=== PATIENT | female | born 1990 | race American Indian/Alaskan Native ===

== ENCOUNTER 2016-10-21 19:51 | Inpatient (IN) | payer MEDICAID ==
[2016-10-21 19:52] VITALS: BMI 24.5
--- NOTE | 2016-10-21 21:01 | C.PDOC ---
History Of Present Illness 26 y/o female, history of sick cell disease, presents to emergency department with c/o sharp, left sided chest pain that started at 12:30 today. Patient states pain is worse with palpation and when breathing. Otherwise, denies cough , fever, trouble breathing, or abdominal pain. Time Seen by Provider: 10/21/16 20:47 Chief Complaint (Nursing): Chest Pain History Per: Patient History/Exam Limitations: no limitations Onset/Duration Of Symptoms: Hrs Current Symptoms Are (Timing): Still Present Quality: "Pain" Associated Symptoms: denies: Dyspnea, Diaphoresis Past Medical History Reviewed: Historical Data, Nursing Documentation, Vital Signs Vital Signs: Last Vital Signs Temp 98.4 F 10/21/16 20:15 Pulse 86 10/21/16 20:15 Resp 20 10/21/16 20:15 BP 115/70 10/21/16 20:15 Pulse Ox 94 L 10/21/16 22:46 - Medical History PMH: Sickle Cell Disease Family History: States: Unknown Family Hx - Social History Hx Alcohol Use: Yes Hx Substance Use: No - Immunization History Hx Tetanus Toxoid Vaccination: No Hx Influenza Vaccination: No Hx Pneumococcal Vaccination: No Review Of Systems Except As Marked, All Systems Reviewed And Found Negative. Constitutional: Negative for: Fever, Chills Cardiovascular: Negative for: Palpitations Respiratory: Negative for: Cough, Shortness of Breath, Wheezing Gastrointestinal: Negative for: Nausea, Vomiting, Abdominal Pain Musculoskeletal: Positive for: Other (left sided chest wall pain ) Skin: Negative for: Rash Physical Exam - Physical Exam Appears: Non-toxic, No Acute Distress Skin: Normal Color, Warm, Dry Head: Atraumatic, Normacephalic Oral Mucosa: Moist Chest: Symmetrical, Tenderness (left anterior lower ribs tenderness) Cardiovascular: Rhythm Regular Respiratory: Normal Breath Sounds, No Rales, No Rhonchi, No Wheezing Gastrointestinal/Abdominal: Soft, No Tenderness, No Guarding, No Rebound Back: Normal Inspection Extremity: Normal ROM, Capillary Refill (< 2 sec. ) Neurological/Psych: Oriented x3, Normal Speech ED Course And Treatment - Laboratory Results Result Diagrams: 10/21/16 21:22 10/21/16 21:12 Lab Interpretation: Abnormal (WBC 15.6, Hgb 6.0, Hct 17.8, plt 856, Retic ct 8.8 ) ECG: Interpreted By Me ECG Rhythm: Sinus Rhythm ECG Interpretation: Normal O2 Sat by Pulse Oximetry: 94 (RA) Pulse Ox Interpretation: Normal - Radiology CXR: Interpreted by Me CXR Interpretation: Yes: No Acute Disease Progress Note: EKG, CXR, bloodwork ordered. Reevaluation Time: 22:45 Reassessment Condition: Improved (Patient remains comfortable.) - Physician Consult Information Time Consulting Physician Contacted: 22:47 Physician Contacted: Melissa Reece Outcome Of Conversation: Patient to be admitted for treatment of chest pain with sickle crisis. Disposition - Disposition Disposition: HOSPITALIZED Disposition Time: 22:46 Condition: STABLE - POA Present On Arrival: None - Clinical Impression Clinical Impression: Chest pain, Sickle cell anemia with crisis - Scribe Statement The provider has reviewed the documentation as recorded by the Scriblance Trejo All medical record entries made by the Nestoriblance were at my direction and personally dictated by me. I have reviewed the chart and agree that the record accurately reflects my personal performance of the history, physical exam, medical decision making, and the department course for this patient. I have also personally directed, reviewed, and agree with the discharge instructions and disposition.
[2016-10-21 21:27] LABS: HEMATOCRIT 17.8 % (34.0-47.0); MEAN CELL VOLUME 64.9 fL (81.0-99.0); MEAN CORPUSCULAR HGB CONC 33.9 g/dL (33.0-37.0); MEAN PLATELET VOLUME 7.4 fL (7.2-11.7); PLATELET COUNT 856 K/uL (130-400); RED CELL DISTRIBUTION WIDTH 28.6 % (11.5-14.5); RETIC% 8.7 % (0.5-1.5); WHITE BLOOD COUNT 15.6 K/uL (4.8-10.8)
[2016-10-21 21:34] LABS: CHLORIDE 102 mmol/L (98-107); POTASSIUM 3.4 mmol/L (3.6-5.2); SODIUM 136 mmol/L (132-148)
[2016-10-21 21:36] LABS: ALKALINE PHOSPHATASE 52 U/L (38-126); AST/SGOT 49 U/L (14-36); BILIRUBIN,TOTAL 1.4 mg/dL (0.2-1.3); CARBON DIOXIDE 25 mmol/L (22-30); GFR AFRICAN-AMERICAN > 60
[2016-10-21 21:37] LABS: ALB/GLOB RATIO 1.1 (1.0-2.1); ALT/SGPT 28 U/L (9-52); BLOOD UREA NITROGEN 7 mg/dL (7-17); CALCIUM 8.3 mg/dl (8.6-10.4); GLUCOSE,RANDOM 85 mg/dL (65-105); TOTAL PROTEIN 7.6 g/dL (6.3-8.3)
[2016-10-21 21:46] LABS: RBC URINE 7 /hpf (0-3); URINE BACTERIA OCC (<OCC); URINE BILIRUBIN NEGATIVE (NEGATIVE); URINE COLOR Yellow (YELLOW); URINE GLUCOSE (UA) NORMAL (Normal); URINE KETONE NEGATIVE (NEGATIVE); URINE PROTEIN NEGATIVE (NEGATIVE); URINE UROBILINOGEN NORMAL mg/dL (0.2-1.0); WBC URINE 14 /hpf (0-5)
[2016-10-21 21:48] LABS: URINE BLOOD 1+ (NEGATIVE)
[2016-10-21 21:49] LABS: URINE LEUKOCYTE ESTERASE 1+ Leu/uL (Negative)
[2016-10-21] MEDS ORDERED: Iodixanol 320 MG/ML 100 ML BOTTLE IV ONE (21:55)
[2016-10-21 22:29] LABS: LYMPH # 7.3 K/uL (1.0-4.3); NRBC % 0.5 % (0.0-2.0)
[2016-10-21 22:30] LABS: BASO # 0.2 K/uL (0.0-0.2); EOS # 1.1 K/uL (0.0-0.7); MONO # 1.4 K/uL (0.0-0.8)
[2016-10-21 22:31] LABS: BASOPHIL 1 % (0-2); EOSINOPHIL 7 % (0-4); NEUTROPHIL 35 % (50-75); TOTAL CELLS COUNTED 100
[2016-10-21 22:34] LABS: ACANTHOCYTES SLIGHT; LARGE PLATELETS PRESENT
--- NOTE | 2016-10-21 23:27 | CT ---
EXAM: CT Angiography Chest With Intravenous Contrast CLINICAL HISTORY: 26 years old, female; Pain; Chest pain; Left-sided chest pain TECHNIQUE: Axial computed tomographic angiography images of the chest with intravenous contrast using pulmonary embolism protocol. This CT exam was performed using one or more of the following dose reduction techniques: automated exposure control, adjustment of the mA and/or kV according to patient size, and/or use of iterative reconstruction technique. MIP reconstructed images were created and reviewed. Coronal and sagittal reformatted images were created and reviewed. CONTRAST: 100 mL of [id number] administered intravenously. EXAM DATE/TIME: Exam ordered 10/21/2016 9:31 PM COMPARISON: No relevant prior studies available. FINDINGS: Pulmonary arteries: No pulmonary embolism is seen to the level of the lobar pulmonary arterial branches bilaterally. [id number] and im65, se602 sagittal im 69 in the left lower lobe, there are subsegmental defects in the left lower lobe pulmonary arteries which are not favored to represent acute pulmonary emboli, although that is not absolutely excluded, chronic embolus possible, in addition noting a very small if any clot burden The heterogeneous or decreased density of some other pulmonary arterial branches may reflect inadequate enhancement, or motion, flow, or partial voluming artifact rather than small peripheral pulmonary emboli. Aorta: No acute findings. No thoracic aortic aneurysm. Lungs: Unremarkable. No mass. No consolidation. Pleural space: Unremarkable. No significant effusion. No pneumothorax. Heart: Heart is mildly prominent for age. Clinical correlation. No prior are available. No significant pericardial effusion. No evidence of RV dysfunction. Mediastinum: Air in the esophagus in keeping with reflux. Small hiatus hernia. There is prominent soft tissue in the anterior mediastinum, this may be normal for this young patient. There is air in the esophagus suggesting reflux. Bones/joints: No acute fracture. No dislocation. Soft tissues: Unremarkable. Lymph nodes: There are multiple bilateral axillary nodes. One of these in the left axilla and series 3 image 23 has a rounded morphology. No mediastinal adenopathy is identified. IMPRESSION: Peripheral subsegmental defects, in the left lower lobe. These may represent very small and peripheral acute vs chronic emboli. Mildly prominent cardiac silhouette noting young age of patient. Please correlate clinically. Prominent soft tissue in the anterior mediastinum which may represent normal thymus in this young patient. Fluid in a mildly patulous esophagus, clinical correlation. If there are prior, please compare on site. No previous are available.
--- NOTE | 2016-10-22 08:07 | RAD ---
HISTORY: SOB COMPARISON: No prior. TECHNIQUE: Chest PA and lateral FINDINGS: LUNGS: No active pulmonary disease. PLEURA: No significant pleural effusion identified. No pneumothorax apparent. CARDIOVASCULAR: Normal. OSSEOUS STRUCTURES: No significant abnormalities. VISUALIZED UPPER ABDOMEN: Normal. OTHER FINDINGS: None. IMPRESSION: No active disease.
--- NOTE | 2016-10-23 10:00 | PN ---
DATE: 10/23/2016 The patient is a 26-year-old female who was admitted through the Emergency Room with generalized weak ness, fatigue and pain. The patient has reported that she has been having a sickle cell disease for a long time, which was diagnosed in [place]. She moved to [facility] when she was 13 y ears old. She does not follow up with any particular regular medical doctor because until now, she d id not have health insurance. The patient was admitted with fatigue, generalized pain and weakness and was found to have hemoglobin of 6 grams and MCV of 64. Her WBC count was 15.6 and her platelet count was 856. The patient has b een treated aggressively with IV fluids and supportive care and also has been receiving B12 injection s and folic acid. The patient is generally well and clinically is improving. The patient denies any nausea, vomiting, abdominal pain or fever. The patient denies any chest pain, shortness of breath or palpitation. The patient denies any headache or back pain. REVIEW OF SYSTEMS: Unremarkable unless stated above. Her pain is getting better with the pain medic ations. PHYSICAL EXAMINATION: GENERAL: The patient is alert, awake, oriented. VITAL SIGNS: Afebrile, pulse is 78 per minute, respirations 16 per minute. HEENT: Mild icterus present. Otherwise, unremarkable. NECK: Supple. No adenopathy. No JVD. CHEST: Bilateral air . No rales or rhonchi. CARDIOLOGY: S1, S2 normal. No murmur. ABDOMEN: Soft, nontender. Bowel sounds present. No palpable hepatosplenomegaly. EXTREMITIES: No clubbing, no cyanosis, no pedal edema. NEUROLOGIC: Alert, awake, oriented, nonfocal. ASSESSMENT AND PLAN: The patient is a 26-year-old female who reports that she has sickle cell anemia and her hemoglobin around 7. The patient was admitted to Dr. Reece's service with pain, gene ralized weakness and fatigue, and was found to have hemoglobin of 6 grams with low MCV. The patient is being aggressively treated with IV fluids, pain control management, B12 and folic acid. I had a d etailed discussion with the patient and Dr. Reece about treatment and followup plans. The patient h as symptomatic anemia and may be helped with packed red blood transfusions. I also suggest that carin ent get iron, TIBC, ferritin, hemoglobin electrophoresis. I also recommended that the patient be kevin sely followed up as outpatient to have routine vaccinations and health maintenance be done as an outp atient. The patient is in agreement with Dr. Reece to have the patient's blood transfusion an d that will be followed up as outpatient. Eugene Lofton MD cc: [phone] TT: 10/23/2016 10:00:05 Confirmation # [id number] Dictation # [id number]
[2016-10-23 12:30] LABS: HEMATOCRIT 17.6 % (34.0-47.0); MEAN CELL VOLUME 65.4 fL (81.0-99.0); MEAN CORPUSCULAR HEMOGLOBIN 22.5 pg (27.0-31.0); MEAN CORPUSCULAR HGB CONC 34.4 g/dL (33.0-37.0); MEAN PLATELET VOLUME 7.6 fL (7.2-11.7); RED CELL DISTRIBUTION WIDTH 28.3 % (11.5-14.5); WHITE BLOOD COUNT 16.4 K/uL (4.8-10.8)
[2016-10-23 12:56] LABS: CHLORIDE 101 mmol/L (98-107)
[2016-10-23 12:57] LABS: POTASSIUM 3.6 mmol/L (3.6-5.2); SODIUM 136 mmol/L (132-148)
[2016-10-23 12:58] LABS: IRON 43 ug/dL (37-170)
[2016-10-23 12:59] LABS: ALB/GLOB RATIO 1.1 (1.0-2.1); AST/SGOT 70 U/L (14-36); BILIRUBIN,TOTAL 1.3 mg/dL (0.2-1.3); BLOOD UREA NITROGEN 6 mg/dL (7-17); CARBON DIOXIDE 25 mmol/L (22-30); GFR AFRICAN-AMERICAN > 60; TOTAL PROTEIN 7.7 g/dL (6.3-8.3)
[2016-10-23 13:00] LABS: ALKALINE PHOSPHATASE 56 U/L (38-126); ALT/SGPT 43 U/L (9-52); CALCIUM 8.4 mg/dl (8.6-10.4); GLUCOSE,RANDOM 103 mg/dL (65-105)
[2016-10-23] MEDS: Sodium Chloride 0.9% 1,000 ML IV SCH ×2 (14:00→18:35)
[2016-10-23 14:46] VITALS: RESP 20
--- NOTE | 2016-10-23 18:52 | CP.PCM.PN ---
Subjective - Date & Time of Evaluation Date of Evaluation: 10/23/16 Time of Evaluation: 18:48 - Subjective Subjective: Chest pain have improved and has blood transfusion. Objective - Vital Signs/Intake and Output Vital Signs (last 24 hours): Temp Pulse Resp BP Pulse Ox 98.3 F 80 20 108/64 99 10/23/16 18:00 10/23/16 18:00 10/23/16 18:00 10/23/16 18:00 10/23/16 15:15 Intake and Output: 10/23/16 10/23/16 06:59 18:59 Intake Total 775 Balance 775 - Medications Medications: Current Medications Aspirin (Ecotrin) 81 mg PO DAILY [facility] Last Admin: 10/23/16 10:19 Dose: 81 mg Cyanocobalamin (Vitamin B12 1000 Mcg/Ml Inj) 1,000 mcg IM DAILY [facility] Stop: 10/26/16 10:01 Last Admin: 10/23/16 10:20 Dose: 1,000 mcg Ferrous Sulfate (Feosol) 325 mg PO DAILY [facility] Last Admin: 10/23/16 10:20 Dose: 325 mg Folic Acid (Folic Acid) 1 mg PO DAILY [facility] Last Admin: 10/23/16 10:19 Dose: 1 mg Sodium Chloride (Sodium Chloride 0.9%) 1,000 mls @ 80 mls/hr IV .[id number] [facility] Last Admin: 10/23/16 18:35 Dose: 80 mls/hr Montelukast Sodium (Singulair) 10 mg PO HS [facility] Pneumococcal Polyvalent Vaccine (Pneumovax 23 Vaccine) 0.5 ml IM .ONCE ONE Stop: 10/25/16 14:01 Tramadol HCl (Ultram) 50 mg PO TID PRN - Labs Labs: 10/23/16 12:00 10/23/16 12:00 - Head Exam Head Exam: NORMOCEPHALIC - Neck Exam Neck Exam: Normal Inspection - Respiratory Exam Respiratory Exam: NORMAL BREATHING PATTERN - Cardiovascular Exam Cardiovascular Exam: REGULAR RHYTHM - Extremities Exam Extremities Exam: Normal Capillary Refill, Normal Inspection - Neurological Exam Neurological Exam: Oriented x3 Assessment and Plan (1) Chest pain Assessment & Plan: Chest pain secondary to sickle cell crisis which is getting better. Maintain adequate H&H. Analgesic on PRN basis. No cardiac work-up at this time. Status: Acute
[2016-10-24] MEDS: Sodium Chloride 0.9% 1,000 ML IV SCH ×3 (01:33→14:42)
[2016-10-24 03:38] LABS: HEMATOCRIT 18.1 % (35.0-45.0); RDW 28.1 % (11.0-15.0)
[2016-10-24 11:39] LABS: EOS # 0.6 K/uL (0.0-0.7)
[2016-10-24 11:48] LABS: BASO # 0.2 K/uL (0.0-0.2); BASO % 1.6 % (0.0-2.0); EOS % 5.6 % (0.0-4.0); LYMPH # 5.7 K/uL (1.0-4.3); LYMPH % 51.7 % (20.0-40.0); MEAN CORPUSCULAR HEMOGLOBIN 23.7 pg (27.0-31.0); MEAN CORPUSCULAR HGB CONC 34.8 g/dL (33.0-37.0); MONO # 0.5 K/uL (0.0-0.8); MONO % 4.9 % (0.0-10.0); NRBC % 0.4 % (0.0-2.0); RED CELL DISTRIBUTION WIDTH 29.7 % (11.5-14.5); WHITE BLOOD COUNT 11.1 K/uL (4.8-10.8)
[2016-10-24 12:33] LABS: MEAN CELL VOLUME 68.3 fL (81.0-99.0)
[2016-10-24 16:21] VITALS: BP 117/61; PULSE 80; TEMP 99.1; O2SAT 97
[2016-10-25] MEDS ORDERED: Pneumococcal 23-Valent Vaccine IM ONE (14:00)
--- NOTE | 2016-10-25 15:31 | CARD ---
APPROVED REPORT EKG Measurement Heart [id number] <Conclusion> Normal sinus rhythm Normal ECG
[2016-10-26 17:37] LABS: HEMOGLOBIN F 2.9 Percent (<2.0)
--- NOTE | 2017-01-06 12:15 | DS ---
CHIEF COMPLAINT: Pain in the left side of the chest. HISTORY OF PRESENT ILLNESS: The patient is a 26-year-old female with history of sickle cell disease, came to the Emergency Room of [facility] with complaining of sharp pain and especially left-sided that started the day of admission. The patient states pain in worst was palpation and when breathing. No nausea, vomiting, or diarrhea. No fever, no chills. No headache, no dizziness. Was still present in the ER. Denies dyspnea and diaphoresis. She got treatment. The patient improved, discharged home on 10/24/2016, follow up with primary care physician and accounts receivable administrator. PAST MEDICAL HISTORY: Sickle cell disease. FAMILY HISTORY: Father and mother noncontributory. HABITS: Smoking denied. Alcohol yes. Substance abuse, as per patient. ALLERGIES: The patient is not allergic to any medications. HOME MEDICATIONS: Reviewed by me. REVIEW OF SYSTEMS: The patient seen and examined on the bedside on 10/23/2016. Pain is better. No nausea, vomiting, or diarrhea. No hematuria or hematochezia. No swelling of the leg. No chest pain or palpitation. A CAT scan of the chest is done and reviewed by me. The patient has blood transfusion, tolerated the procedure very well. PHYSICAL EXAMINATION: VITAL SIGNS: Temperature 98.3, pulse 80, respiratory rate 20, blood pressure 108/50, pulse oximetry 99. HEAD: Normocephalic, atraumatic. EYES: PERRLA. Extraocular muscles intact. Conjunctivae clear. Nose patent. Mucous membranes moist. NECK: Supple. No carotid bruit. No JVD or thyromegaly. CHEST: Bilaterally symmetrical. HEART: S1, S2 positive. LUNGS: Clear to auscultation. ABDOMEN: Soft. Bowel sounds present. No organomegaly. EXTREMITIES: No edema, no cyanosis. NEUROLOGIC: The patient is awake, alert, moving all 4 extremities. No focal deficits. MEDICATIONS: Ecotrin, vitamin B12, iron, folic acid, she got IV fluid, Singulair, got Pneumovax, tramadol. LABORATORY DATA: White blood cells is noted, hemoglobin on admission was 6.1, hematocrit 17.platelets , Sodium and potassium noted , BUN 6, creatinine 0.4. On admission, hemoglobin was 6, after given blood transfusion it went up to 8. ASSESSMENT AND PLAN: The patient is a 26-year-old lady with history of sickle cell disease, came in [facility] with chest pain secondary to sickle cell crises which she got better. Sickle cell anemia, hemoglobin was very low, after packed RBC, hemoglobin increased. Got analgesia, IV fluid on p.r.n. basis. Seen by last marker, Dr. Max Erickson and the accounts receivable administrator, Dr. Eugene Lofton. The patient was very fatigued and tired, improved. folic acid and iron. Discussion done with Dr. Lofton length of time. The patient had symptomatic anemia, helped with packed RBC transfusion. Labs done for anemia workup. Discharged home to be followed up with primary care physician and accounts receivable administrator also. Education done. Prescription of medications given. Seen by last marker and accounts receivable administrator. We will follow up. CHRISTOPHER
== END 2016-10-24 17:10 | disposition home or self-care (01) | DRG 395 ==
LOC: C.ER 19:51 → C.9E 22:52 → C.6T 23:17
PROVIDERS: ADMIT Internal Medicine; ATTEND Internal Medicine
PROC: 30233N1 Transfusion of Nonautologous Red Blood Cells into Peripheral Vein, Percutaneous Approach (ICD-10-PCS; principal; 2016-10-23)
DX: D57.00 Hb-SS disease with crisis, unspecified (principal); R07.89 Other chest pain

== ENCOUNTER 2016-11-01 21:36 | Inpatient (IN) | payer MEDICAID ==
[2016-11-01 21:36] VITALS: BMI 24.5
[2016-11-01] MEDS ORDERED: Sodium Chloride 0.9% 2,000 ML IV ONE (22:59)
--- NOTE | 2016-11-01 22:59 | C.PDOC ---
History Of Present Illness A 26 y/o female presents to the ER c/o recurring back and bilateral leg pain for a while now. Pt notes that she was seen 2 weeks prior at [facility] [place] [facility] for sickle cell crisis for a Hb of 6. Pt notes taking Motrin and Aleve with no relief. Pt is speaking full sentences but denies fever, chills, nausea, vomiting , dysuria, hematuria, trauma to the area, weakness or numbness, or any other complaints. Time Seen by Provider: 11/01/16 22:59 Chief Complaint (Nursing): Back Pain History Per: Patient History/Exam Limitations: no limitations Onset/Duration Of Symptoms: Days, Other (Recurring) Current Symptoms Are (Timing): Still Present Quality Of Discomfort: Dull, Aching Severity: Moderate Pain Scale Rating Of: 4 Previous Symptoms: Back Pain Associated Symptoms: None Exacerbating Factor(s): Nothing Recent travel outside of the [place]: No Additional History Per: Patient Past Medical History Reviewed: Historical Data, Nursing Documentation, Vital Signs Vital Signs: Last Vital Signs Temp 98.1 F 11/01/16 21:45 Pulse 105 H 11/01/16 21:45 Resp 18 11/01/16 21:45 BP 110/71 11/01/16 21:45 Pulse Ox 96 11/01/16 23:25 - Medical History PMH: Sickle Cell Disease Denies: Chronic Kidney Disease - [facility] Procedures TRANSFUSE NONAUT RED BLOOD CELLS IN PERIPH VEIN, PERC (10/21/16) Family History: States: No Known Family Hx - Social History Hx Alcohol Use: No Hx Substance Use: No - Immunization History Hx Tetanus Toxoid Vaccination: No Hx Influenza Vaccination: No Hx Pneumococcal Vaccination: No Review Of Systems Constitutional: Negative for: Fever, Chills, Other (Trauma) Eyes: Negative for: Redness Cardiovascular: Negative for: Chest Pain Respiratory: Negative for: Shortness of Breath Gastrointestinal: Negative for: Nausea, Vomiting Genitourinary: Negative for: Dysuria, Hematuria Musculoskeletal: Positive for: Back Pain, Leg Pain Skin: Negative for: Rash, Lesions, Jaundice, Bruising Neurological: Positive for: Other (Speaking in full sentences). Negative for: Weakness, Numbness Psych: Negative for: Anxiety Physical Exam - Physical Exam Appears: Non-toxic (moderate distress) Skin: Warm, Dry Head: Normacephalic Eye(s): bilateral: Normal Inspection, PERRL, EOMI Oral Mucosa: Moist Neck: Trachea Midline, Supple Chest: Symmetrical Cardiovascular: Rhythm Regular Respiratory: No Rales, No Rhonchi, No Wheezing Gastrointestinal/Abdominal: Soft, No Tenderness, No Distention, No Rebound Back: Other (Back pain) Extremity: Normal ROM, Capillary Refill (<2secs), No Deformity, Other (Leg pain) Extremity: Bilateral: Normal Color And Temperature, Normal ROM Neurological/Psych: Oriented x3, Normal Speech (Speaking full sentences), Normal Cognition, Other (No focal deficit) Gait: Steady ED Course And Treatment - Laboratory Results Result Diagrams: 11/01/16 23:10 11/01/16 23:10 O2 Sat by Pulse Oximetry: 96 (RA) Pulse Ox Interpretation: Normal Disposition Discussed With Dr.: Leighton Phipps Comment: accepted the pt on his service and took over the care at 12:51 AM Doctor Will See Patient In The: Hospital Counseled Patient/Family Regarding: Studies Performed, Diagnosis - Disposition Disposition: HOSPITALIZED Disposition Time: 22:59 Condition: FAIR - POA Present On Arrival: None - Clinical Impression Clinical Impression: Low back pain, Sickle cell anemia with crisis - Scribe Statement The provider has reviewed the documentation as recorded by the Scribe Renita merrill All medical record entries made by the Scribe were at my direction and personally dictated by me. I have reviewed the chart and agree that the record accurately reflects my personal performance of the history, physical exam, medical decision making, and the department course for this patient. I have also personally directed, reviewed, and agree with the discharge instructions and disposition. Decision To Admit - Pt Status Changed To: Hospital Disposition Of: Inpatient - Admit Certification Admit to Inpatient:: After my assessment, the patient will require hospitalization for at least two midnights. This is because of the severity of symptoms shown, intensity of services needed, and/or the medical risk in this patient being treated as an outpatient. - InPatient: Physician Admission Certification:: After my assessment, the patient will require hospitalization for at least two midnights. This is because of the severity of symptoms shown, intensity of services needed, and/or the medical risk in this patient being treated as an outpatient. - . Bed Request Type: Regular Admitting Physician: Leighton Phipps Patient Diagnosis: Low back pain, Sickle cell anemia with crisis
[2016-11-01] MEDS ORDERED: Sodium Chloride 0.9% 1,000 ML ONE (23:12)
[2016-11-01 23:20] LABS: CHLORIDE 99 mmol/L (98-107)
[2016-11-01 23:21] LABS: EOS # 0.5 K/uL (0.0-0.7); POTASSIUM 4.6 mmol/L (3.6-5.2); RETIC% 10.4 % (0.5-1.5); SODIUM 134 mmol/L (132-148)
[2016-11-01 23:23] LABS: ALB/GLOB RATIO 1.1 (1.0-2.1); AST/SGOT 59 U/L (14-36); BILIRUBIN,TOTAL 2.5 mg/dL (0.2-1.3); CARBON DIOXIDE 26 mmol/L (22-30); GFR AFRICAN-AMERICAN > 60; TOTAL PROTEIN 8.3 g/dL (6.3-8.3)
[2016-11-01 23:24] LABS: ALKALINE PHOSPHATASE 63 U/L (38-126); ALT/SGPT 33 U/L (9-52); BLOOD UREA NITROGEN 10 mg/dL (7-17); GLUCOSE,RANDOM 79 mg/dL (65-105)
[2016-11-01 23:25] LABS: BASO # 0.2 K/uL (0.0-0.2); BASO % 1.2 % (0.0-2.0); EOS % 2.5 % (0.0-4.0); HEMATOCRIT 22.1 % (34.0-47.0); LYMPH % 46.7 % (20.0-40.0); MEAN CORPUSCULAR HEMOGLOBIN 25.2 pg (27.0-31.0); MEAN CORPUSCULAR HGB CONC 34.8 g/dL (33.0-37.0); MEAN PLATELET VOLUME 8.1 fL (7.2-11.7); MONO % 4.5 % (0.0-10.0); NRBC % 0.8 % (0.0-2.0); RED CELL DISTRIBUTION WIDTH 32.7 % (11.5-14.5)
[2016-11-01 23:26] LABS: MEAN CELL VOLUME 72.6 fL (81.0-99.0); PLATELET COUNT 755 K/uL (130-400); WHITE BLOOD COUNT 21.3 K/uL (4.8-10.8)
[2016-11-01 23:42] LABS: URINE BILIRUBIN NEGATIVE (NEGATIVE); URINE BLOOD NEGATIVE (NEGATIVE); URINE COLOR Straw (YELLOW); URINE GLUCOSE (UA) NORMAL (Normal); URINE KETONE NEGATIVE (NEGATIVE); URINE LEUKOCYTE ESTERASE NEG Leu/uL (Negative); URINE PROTEIN NEGATIVE (NEGATIVE); URINE UROBILINOGEN NORMAL mg/dL (0.2-1.0); WBC URINE < 1 /hpf (0-5)
[2016-11-01 23:44] LABS: BASOPHIL 4 % (0-2); EOSINOPHIL 9 % (0-4); NEUTROPHIL 33 % (50-75); NUCLEATED RED BLOOD CELL 1 % (0-0); REACTIVE LYMPHOCYTES 10 % (0-0); TOTAL CELLS COUNTED 100
[2016-11-01 23:48] LABS: SPHEROCYTES MODERATE
[2016-11-02] MEDS ORDERED: Sodium Chloride 0.9% 1,000 ML ONE (00:22)
[2016-11-02] MEDS ORDERED: Sodium Chloride 0.9% 1,000 ML IV ONE (00:55)
[2016-11-02] MEDS: Dextrose 5%/0.45% NS 1,000 ML IV SCH ×2 (02:30→17:07)
[2016-11-02] MEDS: HYDROmorphone 1 mg/ml ISec IVP PRN ×3 (03:19→23:41)
[2016-11-02] MEDS: DiphenhydrAMINE 50 mg/ml Inj IVP PRN ×3 (06:48→23:46)
[2016-11-02] MEDS ORDERED: HYDROmorphone 1 mg/ml ISec IVP ONE (09:15)
[2016-11-02] MEDS ORDERED: DiphenhydrAMINE 50 mg/ml Inj IVP ONE (09:15)
[2016-11-02] MEDS: Pantoprazole 40 mg EC Tab PO SCH (09:25)
[2016-11-02] MEDS: Enoxaparin 40 mg Syringe SC SCH (09:25)
--- NOTE | 2016-11-02 10:46 | RAD ---
HISTORY: chest pain COMPARISON: 10/21/2016. TECHNIQUE: Chest PA and lateral FINDINGS: LUNGS: No active pulmonary disease. PLEURA: No significant pleural effusion identified. No pneumothorax apparent. CARDIOVASCULAR: Normal. OSSEOUS STRUCTURES: No significant abnormalities. VISUALIZED UPPER ABDOMEN: Normal. OTHER FINDINGS: None. IMPRESSION: No active disease. No significant interval change compared to the prior examination(s).
--- NOTE | 2016-11-02 18:25 | CP.PCM.HP ---
Past Patient History - Infectious Disease Hx of Infectious Diseases: None - Past Medical History & Family History Past Medical History?: Yes - Past Social History Smoking Status: Never Smoked - CARDIAC Hx Cardiac Disorders: No - PULMONARY Hx Respiratory Disorders: No - NEUROLOGICAL Hx Neurological Disorder: No - HEENT Hx HEENT Problems: No - RENAL Hx Chronic Kidney Disease: No - ENDOCRINE/METABOLIC Hx Endocrine Disorders: No - HEMATOLOGICAL/ONCOLOGICAL Hx Blood Disorders: Yes Hx Anemia: Yes Hx Sickle Cell Disease: Yes - INTEGUMENTARY Hx Dermatological Problems: No - MUSCULOSKELETAL/RHEUMATOLOGICAL Hx Musculoskeletal Disorders: No Hx Falls: No - GASTROINTESTINAL Hx Gastrointestinal Disorders: No - GENITOURINARY/GYNECOLOGICAL Hx Genitourinary Disorders: No - PSYCHIATRIC Hx Psychophysiologic Disorder: No Hx Substance Use: No - SURGICAL HISTORY Hx Surgeries: No - ANESTHESIA Hx Anesthesia: No Hx Anesthesia Reactions: No Hx Malignant Hyperthermia: No Has any member of the family had a problem w/ anesthesia?: No Meds Allergies/Adverse Reactions: Allergies Allergy/AdvReac Type Severity Reaction Status Date / Time No Known Allergies Allergy Verified 11/01/16 21:50 Physical Exam - Constitutional Appears: Well - Head Exam Head Exam: ATRAUMATIC, NORMAL INSPECTION, NORMOCEPHALIC - Eye Exam Eye Exam: EOMI, Normal appearance, PERRL Pupil Exam: NORMAL ACCOMODATION, PERRL - ENT Exam ENT Exam: Mucous Membranes Moist, Normal Exam - Neck Exam Neck exam: Positive for: Normal Inspection - Respiratory Exam Respiratory Exam: Decreased Breath Sounds - Cardiovascular Exam Cardiovascular Exam: REGULAR RHYTHM, +S1, +S2 - GI/Abdominal Exam GI & Abdominal Exam: Diminished Bowel Sounds, Soft - Rectal Exam Rectal Exam: Deferred Results - Vital Signs Recent Vital Signs: Last Vital Signs Temp 99.4 F 11/02/16 16:06 Pulse 102 H 11/02/16 16:06 Resp 18 11/02/16 16:06 BP 114/71 11/02/16 16:06 Pulse Ox 99 11/02/16 16:06 - Labs Result Diagrams: 11/01/16 23:10 11/01/16 23:10
[2016-11-03] MEDS: Dextrose 5%/0.45% NS 1,000 ML IV SCH ×2 (05:37→20:36)
[2016-11-03] MEDS: HYDROmorphone 1 mg/ml ISec IVP PRN ×3 (06:44→20:32)
[2016-11-03] MEDS: DiphenhydrAMINE 50 mg/ml Inj IVP PRN ×3 (06:45→20:32)
[2016-11-03] MEDS: Pantoprazole 40 mg EC Tab PO SCH (09:08)
[2016-11-03] MEDS: Enoxaparin 40 mg Syringe SC SCH (09:08)
[2016-11-03 12:17] LABS: BASO # 0.2 K/uL (0.0-0.2); EOS # 0.1 K/uL (0.0-0.7); EOS % 0.3 % (0.0-4.0); HEMATOCRIT 18.6 % (34.0-47.0); LYMPH # 8.4 K/uL (1.0-4.3); MEAN CELL VOLUME 71.2 fL (81.0-99.0); MEAN CORPUSCULAR HEMOGLOBIN 24.7 pg (27.0-31.0); MEAN CORPUSCULAR HGB CONC 34.8 g/dL (33.0-37.0); MEAN PLATELET VOLUME 8.3 fL (7.2-11.7); MONO # 1.9 K/uL (0.0-0.8); NRBC % 0.9 % (0.0-2.0); RED CELL DISTRIBUTION WIDTH 31.1 % (11.5-14.5); WHITE BLOOD COUNT 21.4 K/uL (4.8-10.8)
[2016-11-03 12:43] LABS: CHLORIDE 97 mmol/L (98-107); POTASSIUM 3.2 mmol/L (3.6-5.2); SODIUM 133 mmol/L (132-148)
[2016-11-03 12:45] LABS: GFR AFRICAN-AMERICAN > 60
[2016-11-03 12:46] LABS: ALB/GLOB RATIO 1.1 (1.0-2.1); ALKALINE PHOSPHATASE 52 U/L (38-126); ALT/SGPT 52 U/L (9-52); AST/SGOT 111 U/L (14-36); BILIRUBIN,TOTAL 2.7 mg/dL (0.2-1.3); BLOOD UREA NITROGEN 4 mg/dL (7-17); CARBON DIOXIDE 27 mmol/L (22-30); GLUCOSE,RANDOM 106 mg/dL (65-105); TOTAL PROTEIN 6.8 g/dL (6.3-8.3)
[2016-11-03 12:47] LABS: CALCIUM 7.7 mg/dl (8.6-10.4)
--- NOTE | 2016-11-03 15:34 | CP.PCM.PN ---
Subjective - Date & Time of Evaluation Date of Evaluation: 11/03/16 Time of Evaluation: 09:20 - Subjective Subjective: clinically same Objective - Vital Signs/Intake and Output Vital Signs (last 24 hours): Temp Pulse Resp BP Pulse Ox 99.5 F 81 16 114/67 100 11/03/16 07:10 11/03/16 07:10 11/03/16 07:10 11/03/16 07:10 11/03/16 07:10 Intake and Output: 11/03/16 11/03/16 06:59 18:59 Intake Total 1000 625 Balance 1000 625 - Medications Medications: Current Medications Diphenhydramine HCl (Benadryl) 25 mg IVP Q6 PRN PRN Reason: give with dialudid Last Admin: 11/03/16 13:44 Dose: 25 mg Enoxaparin Sodium (Lovenox) 40 mg SC DAILY [facility] Last Admin: 11/03/16 09:08 Dose: 40 mg Folic Acid (Folic Acid) 1 mg PO DAILY [facility] Last Admin: 11/03/16 09:08 Dose: 1 mg Hydromorphone HCl (Dilaudid) 1 mg IVP Q6H PRN PRN Reason: pain Last Admin: 11/03/16 13:44 Dose: 1 mg Dextrose/Sodium Chloride (Dextrose 5%/0.45% Ns 1000 Ml) 1,000 mls @ 75 mls/hr IV .[id number] [facility] Last Admin: 11/03/16 05:37 Dose: 75 mls/hr Pantoprazole Sodium (Protonix Ec Tab) 40 mg PO DAILY [facility] Last Admin: 11/03/16 09:08 Dose: 40 mg Pneumococcal Polyvalent Vaccine (Pneumovax 23 Vaccine) 0.5 ml IM .ONCE ONE Stop: 11/04/16 10:01 Potassium Chloride (K-Dur 20 Meq Er Tab) 40 meq PO Q4 [facility] Stop: 11/03/16 20:01 - Labs Labs: 11/03/16 12:05 11/03/16 12:05 - Constitutional Appears: Well - Head Exam Head Exam: ATRAUMATIC, NORMAL INSPECTION, NORMOCEPHALIC - Eye Exam Eye Exam: EOMI, Normal appearance, PERRL Pupil Exam: NORMAL ACCOMODATION, PERRL - ENT Exam ENT Exam: Mucous Membranes Moist, Normal Exam - Neck Exam Neck Exam: Full ROM, Normal Inspection. absent: Lymphadenopathy - Respiratory Exam Respiratory Exam: Decreased Breath Sounds - Cardiovascular Exam Cardiovascular Exam: REGULAR RHYTHM, +S1, +S2 - GI/Abdominal Exam GI & Abdominal Exam: Soft, Diminished Bowel Sounds - Rectal Exam Rectal Exam: Deferred
[2016-11-03] MEDS: Potassium Chloride 20 mEq ER Tab PO SCH ×2 (16:00→20:31)
[2016-11-03] MEDS ORDERED: Potassium Chloride 10 mEq ER Tab PO STA (21:04)
[2016-11-04] MEDS: DiphenhydrAMINE 50 mg/ml Inj IVP PRN ×4 (02:35→22:33)
[2016-11-04] MEDS: HYDROmorphone 1 mg/ml ISec IVP PRN ×4 (02:35→22:33)
[2016-11-04] MEDS: Enoxaparin 40 mg Syringe SC SCH (09:53)
[2016-11-04] MEDS: Dextrose 5%/0.45% NS 1,000 ML IV SCH ×2 (09:53→22:35)
[2016-11-04] MEDS ORDERED: Pneumococcal 23-Valent Vaccine IM ONE (10:00)
[2016-11-04] MEDS: Ferric Sodium Gluconat Complex 62.5 mg/5 ml Vial IVPB SCH (10:59)
[2016-11-04] MEDS: Pantoprazole 40 mg EC Tab PO SCH (10:59)
--- NOTE | 2016-11-04 11:30 | CP.PCM.PN ---
Subjective - Date & Time of Evaluation Date of Evaluation: 11/04/16 Time of Evaluation: 08:40 - Subjective Subjective: clinically same Objective - Vital Signs/Intake and Output Vital Signs (last 24 hours): Temp Pulse Resp BP Pulse Ox 98.2 F 98 H 20 105/65 98 11/04/16 08:00 11/04/16 08:00 11/04/16 08:00 11/04/16 08:00 11/04/16 08:00 Intake and Output: 11/04/16 11/04/16 06:59 18:59 Intake Total 700 Balance 700 - Medications Medications: Current Medications Diphenhydramine HCl (Benadryl) 25 mg IVP Q6 PRN PRN Reason: give with dialudid Last Admin: 11/04/16 09:51 Dose: 25 mg Enoxaparin Sodium (Lovenox) 40 mg SC DAILY [facility] Last Admin: 11/04/16 09:53 Dose: 40 mg Ferric Sodium Gluconate Complex (Ferrlecit) 125 mg IVPB DAILY [facility] Stop: 11/09/16 10:01 Last Admin: 11/04/16 10:59 Dose: 125 mg Folic Acid (Folic Acid) 1 mg PO DAILY [facility] Last Admin: 11/04/16 09:53 Dose: 1 mg Hydromorphone HCl (Dilaudid) 1 mg IVP Q6H PRN PRN Reason: pain Last Admin: 11/04/16 09:50 Dose: 1 mg Dextrose/Sodium Chloride (Dextrose 5%/0.45% Ns 1000 Ml) 1,000 mls @ 75 mls/hr IV .[id number] [facility] Last Admin: 11/04/16 09:53 Dose: 75 mls/hr Pantoprazole Sodium (Protonix Ec Tab) 40 mg PO DAILY [facility] Last Admin: 11/04/16 10:59 Dose: 40 mg - Labs Labs: 11/03/16 12:05 11/03/16 12:05 - Constitutional Appears: Well - Head Exam Head Exam: ATRAUMATIC, NORMAL INSPECTION, NORMOCEPHALIC - Eye Exam Eye Exam: EOMI, Normal appearance, PERRL Pupil Exam: NORMAL ACCOMODATION, PERRL - ENT Exam ENT Exam: Mucous Membranes Moist, Normal Exam - Neck Exam Neck Exam: Full ROM, Normal Inspection. absent: Lymphadenopathy - Respiratory Exam Respiratory Exam: Decreased Breath Sounds - Cardiovascular Exam Cardiovascular Exam: REGULAR RHYTHM, +S1, +S2 - GI/Abdominal Exam GI & Abdominal Exam: Soft, Diminished Bowel Sounds - Rectal Exam Rectal Exam: Deferred
[2016-11-04 14:30] LABS: BASO # 0.3 K/uL (0.0-0.2); BASO % 1.2 % (0.0-2.0); EOS # 0.2 K/uL (0.0-0.7); EOS % 0.7 % (0.0-4.0); LYMPH # 8.8 K/uL (1.0-4.3); LYMPH % 35.7 % (20.0-40.0); MEAN CELL VOLUME 71.2 fL (81.0-99.0); MEAN CORPUSCULAR HEMOGLOBIN 24.1 pg (27.0-31.0); MEAN CORPUSCULAR HGB CONC 33.9 g/dL (33.0-37.0); MEAN PLATELET VOLUME 8.6 fL (7.2-11.7); MONO # 1.7 K/uL (0.0-0.8); MONO % 6.8 % (0.0-10.0); NRBC % 0.4 % (0.0-2.0); RED CELL DISTRIBUTION WIDTH 29.6 % (11.5-14.5); WHITE BLOOD COUNT 24.5 K/uL (4.8-10.8)
[2016-11-04 14:39] LABS: CHLORIDE 99 mmol/L (98-107); POTASSIUM 4.2 mmol/L (3.6-5.2); SODIUM 135 mmol/L (132-148)
[2016-11-04 14:41] LABS: CARBON DIOXIDE 26 mmol/L (22-30); GFR AFRICAN-AMERICAN > 60
[2016-11-04 14:42] LABS: ALKALINE PHOSPHATASE 72 U/L (38-126); ALT/SGPT 94 U/L (9-52); AST/SGOT 160 U/L (14-36); BLOOD UREA NITROGEN 4 mg/dL (7-17); CALCIUM 8.5 mg/dl (8.6-10.4); GLUCOSE,RANDOM 102 mg/dL (65-105); TOTAL PROTEIN 7.4 g/dL (6.3-8.3)
--- NOTE | 2016-11-04 16:41 | CP.PCM.CON ---
History of Present Illness - History of Present Illness History of Present Illness: 26 y/o female presents to the ER c/o recurring back and bilateral leg pain for a while now. Pt notes that she was seen 2 weeks prior at [facility] ER for sickle cell crisis for a Hb of 6. Pt notes taking Motrin and Aleve with no relief. Pt is speaking full sentences but denies fever, chills, nausea, vomiting, dysuria, hematuria, trauma to the area, weakness or numbness, or any other complaints. DEVELOPED FEVER AND SOB CONCERN FOR PNEUMONIA AND ACUTE CHEST Review of Systems - Constitutional Constitutional: Anorexia, Chills, Fever, Malaise - EENT Eyes: absent: As Per HPI, Blind Spots, Blurred Vision, Change in Vision, Decreased Night Vision, Diplopia, Discharge, Dry Eye, Exophthalmos, Floaters, Irritation, Itchy Eyes, Loss of Peripheral Vision, Pain, Photophobia, Requires Corrective Lenses, Sees Flashes, Spots in Vision, Tunnel Vision, Other Visual Disturbances, Loss of Vision, Other Ears: absent: As Per HPI, Decreased Hearing, Ear Discharge, Ear Pain, Tinnitus, Abnormal Hearing, Disequilibrium, Dizziness, Other Nose/Mouth/Throat: absent: As Per HPI, Epistaxis, Nasal Congestion, Nasal Discharge, Nasal Obstruction, Nasal Trauma, Nose Pain, Post Nasal Drip, Sinus Pain, Sinus Pressure, Bleeding Gums, Change in Voice, Dental Pain, Dry Mouth, Dysphagia, Halitosis, Hoarsness, Lip Swelling, Mouth Lesions, Mouth Pain, Odynophagia, Sore Throat, Throat Swelling, Tongue Swelling, Facial Pain, Neck Pain, Neck Mass, Other - Breasts Breasts: absent: As Per HPI, Change in Shape, Mass, Pain, Nipple Discharge, Nipple Inversion, Skin Changes, Swelling, Other - Cardiovascular Cardiovascular: absent: As Per HPI, Acrocyanosis, Chest Pain, Chest Pain at Rest , Chest Pain with Activity, Claudication, Diaphoresis, Dyspnea, Dyspnea on Exertion, Edema, Irregular Heart Rhythm, Pain Radiating to Arm/Neck/Jaw, Leg Edema, Leg Ulcers, Lightheadedness, Orthopnea, Palpitations, Paroxysmal Nocturnal Dyspnea, Pedal Edema, Radiating Pain, Rapid Heart Rate, Slow Heart Rate, Syncope, Other - Respiratory Respiratory: As Per HPI, Cough, Dyspnea. absent: Hemoptysis - Gastrointestinal Gastrointestinal: absent: As Per HPI, Abdominal Pain, Belching, Bloating, Change in Bowel Habits, Change in Stool Character, Coffee Ground Emesis, Constipation, Cramping, Diarrhea, Dyspepsia, Dysphagia, Early Satiety, Excessive Flatus, Fecal Incontinence, Heartburn, Hematemesis, Hematochezia, Loose Stools, Melena, Nausea, Odynophagia, Temesmus, Vomiting, Other - Genitourinary Genitourinary: absent: As Per HPI, Change in Urinary Stream, Difficulty Urinating, Dysuria, Flank Pain, Hematuria, Pyuria, Nocturia, Urinary Incontinence, Urinary Frequency, Urinary Hesitance, Urinary Urgency, Voiding Freq/Small Amts, Freq UTI, Hx Renal/Bladder Calculi, Hx /Renal Surgery, Bladder Distension, Other - Reproductive: Female Reproductive:Female: absent: As Per HPI, Amenorrhea, Amenorrhea/ Control, Currently Menstual, Cycle <21 Days, Cycle >35 Days, Cycle Variable, Menses 1-7 Days, Menses >/= 8 Days, Menses Variable, Cycle > 4 Weeks Between, No Menses for 6 Months, Heavy Menses, Light Menses, Normal Menses, Spotting Between Cycles , S/P Hysterectomy, Menopausal, Post Menopausal, Premenarche, Abnormal Vaginal Bleeding, Dysmenorrhea, Dyspareunia, Genital Lesions, Genital Pruritis, Pelvic Pain, Prolapse Symptoms, Sexual Dysfunction, Vaginal Discharge, Vaginal Dryness , Vaginal Odor, Vaginal Pruritis, Other - Menstruation Menstruation: absent: As Per HPI, Amenorrhea, Amenorrhea/ Control, Currently Menstual, Cycle <21 Days, Cycle >35 Days, Cycle Variable, Menses 1-7 Days, Menses >/= 8 Days, Menses Variable, Cycle > 4 Weeks Between, No Menses for 6 Months, Heavy Menses, Light Menses, Normal Menses, Spotting Between Cycles , S/P Hysterectomy, Menopausal, Post Menopausal, Premenarche, Abnormal Vaginal Bleeding, Dysmenorrhea, Other - Musculoskeletal Musculoskeletal: As Per HPI, Muscle Cramps - Integumentary Integumentary: absent: As Per HPI, Acne, Alopecia, Bleeding Lesions, Change in Hair, Change in Nails, Change in Pigmentation, Changing Lesions, Dry Skin, Erythema, Furuncle, Hirsutism, Lesions, New Lesions, Non-Healing Lesions, Photosensitivity, Pruritus, Rash, Skin Pain, Skin Ulcer, Sores, Striae, Swelling , Unusual Bruising, Wounds, Jaundice, Other - Neurological Neurological: absent: As Per HPI, Abnormal Gait, Abnormal Hearing, Abnormal Movements, Abnormal Speech, Behavioral Changes, Burning Sensations, Confusion, Convulsions, Disequilibrium, Dizziness, Numbness, Focal Weakness, Frequent Falls , Headaches, Lack of Coordination, Loss of Vision, Memory Loss, Paresthesias, Radicular Pain, Restless Legs, Sensory Deficit, Syncope, Tingling, Tremor, Vertigo, Weakness, Other Visual Disturbances, Other - Psychiatric Psychiatric: absent: As Per HPI, Abnormal Sleep Pattern, Anhedonia, Anxiety, Auditory Hallucinations, Behavioral Changes, Change in Appetite, Change in Libido, Confusion, Depression, Difficulty Concentrating, Hallucinations, Homicidal Ideation, Hopelessness, Irritability, Memory Loss, Mood Swings, Panic Attacks, Paranoia, Suicidal Ideation, Visual Hallucinations, Tactile Hallucinations, Other - Endocrine Endocrine: absent: As Per HPI, Change in Body Appearance, Change in Libido, Cold Intolorance, Deepening of Voice, Excessive Sweating, Fatigue, Flushing, Heat Intolorance, Increase in Ring/Shoe/Hat Size, Palpitations, Polydipsia, Polyphagia, Polyuria, Other - Hematologic/Lymphatic Hematologic: absent: As Per HPI, Easy Bleeding, Easy Bruising, Lymphadenopathy, Other Past Patient History - Infectious Disease Hx of Infectious Diseases: None - Past Medical History & Family History Past Medical History?: Yes - Past Social History Smoking Status: Never Smoked - CARDIAC Hx Cardiac Disorders: No - PULMONARY Hx Respiratory Disorders: No - NEUROLOGICAL Hx Neurological Disorder: No - HEENT Hx HEENT Problems: No - RENAL Hx Chronic Kidney Disease: No - ENDOCRINE/METABOLIC Hx Endocrine Disorders: No - HEMATOLOGICAL/ONCOLOGICAL Hx Blood Disorders: Yes Hx Anemia: Yes Hx Sickle Cell Disease: Yes - INTEGUMENTARY Hx Dermatological Problems: No - MUSCULOSKELETAL/RHEUMATOLOGICAL Hx Musculoskeletal Disorders: No Hx Falls: No - GASTROINTESTINAL Hx Gastrointestinal Disorders: No - GENITOURINARY/GYNECOLOGICAL Hx Genitourinary Disorders: No - PSYCHIATRIC Hx Psychophysiologic Disorder: No Hx Substance Use: No - SURGICAL HISTORY Hx Surgeries: No - ANESTHESIA Hx Anesthesia: No Hx Anesthesia Reactions: No Hx Malignant Hyperthermia: No Has any member of the family had a problem w/ anesthesia?: No Meds Allergies/Adverse Reactions: Allergies Allergy/AdvReac Type Severity Reaction Status Date / Time No Known Allergies Allergy Verified 11/01/16 21:50 - Medications Medications: Current Medications Diphenhydramine HCl (Benadryl) 25 mg IVP Q6 PRN PRN Reason: give with dialudid Last Admin: 11/04/16 09:51 Dose: 25 mg Enoxaparin Sodium (Lovenox) 40 mg SC DAILY [facility] Last Admin: 11/04/16 09:53 Dose: 40 mg Ferric Sodium Gluconate Complex (Ferrlecit) 125 mg IVPB DAILY [facility] Stop: 11/09/16 10:01 Last Admin: 11/04/16 10:59 Dose: 125 mg Folic Acid (Folic Acid) 1 mg PO DAILY [facility] Last Admin: 11/04/16 09:53 Dose: 1 mg Hydromorphone HCl (Dilaudid) 1 mg IVP Q6H PRN PRN Reason: pain Last Admin: 11/04/16 09:50 Dose: 1 mg Dextrose/Sodium Chloride (Dextrose 5%/0.45% Ns 1000 Ml) 1,000 mls @ 75 mls/hr IV .[id number] [facility] Last Admin: 11/04/16 09:53 Dose: 75 mls/hr Pantoprazole Sodium (Protonix Ec Tab) 40 mg PO DAILY [facility] Last Admin: 11/04/16 10:59 Dose: 40 mg Physical Exam - Constitutional Appears: Non-toxic, Chronically Ill - Head Exam Head Exam: NORMOCEPHALIC - Eye Exam Eye Exam: PERRL. absent: Scleral icterus - ENT Exam ENT Exam: Mucous Membranes Dry, Normal External Ear Exam - Neck Exam Neck exam: Negative for: Lymphadenopathy - Respiratory Exam Respiratory Exam: Decreased Breath Sounds, Rhonchi - Cardiovascular Exam Cardiovascular Exam: REGULAR RHYTHM, +S1, +S2 - GI/Abdominal Exam GI & Abdominal Exam: Diminished Bowel Sounds, Soft. absent: Tenderness - Rectal Exam Rectal Exam: Deferred - Exam Exam: NORMAL INSPECTION - Extremities Exam Extremities exam: Negative for: calf tenderness, pedal edema - Back Exam Back exam: absent: CVA tenderness (L), CVA tenderness (R) - Neurological Exam Neurological exam: Alert, CN II-XII Intact, Oriented x3, Reflexes Normal - Psychiatric Exam Psychiatric exam: Normal Mood - Skin Skin Exam: Dry, Intact Results - Vital Signs Recent Vital Signs: Last Vital Signs Temp 98.2 F 11/04/16 08:00 Pulse 98 H 11/04/16 08:00 Resp 20 11/04/16 08:00 BP 105/65 11/04/16 08:00 Pulse Ox 98 11/04/16 08:00 - Labs Result Diagrams: 11/05/16 20:42 11/05/16 07:15 Labs: Laboratory Results - last 24 hr 11/03/16 11/04/16 11/04/16 17:16 14:13 14:13 WBC 24.5 H RBC 2.53 L Hgb 6.1 L* Hct 18.0 L MCV 71.2 L MCH 24.1 L MCHC 33.9 RDW 29.6 H Plt Count 468 H MPV 8.6 Neut % (Auto) 55.6 Lymph % (Auto) 35.7 Nye % (Auto) 6.8 Eos % (Auto) 0.7 Baso % (Auto) 1.2 Neut # 13.6 H Lymph # 8.8 H Nye # 1.7 H Eos # 0.2 Baso # 0.3 H Sodium 135 Potassium 4.2 Chloride 99 Carbon Dioxide 26 Anion Gap 14 BUN 4 L Creatinine 0.3 L Est GFR ( Amer) > 60 Est GFR (Non-Af Amer) > 60 Random Glucose 102 Calcium 8.5 L Total Bilirubin 2.0 H AST 160 H D ALT 94 H D Alkaline Phosphatase 72 Total Protein 7.4 Albumin 3.8 Globulin 3.6 Albumin/Globulin Ratio 1.0 Blood Type O POSITIVE Antibody Screen Positive Antibody Identification Anti E Assessment & Plan (1) Leukocytosis Status: Acute (2) Sickle cell anemia with crisis Status: Acute (3) Abdominal pain Status: Acute (4) Chest pain Status: Acute - Assessment and Plan (Free Text) Assessment: will start iv antibitoics after cultures
[2016-11-04] MEDS: cefTRIAXone 2 GM in Sodium Chloride 0.9% 100 ML IVPB SCH (17:19)
--- NOTE | 2016-11-04 17:22 | RAD ---
HISTORY: R/O PNEUMONIA COMPARISON: Chest x-ray performed 11/02/16 TECHNIQUE: Chest, one view. FINDINGS: LUNGS: Interval development of small right greater than left pleural effusions. Right lower lobe opacity may reflect atelectasis or pneumonia. No definite pneumothorax. Please note that chest x-ray has limited sensitivity for the detection of pulmonary masses. CARDIOVASCULAR: Heart size appears top normal. OSSEOUS STRUCTURES: No acute osseous abnormality identified. VISUALIZED UPPER ABDOMEN: Unremarkable. OTHER FINDINGS: None. IMPRESSION: Interval development of small right greater than left pleural effusions. Right lower lobe opacity may reflect atelectasis or pneumonia.
[2016-11-04 17:24] LABS: RBC URINE 7 /hpf (0-3); URINE BILIRUBIN NEGATIVE (NEGATIVE); URINE BLOOD 2+ (NEGATIVE); URINE COLOR Yellow (YELLOW); URINE GLUCOSE (UA) NORMAL (Normal); URINE KETONE NEGATIVE (NEGATIVE); URINE LEUKOCYTE ESTERASE NEG Leu/uL (Negative); URINE PROTEIN NEGATIVE (NEGATIVE); URINE UROBILINOGEN NORMAL mg/dL (0.2-1.0); WBC URINE 2 /hpf (0-5)
[2016-11-05] MEDS: Dextrose 5%/0.45% NS 1,000 ML IV SCH (00:58)
--- NOTE | 2016-11-05 01:21 | CP.PCM.CON ---
History of Present Illness - History of Present Illness History of Present Illness: 26 year old female with a history of sickle cell anemia, admitted with sickle cell pain crisis. The patient reports to worsening rib and back pain. She was recently treated for sickle pain crisis about 10 days ago. She does admit to chest pain and occasional episodes of shortness of breath. She also notes to heavy periods for several months which has been causing her more fatigue. Past medical history: Sickle cell anemia Past surgical history: None Family history: Parents have sickle trait. Social history: Denies tobacco, alcohol, and illicit drug use. Allergies: NKA Review of systems: All remaining review of systems including HEENT, cardiovascular, respiratory, gastrointestinal, genitourinary, musculoskeletal, dermatologic, neurologic, and psychiatric are negative unless mentioned in the HPI. Past Patient History - Infectious Disease Hx of Infectious Diseases: None - Past Medical History & Family History Past Medical History?: Yes - Past Social History Smoking Status: Never Smoked - CARDIAC Hx Cardiac Disorders: No - PULMONARY Hx Respiratory Disorders: No - NEUROLOGICAL Hx Neurological Disorder: No - HEENT Hx HEENT Problems: No - RENAL Hx Chronic Kidney Disease: No - ENDOCRINE/METABOLIC Hx Endocrine Disorders: No - HEMATOLOGICAL/ONCOLOGICAL Hx Blood Disorders: Yes Hx Anemia: Yes Hx Sickle Cell Disease: Yes - INTEGUMENTARY Hx Dermatological Problems: No - MUSCULOSKELETAL/RHEUMATOLOGICAL Hx Musculoskeletal Disorders: No Hx Falls: No - GASTROINTESTINAL Hx Gastrointestinal Disorders: No - GENITOURINARY/GYNECOLOGICAL Hx Genitourinary Disorders: No - PSYCHIATRIC Hx Psychophysiologic Disorder: No Hx Substance Use: No - SURGICAL HISTORY Hx Surgeries: No - ANESTHESIA Hx Anesthesia: No Hx Anesthesia Reactions: No Hx Malignant Hyperthermia: No Has any member of the family had a problem w/ anesthesia?: No Meds Allergies/Adverse Reactions: Allergies Allergy/AdvReac Type Severity Reaction Status Date / Time No Known Allergies Allergy Verified 11/01/16 21:50 - Medications Medications: Current Medications Diphenhydramine HCl (Benadryl) 25 mg IVP Q6 PRN PRN Reason: give with dialudid Last Admin: 11/04/16 22:33 Dose: 25 mg Enoxaparin Sodium (Lovenox) 40 mg SC DAILY [facility] Last Admin: 11/04/16 09:53 Dose: 40 mg Ferric Sodium Gluconate Complex (Ferrlecit) 125 mg IVPB DAILY [facility] Stop: 11/09/16 10:01 Last Admin: 11/04/16 10:59 Dose: 125 mg Folic Acid (Folic Acid) 1 mg PO DAILY [facility] Last Admin: 11/04/16 09:53 Dose: 1 mg Hydromorphone HCl (Dilaudid) 1 mg IVP Q6H PRN PRN Reason: pain Last Admin: 11/04/16 22:33 Dose: 1 mg Dextrose/Sodium Chloride (Dextrose 5%/0.45% Ns 1000 Ml) 1,000 mls @ 75 mls/hr IV .[id number] [facility] Last Admin: 11/05/16 00:58 Dose: 75 mls/hr Ceftriaxone Sodium 2 gm/ (Sodium Chloride) 100 mls @ 100 mls/hr IVPB Q24H [facility] Last Admin: 11/04/16 17:19 Dose: 100 mls/hr Pantoprazole Sodium (Protonix Ec Tab) 40 mg PO DAILY [facility] Last Admin: 11/04/16 10:59 Dose: 40 mg Physical Exam - Head Exam Head Exam: ATRAUMATIC - Eye Exam Eye Exam: Normal appearance - ENT Exam ENT Exam: Mucous Membranes Dry - Respiratory Exam Respiratory Exam: NORMAL BREATHING PATTERN - Cardiovascular Exam Cardiovascular Exam: +S1, +S2 - GI/Abdominal Exam GI & Abdominal Exam: Normal Bowel Sounds - Extremities Exam Extremities exam: Positive for: normal inspection - Neurological Exam Neurological exam: Oriented x3 - Psychiatric Exam Psychiatric exam: Normal Affect, Normal Mood - Skin Skin Exam: Warm Results - Vital Signs Recent Vital Signs: Last Vital Signs Temp 98.6 F 11/05/16 00:00 Pulse 93 H 11/05/16 00:00 Resp 20 11/05/16 00:00 BP 108/67 11/05/16 00:00 Pulse Ox 97 11/05/16 00:00 - Labs Result Diagrams: 11/04/16 14:13 11/04/16 14:13 Labs: Laboratory Results - last 24 hr 11/04/16 11/04/16 11/04/16 14:13 14:13 17:03 WBC 24.5 H RBC 2.53 L Hgb 6.1 L* Hct 18.0 L MCV 71.2 L MCH 24.1 L MCHC 33.9 RDW 29.6 H Plt Count 468 H MPV 8.6 Neut % (Auto) 55.6 Lymph % (Auto) 35.7 Mckinley % (Auto) 6.8 Eos % (Auto) 0.7 Baso % (Auto) 1.2 Neut # 13.6 H Lymph # 8.8 H Mckinley # 1.7 H Eos # 0.2 Baso # 0.3 H Sodium 135 Potassium 4.2 Chloride 99 Carbon Dioxide 26 Anion Gap 14 BUN 4 L Creatinine 0.3 L Est GFR ( Amer) > 60 Est GFR (Non-Af Amer) > 60 Random Glucose 102 Calcium 8.5 L Total Bilirubin 2.0 H AST 160 H D ALT 94 H D Alkaline Phosphatase 72 Total Protein 7.4 Albumin 3.8 Globulin 3.6 Albumin/Globulin Ratio 1.0 Beta HCG, Quant Urine Color Yellow Urine Clarity Clear Urine pH 7.0 Ur Specific [place] 1.008 Urine Protein Negative Urine Glucose (UA) Normal Urine Ketones Negative Urine Blood 2+ H Urine Nitrate Negative Urine Bilirubin Negative Urine Urobilinogen Normal Ur Leukocyte Esterase Neg Urine WBC (Auto) 2 Urine RBC (Auto) 7 H Ur Squamous Epith Cells 6 H 11/04/16 17:49 WBC RBC Hgb Hct MCV MCH MCHC RDW Plt Count MPV Neut % (Auto) Lymph % (Auto) Mckinley % (Auto) Eos % (Auto) Baso % (Auto) Neut # Lymph # Mckinley # Eos # Baso # Sodium Potassium Chloride Carbon Dioxide Anion Gap BUN Creatinine Est GFR ( Amer) Est GFR (Non-Af Amer) Random Glucose Calcium Total Bilirubin AST ALT Alkaline Phosphatase Total Protein Albumin Globulin Albumin/Globulin Ratio Beta HCG, Quant < 2.39 Urine Color Urine Clarity Urine pH Ur Specific [place] Urine Protein Urine Glucose (UA) Urine Ketones Urine Blood Urine Nitrate Urine Bilirubin Urine Urobilinogen Ur Leukocyte Esterase Urine WBC (Auto) Urine RBC (Auto) Ur Squamous Epith Cells Assessment & Plan (1) Sickle cell anemia with crisis Assessment and Plan: IV fluids, pain meds, folic acid, 02 via NC will transfuse 2U PRBC in AM Status: Acute (2) Iron deficiency anemia Assessment and Plan: likely secondary to menorrhagia will treat with parenteral iron 2U PRBC in AM Status: Acute (3) Leukocytosis Assessment and Plan: on antibiotics Thank you for this interesting consult. Status: Acute
[2016-11-05] MEDS: HYDROmorphone 1 mg/ml ISec IVP PRN ×2 (04:19→18:42)
[2016-11-05] MEDS: DiphenhydrAMINE 50 mg/ml Inj IVP PRN ×2 (04:20→18:41)
[2016-11-05 07:31] LABS: HEMATOCRIT 15.4 % (34.0-47.0); MEAN CELL VOLUME 70.3 fL (81.0-99.0); MEAN CORPUSCULAR HEMOGLOBIN 24.3 pg (27.0-31.0); MEAN CORPUSCULAR HGB CONC 34.6 g/dL (33.0-37.0); RED CELL DISTRIBUTION WIDTH 28.9 % (11.5-14.5); WHITE BLOOD COUNT 21.4 K/uL (4.8-10.8)
[2016-11-05 07:33] LABS: CHLORIDE 99 mmol/L (98-107)
[2016-11-05 07:34] LABS: POTASSIUM 3.8 mmol/L (3.6-5.2); SODIUM 135 mmol/L (132-148)
[2016-11-05 07:36] LABS: ALB/GLOB RATIO 0.9 (1.0-2.1); AST/SGOT 150 U/L (14-36); BILIRUBIN,TOTAL 1.2 mg/dL (0.2-1.3); CARBON DIOXIDE 29 mmol/L (22-30); GFR AFRICAN-AMERICAN > 60; TOTAL PROTEIN 7.1 g/dL (6.3-8.3)
[2016-11-05 07:37] LABS: ALKALINE PHOSPHATASE 99 U/L (38-126); ALT/SGPT 121 U/L (9-52); CALCIUM 8.6 mg/dl (8.6-10.4); GLUCOSE,RANDOM 103 mg/dL (65-105)
[2016-11-05 07:46] LABS: BLOOD UREA NITROGEN 2 mg/dL (7-17)
[2016-11-05] MEDS ORDERED: DiphenhydrAMINE 50 mg/ml Inj IVP STA (08:59)
[2016-11-05 09:51] LABS: EOS # 0.2 K/uL (0.0-0.7); MONO # 2.6 K/uL (0.0-0.8)
--- NOTE | 2016-11-05 10:14 | CP.PCM.PN ---
Subjective - Date & Time of Evaluation Date of Evaluation: 11/05/16 Time of Evaluation: 08:00 - Subjective Subjective: clinically same Objective - Vital Signs/Intake and Output Vital Signs (last 24 hours): Temp Pulse Resp BP Pulse Ox 99.2 F 98 H 20 108/65 97 11/05/16 09:42 11/05/16 09:42 11/05/16 09:42 11/05/16 09:42 11/05/16 07:38 Intake and Output: 11/05/16 11/05/16 06:59 18:59 Intake Total 930 0 Balance 930 0 - Medications Medications: Current Medications Acetaminophen (Tylenol 325mg Tab) 650 mg PO Q6 PRN PRN Reason: Fever >100.4 F Stop: 11/11/16 23:59 Last Admin: 11/05/16 09:11 Dose: 650 mg Diphenhydramine HCl (Benadryl) 25 mg IVP Q6 PRN PRN Reason: give with dialudid Last Admin: 11/05/16 04:20 Dose: 25 mg Enoxaparin Sodium (Lovenox) 40 mg SC DAILY [facility] Last Admin: 11/04/16 09:53 Dose: 40 mg Ferric Sodium Gluconate Complex (Ferrlecit) 125 mg IVPB DAILY [facility] Stop: 11/09/16 10:01 Last Admin: 11/04/16 10:59 Dose: 125 mg Folic Acid (Folic Acid) 1 mg PO DAILY [facility] Last Admin: 11/04/16 09:53 Dose: 1 mg Hydromorphone HCl (Dilaudid) 1 mg IVP Q6H PRN PRN Reason: pain Last Admin: 11/05/16 04:19 Dose: 1 mg Ceftriaxone Sodium 2 gm/ (Sodium Chloride) 100 mls @ 100 mls/hr IVPB Q24H [facility] Last Admin: 11/04/16 17:19 Dose: 100 mls/hr Pantoprazole Sodium (Protonix Ec Tab) 40 mg PO DAILY [facility] Last Admin: 11/04/16 10:59 Dose: 40 mg - Labs Labs: 11/05/16 07:15 11/05/16 07:15 - Constitutional Appears: Well - Head Exam Head Exam: ATRAUMATIC, NORMAL INSPECTION, NORMOCEPHALIC - Eye Exam Eye Exam: EOMI, Normal appearance, PERRL Pupil Exam: NORMAL ACCOMODATION, PERRL - ENT Exam ENT Exam: Mucous Membranes Moist, Normal Exam - Neck Exam Neck Exam: Full ROM, Normal Inspection. absent: Lymphadenopathy - Respiratory Exam Respiratory Exam: Decreased Breath Sounds - Cardiovascular Exam Cardiovascular Exam: REGULAR RHYTHM, +S1, +S2 - GI/Abdominal Exam GI & Abdominal Exam: Soft, Diminished Bowel Sounds - Rectal Exam Rectal Exam: Deferred
[2016-11-05] MEDS: Pantoprazole 40 mg EC Tab PO SCH (10:35)
[2016-11-05] MEDS: Ferric Sodium Gluconat Complex 62.5 mg/5 ml Vial IVPB SCH (10:35)
[2016-11-05] MEDS: cefTRIAXone 2 GM in Sodium Chloride 0.9% 100 ML IVPB SCH (17:10)
[2016-11-05] MEDS: Azithromycin 500 MG in Sodium Chloride 0.9% 250 ML IVPB SCH (18:38)
--- NOTE | 2016-11-05 19:21 | CP.PCM.PN ---
Subjective - Date & Time of Evaluation Date of Evaluation: 11/05/16 Time of Evaluation: 07:00 - Subjective Subjective: c/o chest pain cough infiltrates pulm on board Objective - Vital Signs/Intake and Output Vital Signs (last 24 hours): Temp Pulse Resp BP Pulse Ox 98 F 88 20 107/68 96 11/05/16 17:04 11/05/16 17:04 11/05/16 17:04 11/05/16 17:04 11/05/16 15:10 Intake and Output: 11/05/16 11/06/16 18:59 06:59 Intake Total 1602.5 Balance 1602.5 - Medications Medications: Current Medications Acetaminophen (Tylenol 325mg Tab) 650 mg PO Q6 PRN PRN Reason: Fever >100.4 F Stop: 11/11/16 23:59 Last Admin: 11/05/16 09:11 Dose: 650 mg Diphenhydramine HCl (Benadryl) 25 mg IVP Q6 PRN PRN Reason: give with dialudid Last Admin: 11/05/16 18:41 Dose: 25 mg Enoxaparin Sodium (Lovenox) 40 mg SC DAILY [facility] Last Admin: 11/04/16 09:53 Dose: 40 mg Ferric Sodium Gluconate Complex (Ferrlecit) 125 mg IVPB DAILY [facility] Stop: 11/09/16 10:01 Last Admin: 11/05/16 10:35 Dose: Not Given Folic Acid (Folic Acid) 1 mg PO DAILY [facility] Last Admin: 11/05/16 10:35 Dose: 1 mg Hydromorphone HCl (Dilaudid) 1 mg IVP Q6H PRN PRN Reason: pain Last Admin: 11/05/16 18:42 Dose: 1 mg Ceftriaxone Sodium 2 gm/ (Sodium Chloride) 100 mls @ 100 mls/hr IVPB Q24H [facility] Last Admin: 11/05/16 17:10 Dose: 100 mls/hr Azithromycin 500 mg/ Sodium (Chloride) 250 mls @ 166.667 mls/hr IVPB Q24H [facility] Last Admin: 11/05/16 18:38 Dose: 166.667 mls/hr Pantoprazole Sodium (Protonix Ec Tab) 40 mg PO DAILY [facility] Last Admin: 11/05/16 10:35 Dose: 40 mg - Labs Labs: 11/05/16 07:15 11/05/16 07:15 - Constitutional Appears: Non-toxic, Chronically Ill - Head Exam Head Exam: NORMOCEPHALIC - Eye Exam Eye Exam: PERRL. absent: Scleral icterus - ENT Exam ENT Exam: Mucous Membranes Dry - Neck Exam Neck Exam: absent: Lymphadenopathy - Respiratory Exam Respiratory Exam: Decreased Breath Sounds, Rales, Rhonchi - Cardiovascular Exam Cardiovascular Exam: REGULAR RHYTHM, +S1, +S2 - GI/Abdominal Exam GI & Abdominal Exam: Distended, Soft. absent: Tenderness - Rectal Exam Rectal Exam: Deferred - Exam Exam: NORMAL INSPECTION Assessment and Plan - Assessment and Plan (Free Text) Plan: pulm eval for pneumonia r/o acute chest syndrome
[2016-11-05 21:08] LABS: HEMATOCRIT 21.8 % (34.0-47.0); MEAN CORPUSCULAR HEMOGLOBIN 26.4 pg (27.0-31.0); MEAN CORPUSCULAR HGB CONC 35.6 g/dL (33.0-37.0); RED CELL DISTRIBUTION WIDTH 26.4 % (11.5-14.5); WHITE BLOOD COUNT 18.3 K/uL (4.8-10.8)
[2016-11-05 21:10] LABS: MEAN CELL VOLUME 74.2 fL (81.0-99.0)
[2016-11-05 21:52] LABS: EOS # 0.5 K/uL (0.0-0.7); LYMPH # 3.3 K/uL (1.0-4.3); MONO # 2.2 K/uL (0.0-0.8)
[2016-11-06] MEDS: Pantoprazole 40 mg EC Tab PO SCH (10:51)
[2016-11-06] MEDS: Ferric Sodium Gluconat Complex 62.5 mg/5 ml Vial IVPB SCH (10:51)
[2016-11-06] MEDS: DiphenhydrAMINE 50 mg/ml Inj IVP PRN ×3 (10:58→23:11)
[2016-11-06] MEDS: HYDROmorphone 1 mg/ml ISec IVP PRN ×3 (10:59→23:12)
[2016-11-06] MEDS: Dextrose 5%/0.45% NS 1,000 ML IV SCH (12:40)
[2016-11-06] MEDS: Azithromycin 500 MG in Sodium Chloride 0.9% 250 ML IVPB SCH (14:20)
[2016-11-06 16:43] LABS: HEMATOCRIT 23.3 % (34.0-47.0); MEAN CELL VOLUME 74.4 fL (81.0-99.0); MEAN CORPUSCULAR HEMOGLOBIN 25.7 pg (27.0-31.0); MEAN CORPUSCULAR HGB CONC 34.5 g/dL (33.0-37.0); MEAN PLATELET VOLUME 7.6 fL (7.2-11.7); PLATELET COUNT 588 K/uL (130-400); WHITE BLOOD COUNT 17.3 K/uL (4.8-10.8)
[2016-11-06 16:45] LABS: CHLORIDE 100 mmol/L (98-107); SODIUM 135 mmol/L (132-148)
[2016-11-06 16:46] LABS: POTASSIUM 3.8 mmol/L (3.6-5.2)
--- NOTE | 2016-11-06 16:46 | CP.PCM.CON ---
History of Present Illness - History of Present Illness History of Present Illness: reason for consultation: chest pain 26 y/o female presented to the ER c/o recurring back and bilateral leg pain. Pt notes that she was seen 2 weeks prior at [facility] ER for sickle cell crisis for a Hb of 6. Pt notes taking Motrin and Aleve with no relief. Patient was admitted with sickle cell crisi status post packed RBCs transfusion. Since yesterday patient complaining of some chest pain which is much better with the pain medication denies cough, denies shortness of breath. Saturation 97-98% on room air. right lower lobe opacity on chest x-ray most likely atelectasis due to chest pain Review of Systems - Review of Systems All systems: reviewed and no additional remarkable complaints except ( Generalized aches and pains) Past Patient History - Infectious Disease Hx of Infectious Diseases: None - Past Medical History & Family History Past Medical History?: Yes - Past Social History Smoking Status: Never Smoked - CARDIAC Hx Cardiac Disorders: No - PULMONARY Hx Respiratory Disorders: No - NEUROLOGICAL Hx Neurological Disorder: No - HEENT Hx HEENT Problems: No - RENAL Hx Chronic Kidney Disease: No - ENDOCRINE/METABOLIC Hx Endocrine Disorders: No - HEMATOLOGICAL/ONCOLOGICAL Hx Blood Disorders: Yes Hx Anemia: Yes Hx Sickle Cell Disease: Yes - INTEGUMENTARY Hx Dermatological Problems: No - MUSCULOSKELETAL/RHEUMATOLOGICAL Hx Musculoskeletal Disorders: No Hx Falls: No - GASTROINTESTINAL Hx Gastrointestinal Disorders: No - GENITOURINARY/GYNECOLOGICAL Hx Genitourinary Disorders: No - PSYCHIATRIC Hx Psychophysiologic Disorder: No Hx Substance Use: No - SURGICAL HISTORY Hx Surgeries: No - ANESTHESIA Hx Anesthesia: No Hx Anesthesia Reactions: No Hx Malignant Hyperthermia: No Has any member of the family had a problem w/ anesthesia?: No Meds Allergies/Adverse Reactions: Allergies Allergy/AdvReac Type Severity Reaction Status Date / Time No Known Allergies Allergy Verified 11/01/16 21:50 - Medications Medications: Current Medications Acetaminophen (Tylenol 325mg Tab) 650 mg PO Q6 PRN PRN Reason: Fever >100.4 F Stop: 11/11/16 23:59 Last Admin: 11/05/16 23:47 Dose: 650 mg Diphenhydramine HCl (Benadryl) 25 mg IVP Q6 PRN PRN Reason: give with dialudid Last Admin: 11/06/16 10:58 Dose: 25 mg Enoxaparin Sodium (Lovenox) 40 mg SC DAILY [facility] Last Admin: 11/04/16 09:53 Dose: 40 mg Ferric Sodium Gluconate Complex (Ferrlecit) 125 mg IVPB DAILY [facility] Stop: 11/09/16 10:01 Last Admin: 11/06/16 10:51 Dose: 125 mg Folic Acid (Folic Acid) 1 mg PO DAILY [facility] Last Admin: 11/06/16 10:51 Dose: 1 mg Hydromorphone HCl (Dilaudid) 1 mg IVP Q6H PRN PRN Reason: pain Last Admin: 11/06/16 10:59 Dose: 1 mg Ceftriaxone Sodium 2 gm/ (Sodium Chloride) 100 mls @ 100 mls/hr IVPB Q24H [facility] Last Admin: 11/05/16 17:10 Dose: 100 mls/hr Azithromycin 500 mg/ Sodium (Chloride) 250 mls @ 166.667 mls/hr IVPB Q24H [facility] Last Admin: 11/06/16 14:20 Dose: 166.667 mls/hr Dextrose/Sodium Chloride (Dextrose 5%/0.45% Ns 1000 Ml) 1,000 mls @ 80 mls/hr IV .[id number] [facility] Last Admin: 11/06/16 12:40 Dose: 80 mls/hr Pantoprazole Sodium (Protonix Ec Tab) 40 mg PO DAILY [facility] Last Admin: 11/06/16 10:51 Dose: 40 mg Physical Exam - Head Exam Head Exam: ATRAUMATIC, NORMOCEPHALIC - Eye Exam Eye Exam: Normal appearance - ENT Exam ENT Exam: Mucous Membranes Moist - Neck Exam Neck exam: Positive for: Normal Inspection - Respiratory Exam Respiratory Exam: Clear to Auscultation Bilateral - Cardiovascular Exam Cardiovascular Exam: REGULAR RHYTHM - GI/Abdominal Exam GI & Abdominal Exam: Normal Bowel Sounds, Soft - Extremities Exam Extremities exam: Positive for: normal inspection - Neurological Exam Neurological exam: Alert, Oriented x3 Results - Vital Signs Recent Vital Signs: Last Vital Signs Temp 98.5 F 11/06/16 15:00 Pulse 85 11/06/16 15:00 Resp 20 11/06/16 15:00 BP 105/60 11/06/16 15:00 Pulse Ox 99 11/06/16 15:00 - Labs Result Diagrams: 11/05/16 20:42 11/05/16 07:15 Labs: Laboratory Results - last 24 hr 11/05/16 11/05/16 11/06/16 20:42 21:11 07:05 WBC 18.3 H RBC 2.93 L Hgb 7.7 L D Hct 21.8 L MCV 74.2 L D MCH 26.4 L MCHC 35.6 RDW 26.4 H Plt Count 500 H MPV 8.0 Neut % (Auto) 67.0 Lymph % (Auto) 18.0 L Mayes % (Auto) 12.0 H Eos % (Auto) 3.0 Baso % (Auto) 0.0 Neut # 12.3 H Lymph # 3.3 Mayes # 2.2 H Eos # 0.5 Baso # 0.0 POC Glucose (mg/dL) 115 H 98 11/06/16 11/06/16 11:21 16:03 WBC RBC Hgb Hct MCV MCH MCHC RDW Plt Count MPV Neut % (Auto) Lymph % (Auto) Mayes % (Auto) Eos % (Auto) Baso % (Auto) Neut # Lymph # Mayes # Eos # Baso # POC Glucose (mg/dL) 107 103 Assessment & Plan (1) Chest pain Status: Acute Comment: unlikely acute chest syndrome. Patient with normal saturation. Denies shortness of breath and cough. No chest pain at this point. Continue antibiotics as per infectious disease (2) Sickle cell anemia with crisis Status: Acute
[2016-11-06 16:48] LABS: AST/SGOT 231 U/L (14-36); BILIRUBIN,TOTAL 1.1 mg/dL (0.2-1.3); CARBON DIOXIDE 26 mmol/L (22-30); GFR AFRICAN-AMERICAN > 60; TOTAL PROTEIN 7.6 g/dL (6.3-8.3)
[2016-11-06 16:49] LABS: ALKALINE PHOSPHATASE 137 U/L (38-126); ALT/SGPT 191 U/L (9-52); BLOOD UREA NITROGEN 5 mg/dL (7-17); CALCIUM 8.7 mg/dl (8.6-10.4); GLUCOSE,RANDOM 99 mg/dL (65-105)
[2016-11-06] MEDS: cefTRIAXone 2 GM in Sodium Chloride 0.9% 100 ML IVPB SCH (17:12)
--- NOTE | 2016-11-06 17:24 | CP.PCM.PN ---
Subjective - Date & Time of Evaluation Date of Evaluation: 11/06/16 Time of Evaluation: 08:00 - Subjective Subjective: seen on rounds' less chest pain no sob Objective - Vital Signs/Intake and Output Vital Signs (last 24 hours): Temp Pulse Resp BP Pulse Ox 98.5 F 85 20 105/60 99 11/06/16 15:00 11/06/16 15:00 11/06/16 15:00 11/06/16 15:00 11/06/16 15:00 Intake and Output: 11/06/16 11/06/16 06:59 18:59 Intake Total 2242.5 790 Balance 2242.5 790 - Medications Medications: Current Medications Acetaminophen (Tylenol 325mg Tab) 650 mg PO Q6 PRN PRN Reason: Fever >100.4 F Stop: 11/11/16 23:59 Last Admin: 11/05/16 23:47 Dose: 650 mg Azithromycin (Zithromax) 500 mg PO DAILY [facility] Diphenhydramine HCl (Benadryl) 25 mg IVP Q6 PRN PRN Reason: give with dialudid Last Admin: 11/06/16 17:10 Dose: 25 mg Enoxaparin Sodium (Lovenox) 40 mg SC DAILY [facility] Last Admin: 11/04/16 09:53 Dose: 40 mg Ferric Sodium Gluconate Complex (Ferrlecit) 125 mg IVPB DAILY [facility] Stop: 11/09/16 10:01 Last Admin: 11/06/16 10:51 Dose: 125 mg Folic Acid (Folic Acid) 1 mg PO DAILY [facility] Last Admin: 11/06/16 10:51 Dose: 1 mg Hydromorphone HCl (Dilaudid) 1 mg IVP Q6H PRN PRN Reason: pain Last Admin: 11/06/16 17:11 Dose: 1 mg Ceftriaxone Sodium 2 gm/ (Sodium Chloride) 100 mls @ 100 mls/hr IVPB Q24H [facility] Last Admin: 11/06/16 17:12 Dose: 100 mls/hr Dextrose/Sodium Chloride (Dextrose 5%/0.45% Ns 1000 Ml) 1,000 mls @ 80 mls/hr IV .[id number] [facility] Last Admin: 11/06/16 12:40 Dose: 80 mls/hr Pantoprazole Sodium (Protonix Ec Tab) 40 mg PO DAILY [facility] Last Admin: 11/06/16 10:51 Dose: 40 mg - Labs Labs: 11/06/16 16:34 11/06/16 16:34 - Constitutional Appears: Non-toxic, Chronically Ill - Head Exam Head Exam: NORMOCEPHALIC - Eye Exam Eye Exam: PERRL. absent: Scleral icterus - ENT Exam ENT Exam: Mucous Membranes Dry - Neck Exam Neck Exam: absent: Lymphadenopathy - Respiratory Exam Respiratory Exam: Decreased Breath Sounds, Rhonchi - Cardiovascular Exam Cardiovascular Exam: REGULAR RHYTHM, +S1, +S2 - GI/Abdominal Exam GI & Abdominal Exam: Distended, Soft. absent: Tenderness - Rectal Exam Rectal Exam: Deferred Assessment and Plan (1) Leukocytosis Status: Acute (2) Sickle cell anemia with crisis Status: Acute (3) Abdominal pain Status: Acute (4) Chest pain Status: Acute
[2016-11-06 17:49] LABS: EOSINOPHIL 2 % (0-4); NEUTROPHIL 61 % (50-75); TOTAL CELLS COUNTED 100
--- NOTE | 2016-11-06 18:11 | CP.PCM.PN ---
Subjective - Date & Time of Evaluation Date of Evaluation: 11/06/16 Time of Evaluation: 07:40 - Subjective Subjective: clinically same Objective - Vital Signs/Intake and Output Vital Signs (last 24 hours): Temp Pulse Resp BP Pulse Ox 98.5 F 85 20 105/60 99 11/06/16 15:00 11/06/16 15:00 11/06/16 15:00 11/06/16 15:00 11/06/16 15:00 Intake and Output: 11/06/16 11/06/16 06:59 18:59 Intake Total 2242.5 790 Balance 2242.5 790 - Medications Medications: Current Medications Acetaminophen (Tylenol 325mg Tab) 650 mg PO Q6 PRN PRN Reason: Fever >100.4 F Stop: 11/11/16 23:59 Last Admin: 11/05/16 23:47 Dose: 650 mg Azithromycin (Zithromax) 500 mg PO DAILY [facility] Diphenhydramine HCl (Benadryl) 25 mg IVP Q6 PRN PRN Reason: give with dialudid Last Admin: 11/06/16 17:10 Dose: 25 mg Enoxaparin Sodium (Lovenox) 40 mg SC DAILY [facility] Last Admin: 11/04/16 09:53 Dose: 40 mg Ferric Sodium Gluconate Complex (Ferrlecit) 125 mg IVPB DAILY [facility] Stop: 11/09/16 10:01 Last Admin: 11/06/16 10:51 Dose: 125 mg Folic Acid (Folic Acid) 1 mg PO DAILY [facility] Last Admin: 11/06/16 10:51 Dose: 1 mg Hydromorphone HCl (Dilaudid) 1 mg IVP Q6H PRN PRN Reason: pain Last Admin: 11/06/16 17:11 Dose: 1 mg Ceftriaxone Sodium 2 gm/ (Sodium Chloride) 100 mls @ 100 mls/hr IVPB Q24H [facility] Last Admin: 11/06/16 17:12 Dose: 100 mls/hr Dextrose/Sodium Chloride (Dextrose 5%/0.45% Ns 1000 Ml) 1,000 mls @ 80 mls/hr IV .[id number] [facility] Last Admin: 11/06/16 12:40 Dose: 80 mls/hr Pantoprazole Sodium (Protonix Ec Tab) 40 mg PO DAILY [facility] Last Admin: 11/06/16 10:51 Dose: 40 mg - Labs Labs: 11/06/16 16:34 11/06/16 16:34
[2016-11-07] MEDS: Dextrose 5%/0.45% NS 1,000 ML IV SCH ×4 (01:00→19:49)
[2016-11-07] MEDS: DiphenhydrAMINE 50 mg/ml Inj IVP PRN ×2 (05:13→23:55)
[2016-11-07] MEDS: HYDROmorphone 1 mg/ml ISec IVP PRN ×2 (05:14→23:55)
[2016-11-07 07:15] LABS: MEAN CELL VOLUME 75.2 fL (81.0-99.0); MEAN CORPUSCULAR HEMOGLOBIN 25.9 pg (27.0-31.0); MEAN CORPUSCULAR HGB CONC 34.4 g/dL (33.0-37.0); RED CELL DISTRIBUTION WIDTH 26.5 % (11.5-14.5); WHITE BLOOD COUNT 14.7 K/uL (4.8-10.8)
[2016-11-07 07:26] LABS: CHLORIDE 100 mmol/L (98-107)
[2016-11-07 07:27] LABS: POTASSIUM 3.7 mmol/L (3.6-5.2); SODIUM 138 mmol/L (132-148)
[2016-11-07 07:29] LABS: ALB/GLOB RATIO 0.9 (1.0-2.1); ALKALINE PHOSPHATASE 130 U/L (38-126); AST/SGOT 157 U/L (14-36); BILIRUBIN,TOTAL 0.9 mg/dL (0.2-1.3); CARBON DIOXIDE 29 mmol/L (22-30); GFR AFRICAN-AMERICAN > 60; RETIC% 7.6 % (0.5-1.5); TOTAL PROTEIN 7.2 g/dL (6.3-8.3)
[2016-11-07 07:30] LABS: ALT/SGPT 172 U/L (9-52); BLOOD UREA NITROGEN 5 mg/dL (7-17); CALCIUM 8.8 mg/dl (8.6-10.4); GLUCOSE,RANDOM 90 mg/dL (65-105)
[2016-11-07 10:17] LABS: BASO # 0.1 K/uL (0.0-0.2); BASO % 0.6 % (0.0-2.0); EOS # 0.4 K/uL (0.0-0.7); EOS % 2.5 % (0.0-4.0); LYMPH # 6.4 K/uL (1.0-4.3); LYMPH % 43.7 % (20.0-40.0); MONO # 0.8 K/uL (0.0-0.8); MONO % 5.3 % (0.0-10.0); NRBC % 0.6 % (0.0-2.0)
[2016-11-07] MEDS: Pantoprazole 40 mg EC Tab PO SCH (10:22)
[2016-11-07] MEDS: Enoxaparin 40 mg Syringe SC SCH (10:22)
[2016-11-07] MEDS: Ferric Sodium Gluconat Complex 62.5 mg/5 ml Vial IVPB SCH (10:23)
--- NOTE | 2016-11-07 13:29 | CP.PCM.PN ---
Subjective - Date & Time of Evaluation Date of Evaluation: 11/07/16 Time of Evaluation: 07:40 - Subjective Subjective: clinically same Objective - Vital Signs/Intake and Output Vital Signs (last 24 hours): Temp Pulse Resp BP Pulse Ox 97.5 F L 84 20 97/60 L 99 11/07/16 08:00 11/07/16 08:00 11/07/16 08:00 11/07/16 08:00 11/07/16 08:00 Intake and Output: 11/07/16 11/07/16 06:59 18:59 Intake Total 640 Balance 640 - Medications Medications: Current Medications Acetaminophen (Tylenol 325mg Tab) 650 mg PO Q6 PRN PRN Reason: Fever >100.4 F Stop: 11/11/16 23:59 Last Admin: 11/05/16 23:47 Dose: 650 mg Azithromycin (Zithromax) 500 mg PO DAILY [facility] Last Admin: 11/07/16 10:22 Dose: 500 mg Diphenhydramine HCl (Benadryl) 25 mg IVP Q6 PRN PRN Reason: give with dialudid Last Admin: 11/07/16 05:13 Dose: 25 mg Enoxaparin Sodium (Lovenox) 40 mg SC DAILY [facility] Last Admin: 11/07/16 10:22 Dose: 40 mg Ferric Sodium Gluconate Complex (Ferrlecit) 125 mg IVPB DAILY [facility] Stop: 11/09/16 10:01 Last Admin: 11/07/16 10:23 Dose: 125 mg Folic Acid (Folic Acid) 1 mg PO DAILY [facility] Last Admin: 11/07/16 10:22 Dose: 1 mg Hydromorphone HCl (Dilaudid) 1 mg IVP Q6H PRN PRN Reason: pain Last Admin: 11/07/16 05:14 Dose: 1 mg Ceftriaxone Sodium 2 gm/ (Sodium Chloride) 100 mls @ 100 mls/hr IVPB Q24H [facility] Last Admin: 11/06/16 17:12 Dose: 100 mls/hr Dextrose/Sodium Chloride (Dextrose 5%/0.45% Ns 1000 Ml) 1,000 mls @ 80 mls/hr IV .[id number] [facility] Last Admin: 11/07/16 04:46 Dose: 80 mls/hr Pantoprazole Sodium (Protonix Ec Tab) 40 mg PO DAILY [facility] Last Admin: 11/07/16 10:22 Dose: 40 mg - Labs Labs: 11/07/16 07:00 11/07/16 07:00 - Constitutional Appears: Well - Head Exam Head Exam: ATRAUMATIC, NORMAL INSPECTION, NORMOCEPHALIC - Eye Exam Eye Exam: EOMI, Normal appearance, PERRL Pupil Exam: NORMAL ACCOMODATION, PERRL - ENT Exam ENT Exam: Mucous Membranes Moist, Normal Exam - Neck Exam Neck Exam: Full ROM, Normal Inspection. absent: Lymphadenopathy - Respiratory Exam Respiratory Exam: Decreased Breath Sounds - Cardiovascular Exam Cardiovascular Exam: REGULAR RHYTHM, +S1, +S2 - GI/Abdominal Exam GI & Abdominal Exam: Soft, Diminished Bowel Sounds - Rectal Exam Rectal Exam: Deferred
[2016-11-07 17:09] LABS: EOS # 0.4 K/uL (0.0-0.7); MEAN PLATELET VOLUME 8.1 fL (7.2-11.7)
[2016-11-07 17:29] LABS: HEMATOCRIT 24.1 % (34.0-47.0); MEAN CELL VOLUME 75.4 fL (81.0-99.0); MEAN CORPUSCULAR HGB CONC 34.6 g/dL (33.0-37.0); RED CELL DISTRIBUTION WIDTH 27.4 % (11.5-14.5); WHITE BLOOD COUNT 14.2 K/uL (4.8-10.8)
[2016-11-07 17:30] LABS: BASO % 1.5 % (0.0-2.0); LYMPH % 17.4 % (20.0-40.0); MONO % 7.7 % (0.0-10.0)
[2016-11-07 17:31] LABS: BASO # 0.2 K/uL (0.0-0.2); LYMPH # 2.5 K/uL (1.0-4.3); MONO # 1.1 K/uL (0.0-0.8)
[2016-11-07] MEDS: cefTRIAXone 2 GM in Sodium Chloride 0.9% 100 ML IVPB SCH (17:33)
--- NOTE | 2016-11-07 18:32 | CP.PCM.PN ---
Subjective - Date & Time of Evaluation Date of Evaluation: 11/07/16 Time of Evaluation: 15:25 - Subjective Subjective: patient seen and examined. Patient overall condition improving Denies chest pain but complaining of slight cough Denies shortness of breath Objective - Vital Signs/Intake and Output Vital Signs (last 24 hours): Temp Pulse Resp BP Pulse Ox 98.2 F 92 H 20 102/62 96 11/07/16 16:39 11/07/16 16:39 11/07/16 16:39 11/07/16 16:39 11/07/16 16:39 Intake and Output: 11/07/16 11/07/16 06:59 18:59 Intake Total 1800 Balance 1800 - Medications Medications: Current Medications Acetaminophen (Tylenol 325mg Tab) 650 mg PO Q6 PRN PRN Reason: Fever >100.4 F Stop: 11/11/16 23:59 Last Admin: 11/05/16 23:47 Dose: 650 mg Azithromycin (Zithromax) 500 mg PO DAILY [facility]S [facility] Last Admin: 11/07/16 10:22 Dose: 500 mg Diphenhydramine HCl (Benadryl) 25 mg IVP Q6 PRN PRN Reason: give with dialudid Last Admin: 11/07/16 05:13 Dose: 25 mg Enoxaparin Sodium (Lovenox) 40 mg SC DAILY [facility]S [facility] Last Admin: 11/07/16 10:22 Dose: 40 mg Ferric Sodium Gluconate Complex (Ferrlecit) 125 mg IVPB DAILY [facility] 234 BEDS AT [facility] Stop: 11/09/16 10:01 Last Admin: 11/07/16 10:23 Dose: 125 mg Folic Acid (Folic Acid) 1 mg PO DAILY [facility] 234 BEDS AT [facility] Last Admin: 11/07/16 10:22 Dose: 1 mg Hydromorphone HCl (Dilaudid) 1 mg IVP Q6H PRN PRN Reason: pain Last Admin: 11/07/16 05:14 Dose: 1 mg Ceftriaxone Sodium 2 gm/ (Sodium Chloride) 100 mls @ 100 mls/hr IVPB Q24H [facility] 234 B[facility]S [facility] Last Admin: 11/07/16 17:33 Dose: 100 mls/hr Dextrose/Sodium Chloride (Dextrose 5%/0.45% Ns 1000 Ml) 1,000 mls @ 80 mls/hr IV .[id number] [facility] 234 BEDS AT [facility] Last Admin: 06/03/17 15:16 Dose: Not Given Pantoprazole Sodium (Protonix Ec Tab) 40 mg PO DAILY [facility] Last Admin: 11/07/16 10:22 Dose: 40 mg - Labs Labs: 11/07/16 17:04 11/07/16 07:00 - Constitutional Appears: No Acute Distress - Head Exam Head Exam: ATRAUMATIC, NORMOCEPHALIC - Eye Exam Eye Exam: Normal appearance - ENT Exam ENT Exam: Mucous Membranes Moist - Neck Exam Neck Exam: Full ROM, Normal Inspection - Respiratory Exam Respiratory Exam: Clear to Ausculation Bilateral - Cardiovascular Exam Cardiovascular Exam: REGULAR RHYTHM Assessment and Plan (1) Chest pain Assessment & Plan: condition improving Complaining of slight cough Continue antibiotics and followup chest x-r Continue pain medication Status: Acute (2) Sickle cell anemia with crisis Status: Acute
--- NOTE | 2016-11-07 21:43 | CP.PCM.PN ---
Subjective - Date & Time of Evaluation Date of Evaluation: 11/07/16 Time of Evaluation: 17:30 - Subjective Subjective: Feeling better, less pain. Objective - Vital Signs/Intake and Output Vital Signs (last 24 hours): Temp Pulse Resp BP Pulse Ox 98.2 F 92 H 20 102/62 96 11/07/16 16:39 11/07/16 16:39 11/07/16 16:39 11/07/16 16:39 11/07/16 16:39 Intake and Output: 11/07/16 11/08/16 18:59 06:59 Intake Total 1800 640 Balance 1800 640 - Medications Medications: Current Medications Acetaminophen (Tylenol 325mg Tab) 650 mg PO Q6 PRN PRN Reason: Fever >100.4 F Stop: 11/11/16 23:59 Last Admin: 11/05/16 23:47 Dose: 650 mg Azithromycin (Zithromax) 500 mg PO DAILY [facility] Last Admin: 11/07/16 10:22 Dose: 500 mg Diphenhydramine HCl (Benadryl) 25 mg IVP Q6 PRN PRN Reason: give with dialudid Last Admin: 11/07/16 05:13 Dose: 25 mg Enoxaparin Sodium (Lovenox) 40 mg SC DAILY [facility] Last Admin: 11/07/16 10:22 Dose: 40 mg Ferric Sodium Gluconate Complex (Ferrlecit) 125 mg IVPB DAILY [facility] Stop: 11/09/16 10:01 Last Admin: 11/07/16 10:23 Dose: 125 mg Folic Acid (Folic Acid) 1 mg PO DAILY [facility] Last Admin: 11/07/16 10:22 Dose: 1 mg Hydromorphone HCl (Dilaudid) 1 mg IVP Q6H PRN PRN Reason: pain Last Admin: 11/07/16 05:14 Dose: 1 mg Ceftriaxone Sodium 2 gm/ (Sodium Chloride) 100 mls @ 100 mls/hr IVPB Q24H [facility] Last Admin: 11/07/16 17:33 Dose: 100 mls/hr Dextrose/Sodium Chloride (Dextrose 5%/0.45% Ns 1000 Ml) 1,000 mls @ 80 mls/hr IV .[id number] [facility] Last Admin: 11/07/16 19:49 Dose: 80 mls/hr Pantoprazole Sodium (Protonix Ec Tab) 40 mg PO DAILY [facility] Last Admin: 11/07/16 10:22 Dose: 40 mg - Labs Labs: 11/07/16 17:04 11/07/16 07:00 - Head Exam Head Exam: ATRAUMATIC - Eye Exam Eye Exam: Normal appearance - ENT Exam ENT Exam: Mucous Membranes Dry - Respiratory Exam Respiratory Exam: NORMAL BREATHING PATTERN - Cardiovascular Exam Cardiovascular Exam: +S1, +S2 - GI/Abdominal Exam GI & Abdominal Exam: Normal Bowel Sounds - Extremities Exam Extremities Exam: Normal Inspection Assessment and Plan (1) Sickle cell anemia with crisis Assessment & Plan: IV fluids, pain meds, folic acid, 02 via NC s/p PRBC transfusion support Status: Acute (2) Iron deficiency anemia Assessment & Plan: parenteral iron Status: Acute (3) Leukocytosis Assessment & Plan: improving on abx may have reactive component from sickle cell Status: Acute
[2016-11-08] MEDS: Dextrose 5%/0.45% NS 1,000 ML IV SCH ×3 (02:48→21:44)
[2016-11-08] MEDS: Pantoprazole 40 mg EC Tab PO SCH (10:59)
[2016-11-08] MEDS: Ferric Sodium Gluconat Complex 62.5 mg/5 ml Vial IVPB SCH (10:59)
[2016-11-08] MEDS: Enoxaparin 40 mg Syringe SC SCH (10:59)
--- NOTE | 2016-11-08 11:19 | CP.PCM.PN ---
Subjective - Date & Time of Evaluation Date of Evaluation: 11/08/16 Objective - Vital Signs/Intake and Output Vital Signs (last 24 hours): Temp Pulse Resp BP Pulse Ox 98.3 F 85 20 105/63 99 11/08/16 00:00 11/08/16 00:00 11/08/16 00:00 11/08/16 00:00 11/08/16 00:00 Intake and Output: 11/08/16 11/08/16 06:59 18:59 Intake Total 1440 Balance 1440 - Medications Medications: Current Medications Acetaminophen (Tylenol 325mg Tab) 650 mg PO Q6 PRN PRN Reason: Fever >100.4 F Stop: 11/11/16 23:59 Last Admin: 11/05/16 23:47 Dose: 650 mg Azithromycin (Zithromax) 500 mg PO DAILY [facility] Last Admin: 11/08/16 10:59 Dose: 500 mg Diphenhydramine HCl (Benadryl) 25 mg IVP Q6 PRN PRN Reason: give with dialudid Last Admin: 11/07/16 23:55 Dose: 25 mg Enoxaparin Sodium (Lovenox) 40 mg SC DAILY [facility] Last Admin: 11/08/16 10:59 Dose: 40 mg Ferric Sodium Gluconate Complex (Ferrlecit) 125 mg IVPB DAILY [facility] Stop: 11/09/16 10:01 Last Admin: 11/08/16 10:59 Dose: 125 mg Folic Acid (Folic Acid) 1 mg PO DAILY [facility] Last Admin: 11/08/16 10:59 Dose: 1 mg Hydromorphone HCl (Dilaudid) 1 mg IVP Q6H PRN PRN Reason: pain Last Admin: 11/07/16 23:55 Dose: 1 mg Ceftriaxone Sodium 2 gm/ (Sodium Chloride) 100 mls @ 100 mls/hr IVPB Q24H [facility] Last Admin: 11/07/16 17:33 Dose: 100 mls/hr Dextrose/Sodium Chloride (Dextrose 5%/0.45% Ns 1000 Ml) 1,000 mls @ 80 mls/hr IV .[id number] [facility] Last Admin: 11/08/16 02:48 Dose: Not Given Pantoprazole Sodium (Protonix Ec Tab) 40 mg PO DAILY [facility] Last Admin: 11/08/16 10:59 Dose: 40 mg - Labs Labs: 11/07/16 17:04 11/07/16 07:00 Assessment and Plan - Assessment and Plan (Free Text) Plan: repeat lft in am [place] [facility] orderd discharge tomorrow pt is karley s/marcel brooks
--- NOTE | 2016-11-08 16:01 | CP.PCM.PN ---
Subjective - Date & Time of Evaluation Date of Evaluation: 11/08/16 Time of Evaluation: 08:00 - Subjective Subjective: afebrile less cough ands less sob Objective - Vital Signs/Intake and Output Vital Signs (last 24 hours): Temp Pulse Resp BP Pulse Ox 98.8 F 88 20 108/65 97 11/08/16 09:00 11/08/16 09:00 11/08/16 09:00 11/08/16 09:00 11/08/16 09:00 Intake and Output: 11/08/16 11/08/16 06:59 18:59 Intake Total 1440 1140 Balance 1440 1140 - Medications Medications: Current Medications Acetaminophen (Tylenol 325mg Tab) 650 mg PO Q6 PRN PRN Reason: Fever >100.4 F Stop: 11/11/16 23:59 Last Admin: 11/05/16 23:47 Dose: 650 mg Azithromycin (Zithromax) 500 mg PO DAILY [facility] Last Admin: 11/08/16 10:59 Dose: 500 mg Diphenhydramine HCl (Benadryl) 25 mg IVP Q6 PRN PRN Reason: give with dialudid Last Admin: 11/07/16 23:55 Dose: 25 mg Enoxaparin Sodium (Lovenox) 40 mg SC DAILY [facility] Last Admin: 11/08/16 10:59 Dose: 40 mg Ferric Sodium Gluconate Complex (Ferrlecit) 125 mg IVPB DAILY [facility] Stop: 11/09/16 10:01 Last Admin: 11/08/16 10:59 Dose: 125 mg Folic Acid (Folic Acid) 1 mg PO DAILY [facility] Last Admin: 11/08/16 10:59 Dose: 1 mg Hydromorphone HCl (Dilaudid) 1 mg IVP Q6H PRN PRN Reason: pain Last Admin: 11/07/16 23:55 Dose: 1 mg Ceftriaxone Sodium 2 gm/ (Sodium Chloride) 100 mls @ 100 mls/hr IVPB Q24H [facility] Last Admin: 11/07/16 17:33 Dose: 100 mls/hr Dextrose/Sodium Chloride (Dextrose 5%/0.45% Ns 1000 Ml) 1,000 mls @ 80 mls/hr IV .[id number] [facility] Last Admin: 11/08/16 14:36 Dose: Not Given Pantoprazole Sodium (Protonix Ec Tab) 40 mg PO DAILY [facility] Last Admin: 11/08/16 10:59 Dose: 40 mg - Labs Labs: 11/07/16 17:04 11/07/16 07:00 - Constitutional Appears: Non-toxic, Chronically Ill - Head Exam Head Exam: NORMOCEPHALIC - Eye Exam Eye Exam: PERRL. absent: Scleral icterus - ENT Exam ENT Exam: Mucous Membranes Dry - Neck Exam Neck Exam: absent: Lymphadenopathy - Respiratory Exam Respiratory Exam: Decreased Breath Sounds, Rhonchi - Cardiovascular Exam Cardiovascular Exam: REGULAR RHYTHM, +S1, +S2 - GI/Abdominal Exam GI & Abdominal Exam: Distended, Soft - Rectal Exam Rectal Exam: Deferred - Exam Exam: NORMAL INSPECTION - Extremities Exam Extremities Exam: absent: Calf Tenderness, Pedal Edema - Back Exam Back Exam: absent: CVA tenderness (L), CVA tenderness (R) - Neurological Exam Neurological Exam: Alert, Awake, Oriented x3 - Psychiatric Exam Psychiatric exam: Normal Mood Assessment and Plan (1) Leukocytosis Status: Acute (2) Sickle cell anemia with crisis Status: Acute (3) Abdominal pain Status: Acute (4) Chest pain Status: Acute
[2016-11-08 17:25] LABS: HEMATOCRIT 24.1 % (34.0-47.0); MEAN CELL VOLUME 76.3 fL (81.0-99.0); MEAN CORPUSCULAR HEMOGLOBIN 25.8 pg (27.0-31.0); MEAN CORPUSCULAR HGB CONC 33.8 g/dL (33.0-37.0); MEAN PLATELET VOLUME 8.3 fL (7.2-11.7); PLATELET COUNT 742 K/uL (130-400); RED CELL DISTRIBUTION WIDTH 27.3 % (11.5-14.5); WHITE BLOOD COUNT 15.2 K/uL (4.8-10.8)
[2016-11-08] MEDS: cefTRIAXone 2 GM in Sodium Chloride 0.9% 100 ML IVPB SCH (17:48)
[2016-11-08 18:10] LABS: MONO # 0.9 K/uL (0.0-0.8)
[2016-11-08] MEDS: HYDROmorphone 1 mg/ml ISec IVP PRN (18:21)
[2016-11-08] MEDS: DiphenhydrAMINE 50 mg/ml Inj IVP PRN (18:26)
[2016-11-09] MEDS: Dextrose 5%/0.45% NS 1,000 ML IV SCH (03:41)
[2016-11-09 06:32] LABS: WHITE BLOOD COUNT 14.6 K/uL (4.8-10.8)
[2016-11-09 06:47] LABS: HEMATOCRIT 23.3 % (34.0-47.0); MEAN CELL VOLUME 76.4 fL (81.0-99.0); MEAN CORPUSCULAR HEMOGLOBIN 25.1 pg (27.0-31.0); MEAN CORPUSCULAR HGB CONC 32.8 g/dL (33.0-37.0); RED CELL DISTRIBUTION WIDTH 26.2 % (11.5-14.5)
--- NOTE | 2016-11-09 08:51 | CP.PCM.PN ---
Subjective - Date & Time of Evaluation Date of Evaluation: 11/09/16 Time of Evaluation: 09:00 - Subjective Subjective: Dr. Rober Phipps service: Patient is seen in room. She is complaining a mild fever but has no complaints of chest pain, cough, nasuea, vomiting, shortness of breath. She also says her pain has greatly decreased since her admission. Objective - Vital Signs/Intake and Output Vital Signs (last 24 hours): Temp Pulse Resp BP Pulse Ox 98.5 F 93 H 20 101/66 96 11/09/16 08:13 11/09/16 08:13 11/09/16 08:13 11/09/16 08:13 11/09/16 08:13 Intake and Output: 11/09/16 11/09/16 06:59 18:59 Intake Total 1520 Balance 1520 - Medications Medications: Current Medications Acetaminophen (Tylenol 325mg Tab) 650 mg PO Q6 PRN PRN Reason: Fever >100.4 F Stop: 11/11/16 23:59 Last Admin: 11/05/16 23:47 Dose: 650 mg Azithromycin (Zithromax) 500 mg PO DAILY [facility] Last Admin: 11/08/16 10:59 Dose: 500 mg Diphenhydramine HCl (Benadryl) 25 mg IVP Q6 PRN PRN Reason: give with dialudid Last Admin: 11/08/16 18:26 Dose: 25 mg Enoxaparin Sodium (Lovenox) 40 mg SC DAILY [facility] Last Admin: 11/08/16 10:59 Dose: 40 mg Ferric Sodium Gluconate Complex (Ferrlecit) 125 mg IVPB DAILY [facility] Stop: 11/09/16 10:01 Last Admin: 11/08/16 10:59 Dose: 125 mg Folic Acid (Folic Acid) 1 mg PO DAILY [facility] Last Admin: 11/08/16 10:59 Dose: 1 mg Hydromorphone HCl (Dilaudid) 1 mg IVP Q6H PRN PRN Reason: pain Last Admin: 11/08/16 18:21 Dose: 1 mg Ceftriaxone Sodium 2 gm/ (Sodium Chloride) 100 mls @ 100 mls/hr IVPB Q24H [facility] Last Admin: 11/08/16 17:48 Dose: 100 mls/hr Dextrose/Sodium Chloride (Dextrose 5%/0.45% Ns 1000 Ml) 1,000 mls @ 80 mls/hr IV .[id number] [facility] Last Admin: 11/09/16 03:41 Dose: Not Given Pantoprazole Sodium (Protonix Ec Tab) 40 mg PO DAILY [facility] Last Admin: 11/08/16 10:59 Dose: 40 mg - Labs Labs: 11/09/16 06:15 11/07/16 07:00 - Constitutional Appears: Non-toxic, No Acute Distress - Head Exam Head Exam: NORMAL INSPECTION - Eye Exam Eye Exam: Normal appearance Pupil Exam: NORMAL ACCOMODATION - ENT Exam ENT Exam: Normal Exam - Respiratory Exam Respiratory Exam: Clear to Ausculation Bilateral. absent: Rales, Rhonchi, Wheezes - Cardiovascular Exam Cardiovascular Exam: REGULAR RHYTHM, RRR, +S1, +S2. absent: Gallop, Rubs - GI/Abdominal Exam GI & Abdominal Exam: Soft, Normal Bowel Sounds. absent: Tenderness - Neurological Exam Neurological Exam: Alert - Psychiatric Exam Psychiatric exam: Normal Affect, Normal Mood - Skin Skin Exam: Normal Color Assessment and Plan (1) Sickle cell anemia with crisis Assessment & Plan: Dr. Moss consulted, she is on IV fluids and pain medication. Status: Acute (2) Pneumonia Assessment & Plan: Rocephin and Zithromax, repeat CXR showed no active disease. Status: Acute (3) Iron deficiency anemia Assessment & Plan: IV Ferricit, will follow up cbc tomorrow. Status: Acute (4) Leukocytosis Assessment & Plan: blood and urine cultures negative, Zithromax and Rocephin. Day 3. Status: Acute (5) Prophylactic measure Assessment & Plan: Protonix and Lovenox Status: Acute
[2016-11-09 09:45] LABS: EOS # 0.3 K/uL (0.0-0.7); LYMPH # 3.1 K/uL (1.0-4.3); MONO # 1.5 K/uL (0.0-0.8)
[2016-11-09] MEDS: Ferric Sodium Gluconat Complex 62.5 mg/5 ml Vial IVPB SCH (10:12)
[2016-11-09] MEDS: Pantoprazole 40 mg EC Tab PO SCH (10:13)
[2016-11-09] MEDS: Enoxaparin 40 mg Syringe SC SCH (10:13)
--- NOTE | 2016-11-09 11:37 | CP.PCM.PN ---
Subjective - Date & Time of Evaluation Date of Evaluation: 11/09/16 Time of Evaluation: 07:25 - Subjective Subjective: patient seen and examined. Condition much improved Denies chest pain, denies cough, denies shortness of breath Objective - Vital Signs/Intake and Output Vital Signs (last 24 hours): Temp Pulse Resp BP Pulse Ox 98.5 F 93 H 20 101/66 96 11/09/16 08:13 11/09/16 08:13 11/09/16 08:13 11/09/16 08:13 11/09/16 08:13 Intake and Output: 11/09/16 11/09/16 06:59 18:59 Intake Total 1520 Balance 1520 - Medications Medications: Current Medications Acetaminophen (Tylenol 325mg Tab) 650 mg PO Q6 PRN PRN Reason: Fever >100.4 F Stop: 11/11/16 23:59 Last Admin: 11/05/16 23:47 Dose: 650 mg Azithromycin (Zithromax) 500 mg PO DAILY [facility] Last Admin: 11/09/16 10:14 Dose: 500 mg Diphenhydramine HCl (Benadryl) 25 mg IVP Q6 PRN PRN Reason: give with dialudid Last Admin: 11/08/16 18:26 Dose: 25 mg Enoxaparin Sodium (Lovenox) 40 mg SC DAILY [facility] Last Admin: 11/09/16 10:13 Dose: 40 mg Folic Acid (Folic Acid) 1 mg PO DAILY [facility] Last Admin: 11/09/16 10:13 Dose: 1 mg Hydromorphone HCl (Dilaudid) 1 mg IVP Q6H PRN PRN Reason: pain Last Admin: 11/08/16 18:21 Dose: 1 mg Ceftriaxone Sodium 2 gm/ (Sodium Chloride) 100 mls @ 100 mls/hr IVPB Q24H [facility] Last Admin: 11/08/16 17:48 Dose: 100 mls/hr Dextrose/Sodium Chloride (Dextrose 5%/0.45% Ns 1000 Ml) 1,000 mls @ 80 mls/hr IV .[id number] [facility] Last Admin: 11/09/16 03:41 Dose: Not Given Pantoprazole Sodium (Protonix Ec Tab) 40 mg PO DAILY [facility] Last Admin: 11/09/16 10:13 Dose: 40 mg - Labs Labs: 11/09/16 06:15 06/03/17 07:00 - Head Exam Head Exam: ATRAUMATIC, NORMOCEPHALIC - ENT Exam ENT Exam: Mucous Membranes Moist - Neck Exam Neck Exam: Normal Inspection - Respiratory Exam Respiratory Exam: Clear to Ausculation Bilateral - Cardiovascular Exam Cardiovascular Exam: REGULAR RHYTHM Assessment and Plan (1) Chest pain Assessment & Plan: continue antibiotics for now Followup H&H and transfuse as necessary Status: Acute (2) Sickle cell anemia with crisis Status: Acute
--- NOTE | 2016-11-09 15:47 | CP.PCM.PN ---
Subjective - Date & Time of Evaluation Date of Evaluation: 11/09/16 Time of Evaluation: 07:40 - Subjective Subjective: clinically same Objective - Vital Signs/Intake and Output Vital Signs (last 24 hours): Temp Pulse Resp BP Pulse Ox 102.3 F H 93 H 20 101/66 96 11/09/16 15:24 11/09/16 08:13 11/09/16 08:13 11/09/16 08:13 11/09/16 08:13 Intake and Output: 11/09/16 11/09/16 06:59 18:59 Intake Total 1520 Balance 1520 - Medications Medications: Current Medications Acetaminophen (Tylenol 325mg Tab) 650 mg PO Q6 PRN PRN Reason: Fever >100.4 F Stop: 11/11/16 23:59 Last Admin: 11/09/16 15:24 Dose: 650 mg Azithromycin (Zithromax) 500 mg PO DAILY [facility] Last Admin: 11/09/16 10:14 Dose: 500 mg Diphenhydramine HCl (Benadryl) 25 mg IVP Q6 PRN PRN Reason: give with dialudid Last Admin: 11/08/16 18:26 Dose: 25 mg Enoxaparin Sodium (Lovenox) 40 mg SC DAILY [facility] Last Admin: 11/09/16 10:13 Dose: 40 mg Folic Acid (Folic Acid) 1 mg PO DAILY [facility] Last Admin: 11/09/16 10:13 Dose: 1 mg Hydromorphone HCl (Dilaudid) 1 mg IVP Q6H PRN PRN Reason: pain Last Admin: 11/08/16 18:21 Dose: 1 mg Ceftriaxone Sodium 2 gm/ (Sodium Chloride) 100 mls @ 100 mls/hr IVPB Q24H [facility] Last Admin: 11/08/16 17:48 Dose: 100 mls/hr Pantoprazole Sodium (Protonix Ec Tab) 40 mg PO DAILY [facility] Last Admin: 11/09/16 10:13 Dose: 40 mg - Labs Labs: 11/09/16 06:15 11/07/16 07:00 - Constitutional Appears: Well - Head Exam Head Exam: ATRAUMATIC, NORMAL INSPECTION, NORMOCEPHALIC - Eye Exam Eye Exam: EOMI, Normal appearance, PERRL Pupil Exam: NORMAL ACCOMODATION, PERRL - ENT Exam ENT Exam: Mucous Membranes Moist, Normal Exam - Neck Exam Neck Exam: Full ROM, Normal Inspection. absent: Lymphadenopathy - Respiratory Exam Respiratory Exam: Decreased Breath Sounds - Cardiovascular Exam Cardiovascular Exam: REGULAR RHYTHM, +S1, +S2 - GI/Abdominal Exam GI & Abdominal Exam: Soft, Diminished Bowel Sounds - Rectal Exam Rectal Exam: Deferred
[2016-11-09 16:59] LABS: RBC URINE < 1 /hpf (0-3); TRANSITIONAL EPITHIAL < 1 /hpf (0-3); URINE BACTERIA RARE (<OCC); URINE BILIRUBIN NEGATIVE (NEGATIVE); URINE BLOOD 2+ (NEGATIVE); URINE COLOR Yellow (YELLOW); URINE GLUCOSE (UA) NORMAL (Normal); URINE KETONE NEGATIVE (NEGATIVE); URINE LEUKOCYTE ESTERASE NEG Leu/uL (Negative); URINE PROTEIN 1+ mg/dL (NEGATIVE); URINE UROBILINOGEN NORMAL mg/dL (0.2-1.0); WBC URINE < 1 /hpf (0-5)
--- NOTE | 2016-11-09 16:59 | RAD ---
HISTORY: SICKEL CELL CRISIS COMPARISON: 11/04/2016. TECHNIQUE: Chest PA and lateral FINDINGS: LUNGS: Resolution of bilateral infiltrates. PLEURA: Resolution of bilateral pleural effusions. CARDIOVASCULAR: Normal. OSSEOUS STRUCTURES: No significant abnormalities. VISUALIZED UPPER ABDOMEN: Normal. OTHER FINDINGS: None. IMPRESSION: No active disease.
[2016-11-09] MEDS: cefTRIAXone 2 GM in Sodium Chloride 0.9% 100 ML IVPB SCH (18:28)
[2016-11-10 08:13] LABS: CHLORIDE 100 mmol/L (98-107); SODIUM 136 mmol/L (132-148)
[2016-11-10 08:16] LABS: ALKALINE PHOSPHATASE 162 U/L (38-126); ALT/SGPT 167 U/L (9-52); AST/SGOT 219 U/L (14-36); BILIRUBIN,TOTAL 3.4 mg/dL (0.2-1.3); BLOOD UREA NITROGEN 9 mg/dL (7-17); CARBON DIOXIDE 26 mmol/L (22-30); GFR AFRICAN-AMERICAN > 60; GLUCOSE,RANDOM 94 mg/dL (65-105); TOTAL PROTEIN 8.1 g/dL (6.3-8.3)
[2016-11-10] MEDS: Enoxaparin 40 mg Syringe SC SCH (09:37)
[2016-11-10] MEDS: Pantoprazole 40 mg EC Tab PO SCH (09:37)
--- NOTE | 2016-11-10 09:59 | CP.PCM.PN ---
Subjective - Date & Time of Evaluation Date of Evaluation: 11/10/16 Time of Evaluation: 10:00 - Subjective Subjective: Dr. Phipps service: Patient is seen in room. She is reports having fever and chills the night before with no complaints of nausea, vomiting, diarrhea, abdominal pain, chest pain or shortness of breath. Objective - Vital Signs/Intake and Output Vital Signs (last 24 hours): Temp Pulse Resp BP Pulse Ox 100 F H 107 H 20 103/68 100 11/10/16 08:00 11/10/16 08:00 11/10/16 08:00 11/10/16 08:00 11/10/16 08:00 Intake and Output: 11/10/16 11/10/16 06:59 18:59 Intake Total 250 Balance 250 - Medications Medications: Current Medications Acetaminophen (Tylenol 325mg Tab) 650 mg PO Q6 PRN PRN Reason: Fever >100.4 F Stop: 11/11/16 23:59 Last Admin: 11/09/16 23:49 Dose: 650 mg Azithromycin (Zithromax) 500 mg PO DAILY [facility] Last Admin: 11/10/16 09:37 Dose: 500 mg Diphenhydramine HCl (Benadryl) 25 mg IVP Q6 PRN PRN Reason: give with dialudid Last Admin: 11/08/16 18:26 Dose: 25 mg Enoxaparin Sodium (Lovenox) 40 mg SC DAILY [facility] Last Admin: 11/10/16 09:37 Dose: 40 mg Folic Acid (Folic Acid) 1 mg PO DAILY [facility] Last Admin: 11/10/16 09:37 Dose: 1 mg Hydromorphone HCl (Dilaudid) 1 mg IVP Q6H PRN PRN Reason: pain Last Admin: 11/08/16 18:21 Dose: 1 mg Ceftriaxone Sodium 2 gm/ (Sodium Chloride) 100 mls @ 100 mls/hr IVPB Q24H [facility] Last Admin: 11/09/16 18:28 Dose: 100 mls/hr Pantoprazole Sodium (Protonix Ec Tab) 40 mg PO DAILY [facility] Last Admin: 11/10/16 09:37 Dose: 40 mg - Labs Labs: 11/09/16 06:15 11/10/16 07:17 - Constitutional Appears: Non-toxic, No Acute Distress - Head Exam Head Exam: NORMAL INSPECTION - Eye Exam Pupil Exam: NORMAL ACCOMODATION - ENT Exam ENT Exam: Normal Exam - Respiratory Exam Respiratory Exam: Clear to Ausculation Bilateral. absent: Rales, Rhonchi, Wheezes - Cardiovascular Exam Cardiovascular Exam: REGULAR RHYTHM, RRR, +S1, +S2. absent: Gallop, Rubs - GI/Abdominal Exam GI & Abdominal Exam: Soft - Psychiatric Exam Psychiatric exam: Normal Affect, Normal Mood - Skin Skin Exam: Normal Color Assessment and Plan (1) Sickle cell anemia with crisis Assessment & Plan: Patient was found to be anemic with a higher WBC count which is now around 25, she is to be transfused per Dr. Moss's note 2 units of PRBCS. Status: Acute (2) Pneumonia Assessment & Plan: continue IV antibiotics, Status: Acute (3) Iron deficiency anemia Assessment & Plan: transfused 2 units of PRBCs, follow up morning cbc. cmp. Status: Acute (4) Leukocytosis Assessment & Plan: Elevated WBC with fever, cultures negative so far. Status: Acute (5) Elevated LFTs Assessment & Plan: abdominal US shows possible liver disease, having consulted GI, Dr. Stack, help appreciated. Follow up his consultation. Status: Acute (6) Hyperbilirubinemia Status: Acute (7) Prophylactic measure Assessment & Plan: continue current managment. Status: Acute
--- NOTE | 2016-11-10 12:21 | CP.PCM.PN ---
Subjective - Date & Time of Evaluation Date of Evaluation: 11/10/16 Time of Evaluation: 08:00 - Subjective Subjective: febrile again recultured Objective - Vital Signs/Intake and Output Vital Signs (last 24 hours): Temp Pulse Resp BP Pulse Ox 100 F H 107 H 20 103/68 100 11/10/16 08:00 11/10/16 08:00 11/10/16 08:00 11/10/16 08:00 11/10/16 08:00 Intake and Output: 11/10/16 11/10/16 06:59 18:59 Intake Total 250 Balance 250 - Medications Medications: Current Medications Acetaminophen (Tylenol 325mg Tab) 650 mg PO Q6 PRN PRN Reason: Fever >100.4 F Stop: 11/11/16 23:59 Last Admin: 11/09/16 23:49 Dose: 650 mg Azithromycin (Zithromax) 500 mg PO DAILY [facility] Last Admin: 11/10/16 09:37 Dose: 500 mg Diphenhydramine HCl (Benadryl) 25 mg IVP Q6 PRN PRN Reason: give with dialudid Last Admin: 11/08/16 18:26 Dose: 25 mg Enoxaparin Sodium (Lovenox) 40 mg SC DAILY [facility] Last Admin: 11/10/16 09:37 Dose: 40 mg Folic Acid (Folic Acid) 1 mg PO DAILY [facility] Last Admin: 11/10/16 09:37 Dose: 1 mg Hydromorphone HCl (Dilaudid) 1 mg IVP Q6H PRN PRN Reason: pain Last Admin: 11/08/16 18:21 Dose: 1 mg Ceftriaxone Sodium 2 gm/ (Sodium Chloride) 100 mls @ 100 mls/hr IVPB Q24H [facility] Last Admin: 11/09/16 18:28 Dose: 100 mls/hr Pantoprazole Sodium (Protonix Ec Tab) 40 mg PO DAILY [facility] Last Admin: 11/10/16 09:37 Dose: 40 mg - Labs Labs: 11/09/16 06:15 11/10/16 07:17 - Constitutional Appears: Non-toxic, Cachectic, Chronically Ill - Head Exam Head Exam: NORMOCEPHALIC - Eye Exam Eye Exam: Normal appearance. absent: Scleral icterus - ENT Exam ENT Exam: Normal External Ear Exam - Neck Exam Neck Exam: absent: Lymphadenopathy - Respiratory Exam Respiratory Exam: Decreased Breath Sounds, Rhonchi - Cardiovascular Exam Cardiovascular Exam: REGULAR RHYTHM, +S1, +S2 - GI/Abdominal Exam GI & Abdominal Exam: Distended, Soft Assessment and Plan (1) Leukocytosis Status: Acute (2) Sickle cell anemia with crisis Status: Acute (3) Abdominal pain Status: Acute (4) Chest pain Status: Acute
[2016-11-10] MEDS: Sodium Chloride 0.9% 1,000 ML IV SCH (14:31)
--- NOTE | 2016-11-10 14:58 | US ---
HISTORY: elevated T. bili and LFTs COMPARISON: CT abdomen and pelvis without oral or IV contrast performed 04/29/16 TECHNIQUE: Sonographic evaluation of the abdomen. FINDINGS: LIVER: Measures 21 cm in sagittal dimension. Echogenic liver may be seen in setting of hepatic parenchymal disease or fatty infiltration. No focal hepatic mass identified. The main portal vein appears patent with normal directional flow. No intrahepatic bile duct dilatation. GALLBLADDER: No gallstones. No gallbladder wall thickening. Negative sonographic Patino's sign as assessed by the audio/video engineer. COMMON BILE DUCT: Measures 4 mm. PANCREAS: Not well visualized. RIGHT KIDNEY: Measures 13.6 x 4.9 x 6.0cm. No obstructing calculus or hydronephrosis identified LEFT KIDNEY: Measures 12.5 x 5.9 x 5.8cm. No obstructing calculus or hydronephrosis identified. SPLEEN: Measures approximately 7.4 cm. AORTA: Limited views appear unremarkable. IVC: Limited views appear unremarkable. OTHER FINDINGS: None. IMPRESSION: Echogenic liver may be seen in setting of hepatic parenchymal disease or fatty infiltration. Hepatomegaly.
--- NOTE | 2016-11-10 15:59 | CP.PCM.PN ---
Subjective - Date & Time of Evaluation Date of Evaluation: 11/10/16 Time of Evaluation: 07:20 - Subjective Subjective: clinically same Objective - Vital Signs/Intake and Output Vital Signs (last 24 hours): Temp Pulse Resp BP Pulse Ox 100 F H 107 H 20 103/68 100 11/10/16 08:00 11/10/16 08:00 11/10/16 08:00 11/10/16 08:00 11/10/16 08:00 Intake and Output: 11/10/16 11/10/16 06:59 18:59 Intake Total 250 Balance 250 - Medications Medications: Current Medications Acetaminophen (Tylenol 325mg Tab) 650 mg PO Q6 PRN PRN Reason: Fever >100.4 F Stop: 11/11/16 23:59 Last Admin: 11/09/16 23:49 Dose: 650 mg Azithromycin (Zithromax) 500 mg PO DAILY [facility] Last Admin: 11/10/16 09:37 Dose: 500 mg Diphenhydramine HCl (Benadryl) 25 mg IVP Q6 PRN PRN Reason: give with dialudid Last Admin: 11/08/16 18:26 Dose: 25 mg Enoxaparin Sodium (Lovenox) 40 mg SC DAILY [facility] Last Admin: 11/10/16 09:37 Dose: 40 mg Folic Acid (Folic Acid) 1 mg PO DAILY [facility] Last Admin: 11/10/16 09:37 Dose: 1 mg Hydromorphone HCl (Dilaudid) 1 mg IVP Q6H PRN PRN Reason: pain Last Admin: 11/08/16 18:21 Dose: 1 mg Ceftriaxone Sodium 2 gm/ (Sodium Chloride) 100 mls @ 100 mls/hr IVPB Q24H [facility] Last Admin: 11/09/16 18:28 Dose: 100 mls/hr Sodium Chloride (Sodium Chloride 0.9%) 1,000 mls @ 100 mls/hr IV .Q10H [facility] Last Admin: 11/10/16 14:31 Dose: 100 mls/hr Pantoprazole Sodium (Protonix Ec Tab) 40 mg PO DAILY [facility] Last Admin: 11/10/16 09:37 Dose: 40 mg - Labs Labs: 11/09/16 06:15 11/10/16 07:17 - Constitutional Appears: Well - Head Exam Head Exam: ATRAUMATIC, NORMAL INSPECTION, NORMOCEPHALIC - Eye Exam Eye Exam: EOMI, Normal appearance, PERRL Pupil Exam: NORMAL ACCOMODATION, PERRL - ENT Exam ENT Exam: Mucous Membranes Moist, Normal Exam - Neck Exam Neck Exam: Full ROM, Normal Inspection. absent: Lymphadenopathy - Respiratory Exam Respiratory Exam: Decreased Breath Sounds - Cardiovascular Exam Cardiovascular Exam: REGULAR RHYTHM, +S1, +S2 - GI/Abdominal Exam GI & Abdominal Exam: Soft, Diminished Bowel Sounds - Rectal Exam Rectal Exam: Deferred
[2016-11-10] MEDS: HYDROmorphone 1 mg/ml ISec IVP PRN ×2 (16:11→22:18)
[2016-11-10 17:20] LABS: BASO # 0.2 K/uL (0.0-0.2); BASO % 0.8 % (0.0-2.0); EOS # 0.1 K/uL (0.0-0.7); EOS % 0.3 % (0.0-4.0); HEMATOCRIT 18.3 % (34.0-47.0); LYMPH # 9.5 K/uL (1.0-4.3); LYMPH % 37.1 % (20.0-40.0); MEAN CELL VOLUME 75.4 fL (81.0-99.0); MEAN CORPUSCULAR HEMOGLOBIN 25.6 pg (27.0-31.0); MEAN PLATELET VOLUME 8.5 fL (7.2-11.7); MONO # 2.7 K/uL (0.0-0.8); MONO % 10.7 % (0.0-10.0); NRBC % 0.7 % (0.0-2.0); PLATELET COUNT 665 K/uL (130-400)
[2016-11-10 17:23] LABS: WHITE BLOOD COUNT 25.5 K/uL (4.8-10.8)
[2016-11-10 17:33] LABS: IRON 164 ug/dL (37-170)
[2016-11-10 17:34] LABS: BILIRUBIN,DIRECT 0.7 mg/dL (0.0-0.4)
--- NOTE | 2016-11-10 17:51 | CP.PCM.PN ---
Subjective - Date & Time of Evaluation Date of Evaluation: 11/10/16 Time of Evaluation: 17:00 - Subjective Subjective: Has some back pain for transfusion today Objective - Vital Signs/Intake and Output Vital Signs (last 24 hours): Temp Pulse Resp BP Pulse Ox 99.5 F 100 H 20 108/66 96 11/10/16 15:00 11/10/16 15:00 11/10/16 15:00 11/10/16 15:00 11/10/16 15:00 Intake and Output: 11/10/16 11/10/16 06:59 18:59 Intake Total 250 400 Balance 250 400 - Medications Medications: Current Medications Acetaminophen (Tylenol 325mg Tab) 650 mg PO Q6 PRN PRN Reason: Fever >100.4 F Stop: 11/11/16 23:59 Last Admin: 11/09/16 23:49 Dose: 650 mg Azithromycin (Zithromax) 500 mg PO DAILY [facility] Last Admin: 11/10/16 09:37 Dose: 500 mg Diphenhydramine HCl (Benadryl) 25 mg IVP Q6 PRN PRN Reason: give with dialudid Last Admin: 11/08/16 18:26 Dose: 25 mg Enoxaparin Sodium (Lovenox) 40 mg SC DAILY [facility] Last Admin: 11/10/16 09:37 Dose: 40 mg Folic Acid (Folic Acid) 1 mg PO DAILY [facility] Last Admin: 11/10/16 09:37 Dose: 1 mg Hydromorphone HCl (Dilaudid) 1 mg IVP Q6H PRN PRN Reason: pain Last Admin: 11/10/16 16:11 Dose: 1 mg Ceftriaxone Sodium 2 gm/ (Sodium Chloride) 100 mls @ 100 mls/hr IVPB Q24H [facility] Last Admin: 11/09/16 18:28 Dose: 100 mls/hr Sodium Chloride (Sodium Chloride 0.9%) 1,000 mls @ 100 mls/hr IV .Q10H [facility] Last Admin: 11/10/16 14:31 Dose: 100 mls/hr Pantoprazole Sodium (Protonix Ec Tab) 40 mg PO DAILY [facility] Last Admin: 11/10/16 09:37 Dose: 40 mg - Labs Labs: 11/10/16 17:08 11/10/16 07:17 - Head Exam Head Exam: ATRAUMATIC - ENT Exam ENT Exam: Mucous Membranes Dry - Respiratory Exam Respiratory Exam: NORMAL BREATHING PATTERN - Cardiovascular Exam Cardiovascular Exam: +S1, +S2 - GI/Abdominal Exam GI & Abdominal Exam: Normal Bowel Sounds - Extremities Exam Extremities Exam: Normal Inspection - Neurological Exam Neurological Exam: Oriented x3 - Psychiatric Exam Psychiatric exam: Normal Affect, Normal Mood - Skin Skin Exam: Warm Assessment and Plan (1) Sickle cell anemia with crisis Assessment & Plan: IV fluids, folic acid, pain meds, 02 via NC to receive 2U PRBC tonight Status: Acute (2) Iron deficiency anemia Assessment & Plan: s/p parenteral iron PRBC transfusion Status: Acute (3) Leukocytosis Assessment & Plan: likely reactive to sickle cell Status: Acute
--- NOTE | 2016-11-10 17:55 | CP.PCM.PN ---
Subjective - Date & Time of Evaluation Date of Evaluation: 11/09/16 Time of Evaluation: 16:00 - Subjective Subjective: Feeling better Objective - Vital Signs/Intake and Output Vital Signs (last 24 hours): Temp Pulse Resp BP Pulse Ox 99.5 F 100 H 20 108/66 96 11/10/16 15:00 11/10/16 15:00 11/10/16 15:00 11/10/16 15:00 11/10/16 15:00 Intake and Output: 11/10/16 11/10/16 06:59 18:59 Intake Total 250 400 Balance 250 400 - Medications Medications: Current Medications Acetaminophen (Tylenol 325mg Tab) 650 mg PO Q6 PRN PRN Reason: Fever >100.4 F Stop: 11/11/16 23:59 Last Admin: 11/09/16 23:49 Dose: 650 mg Azithromycin (Zithromax) 500 mg PO DAILY [facility] Last Admin: 11/10/16 09:37 Dose: 500 mg Diphenhydramine HCl (Benadryl) 25 mg IVP Q6 PRN PRN Reason: give with dialudid Last Admin: 11/08/16 18:26 Dose: 25 mg Enoxaparin Sodium (Lovenox) 40 mg SC DAILY [facility] Last Admin: 11/10/16 09:37 Dose: 40 mg Folic Acid (Folic Acid) 1 mg PO DAILY [facility] Last Admin: 11/10/16 09:37 Dose: 1 mg Hydromorphone HCl (Dilaudid) 1 mg IVP Q6H PRN PRN Reason: pain Last Admin: 11/10/16 16:11 Dose: 1 mg Ceftriaxone Sodium 2 gm/ (Sodium Chloride) 100 mls @ 100 mls/hr IVPB Q24H [facility] Last Admin: 11/09/16 18:28 Dose: 100 mls/hr Sodium Chloride (Sodium Chloride 0.9%) 1,000 mls @ 100 mls/hr IV .Q10H [facility] Last Admin: 11/10/16 14:31 Dose: 100 mls/hr Pantoprazole Sodium (Protonix Ec Tab) 40 mg PO DAILY [facility] Last Admin: 11/10/16 09:37 Dose: 40 mg - Labs Labs: 11/10/16 17:08 11/10/16 07:17 - Head Exam Head Exam: ATRAUMATIC - Eye Exam Eye Exam: Normal appearance - ENT Exam ENT Exam: Mucous Membranes Dry - Respiratory Exam Respiratory Exam: NORMAL BREATHING PATTERN - Cardiovascular Exam Cardiovascular Exam: +S1, +S2 - GI/Abdominal Exam GI & Abdominal Exam: Normal Bowel Sounds - Extremities Exam Extremities Exam: Normal Inspection Assessment and Plan (1) Sickle cell anemia with crisis Assessment & Plan: IV fluids, folic acid, pain meds, 02 via NC Status: Acute (2) Iron deficiency anemia Assessment & Plan: parenteral iron Status: Acute (3) Leukocytosis Assessment & Plan: likely reactive Status: Acute
[2016-11-10] MEDS: cefTRIAXone 2 GM in Sodium Chloride 0.9% 100 ML IVPB SCH (18:23)
[2016-11-10 18:50] LABS: EOSINOPHIL 1 % (0-4); NEUTROPHIL 62 % (50-75); TOTAL CELLS COUNTED 100
[2016-11-10 18:53] LABS: GIANT PLATELETS PRESENT
[2016-11-10] MEDS: DiphenhydrAMINE 50 mg/ml Inj IVP PRN (22:16)
[2016-11-11] MEDS: DiphenhydrAMINE 50 mg/ml Inj IVP PRN ×3 (04:11→21:43)
[2016-11-11] MEDS: HYDROmorphone 1 mg/ml ISec IVP PRN (04:11)
[2016-11-11] MEDS: Sodium Chloride 0.9% 1,000 ML IV SCH ×2 (07:11→10:47)
[2016-11-11] MEDS ORDERED: HYDROmorphone 1 mg/ml ISec IVP PRN (10:14)
--- NOTE | 2016-11-11 10:34 | CP.PCM.CON ---
<Kyler Morel - Last Filed: 11/11/16 12:11> History of Present Illness - History of Present Illness History of Present Illness: PGY4 GI Fellow Consult Note Patient is a 26yo female with PMHx significant for sickle cell anemia with recent episode of pain crisis who presented to the ED with recurrent back and B/ L leg pain. The patient was recently admitted and discharged following treatment for an acute pain crisis. Pain became more severe in the days leading up to admission and were not responding to Motrin and Alleve, thus she came to the ED for further treatment. While admitted, she is noted to have HGB of 8, improved following transfusions on prior admission though this has fallen again to 6.2 as of yesterday. Our service was consulted for abnormal LFTs. The patient denies any prior history of chronic liver disease and does not abuse alcohol. PMHx: See HPI PSHx: Denies FHx: Parents - Sickle cell trait Social: Denies tobacco, EtOH, illicit drug use Endo: No prior endoscopic evaluations Review of Systems - Constitutional Constitutional: Chills, Fever, Malaise. absent: Anorexia - EENT Eyes: absent: Change in Vision Nose/Mouth/Throat: absent: Sore Throat - Cardiovascular Cardiovascular: Chest Pain. absent: Dyspnea, Edema - Respiratory Respiratory: absent: Cough, Dyspnea, Excessive Mucous Production - Gastrointestinal Gastrointestinal: absent: Abdominal Pain, Bloating, Constipation, Cramping, Diarrhea, Dysphagia, Heartburn, Hematemesis, Hematochezia, Melena, Nausea, Vomiting - Genitourinary Genitourinary: Hematuria. absent: Dysuria, Urinary Frequency - Musculoskeletal Musculoskeletal: Back Pain, Myalgias - Integumentary Integumentary: absent: New Lesions, Rash - Neurological Neurological: absent: Dizziness, Numbness, Focal Weakness - Psychiatric Psychiatric: absent: Anxiety, Depression - Endocrine Endocrine: absent: Polydipsia, Polyphagia, Polyuria - Hematologic/Lymphatic Hematologic: absent: Easy Bleeding, Easy Bruising, Lymphadenopathy Past Patient History - Infectious Disease Hx of Infectious Diseases: None - Past Medical History & Family History Past Medical History?: Yes - Past Social History Smoking Status: Never Smoked - CARDIAC Hx Cardiac Disorders: No - PULMONARY Hx Respiratory Disorders: No - NEUROLOGICAL Hx Neurological Disorder: No - HEENT Hx HEENT Problems: No - RENAL Hx Chronic Kidney Disease: No - ENDOCRINE/METABOLIC Hx Endocrine Disorders: No - HEMATOLOGICAL/ONCOLOGICAL Hx Blood Disorders: Yes Hx Anemia: Yes Hx Sickle Cell Disease: Yes - INTEGUMENTARY Hx Dermatological Problems: No - MUSCULOSKELETAL/RHEUMATOLOGICAL Hx Musculoskeletal Disorders: No Hx Falls: No - GASTROINTESTINAL Hx Gastrointestinal Disorders: No - GENITOURINARY/GYNECOLOGICAL Hx Genitourinary Disorders: No - PSYCHIATRIC Hx Psychophysiologic Disorder: No Hx Substance Use: No - SURGICAL HISTORY Hx Surgeries: No - ANESTHESIA Hx Anesthesia: No Hx Anesthesia Reactions: No Hx Malignant Hyperthermia: No Has any member of the family had a problem w/ anesthesia?: No Meds Home Medications: Home Medication List Medication Instructions Recorded Confirmed Type Azithromycin [Zithromax] 250 mg PO DAILY #4 tab 11/09/16 Rx Cephalexin [cephalexin] 500 mg PO BID #8 cap 11/09/16 Rx Allergies/Adverse Reactions: Allergies Allergy/AdvReac Type Severity Reaction Status Date / Time No Known Allergies Allergy Verified 11/01/16 21:50 - Medications Medications: Current Medications Acetaminophen (Tylenol 325mg Tab) 650 mg PO Q6 PRN PRN Reason: Fever >100.4 F Stop: 11/11/16 23:59 Last Admin: 11/11/16 04:13 Dose: 650 mg Azithromycin (Zithromax) 500 mg PO DAILY [facility] Last Admin: 11/10/16 09:37 Dose: 500 mg Diphenhydramine HCl (Benadryl) 25 mg IVP Q4H PRN PRN Reason: give with dialudid Enoxaparin Sodium (Lovenox) 40 mg SC DAILY [facility] Last Admin: 11/10/16 09:37 Dose: 40 mg Folic Acid (Folic Acid) 1 mg PO DAILY [facility] Last Admin: 11/10/16 09:37 Dose: 1 mg Hydromorphone HCl (Dilaudid) 1 mg IVP Q4H PRN PRN Reason: pain Ceftriaxone Sodium 2 gm/ (Sodium Chloride) 100 mls @ 100 mls/hr IVPB Q24H [facility] Last Admin: 11/10/16 18:23 Dose: 100 mls/hr Sodium Chloride (Sodium Chloride 0.9%) 1,000 mls @ 100 mls/hr IV .Q10H [facility] Last Admin: 11/11/16 07:11 Dose: Not Given Pantoprazole Sodium (Protonix Ec Tab) 40 mg PO DAILY [facility] Last Admin: 11/10/16 09:37 Dose: 40 mg Physical Exam - Constitutional Appears: Non-toxic, No Acute Distress - Eye Exam Eye Exam: EOMI, PERRL - ENT Exam ENT Exam: Mucous Membranes Dry - Respiratory Exam Respiratory Exam: Clear to Auscultation Bilateral. absent: Rales, Rhonchi, Wheezes - Cardiovascular Exam Cardiovascular Exam: RRR, +S1, +S2 - GI/Abdominal Exam GI & Abdominal Exam: Normal Bowel Sounds, Soft. absent: Distended, Firm, Guarding, Organomegaly, Rigid, Tenderness - Extremities Exam Extremities exam: Positive for: normal inspection. Negative for: pedal edema - Neurological Exam Neurological exam: Alert, Oriented x3 - Psychiatric Exam Psychiatric exam: Normal Affect, Normal Mood - Skin Skin Exam: Dry, Warm Results - Vital Signs Recent Vital Signs: Last Vital Signs Temp 101 F H 11/11/16 08:35 Pulse 101 H 11/11/16 08:35 Resp 20 11/11/16 08:35 BP 112/68 11/11/16 08:35 Pulse Ox 95 11/11/16 00:00 - Labs Result Diagrams: 11/11/16 11:04 11/11/16 11:04 Labs: Laboratory Results - last 24 hr 11/10/16 11/10/16 11/10/16 11:00 17:08 17:08 WBC 25.5 H D RBC 2.43 L Hgb 6.2 L* Hct 18.3 L MCV 75.4 L MCH 25.6 L MCHC 34.0 RDW 28.0 H Plt Count 665 H MPV 8.5 Neut % (Auto) 51.1 Lymph % (Auto) 37.1 [place] % (Auto) 10.7 H Eos % (Auto) 0.3 Baso % (Auto) 0.8 Neut # 13.0 H Lymph # 9.5 H [place] # 2.7 H Eos # 0.1 Baso # 0.2 Neutrophils % (Manual) 62 Lymphocytes % (Manual) 25 Monocytes % (Manual) 12 H Eosinophils % (Manual) 1 Platelet Estimate Slightly increased H Giant Platelets Present Polychromasia Slight Hypochromasia (manual) Moderate Poikilocytosis (manual Slight Anisocytosis (manual) Marked Microcytosis (manual) Slight Sickle Cells Slight Target Cells Slight Tear Drop Cells Slight Ovalocytes Slight Schistocytes Slight Iron TIBC % Saturation Transferrin Ferritin 2320.0 Direct Bilirubin 0.7 H C. difficile Ag & Toxin Negative Blood Type Antibody Screen Antibody Identification 11/10/16 11/10/16 11/10/16 17:08 17:08 19:09 WBC RBC Hgb Hct MCV MCH MCHC RDW Plt Count MPV Neut % (Auto) Lymph % (Auto) [place] % (Auto) Eos % (Auto) Baso % (Auto) Neut # Lymph # [place] # Eos # Baso # Neutrophils % (Manual) Lymphocytes % (Manual) Monocytes % (Manual) Eosinophils % (Manual) Platelet Estimate Giant Platelets Polychromasia Hypochromasia (manual) Poikilocytosis (manual Anisocytosis (manual) Microcytosis (manual) Sickle Cells Target Cells Tear Drop Cells Ovalocytes Schistocytes Iron 164 TIBC 313 % Saturation 52 Transferrin 226.25 Ferritin Direct Bilirubin C. difficile Ag & Toxin Blood Type O POSITIVE Antibody Screen Positive Antibody Identification Non Specific Antibody Assessment & Plan - Assessment and Plan (Free Text) Assessment: Patient is a 26yo female with PMHx significant for sickle cell anemia with recent episode of pain crisis who presented to the ED with recurrent back and B/ L leg pain. -Acute sickle cell pain crisis -Sickle cell anemia -Abnormal LFTs, mixed picture -Unconjugated hyperbilirubinemia - 2/2 hemolysis Plan: -Agree with current management, IVF as ordered -Patient has only had approximately 7 RBC transfusions in her life -Recent venofer and PRBCs given - ferritin elevated; would monitor periodically as 2/2 iron overload could cause elevated LFTs in hepatocellular pattern -Bilirubin elevated due to hemolysis and acute event -Case discussed with hematology supply chain consultant, appreciate input -U/S abdomen noted -Elevated LFTs likely a result of ongoing pain crisis; continue to trend CMP and monitor for improvement -Would avoid further iron supplementation as stores appear replete at present -Check autoimmune hepatitis lab work up: CINDI, AMA, SMA, LKM-Ab -Will monitor clinical course - Date & Time Date: 11/11/16 Time: 10:34 <Jen Shook - Last Filed: 11/11/16 12:51> Meds - Medications Medications: Current Medications Acetaminophen (Tylenol 325mg Tab) 650 mg PO Q6 PRN PRN Reason: Fever >100.4 F Stop: 11/11/16 23:59 Last Admin: 11/11/16 04:13 Dose: 650 mg Azithromycin (Zithromax) 500 mg PO DAILY [facility] Last Admin: 11/11/16 10:44 Dose: 500 mg Diphenhydramine HCl (Benadryl) 25 mg IVP Q4H PRN PRN Reason: give with dilaudid Enoxaparin Sodium (Lovenox) 40 mg SC DAILY [facility] Last Admin: 11/10/16 09:37 Dose: 40 mg Folic Acid (Folic Acid) 1 mg PO DAILY [facility] Last Admin: 11/11/16 10:44 Dose: 1 mg Hydromorphone HCl (Dilaudid) 2 mg IVP Q4H PRN PRN Reason: pain Potassium Chloride 40 meq/ (Sodium Chloride) 1,020 mls @ 125 mls/hr IV .Q8H10M [facility] Cefepime HCl (Maxipime Iv 1 Gm Premix) 1 gm in 50 mls @ 100 mls/hr IVPB Q12H [facility] Vancomycin/Sodium Chloride (Vancocin) 1 gm in 200 mls @ 133 mls/hr IVPB Q12H [facility] Stop: 11/16/16 13:01 Pantoprazole Sodium (Protonix Ec Tab) 40 mg PO DAILY [facility] Last Admin: 11/11/16 10:44 Dose: 40 mg Results - Vital Signs Recent Vital Signs: Last Vital Signs Temp 101 F H 11/11/16 08:35 Pulse 101 H 11/11/16 08:35 Resp 20 11/11/16 08:35 BP 112/68 11/11/16 08:35 Pulse Ox 95 11/11/16 00:00 - Labs Result Diagrams: 11/11/16 11:04 11/11/16 11:04 Labs: Laboratory Results - last 24 hr 11/10/16 11/10/16 11/10/16 11:00 17:08 17:08 WBC 25.5 H D RBC 2.43 L Hgb 6.2 L* Hct 18.3 L MCV 75.4 L MCH 25.6 L MCHC 34.0 RDW 28.0 H Plt Count 665 H MPV 8.5 Neut % (Auto) 51.1 Lymph % (Auto) 37.1 [place] % (Auto) 10.7 H Eos % (Auto) 0.3 Baso % (Auto) 0.8 Neut # 13.0 H Lymph # 9.5 H [place] # 2.7 H Eos # 0.1 Baso # 0.2 Neutrophils % (Manual) 62 Lymphocytes % (Manual) 25 Monocytes % (Manual) 12 H Eosinophils % (Manual) 1 Differential Comment Platelet Estimate Slightly increased H Giant Platelets Present Polychromasia Slight Hypochromasia (manual) Moderate Poikilocytosis (manual Slight Anisocytosis (manual) Marked Microcytosis (manual) Slight Sickle Cells Slight Target Cells Slight Tear Drop Cells Slight Ovalocytes Slight Schistocytes Slight Retic Count PT INR Sodium Potassium Chloride Carbon Dioxide Anion Gap BUN Creatinine Est GFR ( Amer) Est GFR (Non-Af Amer) Random Glucose Calcium Phosphorus Magnesium Iron TIBC % Saturation Transferrin Ferritin 2320.0 Total Bilirubin Direct Bilirubin 0.7 H AST ALT Alkaline Phosphatase Total Creatine Kinase Total Protein Albumin Globulin Albumin/Globulin Ratio C. difficile Ag & Toxin Negative Blood Type Antibody Screen Antibody Identification 11/10/16 11/10/16 11/10/16 17:08 17:08 19:09 WBC RBC Hgb Hct MCV MCH MCHC RDW Plt Count MPV Neut % (Auto) Lymph % (Auto) [place] % (Auto) Eos % (Auto) Baso % (Auto) Neut # Lymph # [place] # Eos # Baso # Neutrophils % (Manual) Lymphocytes % (Manual) Monocytes % (Manual) Eosinophils % (Manual) Differential Comment Platelet Estimate Giant Platelets Polychromasia Hypochromasia (manual) Poikilocytosis (manual Anisocytosis (manual) Microcytosis (manual) Sickle Cells Target Cells Tear Drop Cells Ovalocytes Schistocytes Retic Count PT INR Sodium Potassium Chloride Carbon Dioxide Anion Gap BUN Creatinine Est GFR ( Amer) Est GFR (Non-Af Amer) Random Glucose Calcium Phosphorus Magnesium Iron 164 TIBC 313 % Saturation 52 Transferrin 226.25 Ferritin Total Bilirubin Direct Bilirubin AST ALT Alkaline Phosphatase Total Creatine Kinase Total Protein Albumin Globulin Albumin/Globulin Ratio C. difficile Ag & Toxin Blood Type O POSITIVE Antibody Screen Positive Antibody Identification Non Specific Antibody 11/11/16 11/11/16 11/11/16 11:04 11:04 11:04 WBC 30.7 H RBC 2.59 L Hgb 7.0 L Hct 20.2 L MCV 78.0 L D MCH 27.1 MCHC 34.7 RDW 25.3 H Plt Count 592 H MPV 8.3 Neut % (Auto) 58.5 Lymph % (Auto) 31.6 [place] % (Auto) 8.0 Eos % (Auto) 0.6 Baso % (Auto) 1.3 Neut # 17.9 H Lymph # 9.7 H [place] # 2.5 H Eos # 0.2 Baso # 0.4 H Neutrophils % (Manual) Lymphocytes % (Manual) Monocytes % (Manual) Eosinophils % (Manual) Differential Comment Platelet Estimate Giant Platelets Polychromasia Hypochromasia (manual) Poikilocytosis (manual Anisocytosis (manual) Microcytosis (manual) Sickle Cells Target Cells Tear Drop Cells Ovalocytes Schistocytes Retic Count 7.8 H D PT 15.1 H INR 1.3 Sodium 133 Potassium 3.4 L Chloride 100 Carbon Dioxide 21 L Anion Gap 15 BUN 12 Creatinine 0.4 L Est GFR ( Amer) > 60 Est GFR (Non-Af Amer) > 60 Random Glucose 152 H Calcium 8.9 Phosphorus 4.3 Magnesium 1.7 Iron TIBC % Saturation Transferrin Ferritin Total Bilirubin 4.5 H Direct Bilirubin AST 356 H D ALT 169 H Alkaline Phosphatase 151 H Total Creatine Kinase 47 Total Protein 8.0 Albumin 3.8 Globulin 4.2 H Albumin/Globulin Ratio 0.9 L C. difficile Ag & Toxin Blood Type Antibody Screen Antibody Identification Attending/Attestation - Attestation I have personally seen and examined this patient.: Yes I have fully participated in the care of the patient.: Yes I have reviewed all pertinent clinical information: Yes Notes (Text): Patient seen and examined with GI fellow. Agree with his note as documented above with the following additions/exceptions. This is a 26 yo female with PMHx significant for sickle cell anemia who is admitted with arthralgias/sickle crisis. We are consulted for abnormal LFTs. She has evidence of hemolytic anemia (elevated indirect hyperbilirubinemia) with transaminitis. The patient' s iron studies show elevated ferritin (>2000) and fesat (>52%) in setting of recent venofer therapy. Hepatitis panel negative; she denies any prior history of liver disease. Abdominal ultrasound shows fatty liver/hepatomegaly. Would continue supportive care; continue management of sickle crisis as per hematology. Monitor LFTs, check autoimmune serologies. If remain persistently elevated, consider liver biopsy (can obtain quantitative iron concentration, r/ o secondary hemochromatosis). Will continue to monitor and make recommendations pending clinical course. 11/11/16 12:51
[2016-11-11] MEDS ORDERED: DiphenhydrAMINE 50 mg/ml Inj IVP STA (10:42)
[2016-11-11] MEDS: Pantoprazole 40 mg EC Tab PO SCH (10:44)
[2016-11-11 11:14] LABS: BASO # 0.4 K/uL (0.0-0.2); BASO % 1.3 % (0.0-2.0); EOS # 0.2 K/uL (0.0-0.7); EOS % 0.6 % (0.0-4.0); HEMATOCRIT 20.2 % (34.0-47.0); LYMPH # 9.7 K/uL (1.0-4.3); LYMPH % 31.6 % (20.0-40.0); MEAN CORPUSCULAR HEMOGLOBIN 27.1 pg (27.0-31.0); MEAN CORPUSCULAR HGB CONC 34.7 g/dL (33.0-37.0); MEAN PLATELET VOLUME 8.3 fL (7.2-11.7); MONO # 2.5 K/uL (0.0-0.8); NRBC % 1.9 % (0.0-2.0); RED CELL DISTRIBUTION WIDTH 25.3 % (11.5-14.5); RETIC% 7.8 % (0.5-1.5); WHITE BLOOD COUNT 30.7 K/uL (4.8-10.8)
[2016-11-11 11:16] LABS: INR 1.3
[2016-11-11 11:24] LABS: CHLORIDE 100 mmol/L (98-107)
[2016-11-11 11:25] LABS: SODIUM 133 mmol/L (132-148)
[2016-11-11 11:27] LABS: ALB/GLOB RATIO 0.9 (1.0-2.1); ALKALINE PHOSPHATASE 151 U/L (38-126); ALT/SGPT 169 U/L (9-52); AST/SGOT 356 U/L (14-36); BILIRUBIN,TOTAL 4.5 mg/dL (0.2-1.3); BLOOD UREA NITROGEN 12 mg/dL (7-17); CARBON DIOXIDE 21 mmol/L (22-30); GFR AFRICAN-AMERICAN > 60; GLUCOSE,RANDOM 152 mg/dL (65-105); PHOSPHOROUS 4.3 mg/dL (2.5-4.5)
[2016-11-11 11:28] LABS: CALCIUM 8.9 mg/dl (8.6-10.4); MAGNESIUM 1.7 mg/dL (1.6-2.3)
[2016-11-11 11:32] LABS: POTASSIUM 3.4 mmol/L (3.6-5.2)
[2016-11-11] MEDS ORDERED: Potassium Chloride 20 mEq ER Tab PO ONE (12:00)
--- NOTE | 2016-11-11 12:32 | CP.PCM.PN ---
Subjective - Date & Time of Evaluation Date of Evaluation: 11/11/16 Time of Evaluation: 12:00 - Subjective Subjective: Has pain in legs Objective - Vital Signs/Intake and Output Vital Signs (last 24 hours): Temp Pulse Resp BP Pulse Ox 101 F H 101 H 20 112/68 95 11/11/16 08:35 11/11/16 08:35 11/11/16 08:35 11/11/16 08:35 11/11/16 00:00 Intake and Output: 11/11/16 11/11/16 06:59 18:59 Intake Total 2025 Balance 2025 - Medications Medications: Current Medications Acetaminophen (Tylenol 325mg Tab) 650 mg PO Q6 PRN PRN Reason: Fever >100.4 F Stop: 11/11/16 23:59 Last Admin: 11/11/16 04:13 Dose: 650 mg Azithromycin (Zithromax) 500 mg PO DAILY [facility] Last Admin: 11/11/16 10:44 Dose: 500 mg Diphenhydramine HCl (Benadryl) 25 mg IVP Q4H PRN PRN Reason: give with dilaudid Enoxaparin Sodium (Lovenox) 40 mg SC DAILY [facility] Last Admin: 11/10/16 09:37 Dose: 40 mg Folic Acid (Folic Acid) 1 mg PO DAILY [facility] Last Admin: 11/11/16 10:44 Dose: 1 mg Hydromorphone HCl (Dilaudid) 2 mg IVP Q4H PRN PRN Reason: pain Potassium Chloride 40 meq/ (Sodium Chloride) 1,020 mls @ 125 mls/hr IV .Q8H10M [facility] Cefepime HCl (Maxipime Iv 1 Gm Premix) 1 gm in 50 mls @ 100 mls/hr IVPB Q12H [facility] Vancomycin/Sodium Chloride (Vancocin) 1 gm in 200 mls @ 133 mls/hr IVPB Q12H [facility] Stop: 11/16/16 13:01 Pantoprazole Sodium (Protonix Ec Tab) 40 mg PO DAILY [facility] Last Admin: 11/11/16 10:44 Dose: 40 mg - Labs Labs: 11/11/16 11:04 11/11/16 11:04 PT 15.1 SECONDS (9.7-12.2) H 11/11/16 11:04 INR 1.3 11/11/16 11:04 - Head Exam Head Exam: ATRAUMATIC - Eye Exam Eye Exam: Normal appearance - ENT Exam ENT Exam: Mucous Membranes Dry - Respiratory Exam Respiratory Exam: NORMAL BREATHING PATTERN - Cardiovascular Exam Cardiovascular Exam: +S1, +S2 - GI/Abdominal Exam GI & Abdominal Exam: Normal Bowel Sounds - Extremities Exam Extremities Exam: Normal Inspection Assessment and Plan (1) Sickle cell anemia with crisis Assessment & Plan: IV fluids, pain meds, folic acid, 02 via NC s/p 2U PRBC overnight Status: Acute (2) Leukocytosis Assessment & Plan: elevated on antibiotics may b reactive to sickle cell Status: Acute (3) Iron deficiency anemia Assessment & Plan: resolved, iron replaced IV elevated ferritin noted and discussed with GI fellow Status: Acute
[2016-11-11] MEDS: Cefepime IV 1 gm in Dextrose 1 GM/50 ML BAG IVPB SCH (13:43)
[2016-11-11] MEDS: Vancomycin 1 gm/NS 200 ml 1 GM/200 ML BAG IVPB SCH (13:44)
[2016-11-11 13:45] LABS: RBC URINE 11 /hpf (0-3); URINE BACTERIA RARE (<OCC); URINE BILIRUBIN NEGATIVE (NEGATIVE); URINE BLOOD 3+ (NEGATIVE); URINE COLOR Red (YELLOW); URINE GLUCOSE (UA) NORMAL (Normal); URINE KETONE NEGATIVE (NEGATIVE); URINE LEUKOCYTE ESTERASE NEG Leu/uL (Negative); URINE PROTEIN 2+ mg/dL (NEGATIVE); URINE UROBILINOGEN NORMAL mg/dL (0.2-1.0); WBC URINE 3 /hpf (0-5)
--- NOTE | 2016-11-11 14:17 | CP.PCM.PN ---
Subjective - Date & Time of Evaluation Date of Evaluation: 11/11/16 Time of Evaluation: 07:20 - Subjective Subjective: clinically same Objective - Vital Signs/Intake and Output Vital Signs (last 24 hours): Temp Pulse Resp BP Pulse Ox 101 F H 101 H 20 112/68 95 11/11/16 08:35 11/11/16 08:35 11/11/16 08:35 11/11/16 08:35 11/11/16 00:00 Intake and Output: 11/11/16 11/11/16 06:59 18:59 Intake Total 2025 Balance 2025 - Medications Medications: Current Medications Acetaminophen (Tylenol 325mg Tab) 650 mg PO Q6 PRN PRN Reason: Fever >100.4 F Stop: 11/11/16 23:59 Last Admin: 11/11/16 04:13 Dose: 650 mg Azithromycin (Zithromax) 500 mg PO DAILY [facility] Last Admin: 11/11/16 10:44 Dose: 500 mg Diphenhydramine HCl (Benadryl) 25 mg IVP Q4H PRN PRN Reason: give with dilaudid Enoxaparin Sodium (Lovenox) 40 mg SC DAILY [facility] Last Admin: 11/10/16 09:37 Dose: 40 mg Folic Acid (Folic Acid) 1 mg PO DAILY [facility] Last Admin: 11/11/16 10:44 Dose: 1 mg Hydromorphone HCl (Dilaudid) 2 mg IVP Q4H PRN PRN Reason: pain Potassium Chloride 40 meq/ (Sodium Chloride) 1,020 mls @ 125 mls/hr IV .Q8H10M [facility] Last Admin: 11/11/16 13:52 Dose: 125 mls/hr Cefepime HCl (Maxipime Iv 1 Gm Premix) 1 gm in 50 mls @ 100 mls/hr IVPB Q12H [facility] Last Admin: 11/11/16 13:43 Dose: 100 mls/hr Vancomycin/Sodium Chloride (Vancocin) 1 gm in 200 mls @ 133 mls/hr IVPB Q12H [facility] Stop: 11/16/16 13:01 Last Admin: 11/11/16 13:44 Dose: 133 mls/hr Pantoprazole Sodium (Protonix Ec Tab) 40 mg PO DAILY [facility] Last Admin: 11/11/16 10:44 Dose: 40 mg - Labs Labs: 11/11/16 11:04 11/11/16 11:04 PT 15.1 SECONDS (9.7-12.2) H 11/11/16 11:04 INR 1.3 11/11/16 11:04 - Constitutional Appears: Well - Head Exam Head Exam: ATRAUMATIC, NORMAL INSPECTION, NORMOCEPHALIC - Eye Exam Eye Exam: EOMI, Normal appearance, PERRL Pupil Exam: NORMAL ACCOMODATION, PERRL - ENT Exam ENT Exam: Mucous Membranes Moist, Normal Exam - Neck Exam Neck Exam: Full ROM, Normal Inspection. absent: Lymphadenopathy - Respiratory Exam Respiratory Exam: Decreased Breath Sounds - Cardiovascular Exam Cardiovascular Exam: REGULAR RHYTHM, +S1, +S2 - GI/Abdominal Exam GI & Abdominal Exam: Soft, Diminished Bowel Sounds - Rectal Exam Rectal Exam: Deferred
--- NOTE | 2016-11-11 14:36 | CP.PCM.PN ---
Subjective - Date & Time of Evaluation Date of Evaluation: 11/11/16 Time of Evaluation: 09:00 - Subjective Subjective: Dr. Rober Phipps progress note: Patient seen in room. She is complaining fever, chills, severe pain in her legs and chest. She is also reporting 2 episodes of hematuria. She says her urine has been dark red. She denies nausea, vomiting, diarrhea, or shortness of breath. Objective - Vital Signs/Intake and Output Vital Signs (last 24 hours): Temp Pulse Resp BP Pulse Ox 101 F H 101 H 20 112/68 95 11/11/16 08:35 11/11/16 08:35 11/11/16 08:35 11/11/16 08:35 11/11/16 00:00 Intake and Output: 11/11/16 11/11/16 06:59 18:59 Intake Total 2025 Balance 2025 - Medications Medications: Current Medications Acetaminophen (Tylenol 325mg Tab) 650 mg PO Q6 PRN PRN Reason: Fever >100.4 F Stop: 11/11/16 23:59 Last Admin: 11/11/16 04:13 Dose: 650 mg Azithromycin (Zithromax) 500 mg PO DAILY [facility] Last Admin: 11/11/16 10:44 Dose: 500 mg Diphenhydramine HCl (Benadryl) 25 mg IVP Q4H PRN PRN Reason: give with dilaudid Enoxaparin Sodium (Lovenox) 40 mg SC DAILY [facility] Last Admin: 11/10/16 09:37 Dose: 40 mg Folic Acid (Folic Acid) 1 mg PO DAILY [facility] Last Admin: 11/11/16 10:44 Dose: 1 mg Hydromorphone HCl (Dilaudid) 2 mg IVP Q4H PRN PRN Reason: pain Potassium Chloride 40 meq/ (Sodium Chloride) 1,020 mls @ 125 mls/hr IV .Q8H10M [facility] Last Admin: 11/11/16 13:52 Dose: 125 mls/hr Cefepime HCl (Maxipime Iv 1 Gm Premix) 1 gm in 50 mls @ 100 mls/hr IVPB Q12H [facility] Last Admin: 11/11/16 13:43 Dose: 100 mls/hr Vancomycin/Sodium Chloride (Vancocin) 1 gm in 200 mls @ 133 mls/hr IVPB Q12H [facility] Stop: 11/16/16 13:01 Last Admin: 11/11/16 13:44 Dose: 133 mls/hr Pantoprazole Sodium (Protonix Ec Tab) 40 mg PO DAILY [facility] Last Admin: 11/11/16 10:44 Dose: 40 mg - Labs Labs: 11/11/16 11:04 11/11/16 11:04 PT 15.1 SECONDS (9.7-12.2) H 11/11/16 11:04 INR 1.3 11/11/16 11:04 - Constitutional Appears: Non-toxic, No Acute Distress - Head Exam Head Exam: NORMAL INSPECTION - Eye Exam Eye Exam: Normal appearance Pupil Exam: NORMAL ACCOMODATION - ENT Exam ENT Exam: Normal Exam - Neck Exam Neck Exam: Normal Inspection - Respiratory Exam Respiratory Exam: Clear to Ausculation Bilateral. absent: Rhonchi, Wheezes - Cardiovascular Exam Cardiovascular Exam: REGULAR RHYTHM, RRR, +S1, +S2. absent: Gallop, Rubs - GI/Abdominal Exam GI & Abdominal Exam: Soft, Normal Bowel Sounds. absent: Tenderness - Extremities Exam Extremities Exam: Normal Inspection - Back Exam Back Exam: NORMAL INSPECTION - Psychiatric Exam Psychiatric exam: Normal Affect, Normal Mood - Skin Skin Exam: Normal Color Assessment and Plan (1) Sickle cell anemia with crisis Assessment & Plan: Patient received 2 units of PRBCs last night and this morning. She is still anemic and now her Retic count is going up as well. Have increased her dilauded and also giving her IV fluids as well. Status: Acute (2) Pneumonia Assessment & Plan: Started Cefepime and Vanc per Dr. Estes's consult ID transformation consultant. She most likely has Hospital acquired pneumonia. Status: Acute (3) Hematuria Assessment & Plan: UA shows +3 blood and 11 RBCs. She may need urology consult. Will watch her Hbg closely. Status: Acute (4) Iron deficiency anemia Assessment & Plan: current iron studies show patient has high iron and Ferritin. Status: Acute (5) Leukocytosis Assessment & Plan: WBC is now 30, all cultures negative, changed antibiotics per Dr. Estes. Status: Acute (6) Elevated LFTs Assessment & Plan: LFTs continue to increase and so does T. Bilteddy, need to follow up with GIDr. Stack on consult Status: Acute (7) Hyperbilirubinemia Assessment & Plan: see GI referal note from Dr. Ohara. Status: Acute (8) Prophylactic measure Assessment & Plan: stopped Lovenox Status: Acute
--- NOTE | 2016-11-11 19:05 | CP.PCM.PN ---
Subjective - Date & Time of Evaluation Date of Evaluation: 11/11/16 Time of Evaluation: 10:00 - Subjective Subjective: fever persists cultures neg iv rx in progress likely due to sickle cell crisis procalcitonin mildly elevated +++ pain cont o2, fluids, pain meds and trajsfusions discussed with dr carrasco Objective - Vital Signs/Intake and Output Vital Signs (last 24 hours): Temp Pulse Resp BP Pulse Ox 100.2 F H 108 H 20 118/72 94 L 11/11/16 15:15 11/11/16 15:15 11/11/16 15:15 11/11/16 15:15 11/11/16 15:15 Intake and Output: 11/11/16 11/12/16 18:59 06:59 Intake Total 1825 Balance 1825 - Medications Medications: Current Medications Acetaminophen (Tylenol 325mg Tab) 650 mg PO Q6 PRN PRN Reason: Fever >100.4 F Stop: 11/11/16 23:59 Last Admin: 11/11/16 04:13 Dose: 650 mg Azithromycin (Zithromax) 500 mg PO DAILY [facility] Last Admin: 11/11/16 10:44 Dose: 500 mg Diphenhydramine HCl (Benadryl) 25 mg IVP Q4H PRN PRN Reason: give with dilaudid Last Admin: 11/11/16 16:17 Dose: 25 mg Enoxaparin Sodium (Lovenox) 40 mg SC DAILY [facility] Last Admin: 11/10/16 09:37 Dose: 40 mg Folic Acid (Folic Acid) 1 mg PO DAILY [facility] Last Admin: 11/11/16 10:44 Dose: 1 mg Hydromorphone HCl (Dilaudid) 2 mg IVP Q4H PRN PRN Reason: pain Last Admin: 11/11/16 16:17 Dose: 2 mg Potassium Chloride 40 meq/ (Sodium Chloride) 1,020 mls @ 125 mls/hr IV .Q8H10M [facility] Last Admin: 11/11/16 13:52 Dose: 125 mls/hr Cefepime HCl (Maxipime Iv 1 Gm Premix) 1 gm in 50 mls @ 100 mls/hr IVPB Q12H [facility] Last Admin: 11/11/16 13:43 Dose: 100 mls/hr Vancomycin/Sodium Chloride (Vancocin) 1 gm in 200 mls @ 133 mls/hr IVPB Q12H [facility] Stop: 11/16/16 13:01 Last Admin: 11/11/16 13:44 Dose: 133 mls/hr Pantoprazole Sodium (Protonix Ec Tab) 40 mg PO DAILY [facility] Last Admin: 11/11/16 10:44 Dose: 40 mg - Labs Labs: 11/11/16 11:04 11/11/16 11:04 PT 15.1 SECONDS (9.7-12.2) H 11/11/16 11:04 INR 1.3 11/11/16 11:04 - Constitutional Appears: No Acute Distress, Chronically Ill - Head Exam Head Exam: NORMOCEPHALIC - Eye Exam Eye Exam: PERRL. absent: Scleral icterus - ENT Exam ENT Exam: Mucous Membranes Dry, Normal External Ear Exam - Neck Exam Neck Exam: absent: Lymphadenopathy - Respiratory Exam Respiratory Exam: Decreased Breath Sounds, Rhonchi - Cardiovascular Exam Cardiovascular Exam: REGULAR RHYTHM, +S1, +S2 - GI/Abdominal Exam GI & Abdominal Exam: Distended, Soft - Rectal Exam Rectal Exam: Deferred - Exam Exam: NORMAL INSPECTION - Extremities Exam Extremities Exam: absent: Pedal Edema - Back Exam Back Exam: absent: CVA tenderness (L), CVA tenderness (R) - Neurological Exam Neurological Exam: Alert, Awake, Oriented x3 Assessment and Plan (1) Leukocytosis Status: Acute (2) Sickle cell anemia with crisis Status: Acute (3) Abdominal pain Status: Acute (4) Chest pain Status: Acute (5) Fever Status: Acute (6) Fever Status: Acute - Assessment and Plan (Free Text) Assessment: cont iv rx recultured
[2016-11-12] MEDS: Cefepime IV 1 gm in Dextrose 1 GM/50 ML BAG IVPB SCH ×3 (00:22→23:55)
[2016-11-12] MEDS: Vancomycin 1 gm/NS 200 ml 1 GM/200 ML BAG IVPB SCH ×2 (01:02→14:20)
[2016-11-12] MEDS: DiphenhydrAMINE 50 mg/ml Inj IVP PRN ×4 (02:09→20:30)
--- NOTE | 2016-11-12 07:44 | CP.PCM.CON ---
History of Present Illness - History of Present Illness History of Present Illness: CC: HEMATURIA PLEASE SEE DICATED CONSULT REPORT # [id number] THANK YOU YS Past Patient History - Infectious Disease Hx of Infectious Diseases: None - Past Medical History & Family History Past Medical History?: Yes - Past Social History Smoking Status: Never Smoked - CARDIAC Hx Cardiac Disorders: No - PULMONARY Hx Respiratory Disorders: No - NEUROLOGICAL Hx Neurological Disorder: No - HEENT Hx HEENT Problems: No - RENAL Hx Chronic Kidney Disease: No - ENDOCRINE/METABOLIC Hx Endocrine Disorders: No - HEMATOLOGICAL/ONCOLOGICAL Hx Blood Disorders: Yes Hx Anemia: Yes Hx Sickle Cell Disease: Yes - INTEGUMENTARY Hx Dermatological Problems: No - MUSCULOSKELETAL/RHEUMATOLOGICAL Hx Musculoskeletal Disorders: No Hx Falls: No - GASTROINTESTINAL Hx Gastrointestinal Disorders: No - GENITOURINARY/GYNECOLOGICAL Hx Genitourinary Disorders: No - PSYCHIATRIC Hx Psychophysiologic Disorder: No Hx Substance Use: No - SURGICAL HISTORY Hx Surgeries: No - ANESTHESIA Hx Anesthesia: No Hx Anesthesia Reactions: No Hx Malignant Hyperthermia: No Has any member of the family had a problem w/ anesthesia?: No Meds Home Medications: Home Medication List Medication Instructions Recorded Confirmed Type Azithromycin [Zithromax] 250 mg PO DAILY #4 tab 11/09/16 Rx Cephalexin [cephalexin] 500 mg PO BID #8 cap 11/09/16 Rx Allergies/Adverse Reactions: Allergies Allergy/AdvReac Type Severity Reaction Status Date / Time No Known Allergies Allergy Verified 11/01/16 21:50 - Medications Medications: Current Medications Diphenhydramine HCl (Benadryl) 25 mg IVP Q4H PRN PRN Reason: give with dilaudid Last Admin: 11/12/16 02:09 Dose: 25 mg Enoxaparin Sodium (Lovenox) 40 mg SC DAILY [facility] Last Admin: 11/10/16 09:37 Dose: 40 mg Folic Acid (Folic Acid) 1 mg PO DAILY [facility] Last Admin: 11/11/16 10:44 Dose: 1 mg Hydromorphone HCl (Dilaudid) 2 mg IVP Q4H PRN PRN Reason: pain Last Admin: 11/12/16 02:09 Dose: 2 mg Potassium Chloride 40 meq/ (Sodium Chloride) 1,020 mls @ 125 mls/hr IV .Q8H10M [facility] Last Admin: 11/12/16 04:20 Dose: Not Given Cefepime HCl (Maxipime Iv 1 Gm Premix) 1 gm in 50 mls @ 100 mls/hr IVPB Q12H [facility] Last Admin: 11/12/16 00:22 Dose: 100 mls/hr Vancomycin/Sodium Chloride (Vancocin) 1 gm in 200 mls @ 133 mls/hr IVPB Q12H [facility] Stop: 11/16/16 13:01 Last Admin: 11/12/16 01:02 Dose: 133 mls/hr Pantoprazole Sodium (Protonix Ec Tab) 40 mg PO DAILY [facility] Last Admin: 11/11/16 10:44 Dose: 40 mg Potassium Chloride (K-Dur 20 Meq Er Tab) 20 meq PO DAILY [facility] Results - Vital Signs Recent Vital Signs: Last Vital Signs Temp 100.8 F H 11/12/16 00:00 Pulse 100 H 11/12/16 00:00 Resp 20 11/12/16 00:00 BP 102/65 11/12/16 00:00 Pulse Ox 94 L 11/12/16 00:00 - Labs Result Diagrams: 11/13/16 15:21 11/13/16 15:21 Labs: Laboratory Results - last 24 hr 11/11/16 11/11/16 11/11/16 11:04 11:04 11:04 WBC 30.7 H RBC 2.59 L Hgb 7.0 L Hct 20.2 L MCV 78.0 L D MCH 27.1 MCHC 34.7 RDW 25.3 H Plt Count 592 H MPV 8.3 Neut % (Auto) 58.5 Lymph % (Auto) 31.6 [place] % (Auto) 8.0 Eos % (Auto) 0.6 Baso % (Auto) 1.3 Neut # 17.9 H Lymph # 9.7 H [place] # 2.5 H Eos # 0.2 Baso # 0.4 H Differential Comment Retic Count 7.8 H D PT 15.1 H INR 1.3 Sodium 133 Potassium 3.4 L Chloride 100 Carbon Dioxide 21 L Anion Gap 15 BUN 12 Creatinine 0.4 L Est GFR ( Amer) > 60 Est GFR (Non-Af Amer) > 60 Random Glucose 152 H Calcium 8.9 Phosphorus 4.3 Magnesium 1.7 Total Bilirubin 4.5 H AST 356 H D ALT 169 H Alkaline Phosphatase 151 H Total Creatine Kinase 47 Total Protein 8.0 Albumin 3.8 Globulin 4.2 H Albumin/Globulin Ratio 0.9 L Urine Color Urine Clarity Urine pH Ur Specific [place] Urine Protein Urine Glucose (UA) Urine Ketones Urine Blood Urine Nitrate Urine Bilirubin Urine Urobilinogen Ur Leukocyte Esterase Urine WBC (Auto) Urine RBC (Auto) Ur Squamous Epith Cells Urine Bacteria 11/11/16 13:36 WBC RBC Hgb Hct MCV MCH MCHC RDW Plt Count MPV Neut % (Auto) Lymph % (Auto) [place] % (Auto) Eos % (Auto) Baso % (Auto) Neut # Lymph # [place] # Eos # Baso # Differential Comment Retic Count PT INR Sodium Potassium Chloride Carbon Dioxide Anion Gap BUN Creatinine Est GFR ( Amer) Est GFR (Non-Af Amer) Random Glucose Calcium Phosphorus Magnesium Total Bilirubin AST ALT Alkaline Phosphatase Total Creatine Kinase Total Protein Albumin Globulin Albumin/Globulin Ratio Urine Color Red Urine Clarity Clear Urine pH 6.0 Ur Specific [place] 1.011 Urine Protein 2+ H Urine Glucose (UA) Normal Urine Ketones Negative Urine Blood 3+ H Urine Nitrate Negative Urine Bilirubin Negative Urine Urobilinogen Normal Ur Leukocyte Esterase Neg Urine WBC (Auto) 3 Urine RBC (Auto) 11 H Ur Squamous Epith Cells 2 Urine Bacteria Rare
[2016-11-12 07:46] LABS: HEMATOCRIT 17.9 % (34.0-47.0); MEAN CORPUSCULAR HEMOGLOBIN 27.3 pg (27.0-31.0); MEAN CORPUSCULAR HGB CONC 33.7 g/dL (33.0-37.0); MEAN PLATELET VOLUME 8.9 fL (7.2-11.7); RED CELL DISTRIBUTION WIDTH 27.3 % (11.5-14.5); RETIC% 12.5 % (0.5-1.5); WHITE BLOOD COUNT 27.7 K/uL (4.8-10.8)
[2016-11-12 07:54] LABS: MEAN CELL VOLUME 81.1 fL (81.0-99.0)
[2016-11-12 08:35] LABS: CHLORIDE 103 mmol/L (98-107); SODIUM 135 mmol/L (132-148)
[2016-11-12 08:36] LABS: POTASSIUM 4.5 mmol/L (3.6-5.2)
[2016-11-12 08:37] LABS: IMMUNOGLOBULIN G 1571.6 mg/dL (700.0-1600.0)
[2016-11-12 08:38] LABS: IMMUNOGLOBULIN M 104.9 mg/dL (40.0-230.0)
[2016-11-12 08:39] LABS: ALB/GLOB RATIO 0.8 (1.0-2.1); ALKALINE PHOSPHATASE 185 U/L (38-126); ALT/SGPT 203 U/L (9-52); AST/SGOT 296 U/L (14-36); BILIRUBIN,TOTAL 2.6 mg/dL (0.2-1.3); BLOOD UREA NITROGEN 7 mg/dL (7-17); CALCIUM 9.3 mg/dl (8.6-10.4); CARBON DIOXIDE 21 mmol/L (22-30); GFR AFRICAN-AMERICAN > 60; GLUCOSE,RANDOM 94 mg/dL (65-105); PHOSPHOROUS 4.2 mg/dL (2.5-4.5); TOTAL PROTEIN 7.8 g/dL (6.3-8.3)
[2016-11-12 08:40] LABS: MAGNESIUM 1.9 mg/dL (1.6-2.3)
--- NOTE | 2016-11-12 08:56 | CP.PCM.PN ---
<Klyer Morel - Last Filed: 11/12/16 08:58> Subjective - Date & Time of Evaluation Date of Evaluation: 11/12/16 Time of Evaluation: 06:20 - Subjective Subjective: PGY4 GI Fellow Progress Note Patient seen and examined bedside this morning. The patient continues to complain of LLE pain and fevers. She denies any abdominal pain, nausea, vomiting. Tolerating diet without issue. 12 system ROS performed and negative except where stated. Objective - Vital Signs/Intake and Output Vital Signs (last 24 hours): Temp Pulse Resp BP Pulse Ox 99.2 F 99 H 20 106/70 97 11/12/16 08:00 11/12/16 08:00 11/12/16 08:00 11/12/16 08:00 11/12/16 08:00 Intake and Output: 11/12/16 11/12/16 06:59 18:59 Intake Total 2590 Balance 2590 - Medications Medications: Current Medications Diphenhydramine HCl (Benadryl) 25 mg IVP Q4H PRN PRN Reason: give with dilaudid Last Admin: 11/12/16 02:09 Dose: 25 mg Enoxaparin Sodium (Lovenox) 40 mg SC DAILY [facility] Last Admin: 11/10/16 09:37 Dose: 40 mg Folic Acid (Folic Acid) 1 mg PO DAILY [facility] Last Admin: 11/11/16 10:44 Dose: 1 mg Hydromorphone HCl (Dilaudid) 2 mg IVP Q4H PRN PRN Reason: pain Last Admin: 11/12/16 02:09 Dose: 2 mg Potassium Chloride 40 meq/ (Sodium Chloride) 1,020 mls @ 125 mls/hr IV .Q8H10M [facility] Last Admin: 11/12/16 04:20 Dose: Not Given Cefepime HCl (Maxipime Iv 1 Gm Premix) 1 gm in 50 mls @ 100 mls/hr IVPB Q12H [facility] Last Admin: 11/12/16 00:22 Dose: 100 mls/hr Vancomycin/Sodium Chloride (Vancocin) 1 gm in 200 mls @ 133 mls/hr IVPB Q12H [facility] Stop: 11/16/16 13:01 Last Admin: 11/12/16 01:02 Dose: 133 mls/hr Pantoprazole Sodium (Protonix Ec Tab) 40 mg PO DAILY [facility] Last Admin: 11/11/16 10:44 Dose: 40 mg Potassium Chloride (K-Dur 20 Meq Er Tab) 20 meq PO DAILY [facility] - Labs Labs: 11/12/16 07:30 11/12/16 07:30 PT 15.1 SECONDS (9.7-12.2) H 11/11/16 11:04 INR 1.3 11/11/16 11:04 - Constitutional Appears: No Acute Distress - Eye Exam Eye Exam: EOMI, PERRL - ENT Exam ENT Exam: Mucous Membranes Moist - Respiratory Exam Respiratory Exam: Clear to Ausculation Bilateral. absent: Rales, Rhonchi, Wheezes - Cardiovascular Exam Cardiovascular Exam: RRR, +S1 (prominent), +S2 - GI/Abdominal Exam GI & Abdominal Exam: Soft, Normal Bowel Sounds. absent: Distended, Firm, Guarding, Rigid, Tenderness, Organomegaly - Extremities Exam Extremities Exam: Normal Inspection. absent: Pedal Edema - Neurological Exam Neurological Exam: Alert, Awake, Oriented x3 - Psychiatric Exam Psychiatric exam: Normal Affect, Normal Mood - Skin Skin Exam: Dry, Warm Assessment and Plan - Assessment and Plan (Free Text) Assessment: Patient is a 26yo female with PMHx significant for sickle cell anemia with recent episode of pain crisis who presented to the ED with recurrent back and B/ L leg pain. -Acute sickle cell pain crisis -Sickle cell anemia -Abnormal LFTs, mixed picture -Unconjugated hyperbilirubinemia - 2/2 hemolysis Plan: -Patient with TMax 24 H - 102F; cultures NGTD; ID following, appreciate recommendations -Hematology following; agree with current plan -LFT abnormalities likely a result of ongoing process, if persistent, could consider advanced imaging (MRI) or biopsy for more definitive diagnosis -Indirect hyperbilirubinemia most certainly a result of hemolysis -Autoimmune hepatitis labs pending: CINDI, AMA, SMA, LKM-Ab -Will monitor clinical course <Carrington Stack - Last Filed: 11/12/16 18:35> Objective - Vital Signs/Intake and Output Vital Signs (last 24 hours): Temp Pulse Resp BP Pulse Ox 98.9 F 88 20 106/67 97 11/12/16 17:54 11/12/16 17:54 11/12/16 17:54 11/12/16 17:54 11/12/16 15:05 Intake and Output: 11/12/16 11/12/16 06:59 18:59 Intake Total 2590 0 Balance 2590 0 - Medications Medications: Current Medications Diphenhydramine HCl (Benadryl) 25 mg IVP Q4H PRN PRN Reason: give with dilaudid Last Admin: 11/12/16 15:24 Dose: 25 mg Enoxaparin Sodium (Lovenox) 40 mg SC DAILY [facility] Last Admin: 11/10/16 09:37 Dose: 40 mg Folic Acid (Folic Acid) 1 mg PO DAILY [facility] Last Admin: 11/12/16 10:51 Dose: 1 mg Hydromorphone HCl (Dilaudid) 2 mg IVP Q4H PRN PRN Reason: pain Last Admin: 11/12/16 09:08 Dose: 2 mg Cefepime HCl (Maxipime Iv 1 Gm Premix) 1 gm in 50 mls @ 100 mls/hr IVPB Q12H [facility] Last Admin: 11/12/16 11:43 Dose: 100 mls/hr Vancomycin/Sodium Chloride (Vancocin) 1 gm in 200 mls @ 133 mls/hr IVPB Q12H [facility] Stop: 11/16/16 13:01 Last Admin: 11/12/16 14:20 Dose: 133 mls/hr Sodium Chloride (Sodium Chloride 0.9%) 1,000 mls @ 125 mls/hr IV .Q8H [facility] Pantoprazole Sodium (Protonix Ec Tab) 40 mg PO DAILY [facility] Last Admin: 11/12/16 10:51 Dose: 40 mg - Labs Labs: 11/12/16 07:30 11/12/16 07:30 PT 15.1 SECONDS (9.7-12.2) H 11/11/16 11:04 INR 1.3 11/11/16 11:04 Attending/Attestation - Attestation I have personally seen and examined this patient.: Yes I have fully participated in the care of the patient.: Yes I have reviewed all pertinent clinical information, including history, physical exam and plan: Yes Notes (Text): 11/12/16 18:31 I have seen and examined patient with GI fellow. She continues to endorse bilateral lower extremity pain and fevers. She denies nausea, vomiting, diarrhea, and is tolerating PO diet without difficulty. Review of vitals from this morning shows tachycardia, fever from overnight noted. Sickle cell pain crisis and anemia Transamintis secondary to hemolysis. US reviewed by me showing no evidence of obstructive pathology. - Diet as tolerated - LFTs trending down, continue to monitor and avoid hepatotoxic therapy - Follow up ID recommendations regarding ongoing fevers - Follow up autoimmune panel - Follow up hematology recommendations, possible role of hydroxyurea - No ongoing GI issues, will sign off case. Please reconsult as necessary, thank you.
[2016-11-12] MEDS ORDERED: Potassium Chloride 20 mEq ER Tab PO SCH (10:00)
[2016-11-12 10:39] LABS: BASO # 0.3 K/uL (0.0-0.2); MONO # 4.4 K/uL (0.0-0.8)
[2016-11-12 10:40] LABS: EOS # 0.3 K/uL (0.0-0.7); LYMPH # 9.1 K/uL (1.0-4.3)
[2016-11-12] MEDS: Pantoprazole 40 mg EC Tab PO SCH (10:51)
--- NOTE | 2016-11-12 15:23 | CP.PCM.PN ---
<Chloé Sigala H - Last Filed: 11/12/16 15:17> Subjective - Date & Time of Evaluation Date of Evaluation: 11/12/16 Time of Evaluation: 09:55 - Subjective Subjective: PGY2 Medicine Note - Dr. Nehemias Phipps's service: Patient seen and examined at bedside this AM. Patient reports left lower extremity pain and b/l forearm pain. Patient says she feels very tired and also has tooth pain. Patient denies fever, chills, chest pain, SOB. Objective - Vital Signs/Intake and Output Vital Signs (last 24 hours): Temp Pulse Resp BP Pulse Ox 99.2 F 99 H 20 106/70 97 11/12/16 08:00 11/12/16 08:00 11/12/16 08:00 11/12/16 08:00 11/12/16 08:00 Intake and Output: 11/12/16 11/12/16 06:59 18:59 Intake Total 2590 Balance 2590 - Medications Medications: Current Medications Diphenhydramine HCl (Benadryl) 25 mg IVP Q4H PRN PRN Reason: give with dilaudid Last Admin: 11/12/16 09:14 Dose: 25 mg Enoxaparin Sodium (Lovenox) 40 mg SC DAILY [facility] Last Admin: 11/10/16 09:37 Dose: 40 mg Folic Acid (Folic Acid) 1 mg PO DAILY [facility] Last Admin: 11/12/16 10:51 Dose: 1 mg Hydromorphone HCl (Dilaudid) 2 mg IVP Q4H PRN PRN Reason: pain Last Admin: 11/12/16 09:08 Dose: 2 mg Potassium Chloride 40 meq/ (Sodium Chloride) 1,020 mls @ 125 mls/hr IV .Q8H10M [facility] Last Admin: 11/12/16 04:20 Dose: Not Given Cefepime HCl (Maxipime Iv 1 Gm Premix) 1 gm in 50 mls @ 100 mls/hr IVPB Q12H [facility] Last Admin: 11/12/16 11:43 Dose: 100 mls/hr Vancomycin/Sodium Chloride (Vancocin) 1 gm in 200 mls @ 133 mls/hr IVPB Q12H [facility] Stop: 11/16/16 13:01 Last Admin: 11/12/16 14:20 Dose: 133 mls/hr Pantoprazole Sodium (Protonix Ec Tab) 40 mg PO DAILY [facility] Last Admin: 11/12/16 10:51 Dose: 40 mg Potassium Chloride (K-Dur 20 Meq Er Tab) 20 meq PO DAILY [facility] Last Admin: 11/12/16 10:51 Dose: 20 meq - Labs Labs: 11/12/16 07:30 11/12/16 07:30 PT 15.1 SECONDS (9.7-12.2) H 11/11/16 11:04 INR 1.3 11/11/16 11:04 - Constitutional Appears: Non-toxic, No Acute Distress - Head Exam Head Exam: NORMAL INSPECTION - Eye Exam Eye Exam: EOMI - ENT Exam ENT Exam: Mucous Membranes Moist - Respiratory Exam Respiratory Exam: Clear to Ausculation Bilateral, NORMAL BREATHING PATTERN. absent: Rales, Rhonchi, Wheezes - Cardiovascular Exam Cardiovascular Exam: REGULAR RHYTHM, +S1, +S2. absent: Gallop, Rubs - GI/Abdominal Exam GI & Abdominal Exam: Soft, Tenderness, Normal Bowel Sounds - Extremities Exam Extremities Exam: Tenderness. absent: Pedal Edema - Neurological Exam Neurological Exam: Alert, Awake, Oriented x3 - Psychiatric Exam Psychiatric exam: Normal Affect, Normal Mood - Skin Skin Exam: Normal Color, Warm Assessment and Plan - Assessment and Plan (Free Text) Assessment: (1) Sickle cell anemia with crisis Assessment & Plan: Patient to get 2 units of pRBCs today for Hgb of 6.0. Retic count is increasing Have increased her dilaudid and also giving her IV fluids as well. Hematology consult - Dr. Moss - rush appreciated Status: Acute (2) Pneumonia Assessment & Plan: ID consult - Dr. Estes - rush appreciated Started Cefepime and Vanc per Dr. Estes on 11/11/16 most likely has Hospital acquired pneumonia per attendings CXR 11/09/16 - no active disease Status: Acute (3) Hematuria Assessment & Plan: UA shows +3 blood and 11 RBCs Hgb dropping No hematuria today Urology consult - Dr. Tony Zuniga - f/u recs Status: Acute (4) anemia Assessment & Plan: transfusion 2 units pRBCs 11/12/16 transfusion 2 units 11/10/16 Status: Acute (5) Leukocytosis Assessment & Plan: WBC is now 27.7 from 30 yesterday, all cultures negative Status: Acute (6) Elevated LFTs Assessment & Plan: LFTs continue to increase Tbili 2.6 today (improved) GI consult - Dr. Stack - help appreciated IgG 1571.6, IgM 104.9 F/U liver kidney gomez ab, mitochondrial ab, smooth muscle ab, mauri Status: Acute (7) Hyperbilirubinemia Assessment & Plan: see above Status: Acute (8) Prophylactic measure Assessment & Plan: stopped Lovenox protonix 40mg PO daily Status: Acute <Leighton Phipps S - Last Filed: 11/12/16 18:11> Objective - Vital Signs/Intake and Output Vital Signs (last 24 hours): Temp Pulse Resp BP Pulse Ox 98.9 F 88 20 106/67 97 11/12/16 17:54 11/12/16 17:54 11/12/16 17:54 11/12/16 17:54 11/12/16 15:05 Intake and Output: 11/12/16 11/12/16 06:59 18:59 Intake Total 2590 0 Balance 2590 0 - Medications Medications: Current Medications Diphenhydramine HCl (Benadryl) 25 mg IVP Q4H PRN PRN Reason: give with dilaudid Last Admin: 11/12/16 15:24 Dose: 25 mg Enoxaparin Sodium (Lovenox) 40 mg SC DAILY [facility] Last Admin: 11/10/16 09:37 Dose: 40 mg Folic Acid (Folic Acid) 1 mg PO DAILY [facility] Last Admin: 11/12/16 10:51 Dose: 1 mg Hydromorphone HCl (Dilaudid) 2 mg IVP Q4H PRN PRN Reason: pain Last Admin: 11/12/16 09:08 Dose: 2 mg Cefepime HCl (Maxipime Iv 1 Gm Premix) 1 gm in 50 mls @ 100 mls/hr IVPB Q12H [facility] Last Admin: 11/12/16 11:43 Dose: 100 mls/hr Vancomycin/Sodium Chloride (Vancocin) 1 gm in 200 mls @ 133 mls/hr IVPB Q12H [facility] Stop: 11/16/16 13:01 Last Admin: 11/12/16 14:20 Dose: 133 mls/hr Sodium Chloride (Sodium Chloride 0.9%) 1,000 mls @ 125 mls/hr IV .Q8H [facility] Pantoprazole Sodium (Protonix Ec Tab) 40 mg PO DAILY [facility] Last Admin: 11/12/16 10:51 Dose: 40 mg - Labs Labs: 11/12/16 07:30 11/12/16 07:30 PT 15.1 SECONDS (9.7-12.2) H 11/11/16 11:04 INR 1.3 11/11/16 11:04 Attending/Attestation - Attestation I have personally seen and examined this patient.: Yes I have fully participated in the care of the patient.: Yes I have reviewed all pertinent clinical information, including history, physical exam and plan: Yes Notes (Text): 11/12/16 18:10 seen and discussed [facility] staff mx as discussed pt is on cefepime and also cash [place] 2 unti spof prbcs wbc went down to 27 from 30 looks sick told family member
--- NOTE | 2016-11-12 15:24 | VASCLAB ---
PROCEDURE: Left Lower Extremity Venous Duplex Exam. HISTORY: LLE pain and fevers PRIORS: None. TECHNIQUE: Left common femoral, femoral, popliteal and posterior tibial, peroneal and great saphenous veins were evaluated. Flow was assessed with color Doppler, compressibility, assessment of phasic flow and augmentation response. Report prepared by ABIOLA Merino, RVT FINDINGS: LEFT: 1. Common Femoral Vein: 1.1. Compressibility - Fully compressible: Thrombus - None : Flow - Phasic: Augmentation -Normal: Reflux - None. 2. Femoral Vein: 2.1. Compressibility - Fully compressible: Thrombus - None: Flow - Phasic: Augmentation -Normal: Reflux - None. 3. Popliteal Vein: 3.1. Compressibility - Fully compressible: Thrombus - None: Flow - Phasic: Augmentation -Normal: Reflux - None. 4. Posterior Tibial Vein: 4.1. Compressibility - Fully compressible: Thrombus - None: Flow - Phasic: Augmentation -Normal: Reflux - None. 5. Peroneal Vein: 5.1. Compressibility - Fully compressible: Thrombus - None: Flow - Phasic: Augmentation -Normal: Reflux - None. 6. Great Saphenous Vein: 6.1. Compressibility - Fully compressible: Thrombus - None: Flow - Phasic: Augmentation - Normal: Reflux - None. OTHER FINDINGS: IMPRESSION: No evidence of deep or superficial vein thrombosis of the left lower extremity with excellent venous flow. Normal valve function noted of the left side. Normal venous flow noted in the right common femoral vein.
--- NOTE | 2016-11-12 17:59 | CP.PCM.PN ---
Subjective - Date & Time of Evaluation Date of Evaluation: 11/12/16 Time of Evaluation: 08:00 - Subjective Subjective: discussed on rounds with Dr Phipps repeat cultures and cxr negative still hemolyzing and requiring PRBC transfusions Objective - Vital Signs/Intake and Output Vital Signs (last 24 hours): Temp Pulse Resp BP Pulse Ox 99.2 F 87 20 105/68 97 11/12/16 17:24 11/12/16 17:24 11/12/16 17:24 11/12/16 17:24 11/12/16 15:05 Intake and Output: 11/12/16 11/12/16 06:59 18:59 Intake Total 2590 0 Balance 2590 0 - Medications Medications: Current Medications Diphenhydramine HCl (Benadryl) 25 mg IVP Q4H PRN PRN Reason: give with dilaudid Last Admin: 11/12/16 15:24 Dose: 25 mg Enoxaparin Sodium (Lovenox) 40 mg SC DAILY [facility] Last Admin: 11/10/16 09:37 Dose: 40 mg Folic Acid (Folic Acid) 1 mg PO DAILY [facility] Last Admin: 11/12/16 10:51 Dose: 1 mg Hydromorphone HCl (Dilaudid) 2 mg IVP Q4H PRN PRN Reason: pain Last Admin: 11/12/16 09:08 Dose: 2 mg Cefepime HCl (Maxipime Iv 1 Gm Premix) 1 gm in 50 mls @ 100 mls/hr IVPB Q12H [facility] Last Admin: 11/12/16 11:43 Dose: 100 mls/hr Vancomycin/Sodium Chloride (Vancocin) 1 gm in 200 mls @ 133 mls/hr IVPB Q12H [facility] Stop: 11/16/16 13:01 Last Admin: 11/12/16 14:20 Dose: 133 mls/hr Sodium Chloride (Sodium Chloride 0.9%) 1,000 mls @ 125 mls/hr IV .Q8H [facility] Pantoprazole Sodium (Protonix Ec Tab) 40 mg PO DAILY [facility] Last Admin: 11/12/16 10:51 Dose: 40 mg - Labs Labs: 11/12/16 07:30 11/12/16 07:30 PT 15.1 SECONDS (9.7-12.2) H 11/11/16 11:04 INR 1.3 11/11/16 11:04 - Constitutional Appears: Non-toxic, Cachectic, Chronically Ill - Head Exam Head Exam: NORMOCEPHALIC - Eye Exam Eye Exam: PERRL. absent: Scleral icterus - ENT Exam ENT Exam: Mucous Membranes Dry - Neck Exam Neck Exam: absent: Lymphadenopathy - Respiratory Exam Respiratory Exam: Decreased Breath Sounds, Rhonchi - Cardiovascular Exam Cardiovascular Exam: REGULAR RHYTHM, +S1, +S2 - GI/Abdominal Exam GI & Abdominal Exam: Distended, Soft. absent: Tenderness - Rectal Exam Rectal Exam: Deferred - Exam Exam: NORMAL INSPECTION - Extremities Exam Extremities Exam: absent: Pedal Edema - Back Exam Back Exam: absent: CVA tenderness (L), CVA tenderness (R) - Neurological Exam Neurological Exam: Alert, Awake, Oriented x3 - Psychiatric Exam Psychiatric exam: Depressed - Skin Skin Exam: Dry Assessment and Plan (1) Leukocytosis Status: Acute (2) Sickle cell anemia with crisis Status: Acute (3) Abdominal pain Status: Acute (4) Chest pain Status: Acute (5) Fever Status: Acute (6) Fever Status: Acute
--- NOTE | 2016-11-12 18:06 | CP.PCM.PN ---
Subjective - Date & Time of Evaluation Date of Evaluation: 11/12/16 Time of Evaluation: 12:00 - Subjective Subjective: Has pain in legs Objective - Vital Signs/Intake and Output Vital Signs (last 24 hours): Temp Pulse Resp BP Pulse Ox 98.9 F 88 20 106/67 97 11/12/16 17:54 11/12/16 17:54 11/12/16 17:54 11/12/16 17:54 11/12/16 15:05 Intake and Output: 11/12/16 11/12/16 06:59 18:59 Intake Total 2590 0 Balance 2590 0 - Medications Medications: Current Medications Diphenhydramine HCl (Benadryl) 25 mg IVP Q4H PRN PRN Reason: give with dilaudid Last Admin: 11/12/16 15:24 Dose: 25 mg Enoxaparin Sodium (Lovenox) 40 mg SC DAILY [facility] Last Admin: 11/10/16 09:37 Dose: 40 mg Folic Acid (Folic Acid) 1 mg PO DAILY [facility] Last Admin: 11/12/16 10:51 Dose: 1 mg Hydromorphone HCl (Dilaudid) 2 mg IVP Q4H PRN PRN Reason: pain Last Admin: 11/12/16 09:08 Dose: 2 mg Cefepime HCl (Maxipime Iv 1 Gm Premix) 1 gm in 50 mls @ 100 mls/hr IVPB Q12H [facility] Last Admin: 11/12/16 11:43 Dose: 100 mls/hr Vancomycin/Sodium Chloride (Vancocin) 1 gm in 200 mls @ 133 mls/hr IVPB Q12H [facility] Stop: 11/16/16 13:01 Last Admin: 11/12/16 14:20 Dose: 133 mls/hr Sodium Chloride (Sodium Chloride 0.9%) 1,000 mls @ 125 mls/hr IV .Q8H [facility] Pantoprazole Sodium (Protonix Ec Tab) 40 mg PO DAILY [facility] Last Admin: 11/12/16 10:51 Dose: 40 mg - Labs Labs: 11/12/16 07:30 11/12/16 07:30 PT 15.1 SECONDS (9.7-12.2) H 11/11/16 11:04 INR 1.3 11/11/16 11:04 - Head Exam Head Exam: ATRAUMATIC - Eye Exam Eye Exam: Normal appearance - ENT Exam ENT Exam: Mucous Membranes Dry - Respiratory Exam Respiratory Exam: NORMAL BREATHING PATTERN - Cardiovascular Exam Cardiovascular Exam: +S1, +S2 - Extremities Exam Extremities Exam: Normal Inspection - Neurological Exam Neurological Exam: Oriented x3 - Skin Skin Exam: Warm Assessment and Plan (1) Sickle cell anemia with crisis Assessment & Plan: IV fluids, pain meds, folic acid, 02 via NC transfuse 1U today Status: Acute (2) Leukocytosis Assessment & Plan: on antibiotics may be reactive to sickle cell Status: Acute (3) Iron deficiency anemia Assessment & Plan: s/p IV iron s/p PRBC transfusion Status: Acute
[2016-11-12] MEDS: Sodium Chloride 0.9% 1,000 ML IV SCH ×2 (20:37)
[2016-11-13] MEDS: Sodium Chloride 0.9% 1,000 ML IV SCH ×4 (00:05→19:50)
[2016-11-13] MEDS: Vancomycin 1 gm/NS 200 ml 1 GM/200 ML BAG IVPB SCH ×2 (00:35→14:28)
[2016-11-13] MEDS: DiphenhydrAMINE 50 mg/ml Inj IVP PRN ×4 (02:14→19:49)
[2016-11-13] MEDS: Pantoprazole 40 mg EC Tab PO SCH (09:02)
--- NOTE | 2016-11-13 09:22 | PCM.SURG1 ---
Surgeon's Initial Post Op Note - Surgeon's Notes Surgeon: Huber Lui MD Industrial Economics Professor: NONE Type of Anesthesia: Local Pre-Operative Diagnosis: Sickle cell crisis Operative Findings: Patent right basilic vein. Post-Operative Diagnosis: Sickle cell crisis Operation Performed: SIngle lumen picc, 34 cm, right basilic vein. Tip in SVC. Specimen/Specimens Removed: None Estimated Blood Loss: EBL {In ML}: 2 Blood Products Given: N/A Drains Used: No Drains Post-Op Condition: Fair Date of Surgery/Procedure: 11/13/16 Time of Surgery/Procedure: 08:35
--- NOTE | 2016-11-13 09:30 | CP.PCM.PN ---
Subjective - Date & Time of Evaluation Date of Evaluation: 11/13/16 Time of Evaluation: 09:20 - Subjective Subjective: PGY2 Medicine Note - Dr. Nehemias Phipps's service: Patient seen and examined at bedside. Patient reports a lot of pain in her arms and legs which resolves with dilaudid. Patient had PICC line placed this morning for better IV access. Patient had two units of pRBCs over night ending at 6am. Patient says she feels well. Patient denies fever, chills, SOB. Objective - Vital Signs/Intake and Output Vital Signs (last 24 hours): Temp Pulse Resp BP Pulse Ox 99.5 F 96 H 20 105/67 97 11/13/16 07:29 11/13/16 07:29 11/13/16 07:29 11/13/16 07:29 11/13/16 07:29 Intake and Output: 11/13/16 11/13/16 06:59 18:59 Intake Total 1739 Balance 1739 - Medications Medications: Current Medications Diphenhydramine HCl (Benadryl) 25 mg IVP Q4H PRN PRN Reason: give with dilaudid Last Admin: 11/13/16 09:01 Dose: 25 mg Enoxaparin Sodium (Lovenox) 40 mg SC DAILY [facility] Last Admin: 11/10/16 09:37 Dose: 40 mg Folic Acid (Folic Acid) 1 mg PO DAILY [facility] Last Admin: 11/13/16 09:02 Dose: 1 mg Hydromorphone HCl (Dilaudid) 2 mg IVP Q4H PRN PRN Reason: pain Last Admin: 11/13/16 09:00 Dose: 2 mg Cefepime HCl (Maxipime Iv 1 Gm Premix) 1 gm in 50 mls @ 100 mls/hr IVPB Q12H [facility] Last Admin: 11/12/16 23:55 Dose: 100 mls/hr Vancomycin/Sodium Chloride (Vancocin) 1 gm in 200 mls @ 133 mls/hr IVPB Q12H [facility] Stop: 11/16/16 13:01 Last Admin: 11/13/16 00:35 Dose: 133 mls/hr Sodium Chloride (Sodium Chloride 0.9%) 1,000 mls @ 125 mls/hr IV .Q8H [facility] Last Admin: 11/13/16 09:02 Dose: 125 mls/hr Pantoprazole Sodium (Protonix Ec Tab) 40 mg PO DAILY [facility] Last Admin: 11/13/16 09:02 Dose: 40 mg - Labs Labs: 11/12/16 07:30 11/12/16 07:30 PT 15.1 SECONDS (9.7-12.2) H 11/11/16 11:04 INR 1.3 11/11/16 11:04 - Constitutional Appears: Non-toxic, No Acute Distress - Head Exam Head Exam: NORMAL INSPECTION - Eye Exam Eye Exam: EOMI - ENT Exam ENT Exam: Mucous Membranes Moist - Respiratory Exam Respiratory Exam: Clear to Ausculation Bilateral, NORMAL BREATHING PATTERN. absent: Rales, Rhonchi, Wheezes - Cardiovascular Exam Cardiovascular Exam: REGULAR RHYTHM, +S1, +S2 - GI/Abdominal Exam GI & Abdominal Exam: Soft, Tenderness, Normal Bowel Sounds - Extremities Exam Extremities Exam: Tenderness. absent: Pedal Edema - Neurological Exam Neurological Exam: Alert, Oriented x3 - Psychiatric Exam Psychiatric exam: Normal Affect, Normal Mood - Skin Skin Exam: Normal Color, Warm Assessment and Plan - Assessment and Plan (Free Text) Assessment: (1) Sickle cell anemia with crisis Assessment & Plan: s/p 2 units of pRBCs overnight for Hgb of 6.0. Retic count is increasing, f/u repeat retic count Have increased her dilaudid and also giving her IV fluids as well. Hematology consult - Dr. Moss - help appreciated Status: Acute (2) Pneumonia Assessment & Plan: ID consult - Dr. Estes - rush appreciated Started Cefepime and Vanc per Dr. Estes on 11/11/16 most likely has Hospital acquired pneumonia per attendings CXR 11/09/16 - no active disease Motrin PRN fevers Status: Acute (3) Hematuria Assessment & Plan: UA shows +3 blood and 11 RBCs Hgb dropping No hematuria today Urology consult - Dr. Tony Zuniga - f/u recs Status: Acute (4) Anemia Assessment & Plan: Transfusiuon ended 6am. F/U CBC this AM transfusion 2 units pRBCs 11/12/16 transfusion 2 units 11/10/16 Status: Acute (5) Leukocytosis Assessment & Plan: F/U repeat WBC this AM WBC is now 27.7 from 30 yesterday, all cultures negative Status: Acute (6) Elevated LFTs Assessment & Plan: 11/13: LFTs improving GI signed off F/U CMP this AM 11/12: Tbili 2.6 today (improved) GI consult - Dr. Stack - help appreciated IgG 1571.6, IgM 104.9 F/U liver kidney gomez ab, mitochondrial ab, smooth muscle ab, mauri Status: Acute (7) Hyperbilirubinemia Assessment & Plan: see above Status: Acute (8) Prophylactic measure Assessment & Plan: holding Lovenox secondary to hematuria protonix 40mg PO daily Status: Acute
--- NOTE | 2016-11-13 10:17 | PCM.URO ---
Urology Progress Note - General General: No Complaints - Subjective Abdominal Pain: No (feeling better today) Flank Pain: No Voiding Well: Yes Dysuria: No Hematuria: No (resolved) Good Stream: Yes Dsypnea: No Chest Pain: No Fever & Chills: No - Objective Lab Studies: Reviewed (normal kidneys on ultrasound urine culture - negative) Lab Results Last 24 Hours: Laboratory Results - last 24 hr 11/10/16 11/12/16 19:09 07:30 Neut % (Auto) 49.0 L Lymph % (Auto) 33.0 [place] % (Auto) 16.0 H Eos % (Auto) 1.0 Baso % (Auto) 1.0 Neut # 13.6 H Lymph # 9.1 H [place] # 4.4 H Eos # 0.3 Baso # 0.3 H Blood Type O POSITIVE Antibody Screen Positive Antibody Identification Non Specific Antibody Intake & Output: Intake & Output 11/12/16 11/13/16 11/13/16 18:59 06:59 18:59 Intake Total 0 1739 Balance 0 1739 Intake: Intake, IV Amount 400 Left Antecubital 400 Oral 300 Blood Product 0 839 Apheresis Rbc Cp2d As3 Lr 0 315 1st Unit [id number] Apheresis Rbc Cp2d As3 Lr 286 1st Unit [id number] Other 200 Apheresis Rbc Cp2d As3 Lr 50 1st Unit [id number] Apheresis Rbc Cp2d As3 Lr 150 1st Unit [id number] Other: # Voids Urine, Voided 3 Vital Signs: Vital Signs - 24 hr 11/12/16 11/12/16 11/12/16 15:05 17:24 17:39 Temperature 99.3 F 99.2 F 99.1 F Pulse Rate 102 H 87 89 Respiratory 20 20 20 Rate Blood Pressure 110/70 105/68 107/68 O2 Sat by Pulse 97 Oximetry 11/12/16 11/12/16 11/12/16 17:54 18:24 20:29 Temperature 98.9 F 99.0 F 99.8 F H Pulse Rate 88 87 88 Respiratory 20 20 20 Rate Blood Pressure 106/67 108/69 117/75 O2 Sat by Pulse Oximetry 11/13/16 11/13/16 11/13/16 00:00 02:45 03:00 Temperature 98.7 F 99.2 F 99.2 F Pulse Rate 94 H 89 91 H Respiratory 20 20 20 Rate Blood Pressure 112/70 110/68 107/63 O2 Sat by Pulse 96 Oximetry 11/13/16 11/13/16 11/13/16 03:15 05:50 07:29 Temperature 99.2 F 99.3 F 99.5 F Pulse Rate 88 86 96 H Respiratory 20 20 20 Rate Blood Pressure 105/64 108/65 105/67 O2 Sat by Pulse 97 Oximetry - Physical Exam Abdominal Exam: Soft, Non-Tender, Non-Distended Back: No CVA Tenderness - Plan Additional Information: IMP:IMPROVED RE HEMATURIA. ETIOLOGY POSS DUE TO SICKLE CELL DISEASE - Date & Time of Note Date: 11/13/16 Time: 10:18
--- NOTE | 2016-11-13 10:45 | CP.PCM.PN ---
Subjective - Date & Time of Evaluation Date of Evaluation: 11/13/16 Time of Evaluation: 07:20 - Subjective Subjective: clinically same Objective - Vital Signs/Intake and Output Vital Signs (last 24 hours): Temp Pulse Resp BP Pulse Ox 99.5 F 96 H 20 105/67 97 11/13/16 07:29 11/13/16 07:29 11/13/16 07:29 11/13/16 07:29 11/13/16 07:29 Intake and Output: 11/13/16 11/13/16 06:59 18:59 Intake Total 1739 Balance 1739 - Medications Medications: Current Medications Diphenhydramine HCl (Benadryl) 25 mg IVP Q4H PRN PRN Reason: give with dilaudid Last Admin: 11/13/16 09:01 Dose: 25 mg Enoxaparin Sodium (Lovenox) 40 mg SC DAILY [facility] Last Admin: 11/10/16 09:37 Dose: 40 mg Folic Acid (Folic Acid) 1 mg PO DAILY [facility] Last Admin: 11/13/16 09:02 Dose: 1 mg Hydromorphone HCl (Dilaudid) 2 mg IVP Q4H PRN PRN Reason: pain Last Admin: 11/13/16 09:00 Dose: 2 mg Cefepime HCl (Maxipime Iv 1 Gm Premix) 1 gm in 50 mls @ 100 mls/hr IVPB Q12H [facility] Last Admin: 11/12/16 23:55 Dose: 100 mls/hr Vancomycin/Sodium Chloride (Vancocin) 1 gm in 200 mls @ 133 mls/hr IVPB Q12H [facility] Stop: 11/16/16 13:01 Last Admin: 11/13/16 00:35 Dose: 133 mls/hr Sodium Chloride (Sodium Chloride 0.9%) 1,000 mls @ 125 mls/hr IV .Q8H [facility] Last Admin: 11/13/16 09:02 Dose: 125 mls/hr Ibuprofen (Motrin Tab) 600 mg PO TID PRN PRN Reason: Fever >100.4 F Pantoprazole Sodium (Protonix Ec Tab) 40 mg PO DAILY [facility] Last Admin: 11/13/16 09:02 Dose: 40 mg - Labs Labs: 11/12/16 07:30 11/12/16 07:30 PT 15.1 SECONDS (9.7-12.2) H 11/11/16 11:04 INR 1.3 11/11/16 11:04 - Constitutional Appears: Well - Head Exam Head Exam: ATRAUMATIC, NORMAL INSPECTION, NORMOCEPHALIC - Eye Exam Eye Exam: EOMI, Normal appearance, PERRL Pupil Exam: NORMAL ACCOMODATION, PERRL - ENT Exam ENT Exam: Mucous Membranes Moist, Normal Exam - Neck Exam Neck Exam: Full ROM, Normal Inspection. absent: Lymphadenopathy - Respiratory Exam Respiratory Exam: Decreased Breath Sounds - Cardiovascular Exam Cardiovascular Exam: REGULAR RHYTHM, +S1, +S2 - GI/Abdominal Exam GI & Abdominal Exam: Soft, Diminished Bowel Sounds - Rectal Exam Rectal Exam: Deferred
[2016-11-13] MEDS: Cefepime IV 1 gm in Dextrose 1 GM/50 ML BAG IVPB SCH (13:13)
[2016-11-13 15:30] LABS: BASO # 0.1 K/uL (0.0-0.2); BASO % 0.5 % (0.0-2.0); EOS # 0.8 K/uL (0.0-0.7); EOS % 3.2 % (0.0-4.0); HEMATOCRIT 22.2 % (34.0-47.0); LYMPH # 4.7 K/uL (1.0-4.3); LYMPH % 18.7 % (20.0-40.0); MEAN CELL VOLUME 86.8 fL (81.0-99.0); MEAN CORPUSCULAR HEMOGLOBIN 27.8 pg (27.0-31.0); MEAN PLATELET VOLUME 9.1 fL (7.2-11.7); MONO # 2.3 K/uL (0.0-0.8); MONO % 8.9 % (0.0-10.0); NRBC % 45.8 % (0.0-2.0); RED CELL DISTRIBUTION WIDTH 24.2 % (11.5-14.5); WHITE BLOOD COUNT 25.2 K/uL (4.8-10.8)
--- NOTE | 2016-11-13 15:31 | CP.PCM.PN ---
Subjective - Date & Time of Evaluation Date of Evaluation: 11/13/16 Time of Evaluation: 07:00 - Subjective Subjective: fever less all cultures neg less pain no sob Objective - Vital Signs/Intake and Output Vital Signs (last 24 hours): Temp Pulse Resp BP Pulse Ox 99.5 F 96 H 20 105/67 97 11/13/16 07:29 11/13/16 07:29 11/13/16 07:29 11/13/16 07:29 11/13/16 07:29 Intake and Output: 11/13/16 11/13/16 06:59 18:59 Intake Total 1739 1390 Balance 1739 1390 - Medications Medications: Current Medications Diphenhydramine HCl (Benadryl) 25 mg IVP Q4H PRN PRN Reason: give with dilaudid Last Admin: 11/13/16 14:00 Dose: 25 mg Enoxaparin Sodium (Lovenox) 40 mg SC DAILY [facility] Last Admin: 11/10/16 09:37 Dose: 40 mg Folic Acid (Folic Acid) 1 mg PO DAILY [facility] Last Admin: 11/13/16 09:02 Dose: 1 mg Hydromorphone HCl (Dilaudid) 2 mg IVP Q4H PRN PRN Reason: pain Last Admin: 11/13/16 14:00 Dose: 2 mg Cefepime HCl (Maxipime Iv 1 Gm Premix) 1 gm in 50 mls @ 100 mls/hr IVPB Q12H [facility] Last Admin: 11/13/16 13:13 Dose: 100 mls/hr Vancomycin/Sodium Chloride (Vancocin) 1 gm in 200 mls @ 133 mls/hr IVPB Q12H [facility] Stop: 11/16/16 13:01 Last Admin: 11/13/16 14:28 Dose: 133 mls/hr Sodium Chloride (Sodium Chloride 0.9%) 1,000 mls @ 125 mls/hr IV .Q8H [facility] Last Admin: 11/13/16 09:02 Dose: 125 mls/hr Ibuprofen (Motrin Tab) 600 mg PO TID PRN PRN Reason: Fever >100.4 F Pantoprazole Sodium (Protonix Ec Tab) 40 mg PO DAILY [facility] Last Admin: 11/13/16 09:02 Dose: 40 mg - Labs Labs: 11/12/16 07:30 11/12/16 07:30 PT 15.1 SECONDS (9.7-12.2) H 11/11/16 11:04 INR 1.3 11/11/16 11:04 - Constitutional Appears: Non-toxic, Cachectic, Chronically Ill - Head Exam Head Exam: NORMOCEPHALIC - Eye Exam Eye Exam: PERRL. absent: Scleral icterus - ENT Exam ENT Exam: Mucous Membranes Dry, Normal External Ear Exam - Neck Exam Neck Exam: absent: Lymphadenopathy - Respiratory Exam Respiratory Exam: Decreased Breath Sounds, Rhonchi - Cardiovascular Exam Cardiovascular Exam: REGULAR RHYTHM, +S1, +S2 - GI/Abdominal Exam GI & Abdominal Exam: Distended, Soft. absent: Tenderness - Rectal Exam Rectal Exam: Deferred - Exam Exam: NORMAL INSPECTION - Extremities Exam Extremities Exam: absent: Pedal Edema - Neurological Exam Neurological Exam: Alert, Awake, Oriented x3 Assessment and Plan (1) Leukocytosis Status: Acute (2) Sickle cell anemia with crisis Status: Acute (3) Abdominal pain Status: Acute (4) Chest pain Status: Acute (5) Fever Status: Acute (6) Fever Status: Acute
[2016-11-13 15:36] LABS: CHLORIDE 99 mmol/L (98-107); POTASSIUM 3.6 mmol/L (3.6-5.2); SODIUM 134 mmol/L (132-148)
[2016-11-13 15:38] LABS: AST/SGOT 166 U/L (14-36); BILIRUBIN,TOTAL 1.8 mg/dL (0.2-1.3); CARBON DIOXIDE 25 mmol/L (22-30); GFR AFRICAN-AMERICAN > 60
[2016-11-13 15:39] LABS: ALB/GLOB RATIO 0.9 (1.0-2.1); ALKALINE PHOSPHATASE 164 U/L (38-126); ALT/SGPT 160 U/L (9-52); BLOOD UREA NITROGEN 5 mg/dL (7-17); CALCIUM 8.6 mg/dl (8.6-10.4); GLUCOSE,RANDOM 121 mg/dL (65-105); TOTAL PROTEIN 7.5 g/dL (6.3-8.3)
--- NOTE | 2016-11-13 20:44 | CP.PCM.PN ---
Subjective - Date & Time of Evaluation Date of Evaluation: 11/13/16 Time of Evaluation: 12:00 - Subjective Subjective: Feeling better, less pain. Objective - Vital Signs/Intake and Output Vital Signs (last 24 hours): Temp Pulse Resp BP Pulse Ox 99 F 83 20 101/61 97 11/13/16 16:00 11/13/16 16:00 11/13/16 16:00 11/13/16 16:00 11/13/16 16:00 Intake and Output: 11/13/16 11/14/16 18:59 06:59 Intake Total 1390 Balance 1390 - Medications Medications: Current Medications Diphenhydramine HCl (Benadryl) 25 mg IVP Q4H PRN PRN Reason: give with dilaudid Last Admin: 11/13/16 19:49 Dose: 25 mg Enoxaparin Sodium (Lovenox) 40 mg SC DAILY [facility] Last Admin: 11/10/16 09:37 Dose: 40 mg Folic Acid (Folic Acid) 1 mg PO DAILY [facility] Last Admin: 11/13/16 09:02 Dose: 1 mg Hydromorphone HCl (Dilaudid) 2 mg IVP Q4H PRN PRN Reason: pain Last Admin: 11/13/16 19:49 Dose: 2 mg Cefepime HCl (Maxipime Iv 1 Gm Premix) 1 gm in 50 mls @ 100 mls/hr IVPB Q12H [facility] Last Admin: 11/13/16 13:13 Dose: 100 mls/hr Vancomycin/Sodium Chloride (Vancocin) 1 gm in 200 mls @ 133 mls/hr IVPB Q12H [facility] Stop: 11/16/16 13:01 Last Admin: 11/13/16 14:28 Dose: 133 mls/hr Sodium Chloride (Sodium Chloride 0.9%) 1,000 mls @ 125 mls/hr IV .Q8H [facility] Last Admin: 11/13/16 19:50 Dose: 125 mls/hr Ibuprofen (Motrin Tab) 600 mg PO TID PRN PRN Reason: Fever >100.4 F Pantoprazole Sodium (Protonix Ec Tab) 40 mg PO DAILY [facility] Last Admin: 11/13/16 09:02 Dose: 40 mg - Labs Labs: 11/13/16 15:21 11/13/16 15:21 PT 15.1 SECONDS (9.7-12.2) H 11/11/16 11:04 INR 1.3 11/11/16 11:04 - Head Exam Head Exam: ATRAUMATIC - Eye Exam Eye Exam: Scleral icterus - ENT Exam ENT Exam: Mucous Membranes Dry - Respiratory Exam Respiratory Exam: NORMAL BREATHING PATTERN - Cardiovascular Exam Cardiovascular Exam: +S1, +S2 - GI/Abdominal Exam GI & Abdominal Exam: Normal Bowel Sounds - Extremities Exam Extremities Exam: Normal Inspection Assessment and Plan (1) Sickle cell anemia with crisis Assessment & Plan: IV fluids, pain meds, folic acid, 02 via NC s/p PRBC transfusion Status: Acute (2) Leukocytosis Assessment & Plan: likely reactive Status: Acute (3) Iron deficiency anemia Assessment & Plan: resolved Status: Acute
--- NOTE | 2016-11-13 21:28 | CON ---
DATE: 11/13/2016 Urology consultation is requested by Dr. Irma Phipps. Urology consultation filled by Dr. Sharita Zuniga. REASON FOR CONSULTATION: Hematuria. The patient is a 26-year-old female with hematuria. The patient is in otherwise fair health. The patient was admitted to the hospital on 11/02/2016. Socorro lucas was admitted with severe back pain and extremity pain. The patient has history of sickle cell disease. She a history of sickle cell crisis. The patient has not had hematuria prior to this episode. The patient reports light pink urine. There were no clots. The patient reports no flank pain. No history of urinary tract infection. No history of urolithiasis. The patient has had back pain involving the area of the spine. The patient has had marked abnormalities of her lab tests including leukocytosis and anemia. During this admission, the patient has had various consultations including infectious disease, nephro logy and hematology. The patient reports no history of previous urinary tract infection. The patient voids with good urin mickey stream and good control. The patient has had transfusions during this hospitalization as well. See attached medication list. Benadryl, Lovenox, Dilaudid, cefepime, vancomycin, and Protonix. The patient is not employed at present. The patient is being treated for possible pneumonia. The hematuria has improved according to the patient. PHYSICAL EXAMINATION: GENERAL: The patient is a well-developed, well-nourished thin young adult female. The patient is aw pelon and alert. ABDOMEN: Soft. There is no mass or organomegaly. There is mild flank tenderness bilaterally. The patient is also in distress secondary to pain in her upper and lower extremities bilaterally. LABORATORY DATA: Reviewed. See attached reports. Hematocrit 20.0, white blood count 30,700. BUN 1 2, creatinine 0.4. Urinalysis reveals red urine, 2+ protein, 3+ blood, 11 Red blood cells per high p ower field. The patient has had previous urine culture on 11/09, which was negative. Urine culture on 11/04 was also negative. IMPRESSION: Sickle cell disease. Sickle cell crisis. Hematuria. Leukocytosis. The etiology of the hematuria may be due to sickling crisis within the kidneys. Other causes for hem aturia include infection, urolithiasis, and/or neoplasia. RECOMMENDATIONS AND PLAN: Hydration. Continue current antibiotic therapy. Consider stopping Loveno x. Monitor urine output. Possible further urologic evaluation. A renal ultrasound. Possible CT sc an. Possible cystoscopy. Further therapy to follow according to patient's clinical course. Thank you for recommending the patient for urology consultation. Sharita Zuniga MD cc: [id number] TT: 11/13/2016 21:28:09 Confirmation # [id number] Dictation # [id number] dn
[2016-11-14] MEDS: Cefepime IV 1 gm in Dextrose 1 GM/50 ML BAG IVPB SCH ×2 (00:32→12:31)
[2016-11-14] MEDS: Vancomycin 1 gm/NS 200 ml 1 GM/200 ML BAG IVPB SCH ×2 (00:33→13:09)
[2016-11-14] MEDS: DiphenhydrAMINE 50 mg/ml Inj IVP PRN ×4 (01:42→20:05)
[2016-11-14 07:09] LABS: HEMATOCRIT 20.8 % (34.0-47.0); MEAN CELL VOLUME 88.6 fL (81.0-99.0); MEAN CORPUSCULAR HGB CONC 32.8 g/dL (33.0-37.0); MEAN PLATELET VOLUME 8.6 fL (7.2-11.7); RED CELL DISTRIBUTION WIDTH 23.4 % (11.5-14.5); RETIC% 16.6 % (0.5-1.5); WHITE BLOOD COUNT 23.5 K/uL (4.8-10.8)
[2016-11-14 07:15] LABS: CHLORIDE 106 mmol/L (98-107)
[2016-11-14 07:16] LABS: POTASSIUM 3.7 mmol/L (3.6-5.2); SODIUM 138 mmol/L (132-148)
[2016-11-14 07:18] LABS: ALB/GLOB RATIO 0.9 (1.0-2.1); AST/SGOT 134 U/L (14-36); BILIRUBIN,TOTAL 1.7 mg/dL (0.2-1.3); CARBON DIOXIDE 24 mmol/L (22-30); GFR AFRICAN-AMERICAN > 60; TOTAL PROTEIN 6.9 g/dL (6.3-8.3)
[2016-11-14 07:19] LABS: ALKALINE PHOSPHATASE 180 U/L (38-126); ALT/SGPT 154 U/L (9-52); BLOOD UREA NITROGEN 6 mg/dL (7-17); CALCIUM 8.7 mg/dl (8.6-10.4); GLUCOSE,RANDOM 81 mg/dL (65-105)
[2016-11-14] MEDS: Pantoprazole 40 mg EC Tab PO SCH (09:32)
--- NOTE | 2016-11-14 11:30 | CP.PCM.PN ---
Subjective - Date & Time of Evaluation Date of Evaluation: 11/14/16 Time of Evaluation: 07:20 - Subjective Subjective: clinically same Objective - Vital Signs/Intake and Output Vital Signs (last 24 hours): Temp Pulse Resp BP Pulse Ox 98.5 F 91 H 20 104/66 98 11/14/16 08:27 11/14/16 08:27 11/14/16 08:27 11/14/16 08:27 11/14/16 08:27 Intake and Output: 11/14/16 11/14/16 06:59 18:59 Intake Total 1050 Output Total 400 Balance 650 - Medications Medications: Current Medications Diphenhydramine HCl (Benadryl) 25 mg IVP Q4H PRN PRN Reason: give with dilaudid Last Admin: 11/14/16 09:32 Dose: 25 mg Enoxaparin Sodium (Lovenox) 40 mg SC DAILY [facility] Last Admin: 11/10/16 09:37 Dose: 40 mg Folic Acid (Folic Acid) 1 mg PO DAILY [facility] Last Admin: 11/14/16 09:32 Dose: 1 mg Hydromorphone HCl (Dilaudid) 2 mg IVP Q4H PRN PRN Reason: pain Last Admin: 11/14/16 09:32 Dose: 2 mg Cefepime HCl (Maxipime Iv 1 Gm Premix) 1 gm in 50 mls @ 100 mls/hr IVPB Q12H [facility] Last Admin: 11/14/16 00:32 Dose: 100 mls/hr Vancomycin/Sodium Chloride (Vancocin) 1 gm in 200 mls @ 133 mls/hr IVPB Q12H [facility] Stop: 11/16/16 13:01 Last Admin: 11/14/16 00:33 Dose: 133 mls/hr Sodium Chloride (Sodium Chloride 0.9%) 1,000 mls @ 125 mls/hr IV .Q8H [facility] Last Admin: 11/13/16 19:50 Dose: 125 mls/hr Ibuprofen (Motrin Tab) 600 mg PO TID PRN PRN Reason: Fever >100.4 F Pantoprazole Sodium (Protonix Ec Tab) 40 mg PO DAILY [facility] Last Admin: 11/14/16 09:32 Dose: 40 mg - Labs Labs: 11/14/16 06:54 11/14/16 06:54 PT 15.1 SECONDS (9.7-12.2) H 11/11/16 11:04 INR 1.3 11/11/16 11:04 - Constitutional Appears: Well - Head Exam Head Exam: ATRAUMATIC, NORMAL INSPECTION, NORMOCEPHALIC - Eye Exam Eye Exam: EOMI, Normal appearance, PERRL Pupil Exam: NORMAL ACCOMODATION, PERRL - ENT Exam ENT Exam: Mucous Membranes Moist, Normal Exam - Neck Exam Neck Exam: Full ROM, Normal Inspection. absent: Lymphadenopathy - Respiratory Exam Respiratory Exam: Decreased Breath Sounds - Cardiovascular Exam Cardiovascular Exam: REGULAR RHYTHM, +S1, +S2 - GI/Abdominal Exam GI & Abdominal Exam: Soft, Diminished Bowel Sounds - Rectal Exam Rectal Exam: Deferred
[2016-11-14] MEDS: Sodium Chloride 0.9% 1,000 ML IV SCH (16:45)
--- NOTE | 2016-11-14 20:03 | CP.PCM.PN ---
Subjective - Date & Time of Evaluation Date of Evaluation: 11/14/16 Time of Evaluation: 19:00 - Subjective Subjective: Pain in right arm Objective - Vital Signs/Intake and Output Vital Signs (last 24 hours): Temp Pulse Resp BP Pulse Ox 99.3 F 94 H 20 104/61 97 11/14/16 15:00 11/14/16 15:00 11/14/16 15:00 11/14/16 15:00 11/14/16 15:00 - Medications Medications: Current Medications Diphenhydramine HCl (Benadryl) 25 mg IVP Q4H PRN PRN Reason: give with dilaudid Last Admin: 11/14/16 14:46 Dose: 25 mg Enoxaparin Sodium (Lovenox) 40 mg SC DAILY [facility] Last Admin: 11/10/16 09:37 Dose: 40 mg Folic Acid (Folic Acid) 1 mg PO DAILY [facility] Last Admin: 11/14/16 09:32 Dose: 1 mg Hydromorphone HCl (Dilaudid) 2 mg IVP Q4H PRN PRN Reason: pain Last Admin: 11/14/16 14:47 Dose: 2 mg Cefepime HCl (Maxipime Iv 1 Gm Premix) 1 gm in 50 mls @ 100 mls/hr IVPB Q12H [facility] Last Admin: 11/14/16 12:31 Dose: 100 mls/hr Vancomycin/Sodium Chloride (Vancocin) 1 gm in 200 mls @ 133 mls/hr IVPB Q12H [facility] Stop: 11/16/16 13:01 Last Admin: 11/14/16 13:09 Dose: 133 mls/hr Sodium Chloride (Sodium Chloride 0.9%) 1,000 mls @ 125 mls/hr IV .Q8H [facility] Last Admin: 11/13/16 19:50 Dose: 125 mls/hr Ibuprofen (Motrin Tab) 600 mg PO TID PRN PRN Reason: Fever >100.4 F Pantoprazole Sodium (Protonix Ec Tab) 40 mg PO DAILY [facility] Last Admin: 11/14/16 09:32 Dose: 40 mg - Labs Labs: 11/14/16 06:54 11/14/16 06:54 PT 15.1 SECONDS (9.7-12.2) H 11/11/16 11:04 INR 1.3 11/11/16 11:04 - Head Exam Head Exam: ATRAUMATIC - Eye Exam Eye Exam: Normal appearance - ENT Exam ENT Exam: Mucous Membranes Dry - Respiratory Exam Respiratory Exam: NORMAL BREATHING PATTERN - Cardiovascular Exam Cardiovascular Exam: +S1, +S2 - Extremities Exam Extremities Exam: Normal Inspection - Neurological Exam Neurological Exam: Oriented x3 - Psychiatric Exam Psychiatric exam: Normal Affect, Normal Mood - Skin Skin Exam: Warm Assessment and Plan (1) Sickle cell anemia with crisis Assessment & Plan: IV fluids, pain meds, 02 via NC, foilic acid s/p PRBC transfusion Status: Acute (2) Leukocytosis Assessment & Plan: likely reactive to sickle cell Status: Acute (3) Iron deficiency anemia Assessment & Plan: resolved Status: Acute
[2016-11-15] MEDS: Cefepime IV 1 gm in Dextrose 1 GM/50 ML BAG IVPB SCH ×2 (00:13→11:27)
[2016-11-15] MEDS: Vancomycin 1 gm/NS 200 ml 1 GM/200 ML BAG IVPB SCH ×2 (00:14→13:13)
[2016-11-15] MEDS: Sodium Chloride 0.9% 1,000 ML IV SCH ×4 (00:17→16:45)
[2016-11-15] MEDS: DiphenhydrAMINE 50 mg/ml Inj IVP PRN ×4 (00:22→20:20)
[2016-11-15 07:25] LABS: CHLORIDE 105 mmol/L (98-107); POTASSIUM 3.6 mmol/L (3.6-5.2); SODIUM 140 mmol/L (132-148)
[2016-11-15 07:27] LABS: BILIRUBIN,TOTAL 1.4 mg/dL (0.2-1.3); GFR AFRICAN-AMERICAN > 60
[2016-11-15 07:28] LABS: ALB/GLOB RATIO 0.9 (1.0-2.1); ALKALINE PHOSPHATASE 218 U/L (38-126); ALT/SGPT 160 U/L (9-52); AST/SGOT 153 U/L (14-36); BLOOD UREA NITROGEN 6 mg/dL (7-17); CARBON DIOXIDE 25 mmol/L (22-30); GLUCOSE,RANDOM 92 mg/dL (65-105)
[2016-11-15 07:34] LABS: BASO # 0.2 K/uL (0.0-0.2); BASO % 0.8 % (0.0-2.0); EOS # 0.8 K/uL (0.0-0.7); EOS % 3.4 % (0.0-4.0); LYMPH # 4.3 K/uL (1.0-4.3); LYMPH % 19.4 % (20.0-40.0); MEAN CELL VOLUME 91.5 fL (81.0-99.0); MEAN CORPUSCULAR HEMOGLOBIN 29.1 pg (27.0-31.0); MEAN CORPUSCULAR HGB CONC 31.8 g/dL (33.0-37.0); MEAN PLATELET VOLUME 8.7 fL (7.2-11.7); RED CELL DISTRIBUTION WIDTH 31.9 % (11.5-14.5); WHITE BLOOD COUNT 22.3 K/uL (4.8-10.8)
[2016-11-15 07:38] LABS: RETIC% 19.9 % (0.5-1.5)
[2016-11-15] MEDS: Pantoprazole 40 mg EC Tab PO SCH (09:44)
[2016-11-15 13:10] LABS: BASO # 0.2 K/uL (0.0-0.2); BASO % 0.8 % (0.0-2.0); EOS % 4.4 % (0.0-4.0); HEMATOCRIT 22.4 % (34.0-47.0); LYMPH # 4.1 K/uL (1.0-4.3); LYMPH % 18.4 % (20.0-40.0); MEAN CELL VOLUME 92.1 fL (81.0-99.0); MEAN CORPUSCULAR HEMOGLOBIN 28.5 pg (27.0-31.0); MEAN CORPUSCULAR HGB CONC 30.9 g/dL (33.0-37.0); MEAN PLATELET VOLUME 8.8 fL (7.2-11.7); MONO # 2.1 K/uL (0.0-0.8); MONO % 9.6 % (0.0-10.0); NRBC % 40.9 % (0.0-2.0); WHITE BLOOD COUNT 22.1 K/uL (4.8-10.8)
[2016-11-15 13:16] LABS: PLATELET COUNT 957 K/uL (130-400)
[2016-11-15 13:52] LABS: BASO # 0.2 K/uL (0.0-0.2); BASO % 1.2 % (0.0-2.0); EOS # 0.5 K/uL (0.0-0.7); EOS % 2.5 % (0.0-4.0); HEMATOCRIT 21.3 % (34.0-47.0); LYMPH # 2.9 K/uL (1.0-4.3); LYMPH % 14.2 % (20.0-40.0); MEAN CELL VOLUME 91.1 fL (81.0-99.0); MEAN CORPUSCULAR HEMOGLOBIN 28.8 pg (27.0-31.0); MEAN CORPUSCULAR HGB CONC 31.7 g/dL (33.0-37.0); MEAN PLATELET VOLUME 8.5 fL (7.2-11.7); MONO # 2.1 K/uL (0.0-0.8); MONO % 10.6 % (0.0-10.0); NRBC % 33.7 % (0.0-2.0); RED CELL DISTRIBUTION WIDTH 33.1 % (11.5-14.5)
[2016-11-15 14:00] LABS: PLATELET COUNT 957 K/uL (130-400); WHITE BLOOD COUNT 21.3 K/uL (4.8-10.8)
[2016-11-15 14:17] LABS: EOSINOPHIL 3 % (0-4); NEUTROPHIL 65 % (50-75); NUCLEATED RED BLOOD CELL 39 % (0-0); TOTAL CELLS COUNTED 100
--- NOTE | 2016-11-15 14:19 | CP.PCM.PN ---
Subjective - Date & Time of Evaluation Date of Evaluation: 11/15/16 Time of Evaluation: 09:00 - Subjective Subjective: LESS FEVER WBC TRENDING DOWN C/O RIGHT ARM PAIN NO SWELLING Objective - Vital Signs/Intake and Output Vital Signs (last 24 hours): Temp Pulse Resp BP Pulse Ox 98.9 F 87 20 97/60 L 99 11/15/16 08:26 11/15/16 08:26 11/15/16 08:26 11/15/16 08:26 11/15/16 08:26 Intake and Output: 11/15/16 11/15/16 06:59 18:59 Intake Total 1640 Balance 1640 - Medications Medications: Current Medications Diphenhydramine HCl (Benadryl) 25 mg IVP Q4H PRN PRN Reason: give with dilaudid Last Admin: 11/15/16 11:15 Dose: 25 mg Enoxaparin Sodium (Lovenox) 40 mg SC DAILY [facility] Last Admin: 11/10/16 09:37 Dose: 40 mg Folic Acid (Folic Acid) 1 mg PO DAILY [facility] Last Admin: 11/15/16 09:44 Dose: 1 mg Hydromorphone HCl (Dilaudid) 2 mg IVP Q4 PRN PRN Reason: Pain, severe (8-10) Last Admin: 11/15/16 11:15 Dose: 2 mg Cefepime HCl (Maxipime Iv 1 Gm Premix) 1 gm in 50 mls @ 100 mls/hr IVPB Q12H [facility] Last Admin: 11/15/16 11:27 Dose: 100 mls/hr Vancomycin/Sodium Chloride (Vancocin) 1 gm in 200 mls @ 133 mls/hr IVPB Q12H [facility] Stop: 11/16/16 13:01 Last Admin: 11/15/16 13:13 Dose: 133 mls/hr Sodium Chloride (Sodium Chloride 0.9%) 1,000 mls @ 125 mls/hr IV .Q8H [facility] Last Admin: 11/15/16 09:44 Dose: 125 mls/hr Ibuprofen (Motrin Tab) 600 mg PO TID PRN PRN Reason: Fever >100.4 F Pantoprazole Sodium (Protonix Ec Tab) 40 mg PO DAILY [facility] Last Admin: 11/15/16 09:44 Dose: 40 mg - Labs Labs: 11/15/16 13:37 11/15/16 06:10 PT 15.1 SECONDS (9.7-12.2) H 11/11/16 11:04 INR 1.3 11/11/16 11:04 - Constitutional Appears: Non-toxic, Cachectic, Chronically Ill - Head Exam Head Exam: NORMOCEPHALIC - Eye Exam Eye Exam: PERRL. absent: Scleral icterus - ENT Exam ENT Exam: Mucous Membranes Dry - Neck Exam Neck Exam: absent: Lymphadenopathy - Respiratory Exam Respiratory Exam: Decreased Breath Sounds, Rhonchi - Cardiovascular Exam Cardiovascular Exam: REGULAR RHYTHM, +S1, +S2 - GI/Abdominal Exam GI & Abdominal Exam: Distended, Soft. absent: Tenderness - Rectal Exam Rectal Exam: Deferred - Exam Exam: NORMAL INSPECTION - Extremities Exam Extremities Exam: absent: Pedal Edema - Back Exam Back Exam: absent: CVA tenderness (L), CVA tenderness (R) - Neurological Exam Neurological Exam: Alert, Awake, Normal Gait, Oriented x3 - Psychiatric Exam Psychiatric exam: Normal Mood - Skin Skin Exam: Dry Assessment and Plan (1) Leukocytosis Status: Acute (2) Sickle cell anemia with crisis Status: Acute (3) Abdominal pain Status: Acute (4) Chest pain Status: Acute (5) Fever Status: Acute (6) Fever Status: Acute
[2016-11-15 14:22] LABS: SPHEROCYTES SLIGHT
[2016-11-15 14:41] LABS: EOSINOPHIL 2 % (0-4); NEUTROPHIL 68 % (50-75); NUCLEATED RED BLOOD CELL 41 % (0-0); TOTAL CELLS COUNTED 100
[2016-11-15 14:42] LABS: SPHEROCYTES SLIGHT
--- NOTE | 2016-11-15 15:02 | CP.PCM.PN ---
Subjective - Date & Time of Evaluation Date of Evaluation: 11/15/16 Time of Evaluation: 10:00 - Subjective Subjective: clinically same Objective - Vital Signs/Intake and Output Vital Signs (last 24 hours): Temp Pulse Resp BP Pulse Ox 98.9 F 87 20 97/60 L 99 11/15/16 08:26 11/15/16 08:26 11/15/16 08:26 11/15/16 08:26 11/15/16 08:26 Intake and Output: 11/15/16 11/15/16 06:59 18:59 Intake Total 1640 Balance 1640 - Medications Medications: Current Medications Diphenhydramine HCl (Benadryl) 25 mg IVP Q4H PRN PRN Reason: give with dilaudid Last Admin: 11/15/16 11:15 Dose: 25 mg Enoxaparin Sodium (Lovenox) 40 mg SC DAILY [facility] Last Admin: 11/10/16 09:37 Dose: 40 mg Folic Acid (Folic Acid) 1 mg PO DAILY [facility] Last Admin: 11/15/16 09:44 Dose: 1 mg Hydromorphone HCl (Dilaudid) 2 mg IVP Q4 PRN PRN Reason: Pain, severe (8-10) Last Admin: 11/15/16 11:15 Dose: 2 mg Cefepime HCl (Maxipime Iv 1 Gm Premix) 1 gm in 50 mls @ 100 mls/hr IVPB Q12H [facility] Last Admin: 11/15/16 11:27 Dose: 100 mls/hr Sodium Chloride (Sodium Chloride 0.9%) 1,000 mls @ 125 mls/hr IV .Q8H [facility] Last Admin: 11/15/16 09:44 Dose: 125 mls/hr Ibuprofen (Motrin Tab) 600 mg PO TID PRN PRN Reason: Fever >100.4 F Pantoprazole Sodium (Protonix Ec Tab) 40 mg PO DAILY [facility] Last Admin: 11/15/16 09:44 Dose: 40 mg - Labs Labs: 11/15/16 13:37 11/15/16 06:10 PT 15.1 SECONDS (9.7-12.2) H 11/11/16 11:04 INR 1.3 11/11/16 11:04 Assessment and Plan - Assessment and Plan (Free Text) Plan: F/u DR. mcarthur WBC trendimg [place], Dilaudid [place]. Lovenox Maxipime
--- NOTE | 2016-11-15 17:06 | PCM.URO ---
Urology Progress Note - General General: Tolerating - Subjective Voiding Well: Yes Hematuria: No Other: Pt reports pain of ext - Objective Lab Studies: Reviewed (creat=0.4 leukocytosis, anemia, and thrombocytosis noted) Lab Results Last 24 Hours: Laboratory Results - last 24 hr 11/15/16 11/15/16 11/15/16 06:10 06:10 06:10 WBC 22.3 H 22.1 H RBC 2.40 L 2.43 L Hgb 7.0 L 6.9 L Hct 22.0 L 22.4 L MCV 91.5 D 92.1 MCH 29.1 28.5 MCHC 31.8 L 30.9 L RDW 31.9 H 32.0 H Plt Count 969 H* 957 H* MPV 8.7 8.8 Neut % (Auto) 67.4 66.8 Lymph % (Auto) 19.4 L 18.4 L [place] % (Auto) 9.0 9.6 Eos % (Auto) 3.4 4.4 H Baso % (Auto) 0.8 0.8 Neut # 15.0 H 14.7 H Lymph # 4.3 4.1 [place] # 2.0 H 2.1 H Eos # 0.8 H 1.0 H Baso # 0.2 0.2 Neutrophils % (Manual) 65 Band Neutrophils % 7 H Lymphocytes % (Manual) 18 L Monocytes % (Manual) 7 Eosinophils % (Manual) 3 Nucleated RBC % 39 H Platelet Estimate Markedly increased H Polychromasia Slight Hypochromasia (manual) Slight Poikilocytosis (manual Slight Anisocytosis (manual) Slight Microcytosis (manual) Slight Macrocytosis (manual) Slight Spherocytes Slight Target Cells Slight Tear Drop Cells Slight Ovalocytes Slight Ernest Cells Slight Schistocytes Slight Retic Count 19.9 H Sodium 140 Potassium 3.6 Chloride 105 Carbon Dioxide 25 Anion Gap 14 BUN 6 L Creatinine 0.4 L Est GFR ( Amer) > 60 Est GFR (Non-Af Amer) > 60 Random Glucose 92 Calcium 9.0 Total Bilirubin 1.4 H AST 153 H ALT 160 H Alkaline Phosphatase 218 H D Total Protein 7.0 Albumin 3.4 L Globulin 3.7 Albumin/Globulin Ratio 0.9 L 11/15/16 13:37 WBC 21.3 H RBC 2.34 L Hgb 6.8 L Hct 21.3 L MCV 91.1 MCH 28.8 MCHC 31.7 L RDW 33.1 H Plt Count 957 H* MPV 8.5 Neut % (Auto) 71.5 Lymph % (Auto) 14.2 L [place] % (Auto) 10.6 H Eos % (Auto) 2.5 Baso % (Auto) 1.2 Neut # 14.5 H Lymph # 2.9 [place] # 2.1 H Eos # 0.5 Baso # 0.2 Neutrophils % (Manual) 68 Band Neutrophils % 2 Lymphocytes % (Manual) 11 L Monocytes % (Manual) 17 H Eosinophils % (Manual) 2 Nucleated RBC % 41 H Platelet Estimate Increased H Polychromasia Slight Hypochromasia (manual) Slight Poikilocytosis (manual Slight Anisocytosis (manual) Marked Microcytosis (manual) Slight Macrocytosis (manual) Slight Spherocytes Slight Target Cells Slight Tear Drop Cells Slight Ovalocytes Slight Ernest Cells Schistocytes Slight Retic Count Sodium Potassium Chloride Carbon Dioxide Anion Gap BUN Creatinine Est GFR ( Amer) Est GFR (Non-Af Amer) Random Glucose Calcium Total Bilirubin AST ALT Alkaline Phosphatase Total Protein Albumin Globulin Albumin/Globulin Ratio Intake & Output: Intake & Output 11/14/16 11/15/16 11/15/16 18:59 06:59 18:59 Intake Total 1640 Balance 1640 Intake: Intake, IV Amount 1000 Left Antecubital 1000 Oral 300 Blood Product 340 Other: # Voids Urine, Voided 3 Vital Signs: Vital Signs - 24 hr 11/15/16 11/15/16 11/15/16 00:00 08:26 15:00 Temperature 98.8 F 98.9 F 99.1 F Pulse Rate 94 H 87 98 H Respiratory 20 20 20 Rate Blood Pressure 103/59 L 97/60 L 99/60 L O2 Sat by Pulse 99 99 96 Oximetry - Plan Additional Information: imp: improved re hematuria. sickle cell disease. plan : as per hematology, medicine - Date & Time of Note Date: 11/15/16 Time: 09:40
[2016-11-15 19:13] LABS: LKM-1 Ab (IgG) <=20.0 U (<=20.0)
[2016-11-16] MEDS: Cefepime IV 1 gm in Dextrose 1 GM/50 ML BAG IVPB SCH ×3 (00:24→23:46)
[2016-11-16] MEDS: DiphenhydrAMINE 50 mg/ml Inj IVP PRN ×4 (01:47→21:26)
[2016-11-16 06:14] LABS: BASO # 0.2 K/uL (0.0-0.2); BASO % 1.2 % (0.0-2.0); EOS # 0.5 K/uL (0.0-0.7); EOS % 2.8 % (0.0-4.0); HEMATOCRIT 19.1 % (34.0-47.0); LYMPH # 2.6 K/uL (1.0-4.3); LYMPH % 15.8 % (20.0-40.0); MEAN CELL VOLUME 89.3 fL (81.0-99.0); MEAN CORPUSCULAR HEMOGLOBIN 29.3 pg (27.0-31.0); MEAN CORPUSCULAR HGB CONC 32.8 g/dL (33.0-37.0); MEAN PLATELET VOLUME 7.9 fL (7.2-11.7); MONO # 1.5 K/uL (0.0-0.8); MONO % 9.1 % (0.0-10.0); NRBC % 13.9 % (0.0-2.0); RED CELL DISTRIBUTION WIDTH 30.2 % (11.5-14.5); WHITE BLOOD COUNT 16.6 K/uL (4.8-10.8)
[2016-11-16 06:51] LABS: CHLORIDE 104 mmol/L (98-107); SODIUM 137 mmol/L (132-148)
[2016-11-16 06:52] LABS: POTASSIUM 3.5 mmol/L (3.6-5.2)
[2016-11-16 06:54] LABS: ALB/GLOB RATIO 0.9 (1.0-2.1); ALKALINE PHOSPHATASE 212 U/L (38-126); AST/SGOT 145 U/L (14-36); BILIRUBIN,TOTAL 1.4 mg/dL (0.2-1.3); BLOOD UREA NITROGEN 3 mg/dL (7-17); CARBON DIOXIDE 27 mmol/L (22-30); GFR AFRICAN-AMERICAN > 60; GLUCOSE,RANDOM 86 mg/dL (65-105); TOTAL PROTEIN 6.6 g/dL (6.3-8.3)
[2016-11-16 06:55] LABS: ALT/SGPT 150 U/L (9-52); CALCIUM 8.5 mg/dl (8.6-10.4)
--- NOTE | 2016-11-16 09:41 | RAD ---
PROCEDURE: Date of procedure: 11/13/2016 Procedure: 1. Placement of a right arm PICC with ultrasound and fluoroscopic guidance, CPT 20520 2. PICC tip confirmation with spot radiograph and is in the superior vena cava Medications: 1 percent lidocaine Total Fluoro time: 7.4 seconds Radiation: 0.59777 mGyM2 EBL: 2 cc HISTORY: Bacteremia requiring long-term IV antibiotics TECHNIQUE: Following informed consent and procedure time-out, the patient was placed supine on the interventional table and the right arm prepped and draped in the usual sterile fashion. Ultrasound showed a patent and compressible right basilic vein. After the skin was anesthetized with lidocaine, the basilic vein was accessed with micro micropuncture technique using ultrasound guidance. A guidewire was then advanced under fluoroscopic guidance into the superior vena cava. An image documenting ultrasound guidance for vascular access was permanently saved. The length of the single-lumen 4 Iranian PICC was trimmed to 35 centimeters and advanced through a peel-away sheath. The PICC was position with tip of PICC confirm a spot radiograph the superior vena cava. The PICC was secured to the patient's skin. The PICC was flushed. A biopatch and sterile dressing was applied. IMPRESSION: Placement of a single-lumen 4 Iranian PICC trimmed to 35 centimeters via right basilic vein. The tip of the PICC is confirmed with spot radiograph and is in the superior vena cava.
--- NOTE | 2016-11-16 09:41 | US ---
Date of procedure: 11/13/2016 Procedure: Ultrasound guidance for vascular access HISTORY: Infection requiring long-term IV antibiotics TECHNIQUE: Following informed consent and procedure time-out, the patient placed supine on the interventional table and the right arm prepped and draped in the usual sterile fashion. Ultrasound showed a patent and compressible basilic vein. After the skin was anesthetized with lidocaine, the basilic vein was accessed with micro micropuncture technique using ultrasound guidance. An image documenting ultrasound guidance for vascular access was permanently saved. IMPRESSION: Ultrasound guidance for vascular access for placement of PICC.
[2016-11-16] MEDS: Enoxaparin 40 mg Syringe SC SCH (10:39)
[2016-11-16] MEDS: Pantoprazole 40 mg EC Tab PO SCH ×2 (10:39→14:26)
--- NOTE | 2016-11-16 11:12 | CP.PCM.PN ---
Subjective - Date & Time of Evaluation Date of Evaluation: 11/16/16 Time of Evaluation: 09:00 - Subjective Subjective: iv rx in progress vanco on hold Objective - Vital Signs/Intake and Output Vital Signs (last 24 hours): Temp Pulse Resp BP Pulse Ox 98.9 F 89 20 105/60 98 11/16/16 07:56 11/16/16 07:56 11/16/16 07:56 11/16/16 07:56 11/16/16 07:56 Intake and Output: 11/16/16 11/16/16 06:59 18:59 Intake Total 1300 Balance 1300 - Medications Medications: Current Medications Diphenhydramine HCl (Benadryl) 25 mg IVP Q4H PRN PRN Reason: give with dilaudid Last Admin: 11/16/16 10:48 Dose: 25 mg Enoxaparin Sodium (Lovenox) 40 mg SC DAILY [facility] Last Admin: 11/16/16 10:39 Dose: 40 mg Folic Acid (Folic Acid) 1 mg PO DAILY [facility] Last Admin: 11/16/16 10:39 Dose: 1 mg Hydromorphone HCl (Dilaudid) 2 mg IVP Q4 PRN PRN Reason: Pain, severe (8-10) Last Admin: 11/16/16 10:38 Dose: 2 mg Cefepime HCl (Maxipime Iv 1 Gm Premix) 1 gm in 50 mls @ 100 mls/hr IVPB Q12H [facility] Last Admin: 11/16/16 00:24 Dose: 100 mls/hr Ibuprofen (Motrin Tab) 600 mg PO TID PRN PRN Reason: Fever >100.4 F Pantoprazole Sodium (Protonix Ec Tab) 40 mg PO DAILY [facility] Last Admin: 11/16/16 10:39 Dose: 40 mg - Labs Labs: 11/16/16 06:03 11/16/16 06:03 PT 15.1 SECONDS (9.7-12.2) H 11/11/16 11:04 INR 1.3 11/11/16 11:04 - Constitutional Appears: Chronically Ill - Head Exam Head Exam: NORMAL INSPECTION - Eye Exam Eye Exam: PERRL - ENT Exam ENT Exam: Mucous Membranes Dry - Neck Exam Neck Exam: absent: Lymphadenopathy - Respiratory Exam Respiratory Exam: Decreased Breath Sounds, Clear to Ausculation Bilateral - Cardiovascular Exam Cardiovascular Exam: REGULAR RHYTHM, +S1, +S2 - GI/Abdominal Exam GI & Abdominal Exam: Distended, Soft - Rectal Exam Rectal Exam: Deferred - Exam Exam: NORMAL INSPECTION - Extremities Exam Extremities Exam: absent: Pedal Edema - Back Exam Back Exam: absent: CVA tenderness (L), CVA tenderness (R) - Neurological Exam Neurological Exam: Alert, Awake, Oriented x3 - Psychiatric Exam Psychiatric exam: Normal Mood Assessment and Plan (1) Leukocytosis Status: Acute (2) Sickle cell anemia with crisis Status: Acute (3) Abdominal pain Status: Acute (4) Chest pain Status: Acute (5) Fever Status: Acute (6) Fever Status: Acute
[2016-11-16] MEDS ORDERED: Potassium Chloride 20 mEq ER Tab PO STA (11:41)
--- NOTE | 2016-11-16 11:41 | CP.PCM.PN ---
<JonathanJuan Carlos H - Last Filed: 11/16/16 18:34> Subjective - Date & Time of Evaluation Date of Evaluation: 11/16/16 Time of Evaluation: 10:00 - Subjective Subjective: Dr. Rober Phipps note: Patient seen in room. Patient says her pain symptoms are well controlled she has no fever or chills. She also denies nausea, vomiting, or diarrhea. Objective - Vital Signs/Intake and Output Vital Signs (last 24 hours): Temp Pulse Resp BP Pulse Ox 98.9 F 89 20 105/60 98 11/16/16 07:56 11/16/16 07:56 11/16/16 07:56 11/16/16 07:56 11/16/16 07:56 Intake and Output: 11/16/16 11/16/16 06:59 18:59 Intake Total 1300 Balance 1300 - Medications Medications: Current Medications Diphenhydramine HCl (Benadryl) 25 mg IVP Q4H PRN PRN Reason: give with dilaudid Last Admin: 11/16/16 10:48 Dose: 25 mg Folic Acid (Folic Acid) 1 mg PO DAILY [facility] Last Admin: 11/16/16 10:39 Dose: 1 mg Heparin Sodium (Porcine) (Heparin) 5,000 units SC Q12H [facility] Hydromorphone HCl (Dilaudid) 2 mg IVP Q4 PRN PRN Reason: Pain, severe (8-10) Last Admin: 11/16/16 10:38 Dose: 2 mg Cefepime HCl (Maxipime Iv 1 Gm Premix) 1 gm in 50 mls @ 100 mls/hr IVPB Q12H [facility] Last Admin: 11/16/16 11:39 Dose: 100 mls/hr Ibuprofen (Motrin Tab) 600 mg PO TID PRN PRN Reason: Fever >100.4 F Pantoprazole Sodium (Protonix Ec Tab) 40 mg PO DAILY [facility] Last Admin: 11/16/16 10:39 Dose: 40 mg - Labs Labs: 11/16/16 06:03 11/16/16 06:03 PT 15.1 SECONDS (9.7-12.2) H 11/11/16 11:04 INR 1.3 11/11/16 11:04 - Constitutional Appears: Non-toxic, No Acute Distress - Head Exam Head Exam: NORMAL INSPECTION - Eye Exam Eye Exam: Normal appearance - ENT Exam ENT Exam: Normal Exam - Respiratory Exam Respiratory Exam: Clear to Ausculation Bilateral. absent: Rales, Rhonchi, Wheezes - Cardiovascular Exam Cardiovascular Exam: REGULAR RHYTHM, RRR, +S1, +S2. absent: Gallop, Rubs - GI/Abdominal Exam GI & Abdominal Exam: Soft, Normal Bowel Sounds. absent: Tenderness - Extremities Exam Extremities Exam: Normal Inspection. absent: Pedal Edema - Neurological Exam Neurological Exam: Alert, Normal Gait - Skin Skin Exam: Pallor. absent: Warm Assessment and Plan (1) Sickle cell anemia with crisis Assessment & Plan: Will most likely discharge in the morning if stable. Plan discussed with Dr. Rober Phipps, management per Dr. Rober Phipps. Status: Acute (2) Pneumonia Assessment & Plan: continue Cefepime for now IV. Status: Acute (3) Hematuria Assessment & Plan: Urology consulted, patient has no more hematuria. Status: Acute (4) Iron deficiency anemia Assessment & Plan: resolved, however patient has to be transfused one unit. Status: Acute (5) Leukocytosis Status: Acute (6) Elevated LFTs Status: Acute (7) Hyperbilirubinemia Assessment & Plan: have been trending down barrett. Status: Acute (8) Prophylactic measure Assessment & Plan: started on Heparin 5000 units SC Q12H and also continue with protonix, SCDs Status: Acute <Leighton Phipps S - Last Filed: 11/17/16 15:25> Objective - Vital Signs/Intake and Output Vital Signs (last 24 hours): Temp Pulse Resp BP Pulse Ox 99.1 F 89 20 101/64 97 11/17/16 08:28 11/17/16 08:28 11/17/16 08:28 11/17/16 08:28 11/17/16 08:28 Intake and Output: 11/17/16 11/17/16 06:59 18:59 Intake Total 2190 Output Total 1050 Balance 1140 - Medications Medications: Current Medications Diphenhydramine HCl (Benadryl) 25 mg IVP Q4H PRN PRN Reason: give with dilaudid Last Admin: 11/17/16 10:35 Dose: 25 mg Folic Acid (Folic Acid) 1 mg PO DAILY [facility] Last Admin: 11/17/16 10:35 Dose: 1 mg Heparin Sodium (Porcine) (Heparin) 5,000 units SC Q12 [facility] Last Admin: 11/17/16 10:36 Dose: 5,000 units Hydromorphone HCl (Dilaudid) 2 mg IVP Q4 PRN PRN Reason: Pain, severe (8-10) Last Admin: 11/17/16 10:34 Dose: 2 mg Cefepime HCl (Maxipime Iv 1 Gm Premix) 1 gm in 50 mls @ 100 mls/hr IVPB Q12H [facility] Last Admin: 11/17/16 12:05 Dose: 100 mls/hr Sodium Chloride (Sodium Chloride 0.9%) 1,000 mls @ 75 mls/hr IV .[id number] [facility] Last Admin: 11/17/16 14:18 Dose: Not Given Ibuprofen (Motrin Tab) 600 mg PO TID PRN PRN Reason: Fever >100.4 F Pantoprazole Sodium (Protonix Ec Tab) 40 mg PO DAILY [facility] Last Admin: 11/17/16 10:35 Dose: 40 mg - Labs Labs: 11/17/16 06:16 11/17/16 06:16 PT 15.1 SECONDS (9.7-12.2) H 11/11/16 11:04 INR 1.3 11/11/16 11:04 Attending/Attestation - Attestation I have personally seen and examined this patient.: Yes I have fully participated in the care of the patient.: Yes I have reviewed all pertinent clinical information, including history, physical exam and plan: Yes Notes (Text): Case seen and discussed with the staff and the resident patient has no fever WBC is trending down hemoglobin is low will give her 1 unit of PRBCs follow-up with the [facility] if everything is fine we will discharge the patient's tomorrow patient has a mild pain on the right arm patients with the sickle cell disease
[2016-11-16] MEDS: Sodium Chloride 0.9% 1,000 ML IV SCH (12:56)
--- NOTE | 2016-11-16 16:21 | CP.PCM.PN ---
Subjective - Date & Time of Evaluation Date of Evaluation: 11/16/16 Time of Evaluation: 07:20 - Subjective Subjective: clinicallt s= Objective - Vital Signs/Intake and Output Vital Signs (last 24 hours): Temp Pulse Resp BP Pulse Ox 98.9 F 89 20 105/60 98 11/16/16 07:56 11/16/16 07:56 11/16/16 07:56 11/16/16 07:56 11/16/16 07:56 Intake and Output: 11/16/16 11/16/16 06:59 18:59 Intake Total 1300 Balance 1300 - Medications Medications: Current Medications Diphenhydramine HCl (Benadryl) 25 mg IVP Q4H PRN PRN Reason: give with dilaudid Last Admin: 11/16/16 16:12 Dose: 25 mg Folic Acid (Folic Acid) 1 mg PO DAILY [facility] Last Admin: 11/16/16 10:39 Dose: 1 mg Heparin Sodium (Porcine) (Heparin) 5,000 units SC Q12 [facility] Hydromorphone HCl (Dilaudid) 2 mg IVP Q4 PRN PRN Reason: Pain, severe (8-10) Last Admin: 11/16/16 16:11 Dose: 2 mg Cefepime HCl (Maxipime Iv 1 Gm Premix) 1 gm in 50 mls @ 100 mls/hr IVPB Q12H [facility] Last Admin: 11/16/16 11:39 Dose: 100 mls/hr Sodium Chloride (Sodium Chloride 0.9%) 1,000 mls @ 75 mls/hr IV .[id number] [facility] Last Admin: 11/16/16 12:56 Dose: 75 mls/hr Ibuprofen (Motrin Tab) 600 mg PO TID PRN PRN Reason: Fever >100.4 F Pantoprazole Sodium (Protonix Ec Tab) 40 mg PO DAILY [facility] Last Admin: 11/16/16 14:26 Dose: Not Given - Labs Labs: 11/16/16 06:03 11/16/16 06:03 PT 15.1 SECONDS (9.7-12.2) H 11/11/16 11:04 INR 1.3 11/11/16 11:04 - Constitutional Appears: Well - Head Exam Head Exam: ATRAUMATIC, NORMAL INSPECTION, NORMOCEPHALIC - Eye Exam Eye Exam: EOMI, Normal appearance, PERRL Pupil Exam: NORMAL ACCOMODATION, PERRL - ENT Exam ENT Exam: Mucous Membranes Moist, Normal Exam - Neck Exam Neck Exam: Full ROM, Normal Inspection. absent: Lymphadenopathy - Respiratory Exam Respiratory Exam: Decreased Breath Sounds - Cardiovascular Exam Cardiovascular Exam: REGULAR RHYTHM, +S1, +S2 - GI/Abdominal Exam GI & Abdominal Exam: Soft, Diminished Bowel Sounds - Rectal Exam Rectal Exam: Deferred Assessment and Plan - Assessment and Plan (Free Text) Plan: afebirle CBC tomorrow a 1 unit of PRBCs follow-up with the humid oncologist
[2016-11-17] MEDS: DiphenhydrAMINE 50 mg/ml Inj IVP PRN ×5 (01:26→22:21)
[2016-11-17] MEDS: Sodium Chloride 0.9% 1,000 ML IV SCH ×2 (06:16→14:18)
[2016-11-17 06:29] LABS: BASO # 0.1 K/uL (0.0-0.2); BASO % 0.8 % (0.0-2.0); EOS # 0.8 K/uL (0.0-0.7); EOS % 4.2 % (0.0-4.0); HEMATOCRIT 24.1 % (34.0-47.0); LYMPH # 4.1 K/uL (1.0-4.3); LYMPH % 21.6 % (20.0-40.0); MEAN CELL VOLUME 88.3 fL (81.0-99.0); MEAN CORPUSCULAR HGB CONC 32.8 g/dL (33.0-37.0); MEAN PLATELET VOLUME 8.2 fL (7.2-11.7); MONO # 1.7 K/uL (0.0-0.8); NRBC % 5.7 % (0.0-2.0); RED CELL DISTRIBUTION WIDTH 22.3 % (11.5-14.5); WHITE BLOOD COUNT 18.8 K/uL (4.8-10.8)
[2016-11-17 06:37] LABS: CHLORIDE 101 mmol/L (98-107); POTASSIUM 3.7 mmol/L (3.6-5.2); SODIUM 138 mmol/L (132-148)
[2016-11-17 06:39] LABS: ALB/GLOB RATIO 0.9 (1.0-2.1); ALKALINE PHOSPHATASE 242 U/L (38-126); AST/SGOT 189 U/L (14-36); BILIRUBIN,TOTAL 1.8 mg/dL (0.2-1.3); CARBON DIOXIDE 27 mmol/L (22-30); GFR AFRICAN-AMERICAN > 60; TOTAL PROTEIN 7.3 g/dL (6.3-8.3)
[2016-11-17 06:40] LABS: ALT/SGPT 184 U/L (9-52); BLOOD UREA NITROGEN 4 mg/dL (7-17); CALCIUM 8.9 mg/dl (8.6-10.4); GLUCOSE,RANDOM 81 mg/dL (65-105)
[2016-11-17] MEDS: Pantoprazole 40 mg EC Tab PO SCH (10:35)
[2016-11-17] MEDS: Cefepime IV 1 gm in Dextrose 1 GM/50 ML BAG IVPB SCH (12:05)
--- NOTE | 2016-11-17 13:28 | CP.PCM.PN ---
Subjective - Date & Time of Evaluation Date of Evaluation: 11/17/16 Time of Evaluation: 07:20 - Subjective Subjective: clinically same Objective - Vital Signs/Intake and Output Vital Signs (last 24 hours): Temp Pulse Resp BP Pulse Ox 99.1 F 89 20 101/64 97 11/17/16 08:28 11/17/16 08:28 11/17/16 08:28 11/17/16 08:28 11/17/16 08:28 Intake and Output: 11/17/16 11/17/16 06:59 18:59 Intake Total 2190 Output Total 1050 Balance 1140 - Medications Medications: Current Medications Diphenhydramine HCl (Benadryl) 25 mg IVP Q4H PRN PRN Reason: give with dilaudid Last Admin: 11/17/16 10:35 Dose: 25 mg Folic Acid (Folic Acid) 1 mg PO DAILY [facility] Last Admin: 11/17/16 10:35 Dose: 1 mg Heparin Sodium (Porcine) (Heparin) 5,000 units SC Q12 [facility] Last Admin: 11/17/16 10:36 Dose: 5,000 units Hydromorphone HCl (Dilaudid) 2 mg IVP Q4 PRN PRN Reason: Pain, severe (8-10) Last Admin: 11/17/16 10:34 Dose: 2 mg Cefepime HCl (Maxipime Iv 1 Gm Premix) 1 gm in 50 mls @ 100 mls/hr IVPB Q12H [facility] Last Admin: 11/17/16 12:05 Dose: 100 mls/hr Sodium Chloride (Sodium Chloride 0.9%) 1,000 mls @ 75 mls/hr IV .[id number] [facility] Last Admin: 11/17/16 06:16 Dose: 75 mls/hr Ibuprofen (Motrin Tab) 600 mg PO TID PRN PRN Reason: Fever >100.4 F Pantoprazole Sodium (Protonix Ec Tab) 40 mg PO DAILY [facility] Last Admin: 11/17/16 10:35 Dose: 40 mg - Labs Labs: 11/17/16 06:16 11/17/16 06:16 PT 15.1 SECONDS (9.7-12.2) H 11/11/16 11:04 INR 1.3 11/11/16 11:04 - Constitutional Appears: Well - Head Exam Head Exam: ATRAUMATIC, NORMAL INSPECTION, NORMOCEPHALIC - Eye Exam Eye Exam: EOMI, Normal appearance, PERRL Pupil Exam: NORMAL ACCOMODATION, PERRL - ENT Exam ENT Exam: Mucous Membranes Moist, Normal Exam - Neck Exam Neck Exam: Full ROM, Normal Inspection. absent: Lymphadenopathy - Respiratory Exam Respiratory Exam: Decreased Breath Sounds - Cardiovascular Exam Cardiovascular Exam: REGULAR RHYTHM, +S1, +S2 - GI/Abdominal Exam GI & Abdominal Exam: Soft, Diminished Bowel Sounds - Rectal Exam Rectal Exam: Deferred Assessment and Plan - Assessment and Plan (Free Text) Plan: Complains of pain on the right arm right arm Doppler ordered spoke to the patient's patient has no fever WBC is down we will speak to Dr. Gimenez may discharge the patient if the venous Doppler comes back negative and is okay with Dr. Estes
--- NOTE | 2016-11-17 15:32 | CP.PCM.PN ---
Subjective - Date & Time of Evaluation Date of Evaluation: 11/17/16 Time of Evaluation: 15:00 - Subjective Subjective: Feeling better, right forearm pain. Objective - Vital Signs/Intake and Output Vital Signs (last 24 hours): Temp Pulse Resp BP Pulse Ox 99.1 F 89 20 101/64 97 11/17/16 08:28 11/17/16 08:28 11/17/16 08:28 11/17/16 08:28 11/17/16 08:28 Intake and Output: 11/17/16 11/17/16 06:59 18:59 Intake Total 2190 Output Total 1050 Balance 1140 - Medications Medications: Current Medications Diphenhydramine HCl (Benadryl) 25 mg IVP Q4H PRN PRN Reason: give with dilaudid Last Admin: 11/17/16 10:35 Dose: 25 mg Folic Acid (Folic Acid) 1 mg PO DAILY [facility] Last Admin: 11/17/16 10:35 Dose: 1 mg Heparin Sodium (Porcine) (Heparin) 5,000 units SC Q12 [facility] Last Admin: 11/17/16 10:36 Dose: 5,000 units Hydromorphone HCl (Dilaudid) 2 mg IVP Q4 PRN PRN Reason: Pain, severe (8-10) Last Admin: 11/17/16 10:34 Dose: 2 mg Cefepime HCl (Maxipime Iv 1 Gm Premix) 1 gm in 50 mls @ 100 mls/hr IVPB Q12H [facility] Last Admin: 11/17/16 12:05 Dose: 100 mls/hr Sodium Chloride (Sodium Chloride 0.9%) 1,000 mls @ 75 mls/hr IV .[id number] [facility] Last Admin: 11/17/16 14:18 Dose: Not Given Ibuprofen (Motrin Tab) 600 mg PO TID PRN PRN Reason: Fever >100.4 F Pantoprazole Sodium (Protonix Ec Tab) 40 mg PO DAILY [facility] Last Admin: 11/17/16 10:35 Dose: 40 mg - Labs Labs: 11/17/16 06:16 11/17/16 06:16 PT 15.1 SECONDS (9.7-12.2) H 11/11/16 11:04 INR 1.3 11/11/16 11:04 - Head Exam Head Exam: ATRAUMATIC - Eye Exam Eye Exam: Normal appearance - ENT Exam ENT Exam: Mucous Membranes Dry - Respiratory Exam Respiratory Exam: NORMAL BREATHING PATTERN - Cardiovascular Exam Cardiovascular Exam: +S1, +S2 - GI/Abdominal Exam GI & Abdominal Exam: Normal Bowel Sounds - Extremities Exam Extremities Exam: Normal Inspection Assessment and Plan (1) Sickle cell anemia with crisis Assessment & Plan: IV fluids, pain meds, folic acid, 02 via NC s/p PRBC transfusion Status: Acute (2) Leukocytosis Assessment & Plan: chronic, likely related to sickle cell Status: Acute (3) Iron deficiency anemia Assessment & Plan: resolved. Status: Acute
--- NOTE | 2016-11-17 15:34 | CP.PCM.PN ---
Subjective - Date & Time of Evaluation Date of Evaluation: 11/16/16 Time of Evaluation: 19:00 - Subjective Subjective: Has right forearm pain Objective - Vital Signs/Intake and Output Vital Signs (last 24 hours): Temp Pulse Resp BP Pulse Ox 99.1 F 89 20 101/64 97 11/17/16 08:28 11/17/16 08:28 11/17/16 08:28 11/17/16 08:28 11/17/16 08:28 Intake and Output: 11/17/16 11/17/16 06:59 18:59 Intake Total 2190 Output Total 1050 Balance 1140 - Medications Medications: Current Medications Diphenhydramine HCl (Benadryl) 25 mg IVP Q4H PRN PRN Reason: give with dilaudid Last Admin: 11/17/16 10:35 Dose: 25 mg Folic Acid (Folic Acid) 1 mg PO DAILY [facility] Last Admin: 11/17/16 10:35 Dose: 1 mg Heparin Sodium (Porcine) (Heparin) 5,000 units SC Q12 [facility] Last Admin: 11/17/16 10:36 Dose: 5,000 units Hydromorphone HCl (Dilaudid) 2 mg IVP Q4 PRN PRN Reason: Pain, severe (8-10) Last Admin: 11/17/16 10:34 Dose: 2 mg Cefepime HCl (Maxipime Iv 1 Gm Premix) 1 gm in 50 mls @ 100 mls/hr IVPB Q12H [facility] Last Admin: 11/17/16 12:05 Dose: 100 mls/hr Sodium Chloride (Sodium Chloride 0.9%) 1,000 mls @ 75 mls/hr IV .[id number] [facility] Last Admin: 11/17/16 14:18 Dose: Not Given Ibuprofen (Motrin Tab) 600 mg PO TID PRN PRN Reason: Fever >100.4 F Pantoprazole Sodium (Protonix Ec Tab) 40 mg PO DAILY [facility] Last Admin: 11/17/16 10:35 Dose: 40 mg - Labs Labs: 11/17/16 06:16 11/17/16 06:16 PT 15.1 SECONDS (9.7-12.2) H 11/11/16 11:04 INR 1.3 11/11/16 11:04 - Head Exam Head Exam: ATRAUMATIC - Eye Exam Eye Exam: Normal appearance - ENT Exam ENT Exam: Mucous Membranes Dry - Respiratory Exam Respiratory Exam: NORMAL BREATHING PATTERN - Cardiovascular Exam Cardiovascular Exam: +S1, +S2 - GI/Abdominal Exam GI & Abdominal Exam: Normal Bowel Sounds - Extremities Exam Extremities Exam: Normal Inspection Assessment and Plan (1) Sickle cell anemia with crisis Assessment & Plan: IV fluids, pain meds, 02 via NC, folic acid s/p PRBC transfusion Status: Acute (2) Leukocytosis Assessment & Plan: on antibiotics likely reactive from sickle cell Status: Acute (3) Iron deficiency anemia Assessment & Plan: resolved Status: Acute
--- NOTE | 2016-11-17 18:45 | CP.PCM.PN ---
<Juan Carlos Castillo H - Last Filed: 11/17/16 18:46> Subjective - Date & Time of Evaluation Date of Evaluation: 11/17/16 Time of Evaluation: 09:00 - Subjective Subjective: Dr. Phipps service: Patient is seen in room. She denies fever, chills, nausea, vomiting, diarrhea, cough, chest pain. She does report pain and swelling in right arm that goes up into her shoulder for a few days. Objective - Vital Signs/Intake and Output Vital Signs (last 24 hours): Temp Pulse Resp BP Pulse Ox 98.5 F 80 20 117/73 99 11/17/16 15:00 11/17/16 15:00 11/17/16 15:00 11/17/16 15:00 11/17/16 15:00 Intake and Output: 11/17/16 11/17/16 06:59 18:59 Intake Total 2190 Output Total 1050 Balance 1140 - Medications Medications: Current Medications Diphenhydramine HCl (Benadryl) 25 mg IVP Q4H PRN PRN Reason: give with dilaudid Last Admin: 11/17/16 16:07 Dose: 25 mg Folic Acid (Folic Acid) 1 mg PO DAILY [facility] Last Admin: 11/17/16 10:35 Dose: 1 mg Heparin Sodium (Porcine) (Heparin) 5,000 units SC Q12 [facility] Last Admin: 11/17/16 10:36 Dose: 5,000 units Hydromorphone HCl (Dilaudid) 2 mg IVP Q4 PRN PRN Reason: Pain, severe (8-10) Last Admin: 11/17/16 16:07 Dose: 2 mg Cefepime HCl (Maxipime Iv 1 Gm Premix) 1 gm in 50 mls @ 100 mls/hr IVPB Q12H [facility] Last Admin: 11/17/16 12:05 Dose: 100 mls/hr Sodium Chloride (Sodium Chloride 0.9%) 1,000 mls @ 75 mls/hr IV .[id number] [facility] Last Admin: 11/17/16 14:18 Dose: Not Given Ibuprofen (Motrin Tab) 600 mg PO TID PRN PRN Reason: Fever >100.4 F Pantoprazole Sodium (Protonix Ec Tab) 40 mg PO DAILY [facility] Last Admin: 11/17/16 10:35 Dose: 40 mg - Labs Labs: 11/17/16 06:16 11/17/16 06:16 PT 15.1 SECONDS (9.7-12.2) H 11/11/16 11:04 INR 1.3 11/11/16 11:04 - Constitutional Appears: Non-toxic, No Acute Distress - Head Exam Head Exam: NORMAL INSPECTION - Eye Exam Eye Exam: Normal appearance Pupil Exam: NORMAL ACCOMODATION - ENT Exam ENT Exam: Normal Exam - Neck Exam Neck Exam: Normal Inspection - Respiratory Exam Respiratory Exam: Clear to Ausculation Bilateral. absent: Rhonchi, Wheezes - Cardiovascular Exam Cardiovascular Exam: REGULAR RHYTHM, RRR, +S1, +S2. absent: Gallop, Rubs - GI/Abdominal Exam GI & Abdominal Exam: Soft, Normal Bowel Sounds. absent: Tenderness - Extremities Exam Extremities Exam: Normal Inspection - Back Exam Back Exam: NORMAL INSPECTION - Psychiatric Exam Psychiatric exam: Normal Affect, Normal Mood - Skin Skin Exam: Normal Color Assessment and Plan (1) Sickle cell anemia with crisis Assessment & Plan: Have ordered a Ultrasound of the right upper extremity to rule out DVT, after that is done will discharge patient. Status: Acute (2) Pneumonia Assessment & Plan: discharge patient on Levaquin per Dr. Estes Status: Acute (3) Hematuria Assessment & Plan: resolved Status: Acute (4) Iron deficiency anemia Status: Acute (5) Leukocytosis Status: Acute (6) Elevated LFTs Status: Acute (7) Hyperbilirubinemia Status: Acute (8) Prophylactic measure Status: Acute <Leighton Phipps S - Last Filed: 11/18/16 18:38> Objective - Vital Signs/Intake and Output Vital Signs (last 24 hours): Temp Pulse Resp BP Pulse Ox 99.2 F 98 H 20 107/69 97 11/18/16 08:18 11/18/16 08:18 11/18/16 08:18 11/18/16 08:18 11/18/16 08:18 Intake and Output: 11/18/16 11/18/16 06:59 18:59 Intake Total 1940 Output Total 500 Balance 1440 - Labs Labs: 11/17/16 06:16 11/17/16 06:16 PT 15.1 SECONDS (9.7-12.2) H 11/11/16 11:04 INR 1.3 11/11/16 11:04 Attending/Attestation - Attestation I have fully participated in the care of the patient.: Yes Notes (Text): 11/18/16 18:38 rtc in 48 h[address] rock same po antibioc disconstined spoke to lamontey
[2016-11-18] MEDS: Cefepime IV 1 gm in Dextrose 1 GM/50 ML BAG IVPB SCH (00:07)
[2016-11-18] MEDS: DiphenhydrAMINE 50 mg/ml Inj IVP PRN (02:54)
[2016-11-18 08:19] VITALS: BP 107/69; PULSE 98; RESP 20; TEMP 99.2; O2SAT 97
--- NOTE | 2016-11-18 11:02 | CP.PCM.PN ---
Subjective - Date & Time of Evaluation Date of Evaluation: 11/18/16 Time of Evaluation: 07:20 - Subjective Subjective: clinically same Objective - Vital Signs/Intake and Output Vital Signs (last 24 hours): Temp Pulse Resp BP Pulse Ox 99.2 F 98 H 20 107/69 97 11/18/16 08:18 11/18/16 08:18 11/18/16 08:18 11/18/16 08:18 11/18/16 08:18 Intake and Output: 11/18/16 11/18/16 06:59 18:59 Intake Total 1940 Output Total 500 Balance 1440 - Medications Medications: Current Medications Diphenhydramine HCl (Benadryl) 25 mg IVP Q4H PRN PRN Reason: give with dilaudid Last Admin: 11/18/16 02:54 Dose: 25 mg Folic Acid (Folic Acid) 1 mg PO DAILY [facility] Last Admin: 11/18/16 09:31 Dose: 1 mg Heparin Sodium (Porcine) (Heparin) 5,000 units SC Q12 [facility] Last Admin: 11/18/16 09:31 Dose: 5,000 units Hydromorphone HCl (Dilaudid) 2 mg IVP Q4 PRN PRN Reason: Pain, severe (8-10) Last Admin: 11/18/16 02:54 Dose: 2 mg Cefepime HCl (Maxipime Iv 1 Gm Premix) 1 gm in 50 mls @ 100 mls/hr IVPB Q12H [facility] Last Admin: 11/18/16 00:07 Dose: 100 mls/hr Sodium Chloride (Sodium Chloride 0.9%) 1,000 mls @ 75 mls/hr IV .[id number] [facility] Last Admin: 11/17/16 14:18 Dose: Not Given Ibuprofen (Motrin Tab) 600 mg PO TID PRN PRN Reason: Fever >100.4 F Pantoprazole Sodium (Protonix Ec Tab) 40 mg PO DAILY [facility] Last Admin: 11/17/16 10:35 Dose: 40 mg - Labs Labs: 11/17/16 06:16 11/17/16 06:16 PT 15.1 SECONDS (9.7-12.2) H 11/11/16 11:04 INR 1.3 11/11/16 11:04 - Constitutional Appears: Well - Head Exam Head Exam: ATRAUMATIC, NORMAL INSPECTION, NORMOCEPHALIC - Eye Exam Eye Exam: EOMI, Normal appearance, PERRL Pupil Exam: NORMAL ACCOMODATION, PERRL - ENT Exam ENT Exam: Mucous Membranes Moist, Normal Exam - Neck Exam Neck Exam: Full ROM, Normal Inspection. absent: Lymphadenopathy - Respiratory Exam Respiratory Exam: Decreased Breath Sounds - Cardiovascular Exam Cardiovascular Exam: REGULAR RHYTHM, +S1, +S2 - GI/Abdominal Exam GI & Abdominal Exam: Soft, Diminished Bowel Sounds - Rectal Exam Rectal Exam: Deferred
--- NOTE | 2016-11-18 19:28 | CP.PCM.PN ---
Subjective - Date & Time of Evaluation Date of Evaluation: 11/18/16 Time of Evaluation: 09:00 - Subjective Subjective: Dr. Phipps service: Patient seen and examined in room. Patient says her arm is still swollen and painful and is asking about her ultrasound which was negative for any DVT. Objective - Vital Signs/Intake and Output Vital Signs (last 24 hours): Temp Pulse Resp BP Pulse Ox 99.2 F 98 H 20 107/69 97 11/18/16 08:18 11/18/16 08:18 11/18/16 08:18 11/18/16 08:18 11/18/16 08:18 - Labs Labs: 11/17/16 06:16 11/17/16 06:16 PT 15.1 SECONDS (9.7-12.2) H 11/11/16 11:04 INR 1.3 11/11/16 11:04 - Constitutional Appears: Non-toxic, No Acute Distress - Head Exam Head Exam: NORMAL INSPECTION - Eye Exam Pupil Exam: NORMAL ACCOMODATION - Respiratory Exam Respiratory Exam: Clear to Ausculation Bilateral. absent: Rales, Rhonchi, Wheezes - Cardiovascular Exam Cardiovascular Exam: REGULAR RHYTHM, RRR, +S1, +S2. absent: Gallop, Rubs - GI/Abdominal Exam GI & Abdominal Exam: Soft, Normal Bowel Sounds. absent: Tenderness - Extremities Exam Extremities Exam: Normal Inspection - Back Exam Back Exam: NORMAL INSPECTION Assessment and Plan (1) Sickle cell anemia with crisis Assessment & Plan: Patient was discharged home with PO Levaquin 500mg once a day for 8 days. Status: Acute (2) Pneumonia Status: Acute (3) Hematuria Status: Acute (4) Iron deficiency anemia Status: Acute (5) Leukocytosis Status: Acute (6) Elevated LFTs Status: Acute (7) Hyperbilirubinemia Status: Acute (8) Prophylactic measure Status: Acute
--- NOTE | 2016-11-19 10:15 | VASCLAB ---
PROCEDURE: Right Upper Extremity Venous Duplex Exam HISTORY: Arm swelling PRIORS: None. TECHNIQUE: Right upper extremity, internal jugular, subclavian, axillary, brachial, ulnar, radial, basilic and upper cephalic veins were evaluated. Flow was assessed with color Doppler, compressibility, assessment of phasic flow and augmentation response. Report prepared by Fina Smith, THA, RVS FINDINGS: RIGHT: 1. Internal Jugular: 1.1. Compressibility - Fully compressible: Thrombus - None : Flow - Phasic: Augmentation -Normal: Reflux - None. 2. Subclavian: 2.1. Compressibility - Fully compressible: Thrombus - None : Flow - Phasic: Augmentation -Normal: Reflux - None. 3. Axillary: 3.1. Compressibility - Fully compressible: Thrombus - None : Flow - Phasic: Augmentation -Normal: Reflux - None. 4. Brachial: 4.1. Compressibility - Fully compressible: Thrombus - None: Flow - Phasic: Augmentation -Normal: Reflux - None. 5. Ulnar: 5.1. Compressibility - Fully compressible: Thrombus - None: Flow - Phasic: Augmentation -Normal: Reflux - None. 6. Radial: 6.1. Compressibility - Fully compressible: Thrombus - None: Flow - Phasic: Augmentation - Normal: Reflux - None. 7. Cephalic: 7.1. Compressibility - Fully compressible: Thrombus - None: Flow - Phasic: Augmentation -Normal: Reflux - None. 8. Basilic: 8.1. Compressibility - Fully compressible: Thrombus - None: Flow - Phasic: Augmentation -Normal: Reflux - None. OTHER FINDINGS: Right: None. IMPRESSION: Right: No evidence of vein thrombosis of the right upper extremity with excellent venous flow. Normal valve function noted of the right side. Normal venous flow noted in the left internal jugular and left subclavian veins.
== END 2016-11-18 11:35 | disposition home or self-care (01) | DRG 395 ==
LOC: C.ER 21:36 → C.6T 11-02 00:50 → C.3T 11-03 13:44
PROVIDERS: ADMIT Internal Medicine Nephrology; ATTEND Internal Medicine Nephrology
PROC: 30233N1 Transfusion of Nonautologous Red Blood Cells into Peripheral Vein, Percutaneous Approach (ICD-10-PCS; principal; 2016-11-05)
PROC: 02HV33Z Insertion of Infusion Device into Superior Vena Cava, Percutaneous Approach (ICD-10-PCS; 2016-11-13)
PROC: B518ZZA Fluoroscopy of Superior Vena Cava, Guidance (ICD-10-PCS; 2016-11-13)
DX: D57.00 Hb-SS disease with crisis, unspecified (principal); J98.11 Atelectasis; D72.829 Elevated white blood cell count, unspecified; R07.89 Other chest pain; K76.0 Fatty (change of) liver, not elsewhere classified; R31.9 Hematuria, unspecified; N92.0 Excessive and frequent menstruation with regular cycle; D50.9 Iron deficiency anemia, unspecified; E80.6 Other disorders of bilirubin metabolism; K08.89 Other specified disorders of teeth and supporting structures

== ENCOUNTER 2016-12-13 20:08 | Inpatient (IN) | payer MEDICAID ==
[2016-12-13 20:09] VITALS: BMI 24.5
[2016-12-13] MEDS ORDERED: Sodium Chloride 0.9% 2,000 ML IV ONE (20:28)
--- NOTE | 2016-12-13 20:28 | C.PDOC ---
History Of Present Illness The patient, a 26 y/o female with PMHx of sickle cell anemia and previous admission for severe anemia, presents to the ED for evaluation of back pain, elbow pain, and knee pain which began earlier today. Patient states she took two Aleve tablets without relief. She denies fever, chills, nausea, and vomiting. Time Seen by Provider: 12/13/16 20:27 Chief Complaint (Nursing): Back Pain History Per: Patient History/Exam Limitations: no limitations Onset/Duration Of Symptoms: Hrs Current Symptoms Are (Timing): Still Present Quality Of Discomfort: "Pain" Severity: Moderate Pain Scale Rating Of: 5 Previous Symptoms: Back Pain Associated Symptoms: denies: New Weakness, New Numbness Exacerbating Factor(s): Nothing Recent travel outside of the [place]: No Additional History Per: Patient Past Medical History Reviewed: Historical Data, Nursing Documentation, Vital Signs Vital Signs: Last Vital Signs Temp 98.4 F 12/13/16 22:00 Pulse 78 12/13/16 22:00 Resp 18 12/13/16 22:00 BP 108/62 12/13/16 22:00 Pulse Ox 95 12/13/16 22:00 - Medical History PMH: Anemia, Sickle Cell Disease Surgical History: No Surg Hx - [facility] Procedures FLUOROSCOPY OF SUPERIOR VENA CAVA, GUIDANCE (11/02/16) INSERTION OF INFUSION DEV INTO SUP VENA CAVA, PERC APPROACH (11/02/16) TRANSFUSE NONAUT RED BLOOD CELLS IN PERIPH VEIN, PERC (11/02/16) Family History: States: Unknown Family Hx - Social History Hx Alcohol Use: No Hx Substance Use: No - Immunization History Hx Tetanus Toxoid Vaccination: No Hx Influenza Vaccination: No Hx Pneumococcal Vaccination: No Review Of Systems Constitutional: Negative for: Fever, Chills Eyes: Negative for: Redness ENT: Negative for: Throat Pain Cardiovascular: Negative for: Chest Pain Respiratory: Negative for: Cough, Shortness of Breath Gastrointestinal: Negative for: Nausea, Vomiting Genitourinary: Negative for: Dysuria Musculoskeletal: Positive for: Back Pain, Leg Pain, Other (+elbow pain ). Negative for: Neck Pain, Shoulder Pain Skin: Negative for: Rash, Lesions, Jaundice, Bruising Neurological: Negative for: Weakness, Numbness Physical Exam - Physical Exam Appears: Non-toxic, No Acute Distress Skin: Warm, Dry Head: Normacephalic Eye(s): bilateral: Normal Inspection, PERRL, EOMI Oral Mucosa: Moist Neck: Trachea Midline, Supple Chest: Symmetrical, No Deformity, No Tenderness Cardiovascular: Rhythm Regular, No Murmur Respiratory: No Rales, No Rhonchi, No Wheezing Gastrointestinal/Abdominal: Soft, No Tenderness, No Distention Back: Vertebral Tenderness, Muscle Spasm, No Paraspinal Tenderness Extremity: Normal ROM, No Tenderness, Capillary Refill (less than 2 seconds ), No Deformity, No Swelling Extremity: Bilateral: Atraumatic, No Pedal Edema, Normal Color And Temperature, Normal ROM Pulses: Left Dorsalis Pedis: Normal, Right Dorsalis Pedis: Normal Neurological/Psych: Oriented x3, Normal Speech, Normal Cognition Gait: Steady ED Course And Treatment - Laboratory Results Result Diagrams: 12/13/16 21:20 12/13/16 21:20 O2 Sat by Pulse Oximetry: 96 (on RA) Pulse Ox Interpretation: Normal Progress Note: labs ordered and reviewed. Patient received Toradol IV, Zofran IV , and IV Fluids. Disposition Discussed With DrAlexandr: Leighton Phipps Comment: accepted the pt on his service and took over the care at 10PM Doctor Will See Patient In The: Hospital Counseled Patient/Family Regarding: Studies Performed, Diagnosis, Need For Followup - Disposition Disposition: HOSPITALIZED Disposition Time: 20:28 Condition: FAIR - POA Present On Arrival: None - Clinical Impression Clinical Impression: Low back strain, Sickle cell anemia with crisis, Iron deficiency anemia - Scribe Statement The provider has reviewed the documentation as recorded by the Scribe (Sofie Phipps) Provider Attestation: All medical record entries made by the Scribe were at my direction and personally dictated by me. I have reviewed the chart and agree that the record accurately reflects my personal performance of the history, physical exam, medical decision making, and the department course for this patient. I have also personally directed, reviewed, and agree with the discharge instructions and disposition. Decision To Admit - Pt Status Changed To: Hospital Disposition Of: Inpatient - Admit Certification Admit to Inpatient:: After my assessment, the patient will require hospitalization for at least two midnights. This is because of the severity of symptoms shown, intensity of services needed, and/or the medical risk in this patient being treated as an outpatient. - InPatient: Physician Admission Certification:: After my assessment, the patient will require hospitalization for at least two midnights. This is because of the severity of symptoms shown, intensity of services needed, and/or the medical risk in this patient being treated as an outpatient. - . Bed Request Type: Regular Admitting Physician: Leighton Phipps Patient Diagnosis: Low back strain, Sickle cell anemia with crisis, Iron deficiency anemia
[2016-12-13] MEDS ORDERED: Sodium Chloride 0.9% 1,000 ML ONE (21:26)
[2016-12-13 21:29] LABS: BASO # 0.3 K/uL (0.0-0.2); BASO % 1.3 % (0.0-2.0); EOS # 2.3 K/uL (0.0-0.7); LYMPH # 7.2 K/uL (1.0-4.3); LYMPH % 34.1 % (20.0-40.0); MEAN CORPUSCULAR HEMOGLOBIN 31.7 pg (27.0-31.0); MEAN PLATELET VOLUME 7.3 fL (7.2-11.7); MONO # 1.7 K/uL (0.0-0.8); NEUT # 9.6 K/uL (1.8-7.0); NEUT % 45.6 % (50.0-75.0); NRBC % 3.4 % (0.0-2.0); RBC 2.05 Mil/uL (3.80-5.20); RED CELL DISTRIBUTION WIDTH 23.5 % (11.5-14.5)
[2016-12-13 21:32] LABS: SQUAMOUS EPITHIAL 1 /hpf (0-5); URINE BACTERIA RARE (<OCC); URINE BILIRUBIN NEGATIVE (NEGATIVE); URINE BLOOD 2+ (NEGATIVE); URINE CLARITY Clear (Clear); URINE COLOR Straw (YELLOW); URINE GLUCOSE (UA) NORMAL (Normal); URINE LEUKOCYTE ESTERASE NEG Leu/uL (Negative); URINE NITRATE NEGATIVE (NEGATIVE); URINE PROTEIN NEGATIVE (NEGATIVE); URINE UROBILINOGEN NORMAL mg/dL (0.2-1.0)
[2016-12-13 21:34] LABS: HCG,QUALITATIVE URINE NEGATIVE (NEGATIVE)
[2016-12-13 21:39] LABS: INR 1.2; PROTHROMBIN TIME 12.9 SECONDS (9.7-12.2)
[2016-12-13 21:40] LABS: HEMOGLOBIN 6.5 g/dL (11.0-16.0); MEAN CELL VOLUME 83.3 fL (81.0-99.0)
[2016-12-13 21:41] LABS: ALBUMIN 3.7 g/dL (3.5-5.0)
[2016-12-13 21:44] LABS: AST/SGOT 77 U/L (14-36); GFR AFRICAN-AMERICAN > 60; GFR NON-AFRICAN AMERICAN > 60
[2016-12-13 21:45] LABS: ALT/SGPT 29 U/L (9-52); BLOOD UREA NITROGEN 9 mg/dL (7-17); CALCIUM 8.7 mg/dl (8.6-10.4)
[2016-12-14] MEDS ORDERED: Dextrose 5%/0.9% NS 1,000 ML IV ONE (01:01)
[2016-12-14] MEDS: HYDROmorphone 0.5 mg/0.5 ml ISec IVP PRN ×3 (02:52→23:00)
--- NOTE | 2016-12-14 08:58 | RAD ---
PROCEDURE: CHEST RADIOGRAPH, 1 VIEW HISTORY: Chest pain. COMPARISON: 11/02/2016 FINDINGS: LUNGS: Prominence of the central pulmonary interstitium suggestive for mild venous congestion. Right hilar prominence. Question minimal patchy increased markings at the left lung base. Bibasilar breast and nipple shadows. PLEURA: No pneumothorax or pleural fluid seen. CARDIOVASCULAR: Normal. OSSEOUS STRUCTURES: No significant abnormalities. VISUALIZED UPPER ABDOMEN: Normal. OTHER FINDINGS: None. IMPRESSION: Prominence of the central pulmonary interstitium suggestive for mild venous congestion. Right hilar prominence. Question minimal patchy increased markings at the left lung base. Bibasilar breast and nipple shadows.
[2016-12-14] MEDS: Enoxaparin 40 mg Syringe SC SCH (09:19)
[2016-12-14] MEDS: Pantoprazole 20 mg EC Tab PO SCH (09:19)
--- NOTE | 2016-12-14 14:22 | CP.PCM.PN ---
Subjective - Date & Time of Evaluation Date of Evaluation: 12/14/16 Time of Evaluation: 10:20 - Subjective Subjective: clinically same Objective - Vital Signs/Intake and Output Vital Signs (last 24 hours): Temp Pulse Resp BP Pulse Ox 98 F 81 18 113/68 100 12/14/16 02:08 12/14/16 02:08 12/14/16 02:08 12/14/16 02:57 12/14/16 00:05 Intake and Output: 12/14/16 12/14/16 06:59 18:59 Intake Total 375 Balance 375 - Medications Medications: Current Medications Enoxaparin Sodium (Lovenox) 40 mg SC DAILY [facility] Last Admin: 12/14/16 09:19 Dose: 40 mg Folic Acid (Folic Acid) 1 mg PO DAILY [facility] Last Admin: 12/14/16 10:56 Dose: 1 mg Hydromorphone HCl (Dilaudid) 1 mg IVP Q8H PRN PRN Reason: Pain, moderate (4-7) Last Admin: 12/14/16 11:05 Dose: 1 mg Pantoprazole Sodium (Protonix Ec Tab) 20 mg PO DAILY [facility] Last Admin: 12/14/16 09:19 Dose: 20 mg - Labs Labs: PT 12.9 SECONDS (9.7-12.2) H 12/13/16 21:20 INR 1.2 12/13/16 21:20 APTT 29 SECONDS (21-34) 12/13/16 21:20 - Constitutional Appears: Well - Head Exam Head Exam: ATRAUMATIC, NORMAL INSPECTION, NORMOCEPHALIC - Eye Exam Eye Exam: EOMI, Normal appearance, PERRL Pupil Exam: NORMAL ACCOMODATION, PERRL - ENT Exam ENT Exam: Mucous Membranes Moist, Normal Exam - Neck Exam Neck Exam: Full ROM, Normal Inspection. absent: Lymphadenopathy - Respiratory Exam Respiratory Exam: Decreased Breath Sounds - Cardiovascular Exam Cardiovascular Exam: REGULAR RHYTHM, +S1, +S2 - GI/Abdominal Exam GI & Abdominal Exam: Soft, Diminished Bowel Sounds - Rectal Exam Rectal Exam: Deferred
--- NOTE | 2016-12-14 14:27 | CP.PCM.HP ---
Past Patient History - Infectious Disease Hx of Infectious Diseases: None - Past Medical History & Family History Past Medical History?: Yes - Past Social History Smoking Status: Never Smoked - CARDIAC Hx Cardiac Disorders: No - PULMONARY Hx Respiratory Disorders: No - NEUROLOGICAL Hx Neurological Disorder: No - HEENT Hx HEENT Problems: No - RENAL Hx Chronic Kidney Disease: No - ENDOCRINE/METABOLIC Hx Endocrine Disorders: No - HEMATOLOGICAL/ONCOLOGICAL Hx Anemia: Yes Hx Sickle Cell Disease: Yes - INTEGUMENTARY Hx Dermatological Problems: No - MUSCULOSKELETAL/RHEUMATOLOGICAL Hx Musculoskeletal Disorders: No Hx Falls: No - GASTROINTESTINAL Hx Gastrointestinal Disorders: No - GENITOURINARY/GYNECOLOGICAL Hx Genitourinary Disorders: No - PSYCHIATRIC Hx Substance Use: No - SURGICAL HISTORY Hx Surgeries: No - ANESTHESIA Hx Anesthesia: No Hx Anesthesia Reactions: No Hx Malignant Hyperthermia: No Meds Allergies/Adverse Reactions: Allergies Allergy/AdvReac Type Severity Reaction Status Date / Time No Known Allergies Allergy Verified 12/13/16 20:16 Physical Exam - Constitutional Appears: Well - Head Exam Head Exam: ATRAUMATIC, NORMAL INSPECTION, NORMOCEPHALIC - Eye Exam Eye Exam: EOMI, Normal appearance, PERRL Pupil Exam: NORMAL ACCOMODATION, PERRL - ENT Exam ENT Exam: Mucous Membranes Moist, Normal Exam - Neck Exam Neck exam: Positive for: Normal Inspection - Respiratory Exam Respiratory Exam: Decreased Breath Sounds - Cardiovascular Exam Cardiovascular Exam: REGULAR RHYTHM, +S1, +S2 - GI/Abdominal Exam GI & Abdominal Exam: Diminished Bowel Sounds, Soft - Rectal Exam Rectal Exam: Deferred Results - Vital Signs Recent Vital Signs: Last Vital Signs Temp 98.1 F 12/14/16 14:24 Pulse 80 12/14/16 14:24 Resp 20 12/14/16 14:24 BP 105/64 12/14/16 14:24 Pulse Ox 100 12/14/16 00:05 - Labs Result Diagrams: 12/13/16 21:20 12/13/16 21:20 Labs: Laboratory Results - last 24 hr 12/13/16 22:29 Blood Type O POSITIVE Antibody Screen Positive Antibody Identification Non Specific Antibody RIANNA, Poly Interpret Positive H
--- NOTE | 2016-12-15 01:19 | CP.PCM.CON ---
History of Present Illness - History of Present Illness History of Present Illness: 26 year old female with a history of sickle cell anemia, admitted with sickle cell pain crisis. The patient reports to worsening joint pain. She was recently treated for sickle pain crisis about one month ago. She reports her pain began to involve her knees and elbows and progressed to her lower back. She feels the pain is consistent with her sickle cell pain and decided to come to the hospital. She denies chest pain and shortness of breath. Past medical history: Sickle cell anemia Past surgical history: None Family history: Parents have sickle trait. Social history: Denies tobacco, alcohol, and illicit drug use. Allergies: NKA Review of systems: All remaining review of systems including HEENT, cardiovascular, respiratory, gastrointestinal, genitourinary, musculoskeletal, dermatologic, neurologic, and psychiatric are negative unless mentioned in the HPI. Past Patient History - Infectious Disease Hx of Infectious Diseases: None - Past Medical History & Family History Past Medical History?: Yes - Past Social History Smoking Status: Never Smoked - CARDIAC Hx Cardiac Disorders: No - PULMONARY Hx Respiratory Disorders: No - NEUROLOGICAL Hx Neurological Disorder: No - HEENT Hx HEENT Problems: No - RENAL Hx Chronic Kidney Disease: No - ENDOCRINE/METABOLIC Hx Endocrine Disorders: No - HEMATOLOGICAL/ONCOLOGICAL Hx Anemia: Yes Hx Sickle Cell Disease: Yes - INTEGUMENTARY Hx Dermatological Problems: No - MUSCULOSKELETAL/RHEUMATOLOGICAL Hx Musculoskeletal Disorders: No Hx Falls: No - GASTROINTESTINAL Hx Gastrointestinal Disorders: No - GENITOURINARY/GYNECOLOGICAL Hx Genitourinary Disorders: No - PSYCHIATRIC Hx Substance Use: No - SURGICAL HISTORY Hx Surgeries: No - ANESTHESIA Hx Anesthesia: No Hx Anesthesia Reactions: No Hx Malignant Hyperthermia: No Meds Allergies/Adverse Reactions: Allergies Allergy/AdvReac Type Severity Reaction Status Date / Time No Known Allergies Allergy Verified 12/13/16 20:16 - Medications Medications: Current Medications Enoxaparin Sodium (Lovenox) 40 mg SC DAILY [facility] Last Admin: 12/14/16 09:19 Dose: 40 mg Folic Acid (Folic Acid) 1 mg PO DAILY [facility] Last Admin: 12/14/16 10:56 Dose: 1 mg Hydromorphone HCl (Dilaudid) 1 mg IVP Q8H PRN PRN Reason: Pain, moderate (4-7) Last Admin: 12/14/16 23:00 Dose: 1 mg Pantoprazole Sodium (Protonix Ec Tab) 20 mg PO DAILY [facility] Last Admin: 12/14/16 09:19 Dose: 20 mg Physical Exam - Head Exam Head Exam: ATRAUMATIC - Eye Exam Eye Exam: Normal appearance - ENT Exam ENT Exam: Mucous Membranes Dry - Respiratory Exam Respiratory Exam: NORMAL BREATHING PATTERN - Cardiovascular Exam Cardiovascular Exam: +S1, +S2 - GI/Abdominal Exam GI & Abdominal Exam: Normal Bowel Sounds - Extremities Exam Extremities exam: Positive for: normal inspection - Neurological Exam Neurological exam: Oriented x3 - Psychiatric Exam Psychiatric exam: Normal Affect, Normal Mood - Skin Skin Exam: Warm Results - Vital Signs Recent Vital Signs: Last Vital Signs Temp 98 F 12/14/16 23:07 Pulse 73 12/14/16 23:07 Resp 18 12/14/16 23:07 BP 118/73 12/14/16 23:07 Pulse Ox 95 12/14/16 23:07 - Labs Result Diagrams: 12/13/16 21:20 12/13/16 21:20 Labs: Laboratory Results - last 24 hr 12/13/16 22:29 Blood Type O POSITIVE Antibody Screen Positive Antibody Identification Non Specific Antibody RIANNA, Poly Interpret Positive H Assessment & Plan (1) Sickle cell anemia with crisis Assessment and Plan: IV fluids, pain meds, folic acid, 02 via NC 1U PRBC transfusion today Status: Acute (2) Leukocytosis Assessment and Plan: likely reactive to sickle crisis Status: Acute (3) Sickle cell anemia Assessment and Plan: outpatient folic acid Thank you for this interesting consult. Status: Acute
[2016-12-15 08:00] LABS: BASO # 0.1 K/uL (0.0-0.2); BASO % 0.9 % (0.0-2.0); EOS # 1.9 K/uL (0.0-0.7); EOS % 16.3 % (0.0-4.0); HEMOGLOBIN 7.3 g/dL (11.0-16.0); LYMPH # 3.2 K/uL (1.0-4.3); LYMPH % 27.6 % (20.0-40.0); MEAN CORPUSCULAR HEMOGLOBIN 29.4 pg (27.0-31.0); MEAN CORPUSCULAR HGB CONC 34.2 g/dL (33.0-37.0); MEAN PLATELET VOLUME 7.9 fL (7.2-11.7); MONO # 1.3 K/uL (0.0-0.8); MONO % 11.1 % (0.0-10.0); NEUT # 5.1 K/uL (1.8-7.0); NEUT % 44.1 % (50.0-75.0); NRBC % 7.8 % (0.0-2.0); RBC 2.5 Mil/uL (3.80-5.20); RED CELL DISTRIBUTION WIDTH 20.5 % (11.5-14.5); WHITE BLOOD COUNT 11.6 K/uL (4.8-10.8)
[2016-12-15 08:02] LABS: MEAN CELL VOLUME 85.9 fL (81.0-99.0)
[2016-12-15 08:14] LABS: ALBUMIN 3.5 g/dL (3.5-5.0)
[2016-12-15 08:16] LABS: AST/SGOT 65 U/L (14-36); GFR AFRICAN-AMERICAN > 60; GFR NON-AFRICAN AMERICAN > 60
[2016-12-15 08:17] LABS: ALT/SGPT 32 U/L (9-52); BLOOD UREA NITROGEN 6 mg/dL (7-17)
--- NOTE | 2016-12-15 11:20 | CP.PCM.PN ---
Subjective - Date & Time of Evaluation Date of Evaluation: 12/15/16 Time of Evaluation: 11:40 - Subjective Subjective: PGY 2 Medicine Note- Dr. Nehemias Phipps's service Pt seen and examined in no acute distress. Patient reports that she is not in any pain. A 12-point review of systems was addressed without pertinent positives noted. Objective - Vital Signs/Intake and Output Vital Signs (last 24 hours): Temp Pulse Resp BP Pulse Ox 98 F 73 18 118/73 95 12/14/16 23:07 12/14/16 23:07 12/14/16 23:07 12/14/16 23:07 12/14/16 23:07 - Medications Medications: Current Medications Enoxaparin Sodium (Lovenox) 40 mg SC DAILY [facility] Last Admin: 12/14/16 09:19 Dose: 40 mg Folic Acid (Folic Acid) 1 mg PO DAILY [facility] Last Admin: 12/14/16 10:56 Dose: 1 mg Hydromorphone HCl (Dilaudid) 1 mg IVP Q8H PRN PRN Reason: Pain, moderate (4-7) Last Admin: 12/14/16 23:00 Dose: 1 mg Pantoprazole Sodium (Protonix Ec Tab) 20 mg PO DAILY [facility] Last Admin: 12/14/16 09:19 Dose: 20 mg - Labs Labs: 12/15/16 07:27 12/15/16 07:27 PT 12.9 SECONDS (9.7-12.2) H 12/13/16 21:20 INR 1.2 12/13/16 21:20 APTT 29 SECONDS (21-34) 12/13/16 21:20 - Constitutional Appears: Non-toxic, No Acute Distress - Head Exam Head Exam: ATRAUMATIC, NORMAL INSPECTION, NORMOCEPHALIC - Eye Exam Eye Exam: EOMI, Normal appearance, PERRL Pupil Exam: NORMAL ACCOMODATION - ENT Exam ENT Exam: Mucous Membranes Moist - Neck Exam Neck Exam: Full ROM - Respiratory Exam Respiratory Exam: NORMAL BREATHING PATTERN. absent: Wheezes - Cardiovascular Exam Cardiovascular Exam: +S1, +S2 - GI/Abdominal Exam GI & Abdominal Exam: Soft, Normal Bowel Sounds - Extremities Exam Extremities Exam: Full ROM, Normal Inspection - Back Exam Back Exam: Full ROM - Neurological Exam Neurological Exam: Alert, Awake, Oriented x3 - Psychiatric Exam Psychiatric exam: Normal Affect, Normal Mood - Skin Skin Exam: Dry, Intact, Normal Color, Warm Assessment and Plan (1) Sickle cell anemia Assessment & Plan: Fluids, pain control, folic acid Room air 1 unit PRBC given Status: Acute (2) Leukocytosis Assessment & Plan: Improved. Status: Acute (3) Prophylactic measure Assessment & Plan: Patient ambulates GI prophylaxis not indicated at this time Status: Acute - Assessment and Plan (Free Text) Assessment: Patient is medically clear for discharge as per Dr. Phipps. Patient to follow up with PMD within one week for follow up care. Patient to follow up with Dr. Moss within one week as well. Patient may resume taking folic acid daily. If symptoms return, go to the emergency room. Instructions explained to patient who is aware. Management per Dr. Phipps
--- NOTE | 2016-12-15 11:37 | CP.PCM.PN ---
Subjective - Date & Time of Evaluation Date of Evaluation: 12/15/16 Time of Evaluation: 10:40 - Subjective Subjective: clinically same Objective - Vital Signs/Intake and Output Vital Signs (last 24 hours): Temp Pulse Resp BP Pulse Ox 98 F 73 18 118/73 95 12/14/16 23:07 12/14/16 23:07 12/14/16 23:07 12/14/16 23:07 12/14/16 23:07 - Medications Medications: Current Medications Enoxaparin Sodium (Lovenox) 40 mg SC DAILY [facility] Last Admin: 12/14/16 09:19 Dose: 40 mg Folic Acid (Folic Acid) 1 mg PO DAILY [facility] Last Admin: 12/14/16 10:56 Dose: 1 mg Hydromorphone HCl (Dilaudid) 1 mg IVP Q8H PRN PRN Reason: Pain, moderate (4-7) Last Admin: 12/14/16 23:00 Dose: 1 mg Pantoprazole Sodium (Protonix Ec Tab) 20 mg PO DAILY [facility] Last Admin: 12/14/16 09:19 Dose: 20 mg - Labs Labs: 12/15/16 07:27 12/15/16 07:27 PT 12.9 SECONDS (9.7-12.2) H 12/13/16 21:20 INR 1.2 12/13/16 21:20 APTT 29 SECONDS (21-34) 12/13/16 21:20 - Constitutional Appears: Well - Head Exam Head Exam: ATRAUMATIC, NORMAL INSPECTION, NORMOCEPHALIC - Eye Exam Eye Exam: EOMI, Normal appearance, PERRL Pupil Exam: NORMAL ACCOMODATION, PERRL - ENT Exam ENT Exam: Mucous Membranes Moist, Normal Exam - Neck Exam Neck Exam: Full ROM, Normal Inspection. absent: Lymphadenopathy - Respiratory Exam Respiratory Exam: Decreased Breath Sounds - Cardiovascular Exam Cardiovascular Exam: REGULAR RHYTHM, +S1, +S2 - GI/Abdominal Exam GI & Abdominal Exam: Soft, Diminished Bowel Sounds - Rectal Exam Rectal Exam: Deferred
[2016-12-15] MEDS: Enoxaparin 40 mg Syringe SC SCH (12:47)
[2016-12-15] MEDS: Pantoprazole 20 mg EC Tab PO SCH (12:48)
[2016-12-15 17:18] VITALS: BP 101/59; PULSE 78; RESP 20; TEMP 98.7; O2SAT 97
--- NOTE | 2016-12-15 20:31 | CP.PCM.PN ---
Subjective - Date & Time of Evaluation Date of Evaluation: 12/15/16 Time of Evaluation: 12:00 - Subjective Subjective: Feeling better post transfusion. Objective - Vital Signs/Intake and Output Vital Signs (last 24 hours): Temp Pulse Resp BP Pulse Ox 98.7 F 78 20 101/59 L 97 12/15/16 17:17 12/15/16 17:17 12/15/16 17:17 12/15/16 17:17 12/15/16 17:17 Intake and Output: 12/15/16 12/16/16 18:59 06:59 Intake Total 460 Balance 460 - Labs Labs: 12/15/16 07:27 12/15/16 07:27 PT 12.9 SECONDS (9.7-12.2) H 12/13/16 21:20 INR 1.2 12/13/16 21:20 APTT 29 SECONDS (21-34) 12/13/16 21:20 - Head Exam Head Exam: ATRAUMATIC - Eye Exam Eye Exam: Normal appearance - ENT Exam ENT Exam: Mucous Membranes Dry - Respiratory Exam Respiratory Exam: NORMAL BREATHING PATTERN - Cardiovascular Exam Cardiovascular Exam: +S1, +S2 - GI/Abdominal Exam GI & Abdominal Exam: Normal Bowel Sounds - Extremities Exam Extremities Exam: Normal Inspection - Neurological Exam Neurological Exam: Oriented x3 Assessment and Plan (1) Sickle cell anemia with crisis Assessment & Plan: IV fluids, folic acid, pain meds, 02 via NC s/p 1U PRBC Status: Acute (2) Leukocytosis Assessment & Plan: reactive Status: Acute (3) Sickle cell anemia Assessment & Plan: folic acid Status: Acute
== END 2016-12-15 18:10 | disposition home or self-care (01) | DRG 395 ==
LOC: C.ER 20:08 → C.9E 22:09 → C.5T 23:29
PROVIDERS: ADMIT Internal Medicine Nephrology; ATTEND Internal Medicine Nephrology
PROC: 30233N1 Transfusion of Nonautologous Red Blood Cells into Peripheral Vein, Percutaneous Approach (ICD-10-PCS; principal; 2016-12-15)
DX: D57.00 Hb-SS disease with crisis, unspecified (principal); D72.829 Elevated white blood cell count, unspecified; D50.9 Iron deficiency anemia, unspecified; S39.012A Strain of muscle, fascia and tendon of lower back, initial encounter

== ENCOUNTER 2016-12-22 00:41 | Inpatient (IN) | payer MEDICAID ==
[2016-12-22 00:41] VITALS: BMI 24.5
--- NOTE | 2016-12-22 01:07 | C.PDOC ---
History Of Present Illness 26 year old female with a Hx of sickle cell anemia who presents to the ER with a complaint of anterior wall chest pain that began at 18:00. Denies SOB, nausea , or vomiting. Chief Complaint (Nursing): Chest Pain History Per: Patient History/Exam Limitations: no limitations Onset/Duration Of Symptoms: Hrs Current Symptoms Are (Timing): Still Present Associated Symptoms: denies: Nausea, Dyspnea, Diaphoresis Modifying Factors: None Exacerbating Factors: None Alleviating Factors: None Recent travel outside of the [place]: No Past Medical History Reviewed: Historical Data, Nursing Documentation, Vital Signs Vital Signs: Last Vital Signs Temp 97.6 F 12/22/16 03:04 Pulse 82 12/22/16 03:04 Resp 18 12/22/16 03:04 BP 115/73 12/22/16 03:04 Pulse Ox 94 L 12/22/16 03:04 - Medical History PMH: Anemia, Sickle Cell Disease - [facility] Procedures FLUOROSCOPY OF SUPERIOR VENA CAVA, GUIDANCE (11/02/16) INSERTION OF INFUSION DEV INTO SUP VENA CAVA, PERC APPROACH (11/02/16) TRANSFUSE NONAUT RED BLOOD CELLS IN PERIPH VEIN, PERC (12/13/16) Family History: States: Unknown Family Hx - Social History Hx Alcohol Use: Yes (occasionally) Hx Substance Use: No - Immunization History Hx Tetanus Toxoid Vaccination: No Hx Influenza Vaccination: No Hx Pneumococcal Vaccination: No Review Of Systems Constitutional: Negative for: Fever, Chills Cardiovascular: Positive for: Chest Pain Respiratory: Negative for: Shortness of Breath Gastrointestinal: Negative for: Nausea, Vomiting Physical Exam - Physical Exam Appears: Non-toxic, Other (Mild distress) Skin: Normal Color, Warm, Dry Head: Atraumatic, Normacephalic Oral Mucosa: Moist Chest: Symmetrical, No Tenderness Cardiovascular: Rhythm Regular, No Murmur Respiratory: Normal Breath Sounds, No Rales, No Rhonchi, No Wheezing Gastrointestinal/Abdominal: Soft, No Tenderness Neurological/Psych: Oriented x3, Normal Speech, Normal Cognition ED Course And Treatment - Laboratory Results Result Diagrams: 12/22/16 01:22 12/22/16 01:22 ECG: Interpreted By Me, Viewed By Me ECG Rhythm: Sinus Rhythm ECG Interpretation: Abnormal Interpretation Of ECG: NSR, T wave inversion of V1 tro V3,possible ischemic changes, abnormal tracings, no acute change from 10/21/16 Rate From EC O2 Sat by Pulse Oximetry: 100 Pulse Ox Interpretation: Normal - CT Scan/US CTA Other Rad Studies (CT/US): Read By Radiologist, Radiology Report Reviewed CT/US Interpretation: EXAM: CT Angiography Chest With Intravenous Contrast. CLINICAL HISTORY: 26 years old, female; Pain; Chest pain; Additional info: Chest pain/ elevated d-dimer. TECHNIQUE: Axial computed tomographic angiography images of the chest with intravenous contrast using. pulmonary embolism protocol. This CT exam was performed using one or more of the following dose. reduction techniques: automated exposure control, adjustment of the mA and/or kV according to. patient size, and/or use of iterative reconstruction technique. MIP reconstructed images were created and reviewed. Coronal and sagittal reformatted images were created and reviewed. CONTRAST: 100 mL of [id number] administered intravenously. COMPARISON: No relevant prior studies available. FINDINGS: Pulmonary arteries: No pulmonary embolism. Aorta: No aneurysm. No dissection. Lungs: Minimal atelectasis. No consolidation. Pleural space: No significant effusion. No pneumothorax. Heart : Mild cardiomegaly. No significant pericardial effusion. Bones/joints: No acute fracture. No dislocation. Soft tissues: Unremarkable. Lymph nodes: No pathologically enlarged lymph nodes. Spleen: Diminutive spleen. IMPRESSION: 1. No CT evidence of pulmonary embolism. 2. Incidental/non-acute findings are described above. Progress Note: Blood work, CTA, EKG, and CXR ordered. Morphine and IV fluids administered. Disposition Discussed With : Leighton Phipps Doctor Will See Patient In The: Hospital Counseled Patient/Family Regarding: Diagnosis - Disposition Disposition: HOSPITALIZED Disposition Time: 03:00 Condition: STABLE - POA Present On Arrival: None - Clinical Impression Clinical Impression: Sickle-cell crisis, Acute chest pain - Scribe Statement The provider has reviewed the documentation as recorded by the Scribe Ruy Vann All medical record entries made by the Nestoriblance were at my direction and personally dictated by me. I have reviewed the chart and agree that the record accurately reflects my personal performance of the history, physical exam, medical decision making, and the department course for this patient. I have also personally directed, reviewed, and agree with the discharge instructions and disposition.
[2016-12-22] MEDS ORDERED: Sodium Chloride 0.9% 1,000 ML IV ONE (01:08)
[2016-12-22] MEDS ORDERED: Sodium Chloride 0.9% 1,000 ML ONE ×2 (01:12→03:24)
[2016-12-22 01:29] LABS: BASO # 0.3 K/uL (0.0-0.2); BASO % 1.3 % (0.0-2.0); EOS # 2.4 K/uL (0.0-0.7); EOS % 9.6 % (0.0-4.0); HEMOGLOBIN 7.1 g/dL (11.0-16.0); LYMPH % 40.3 % (20.0-40.0); MEAN CELL VOLUME 85.4 fL (81.0-99.0); MEAN CORPUSCULAR HGB CONC 36.3 g/dL (33.0-37.0); MEAN PLATELET VOLUME 7.7 fL (7.2-11.7); MONO # 2.1 K/uL (0.0-0.8); MONO % 8.4 % (0.0-10.0); NEUT % 40.4 % (50.0-75.0); NRBC % 3.4 % (0.0-2.0); RBC 2.31 Mil/uL (3.80-5.20); RED CELL DISTRIBUTION WIDTH 23.6 % (11.5-14.5); SQUAMOUS EPITHIAL 1 /hpf (0-5); URINE BILIRUBIN NEGATIVE (NEGATIVE); URINE BLOOD NEGATIVE (NEGATIVE); URINE CLARITY Clear (Clear); URINE COLOR Straw (YELLOW); URINE GLUCOSE (UA) NORMAL (Normal); URINE LEUKOCYTE ESTERASE NEG Leu/uL (Negative); URINE NITRATE NEGATIVE (NEGATIVE); URINE PROTEIN NEGATIVE (NEGATIVE); URINE UROBILINOGEN NORMAL mg/dL (0.2-1.0)
[2016-12-22 01:45] LABS: ALBUMIN 3.8 g/dL (3.5-5.0)
[2016-12-22 01:48] LABS: ALB/GLOB RATIO 1.1 (1.0-2.1); AST/SGOT 76 U/L (14-36); BLOOD UREA NITROGEN 8 mg/dL (7-17); GFR AFRICAN-AMERICAN > 60; GFR NON-AFRICAN AMERICAN > 60
[2016-12-22 01:49] LABS: ALT/SGPT 48 U/L (9-52)
[2016-12-22 01:54] LABS: HCG,QUALITATIVE URINE NEGATIVE (NEGATIVE)
[2016-12-22 01:56] LABS: WHITE BLOOD COUNT 24.8 K/uL (4.8-10.8)
[2016-12-22 02:16] LABS: INR 1.1; PROTHROMBIN TIME 12.4 SECONDS (9.7-12.2)
[2016-12-22] MEDS ORDERED: Iodixanol 320 MG/ML 100 ML BOTTLE IV ONE (02:59)
[2016-12-22] MEDS: Sodium Chloride 0.9% 1,000 ML IV SCH ×2 (03:50→16:22)
--- NOTE | 2016-12-22 04:06 | CT ---
EXAM: CT Angiography Chest With Intravenous Contrast CLINICAL HISTORY: 26 years old, female; Pain; Chest pain; Additional info: Chest pain/ elevated d-dimer TECHNIQUE: Axial computed tomographic angiography images of the chest with intravenous contrast using pulmonary embolism protocol. This CT exam was performed using one or more of the following dose reduction techniques: automated exposure control, adjustment of the mA and/or kV according to patient size, and/or use of iterative reconstruction technique. MIP reconstructed images were created and reviewed. Coronal and sagittal reformatted images were created and reviewed. CONTRAST: 100 mL of [id number] administered intravenously. COMPARISON: No relevant prior studies available. FINDINGS: Pulmonary arteries: No pulmonary embolism. Aorta: No aneurysm. No dissection. Lungs: Minimal atelectasis. No consolidation. Pleural space: No significant effusion. No pneumothorax. Heart: Mild cardiomegaly. No significant pericardial effusion. Bones/joints: No acute fracture. No dislocation. Soft tissues: Unremarkable. Lymph nodes: No pathologically enlarged lymph nodes. Spleen: Diminutive spleen. IMPRESSION: 1. No CT evidence of pulmonary embolism. 2. Incidental/non-acute findings are described above.
--- NOTE | 2016-12-22 08:31 | RAD ---
HISTORY: chest pain COMPARISON: No prior. TECHNIQUE: Chest PA and lateral FINDINGS: LUNGS: Mild venous congestion. Bibasilar breast and nipple shadows. Mild patchy increased markings at the left lung base, nonspecific. Clinical correlation. Small nodular densities at the lung bases may represent vessels on end. PLEURA: No significant pleural effusion identified. No pneumothorax apparent. CARDIOVASCULAR: Normal. OSSEOUS STRUCTURES: No significant abnormalities. VISUALIZED UPPER ABDOMEN: Normal. OTHER FINDINGS: None. IMPRESSION: Mild venous congestion. Bibasilar breast and nipple shadows. Mild patchy increased markings at the left lung base, nonspecific. Clinical correlation. Small nodular densities at the lung bases may represent vessels on end.
[2016-12-22] MEDS ORDERED: Pantoprazole 40 mg EC Tab PO SCH (10:00)
[2016-12-22] MEDS ORDERED: Enoxaparin 30 mg Syringe SC SCH (10:00)
--- NOTE | 2016-12-22 11:24 | CP.PCM.HP ---
Past Patient History - Infectious Disease Hx of Infectious Diseases: None - Past Medical History & Family History Past Medical History?: Yes - Past Social History Smoking Status: Unknown If Ever Smoked - CARDIAC Hx Cardiac Disorders: No - PULMONARY Hx Respiratory Disorders: No - NEUROLOGICAL Hx Neurological Disorder: No - HEENT Hx HEENT Problems: No - RENAL Hx Chronic Kidney Disease: No - ENDOCRINE/METABOLIC Hx Endocrine Disorders: No - HEMATOLOGICAL/ONCOLOGICAL Hx Blood Disorders: Yes Hx Anemia: Yes Hx Sickle Cell Disease: Yes - INTEGUMENTARY Hx Dermatological Problems: No - MUSCULOSKELETAL/RHEUMATOLOGICAL Hx Musculoskeletal Disorders: No Hx Falls: No - GASTROINTESTINAL Hx Gastrointestinal Disorders: No - GENITOURINARY/GYNECOLOGICAL Hx Genitourinary Disorders: No - PSYCHIATRIC Hx Psychophysiologic Disorder: No Hx Substance Use: No - SURGICAL HISTORY Hx Surgeries: No - ANESTHESIA Hx Anesthesia: No Hx Anesthesia Reactions: No Hx Malignant Hyperthermia: No Has any member of the family had a problem w/ anesthesia?: No Meds Allergies/Adverse Reactions: Allergies Allergy/AdvReac Type Severity Reaction Status Date / Time No Known Allergies Allergy Verified 12/22/16 00:51 Physical Exam - Constitutional Appears: Well - Head Exam Head Exam: ATRAUMATIC, NORMAL INSPECTION, NORMOCEPHALIC - Eye Exam Eye Exam: EOMI, Normal appearance, PERRL Pupil Exam: NORMAL ACCOMODATION, PERRL - ENT Exam ENT Exam: Mucous Membranes Moist, Normal Exam - Neck Exam Neck exam: Positive for: Normal Inspection - Respiratory Exam Respiratory Exam: Decreased Breath Sounds - Cardiovascular Exam Cardiovascular Exam: REGULAR RHYTHM, +S1, +S2 - GI/Abdominal Exam GI & Abdominal Exam: Diminished Bowel Sounds, Soft - Rectal Exam Rectal Exam: Deferred Results - Vital Signs Recent Vital Signs: Last Vital Signs Temp 98.5 F 12/22/16 08:00 Pulse 77 12/22/16 08:00 Resp 20 12/22/16 08:00 BP 100/60 12/22/16 08:00 Pulse Ox 96 12/22/16 08:00 - Labs Result Diagrams: 12/22/16 01:22 12/22/16 01:22
[2016-12-22 12:22] LABS: CK-MB < 0.22 ng/mL (0.0-3.38)
--- NOTE | 2016-12-22 15:54 | CP.PCM.CON ---
History of Present Illness - History of Present Illness History of Present Illness: 26 year old female with a history of sickle cell anemia, admitted with sickle cell pain crisis. The patient reports to worsening joint pain. She was recently treated for sickle pain crisis about one month ago. She reports her pain began to involve her knees and elbows and progressed to her lower back. She feels the pain is consistent with her sickle cell pain and decided to come to the hospital. She denies chest pain and shortness of breath. Past medical history: Sickle cell anemia Past surgical history: None Family history: Parents have sickle trait. Social history: Denies tobacco, alcohol, and illicit drug use. Allergies: NKA Review of systems: All remaining review of systems including HEENT, cardiovascular, respiratory, gastrointestinal, genitourinary, musculoskeletal, dermatologic, neurologic, and psychiatric are negative unless mentioned in the HPI. Past Patient History - Infectious Disease Hx of Infectious Diseases: None - Past Medical History & Family History Past Medical History?: Yes - Past Social History Smoking Status: Unknown If Ever Smoked - CARDIAC Hx Cardiac Disorders: No - PULMONARY Hx Respiratory Disorders: No - NEUROLOGICAL Hx Neurological Disorder: No - HEENT Hx HEENT Problems: No - RENAL Hx Chronic Kidney Disease: No - ENDOCRINE/METABOLIC Hx Endocrine Disorders: No - HEMATOLOGICAL/ONCOLOGICAL Hx Blood Disorders: Yes Hx Anemia: Yes Hx Sickle Cell Disease: Yes - INTEGUMENTARY Hx Dermatological Problems: No - MUSCULOSKELETAL/RHEUMATOLOGICAL Hx Musculoskeletal Disorders: No Hx Falls: No - GASTROINTESTINAL Hx Gastrointestinal Disorders: No - GENITOURINARY/GYNECOLOGICAL Hx Genitourinary Disorders: No - PSYCHIATRIC Hx Psychophysiologic Disorder: No Hx Substance Use: No - SURGICAL HISTORY Hx Surgeries: No - ANESTHESIA Hx Anesthesia: No Hx Anesthesia Reactions: No Hx Malignant Hyperthermia: No Has any member of the family had a problem w/ anesthesia?: No Meds Allergies/Adverse Reactions: Allergies Allergy/AdvReac Type Severity Reaction Status Date / Time No Known Allergies Allergy Verified 12/22/16 00:51 - Medications Medications: Current Medications Aspirin (Ecotrin) 81 mg PO DAILY [facility] Last Admin: 12/22/16 10:18 Dose: 81 mg Clopidogrel Bisulfate (Plavix) 75 mg PO DAILY [facility] Last Admin: 12/22/16 10:18 Dose: 75 mg Famotidine (Pepcid) 20 mg PO BID [facility] Hydromorphone HCl (Dilaudid) 2 mg IVP Q6 PRN PRN Reason: Pain, moderate (4-7) Last Admin: 12/22/16 15:16 Dose: 2 mg Sodium Chloride (Sodium Chloride 0.9%) 1,000 mls @ 75 mls/hr IV .[id number] [facility] Last Admin: 12/22/16 03:50 Dose: 75 mls/hr Ondansetron HCl (Zofran Inj) 4 mg IVP Q6H PRN PRN Reason: Nausea/Vomiting Pneumococcal Polyvalent Vaccine (Pneumovax 23 Vaccine) 0.5 ml IM .ONCE ONE Stop: 12/24/16 10:01 Physical Exam - Head Exam Head Exam: ATRAUMATIC - Eye Exam Eye Exam: Normal appearance - ENT Exam ENT Exam: Mucous Membranes Dry - Respiratory Exam Respiratory Exam: NORMAL BREATHING PATTERN - Cardiovascular Exam Cardiovascular Exam: +S1, +S2 - GI/Abdominal Exam GI & Abdominal Exam: Normal Bowel Sounds - Extremities Exam Extremities exam: Positive for: normal inspection - Neurological Exam Neurological exam: Oriented x3 - Psychiatric Exam Psychiatric exam: Normal Affect, Normal Mood - Skin Skin Exam: Warm Results - Vital Signs Recent Vital Signs: Last Vital Signs Temp 98.5 F 12/22/16 08:00 Pulse 77 12/22/16 08:00 Resp 20 12/22/16 08:00 BP 100/60 12/22/16 08:00 Pulse Ox 96 12/22/16 08:00 - Labs Result Diagrams: 12/22/16 01:22 12/22/16 01:22 Labs: Laboratory Results - last 24 hr 12/22/16 11:55 Total Creatine Kinase 23 L CK-MB (Mass) < 0.22 Troponin I, Quant < 0.0120 Assessment & Plan (1) Sickle-cell crisis Assessment and Plan: IV fluids, pain meds, folic acid, 02 via NC, pain meds Status: Acute (2) Leukocytosis Assessment and Plan: likely reactive if absolue lymphocyte count remains > 5000 will send flow cytometery Status: Acute (3) Sickle cell anemia Assessment and Plan: outpatient folic acid Thank you for this interesting consult. Status: Acute
--- NOTE | 2016-12-22 17:46 | CP.PCM.CON ---
History of Present Illness - History of Present Illness History of Present Illness: I was asked to evaluate patient by Dr. Phipps. Patient is a 26 year old female with a H sickle cell anemia who presents with crisis. The patient is routinely followed by Dr. Moss, and has been previously well controlled until this year. She reports dietary changes. She has chest pain which is substernal. There is some association with inspiration. Review of Systems - Constitutional Constitutional: absent: As Per HPI, Anorexia, Chills, Daytime Sleepiness, Excessive Sweating, Fatigue, Fever, Frequent Falls, Headache, Increased Appetite , Lethargy, Malaise, Night Sweats, Snoring, Sleep Apnea, Weight Gain, Weight Loss, Weakness, Other - EENT Eyes: absent: As Per HPI, Blind Spots, Blurred Vision, Change in Vision, Decreased Night Vision, Diplopia, Discharge, Dry Eye, Exophthalmos, Floaters, Irritation, Itchy Eyes, Loss of Peripheral Vision, Pain, Photophobia, Requires Corrective Lenses, Sees Flashes, Spots in Vision, Tunnel Vision, Other Visual Disturbances, Loss of Vision, Other Ears: absent: As Per HPI, Decreased Hearing, Ear Discharge, Ear Pain, Tinnitus, Abnormal Hearing, Disequilibrium, Dizziness, Other Nose/Mouth/Throat: absent: As Per HPI, Epistaxis, Nasal Congestion, Nasal Discharge, Nasal Obstruction, Nasal Trauma, Nose Pain, Post Nasal Drip, Sinus Pain, Sinus Pressure, Bleeding Gums, Change in Voice, Dental Pain, Dry Mouth, Dysphagia, Halitosis, Hoarsness, Lip Swelling, Mouth Lesions, Mouth Pain, Odynophagia, Sore Throat, Throat Swelling, Tongue Swelling, Facial Pain, Neck Pain, Neck Mass, Other - Cardiovascular Cardiovascular: Chest Pain - Respiratory Respiratory: absent: As Per HPI, Cough, Dyspnea, Hemoptysis, Dyspnea on Exertion , Wheezing, Snoring, Stridor, Pain on Inspiration, Chest Congestion, Excessive Mucous Production, Change in Mucous Color, Pain with Coughing, Other - Gastrointestinal Gastrointestinal: absent: As Per HPI, Abdominal Pain, Belching, Bloating, Change in Bowel Habits, Change in Stool Character, Coffee Ground Emesis, Constipation, Cramping, Diarrhea, Dyspepsia, Dysphagia, Early Satiety, Excessive Flatus, Fecal Incontinence, Heartburn, Hematemesis, Hematochezia, Loose Stools, Melena, Nausea, Odynophagia, Temesmus, Vomiting, Other - Genitourinary Genitourinary: absent: As Per HPI, Change in Urinary Stream, Difficulty Urinating, Dysuria, Flank Pain, Hematuria, Pyuria, Nocturia, Urinary Incontinence, Urinary Frequency, Urinary Hesitance, Urinary Urgency, Voiding Freq/Small Amts, Freq UTI, Hx Renal/Bladder Calculi, Hx /Renal Surgery, Bladder Distension, Other - Musculoskeletal Musculoskeletal: absent: As Per HPI, Abnormal Gait, Arthralgias, Atrophy, Back Pain, Deformity, Joint Swelling, Limited Range of Motion, Loss of Height, Muscle Cramps, Muscle Weakness, Myalgias, Neck Pain, Numbness, Radiating Pain into Limb, Stiffness, Tingling, Other - Integumentary Integumentary: absent: As Per HPI, Acne, Alopecia, Bleeding Lesions, Change in Hair, Change in Nails, Change in Pigmentation, Changing Lesions, Dry Skin, Erythema, Furuncle, Hirsutism, Lesions, New Lesions, Non-Healing Lesions, Photosensitivity, Pruritus, Rash, Skin Pain, Skin Ulcer, Sores, Striae, Swelling , Unusual Bruising, Wounds, Jaundice, Other - Neurological Neurological: absent: As Per HPI, Abnormal Gait, Abnormal Hearing, Abnormal Movements, Abnormal Speech, Behavioral Changes, Burning Sensations, Confusion, Convulsions, Disequilibrium, Dizziness, Numbness, Focal Weakness, Frequent Falls , Headaches, Lack of Coordination, Loss of Vision, Memory Loss, Paresthesias, Radicular Pain, Restless Legs, Sensory Deficit, Syncope, Tingling, Tremor, Vertigo, Weakness, Other Visual Disturbances, Other - Psychiatric Psychiatric: absent: As Per HPI, Abnormal Sleep Pattern, Anhedonia, Anxiety, Auditory Hallucinations, Behavioral Changes, Change in Appetite, Change in Libido, Confusion, Depression, Difficulty Concentrating, Hallucinations, Homicidal Ideation, Hopelessness, Irritability, Memory Loss, Mood Swings, Panic Attacks, Paranoia, Suicidal Ideation, Visual Hallucinations, Tactile Hallucinations, Other - Endocrine Endocrine: absent: As Per HPI, Change in Body Appearance, Change in Libido, Cold Intolorance, Deepening of Voice, Excessive Sweating, Fatigue, Flushing, Heat Intolorance, Increase in Ring/Shoe/Hat Size, Palpitations, Polydipsia, Polyphagia, Polyuria, Other - Hematologic/Lymphatic Hematologic: absent: As Per HPI, Easy Bleeding, Easy Bruising, Lymphadenopathy, Other Past Patient History - Infectious Disease Hx of Infectious Diseases: None - Past Medical History & Family History Past Medical History?: Yes - Past Social History Smoking Status: Unknown If Ever Smoked - CARDIAC Hx Cardiac Disorders: No - PULMONARY Hx Respiratory Disorders: No - NEUROLOGICAL Hx Neurological Disorder: No - HEENT Hx HEENT Problems: No - RENAL Hx Chronic Kidney Disease: No - ENDOCRINE/METABOLIC Hx Endocrine Disorders: No - HEMATOLOGICAL/ONCOLOGICAL Hx Blood Disorders: Yes Hx Anemia: Yes Hx Sickle Cell Disease: Yes - INTEGUMENTARY Hx Dermatological Problems: No - MUSCULOSKELETAL/RHEUMATOLOGICAL Hx Musculoskeletal Disorders: No Hx Falls: No - GASTROINTESTINAL Hx Gastrointestinal Disorders: No - GENITOURINARY/GYNECOLOGICAL Hx Genitourinary Disorders: No - PSYCHIATRIC Hx Psychophysiologic Disorder: No Hx Substance Use: No - SURGICAL HISTORY Hx Surgeries: No - ANESTHESIA Hx Anesthesia: No Hx Anesthesia Reactions: No Hx Malignant Hyperthermia: No Has any member of the family had a problem w/ anesthesia?: No Meds Allergies/Adverse Reactions: Allergies Allergy/AdvReac Type Severity Reaction Status Date / Time No Known Allergies Allergy Verified 12/22/16 00:51 - Medications Medications: Current Medications Aspirin (Ecotrin) 81 mg PO DAILY [facility] Last Admin: 12/22/16 10:18 Dose: 81 mg Clopidogrel Bisulfate (Plavix) 75 mg PO DAILY [facility] Last Admin: 12/22/16 10:18 Dose: 75 mg Famotidine (Pepcid) 20 mg PO BID [facility] Last Admin: 12/22/16 17:41 Dose: 20 mg Hydromorphone HCl (Dilaudid) 2 mg IVP Q6 PRN PRN Reason: Pain, moderate (4-7) Last Admin: 12/22/16 15:16 Dose: 2 mg Sodium Chloride (Sodium Chloride 0.9%) 1,000 mls @ 75 mls/hr IV .[id number] [facility] Last Admin: 12/22/16 16:22 Dose: 75 mls/hr Ondansetron HCl (Zofran Inj) 4 mg IVP Q6H PRN PRN Reason: Nausea/Vomiting Last Admin: 12/22/16 16:18 Dose: 4 mg Pneumococcal Polyvalent Vaccine (Pneumovax 23 Vaccine) 0.5 ml IM .ONCE ONE Stop: 07/20/17 10:01 Physical Exam - Constitutional Appears: Non-toxic - Head Exam Head Exam: NORMAL INSPECTION - Eye Exam Eye Exam: Normal appearance - ENT Exam ENT Exam: Mucous Membranes Moist - Neck Exam Neck exam: Positive for: Full Rom - Respiratory Exam Respiratory Exam: NORMAL BREATHING PATTERN - Cardiovascular Exam Cardiovascular Exam: REGULAR RHYTHM, Systolic Murmur - GI/Abdominal Exam GI & Abdominal Exam: Normal Bowel Sounds - Rectal Exam Rectal Exam: Deferred - Extremities Exam Extremities exam: Positive for: pedal edema - Back Exam Back exam: NORMAL INSPECTION - Neurological Exam Neurological exam: Alert - Psychiatric Exam Psychiatric exam: Normal Affect - Skin Skin Exam: Normal Color Results - Vital Signs Recent Vital Signs: Last Vital Signs Temp 97.9 F 12/22/16 16:00 Pulse 81 12/22/16 16:00 Resp 20 12/22/16 16:00 BP 107/62 12/22/16 16:00 Pulse Ox 98 12/22/16 16:00 - Labs Result Diagrams: 12/23/16 07:01 12/23/16 07:01 Labs: Laboratory Results - last 24 hr 12/22/16 11:55 Total Creatine Kinase 23 L CK-MB (Mass) < 0.22 Troponin I, Quant < 0.0120 - EKG Data EKG Interpreted by: Myself Assessment & Plan (1) Acute chest pain Assessment and Plan: may be related to sickle cell. recommend echocardiogram Status: Acute (2) Systolic murmur Assessment and Plan: echocardiogram Status: Acute
--- NOTE | 2016-12-22 19:39 | CARD ---
APPROVED REPORT EKG Measurement Heart [id number] <Conclusion> Normal sinus rhythm T wave abnormality, consider anterior ischemia Abnormal ECG
[2016-12-22 20:12] LABS: CK-MB < 0.22 ng/mL (0.0-3.38)
[2016-12-23] MEDS: Sodium Chloride 0.9% 1,000 ML IV SCH ×3 (06:40→22:34)
[2016-12-23 07:27] LABS: BASO # 0.2 K/uL (0.0-0.2); EOS # 1.3 K/uL (0.0-0.7); EOS % 7.5 % (0.0-4.0); LYMPH # 4.4 K/uL (1.0-4.3); LYMPH % 24.7 % (20.0-40.0); MEAN CELL VOLUME 85.7 fL (81.0-99.0); MEAN CORPUSCULAR HEMOGLOBIN 30.6 pg (27.0-31.0); MEAN CORPUSCULAR HGB CONC 35.7 g/dL (33.0-37.0); MEAN PLATELET VOLUME 7.3 fL (7.2-11.7); MONO # 1.8 K/uL (0.0-0.8); NEUT # 10.2 K/uL (1.8-7.0); NEUT % 56.8 % (50.0-75.0); RBC 2.1 Mil/uL (3.80-5.20); RED CELL DISTRIBUTION WIDTH 21.1 % (11.5-14.5); WHITE BLOOD COUNT 17.9 K/uL (4.8-10.8)
[2016-12-23 07:28] LABS: ALBUMIN 3.2 g/dL (3.5-5.0)
[2016-12-23 07:29] LABS: HEMOGLOBIN 6.4 g/dL (11.0-16.0)
[2016-12-23 07:31] LABS: AST/SGOT 56 U/L (14-36); GFR AFRICAN-AMERICAN > 60; GFR NON-AFRICAN AMERICAN > 60
[2016-12-23 07:32] LABS: ALT/SGPT 48 U/L (9-52); CALCIUM 8.8 mg/dl (8.6-10.4)
[2016-12-23 07:43] LABS: BLOOD UREA NITROGEN < 2 mg/dL (7-17)
--- NOTE | 2016-12-23 14:18 | CP.PCM.PN ---
Subjective - Date & Time of Evaluation Date of Evaluation: 12/23/16 Time of Evaluation: 14:11 - Subjective Subjective: 26 Y/O FEMALE SEEN AND EXAMINED TODAY BY DR Nehemias [place], RESP EASY AND UNLABORED. NAD Objective - Vital Signs/Intake and Output Vital Signs (last 24 hours): Temp Pulse Resp BP Pulse Ox 98.2 F 92 H 20 116/69 96 12/23/16 07:59 12/23/16 07:59 12/23/16 07:59 12/23/16 07:59 12/23/16 07:59 Intake and Output: 12/23/16 12/23/16 06:59 18:59 Intake Total 1870 Balance 1870 - Medications Medications: Current Medications Aspirin (Ecotrin) 81 mg PO DAILY [facility] Last Admin: 12/23/16 09:20 Dose: 81 mg Clopidogrel Bisulfate (Plavix) 75 mg PO DAILY [facility] Last Admin: 12/23/16 09:20 Dose: 75 mg Famotidine (Pepcid) 20 mg PO BID [facility] Last Admin: 12/23/16 09:20 Dose: 20 mg Hydromorphone HCl (Dilaudid) 2 mg IVP Q4H PRN PRN Reason: Pain, moderate (4-7) Sodium Chloride (Sodium Chloride 0.9%) 1,000 mls @ 75 mls/hr IV .[id number] [facility] Last Admin: 12/22/16 16:22 Dose: 75 mls/hr Ondansetron HCl (Zofran Inj) 4 mg IVP Q6H PRN PRN Reason: Nausea/Vomiting Last Admin: 12/22/16 16:18 Dose: 4 mg Pneumococcal Polyvalent Vaccine (Pneumovax 23 Vaccine) 0.5 ml IM .ONCE ONE Stop: 12/24/16 10:01 - Labs Labs: 12/23/16 07:01 12/23/16 07:01 PT 12.4 SECONDS (9.7-12.2) H 12/22/16 01:22 INR 1.1 12/22/16 01:22 APTT 30 SECONDS (21-34) 12/22/16 01:22 Assessment and Plan - Assessment and Plan (Free Text) Plan: PT WITH PMHX SICKLE CELL, H/H 6.4/18.0, [address] Nehemias [place], CONSENT RECIEVED BY ME, WITNESSED BY CASSIDY CARROLL. REPEAT LAB IN AM. PT DENIES CP, SOB, RESP EASY AND UNLABORED. NAD
[2016-12-23 15:01] VITALS: RESP 20
[2016-12-23] MEDS ORDERED: Potassium Chloride 20 mEq ER Tab PO STA (16:59)
--- NOTE | 2016-12-23 17:40 | CP.PCM.PN ---
Subjective - Date & Time of Evaluation Date of Evaluation: 12/23/16 Time of Evaluation: 10:20 - Subjective Subjective: clinically same Objective - Vital Signs/Intake and Output Vital Signs (last 24 hours): Temp Pulse Resp BP Pulse Ox 98.7 F 88 20 113/68 96 12/23/16 15:44 12/23/16 15:44 12/23/16 15:44 12/23/16 15:44 12/23/16 07:59 Intake and Output: 12/23/16 12/23/16 06:59 18:59 Intake Total 1870 400 Balance 1870 400 - Medications Medications: Current Medications Aspirin (Ecotrin) 81 mg PO DAILY [facility] Last Admin: 12/23/16 09:20 Dose: 81 mg Clopidogrel Bisulfate (Plavix) 75 mg PO DAILY [facility] Last Admin: 12/23/16 09:20 Dose: 75 mg Famotidine (Pepcid) 20 mg PO BID [facility] Last Admin: 12/23/16 09:20 Dose: 20 mg Hydromorphone HCl (Dilaudid) 2 mg IVP Q4H PRN PRN Reason: Pain, moderate (4-7) Last Admin: 12/23/16 14:26 Dose: 2 mg Sodium Chloride (Sodium Chloride 0.9%) 1,000 mls @ 75 mls/hr IV .[id number] [facility] Last Admin: 12/22/16 16:22 Dose: 75 mls/hr Ondansetron HCl (Zofran Inj) 4 mg IVP Q6H PRN PRN Reason: Nausea/Vomiting Last Admin: 12/22/16 16:18 Dose: 4 mg Pneumococcal Polyvalent Vaccine (Pneumovax 23 Vaccine) 0.5 ml IM .ONCE ONE Stop: 12/24/16 10:01 - Labs Labs: 12/23/16 07:01 12/23/16 07:01 PT 12.4 SECONDS (9.7-12.2) H 12/22/16 01:22 INR 1.1 12/22/16 01:22 APTT 30 SECONDS (21-34) 12/22/16 01:22 - Constitutional Appears: Well - Head Exam Head Exam: ATRAUMATIC, NORMAL INSPECTION, NORMOCEPHALIC - Eye Exam Eye Exam: EOMI, Normal appearance, PERRL Pupil Exam: NORMAL ACCOMODATION, PERRL - ENT Exam ENT Exam: Mucous Membranes Moist, Normal Exam - Neck Exam Neck Exam: Full ROM, Normal Inspection. absent: Lymphadenopathy - Respiratory Exam Respiratory Exam: Decreased Breath Sounds - Cardiovascular Exam Cardiovascular Exam: REGULAR RHYTHM, +S1, +S2 - GI/Abdominal Exam GI & Abdominal Exam: Soft, Diminished Bowel Sounds - Rectal Exam Rectal Exam: Deferred
[2016-12-24 06:35] LABS: BASO # 0.1 K/uL (0.0-0.2); BASO % 0.8 % (0.0-2.0); EOS # 0.7 K/uL (0.0-0.7); EOS % 4.3 % (0.0-4.0); HEMOGLOBIN 7.6 g/dL (11.0-16.0); LYMPH # 3.3 K/uL (1.0-4.3); LYMPH % 20.1 % (20.0-40.0); MEAN CELL VOLUME 83.6 fL (81.0-99.0); MEAN CORPUSCULAR HEMOGLOBIN 29.5 pg (27.0-31.0); MEAN CORPUSCULAR HGB CONC 35.3 g/dL (33.0-37.0); MEAN PLATELET VOLUME 7.3 fL (7.2-11.7); MONO # 1.8 K/uL (0.0-0.8); MONO % 10.6 % (0.0-10.0); NEUT # 10.7 K/uL (1.8-7.0); NEUT % 64.2 % (50.0-75.0); NRBC % 2.2 % (0.0-2.0); RBC 2.57 Mil/uL (3.80-5.20); RED CELL DISTRIBUTION WIDTH 19.9 % (11.5-14.5); WHITE BLOOD COUNT 16.7 K/uL (4.8-10.8)
[2016-12-24 07:15] LABS: ALBUMIN 3.1 g/dL (3.5-5.0)
[2016-12-24 07:17] LABS: GFR AFRICAN-AMERICAN > 60; GFR NON-AFRICAN AMERICAN > 60
[2016-12-24 07:18] LABS: ALT/SGPT 39 U/L (9-52); AST/SGOT 51 U/L (14-36)
[2016-12-24 07:19] LABS: CALCIUM 8.7 mg/dl (8.6-10.4)
[2016-12-24 07:39] LABS: ALB/GLOB RATIO 0.9 (1.0-2.1); BLOOD UREA NITROGEN < 2 mg/dL (7-17)
[2016-12-24] MEDS: Sodium Chloride 0.9% 1,000 ML IV SCH ×4 (09:30→19:15)
[2016-12-24] MEDS ORDERED: Pneumococcal 23-Valent Vaccine IM ONE (10:00)
[2016-12-24] MEDS ORDERED: Potassium Chloride 20 mEq ER Tab PO STA (13:14)
--- NOTE | 2016-12-24 14:48 | CP.PCM.PN ---
Subjective - Date & Time of Evaluation Date of Evaluation: 12/24/16 Time of Evaluation: 14:47 - Subjective Subjective: PT SEEN AND EXAMINED BY DR Nehemias [place], DENIES ANY CP, SOB, RESP EASY AND UNLABORED , NAD Objective - Vital Signs/Intake and Output Vital Signs (last 24 hours): Temp Pulse Resp BP Pulse Ox 99.1 F 96 H 20 99/61 L 95 12/24/16 07:56 12/24/16 07:56 12/24/16 07:56 12/24/16 07:56 12/24/16 07:56 Intake and Output: 12/24/16 12/24/16 06:59 18:59 Intake Total 1895 Balance 1895 - Medications Medications: Current Medications Aspirin (Ecotrin) 81 mg PO DAILY [facility] Last Admin: 12/24/16 10:14 Dose: 81 mg Clopidogrel Bisulfate (Plavix) 75 mg PO DAILY [facility] Last Admin: 12/24/16 10:14 Dose: 75 mg Famotidine (Pepcid) 20 mg PO BID [facility] Last Admin: 12/24/16 10:14 Dose: 20 mg Folic Acid (Folic Acid) 1 mg PO DAILY [facility] Last Admin: 12/24/16 13:31 Dose: 1 mg Hydromorphone HCl (Dilaudid) 2 mg IVP Q4H PRN PRN Reason: Pain, moderate (4-7) Last Admin: 12/24/16 12:22 Dose: 2 mg Sodium Chloride (Sodium Chloride 0.9%) 1,000 mls @ 75 mls/hr IV .[id number] [facility] Last Admin: 12/24/16 09:30 Dose: Not Given Ondansetron HCl (Zofran Inj) 4 mg IVP Q6H PRN PRN Reason: Nausea/Vomiting Last Admin: 12/22/16 16:18 Dose: 4 mg Potassium Chloride (Klor-Con 10) 10 meq PO BRK [facility] - Labs Labs: 12/24/16 06:26 12/24/16 06:26 PT 12.4 SECONDS (9.7-12.2) H 12/22/16 01:22 INR 1.1 12/22/16 01:22 APTT 30 SECONDS (21-34) 12/22/16 01:22 Assessment and Plan - Assessment and Plan (Free Text) Plan: ssessment & Plan (1) Sickle-cell crisis Assessment and Plan: IV fluids, pain meds, folic acid, 02 via NC, pain meds Status: Acute (2) Leukocytosis Assessment and Plan: likely reactive if absolue lymphocyte count remains > 5000 will send flow cytometery Status: Acute (3) Sickle cell anemia Assessment and Plan: outpatient folic acid
--- NOTE | 2016-12-24 15:13 | CARD ---
APPROVED REPORT EXAM: Two-dimensional and M-mode echocardiogram with Doppler and color Doppler. Other Information Quality : GoodRhythm : NSR INDICATION Chest Pain SICKLE CELLCRISIS, FEVER, SYSTOLIC M M-Mode DIMENSIONS RVDd2.47 (2.1-3.2cm)Left Atrium (MM)4.17 (2.5-4.0cm) IVSd1.00 (0.7-1.1cm)Aortic Root2.88 (2.2-3.7cm) LVDd5.42 (4.0-5.6cm)Aortic Cusp Exc.1.95 (1.5-2.0cm) PWd1.22 (0.7-1.1cm)FS (%) 37 % LVDs3.43 (2.0-3.8cm)LVEF (%)66 (>50%) Aortic Valve AoV Peak Nbizpzbo232.1cm/Parul Peak GR.16mmHg Mitral Valve MV E Fyeodryy774.8cm/sMV A Hqozxggp09.7cm/sE/A ratio1.6 TDI E/Lateral E'0.0E/Medial E'0.0 Tricuspid Valve TR Peak Oxowonsh132rh/sTR Peak Gr.52yoWcNMFX98wkGc LEFT VENTRICLE The left ventricle is normal size. There is normal left ventricular wall thickness. The left ventricular function is normal. The left ventricular ejection fraction is within the normal range. There is normal LV segmental wall motion. The left ventricular diastolic function is normal. RIGHT VENTRICLE The right ventricle is normal size. ATRIA The left atrium size is normal. The right atrium size is normal. AORTIC VALVE The aortic valve is normal in structure. MITRAL VALVE The mitral valve is normal in structure. TRICUSPID VALVE There is trace to mild tricuspid regurgitation. <Conclusion> Normal LV systolic function. Normal chamber size. Trace to mild TR.
[2016-12-24] MEDS: Potassium Chloride 10 mEq ER Tab PO SCH (16:12)
--- NOTE | 2016-12-24 18:36 | CP.PCM.PN ---
Subjective - Date & Time of Evaluation Date of Evaluation: 12/24/16 Time of Evaluation: 14:40 - Subjective Subjective: Has pain in arms and chest Objective - Vital Signs/Intake and Output Vital Signs (last 24 hours): Temp Pulse Resp BP Pulse Ox 99.5 F 101 H 20 116/71 97 12/24/16 15:26 12/24/16 15:26 12/24/16 15:26 12/24/16 15:26 12/24/16 15:26 Intake and Output: 12/24/16 12/24/16 06:59 18:59 Intake Total 1895 1050 Balance 1895 1050 - Medications Medications: Current Medications Aspirin (Ecotrin) 81 mg PO DAILY [facility] Last Admin: 12/24/16 10:14 Dose: 81 mg Clopidogrel Bisulfate (Plavix) 75 mg PO DAILY [facility] Last Admin: 12/24/16 10:14 Dose: 75 mg Famotidine (Pepcid) 20 mg PO BID [facility] Last Admin: 12/24/16 17:26 Dose: 20 mg Folic Acid (Folic Acid) 1 mg PO DAILY [facility] Last Admin: 12/24/16 13:31 Dose: 1 mg Hydromorphone HCl (Dilaudid) 2 mg IVP Q4H PRN PRN Reason: Pain, moderate (4-7) Last Admin: 12/24/16 16:17 Dose: 2 mg Sodium Chloride (Sodium Chloride 0.9%) 1,000 mls @ 75 mls/hr IV .[id number] [facility] Last Admin: 12/24/16 16:23 Dose: 75 mls/hr Ondansetron HCl (Zofran Inj) 4 mg IVP Q6H PRN PRN Reason: Nausea/Vomiting Last Admin: 12/22/16 16:18 Dose: 4 mg Potassium Chloride (Klor-Con 10) 10 meq PO BRK [facility] Last Admin: 12/24/16 16:12 Dose: 10 meq - Labs Labs: 12/24/16 06:26 12/24/16 06:26 PT 12.4 SECONDS (9.7-12.2) H 12/22/16 01:22 INR 1.1 12/22/16 01:22 APTT 30 SECONDS (21-34) 12/22/16 01:22 - Head Exam Head Exam: ATRAUMATIC - Eye Exam Eye Exam: Normal appearance - ENT Exam ENT Exam: Mucous Membranes Dry - Respiratory Exam Respiratory Exam: NORMAL BREATHING PATTERN - Cardiovascular Exam Cardiovascular Exam: +S1, +S2 - GI/Abdominal Exam GI & Abdominal Exam: Normal Bowel Sounds - Extremities Exam Extremities Exam: Normal Inspection Assessment and Plan (1) Sickle-cell crisis Assessment & Plan: IV fluids, pain meds, folic acid, 02 via NC s/p transfusion support Status: Acute (2) Leukocytosis Assessment & Plan: likely reactive to sickle cell Status: Acute (3) Sickle cell anemia Assessment & Plan: folic acid Status: Acute
--- NOTE | 2016-12-24 20:15 | CP.PCM.PN ---
Subjective - Date & Time of Evaluation Date of Evaluation: 12/24/16 Time of Evaluation: 10:20 - Subjective Subjective: clinically same Objective - Vital Signs/Intake and Output Vital Signs (last 24 hours): Temp Pulse Resp BP Pulse Ox 99.5 F 101 H 20 116/71 97 12/24/16 15:26 12/24/16 15:26 12/24/16 15:26 12/24/16 15:26 12/24/16 15:26 Intake and Output: 12/24/16 12/25/16 18:59 06:59 Intake Total 1050 Balance 1050 - Medications Medications: Current Medications Aspirin (Ecotrin) 81 mg PO DAILY [facility] Last Admin: 12/24/16 10:14 Dose: 81 mg Clopidogrel Bisulfate (Plavix) 75 mg PO DAILY [facility] Last Admin: 12/24/16 10:14 Dose: 75 mg Famotidine (Pepcid) 20 mg PO BID [facility] Last Admin: 12/24/16 17:26 Dose: 20 mg Folic Acid (Folic Acid) 1 mg PO DAILY [facility] Last Admin: 12/24/16 13:31 Dose: 1 mg Hydromorphone HCl (Dilaudid) 2 mg IVP Q4H PRN PRN Reason: Pain, moderate (4-7) Last Admin: 12/24/16 16:17 Dose: 2 mg Sodium Chloride (Sodium Chloride 0.9%) 1,000 mls @ 100 mls/hr IV .Q10H [facility] Ondansetron HCl (Zofran Inj) 4 mg IVP Q6H PRN PRN Reason: Nausea/Vomiting Last Admin: 12/22/16 16:18 Dose: 4 mg Potassium Chloride (Klor-Con 10) 10 meq PO BRK [facility] Last Admin: 12/24/16 16:12 Dose: 10 meq - Labs Labs: 12/24/16 06:26 12/24/16 06:26 PT 12.4 SECONDS (9.7-12.2) H 12/22/16 01:22 INR 1.1 12/22/16 01:22 APTT 30 SECONDS (21-34) 12/22/16 01:22
[2016-12-24 23:45] LABS: CK-MB < 0.22 ng/mL (0.0-3.38)
[2016-12-25] MEDS: Docusate-Senna 50 mg-8.6 mg Tab PO SCH ×3 (00:10→17:09)
[2016-12-25] MEDS: Albuterol-Ipratrop 3 mg / 0.5 (3 ml) UD INH SCH ×4 (01:56→19:38)
[2016-12-25] MEDS: Sodium Chloride 0.9% 1,000 ML IV SCH ×2 (05:11→15:20)
[2016-12-25 08:39] LABS: MEAN CORPUSCULAR HEMOGLOBIN 28.6 pg (27.0-31.0); MEAN CORPUSCULAR HGB CONC 34.8 g/dL (33.0-37.0); MEAN PLATELET VOLUME 7.6 fL (7.2-11.7); RBC 2.45 Mil/uL (3.80-5.20); RED CELL DISTRIBUTION WIDTH 19.5 % (11.5-14.5); WHITE BLOOD COUNT 17.2 K/uL (4.8-10.8)
[2016-12-25 08:56] LABS: ALBUMIN 3.1 g/dL (3.5-5.0)
[2016-12-25 08:59] LABS: AST/SGOT 67 U/L (14-36); GFR AFRICAN-AMERICAN > 60; GFR NON-AFRICAN AMERICAN > 60
[2016-12-25 09:00] LABS: ALT/SGPT 46 U/L (9-52); BLOOD UREA NITROGEN 3 mg/dL (7-17); CALCIUM 8.4 mg/dl (8.6-10.4)
[2016-12-25] MEDS: Potassium Chloride 10 mEq ER Tab PO SCH (10:06)
--- NOTE | 2016-12-25 12:03 | CP.PCM.CON ---
History of Present Illness - History of Present Illness History of Present Illness: Reason for consultation: chest pain 26-year-old female with sickle cell disease presented with chest pain for the past few days. Chest pain is mostly on inspiration and nonradiating. Denies shortness of breath, denies cough, denies fever chills. Patient saturation 98%. Patient has been receiving pain medication and was transfused one unit packed RBCs. chest x-ray showed no acute infiltrate, CT of the chest showed no pulmonary embolism or infiltrate Review of Systems - Review of Systems All systems: reviewed and no additional remarkable complaints except (chest pain ) Past Patient History - Infectious Disease Hx of Infectious Diseases: None - Past Medical History & Family History Past Medical History?: Yes - Past Social History Smoking Status: Unknown If Ever Smoked - CARDIAC Hx Cardiac Disorders: No - PULMONARY Hx Respiratory Disorders: No - NEUROLOGICAL Hx Neurological Disorder: No - HEENT Hx HEENT Problems: No - RENAL Hx Chronic Kidney Disease: No - ENDOCRINE/METABOLIC Hx Endocrine Disorders: No - HEMATOLOGICAL/ONCOLOGICAL Hx Blood Disorders: Yes Hx Anemia: Yes Hx Sickle Cell Disease: Yes - INTEGUMENTARY Hx Dermatological Problems: No - MUSCULOSKELETAL/RHEUMATOLOGICAL Hx Musculoskeletal Disorders: No Hx Falls: No - GASTROINTESTINAL Hx Gastrointestinal Disorders: No - GENITOURINARY/GYNECOLOGICAL Hx Genitourinary Disorders: No - PSYCHIATRIC Hx Psychophysiologic Disorder: No Hx Substance Use: No - SURGICAL HISTORY Hx Surgeries: No - ANESTHESIA Hx Anesthesia: No Hx Anesthesia Reactions: No Hx Malignant Hyperthermia: No Has any member of the family had a problem w/ anesthesia?: No Meds Home Medications: Home Medication List Medication Instructions Recorded Confirmed Type Aspirin [Ecotrin] 81 mg PO DAILY 12/24/16 Rx Clopidogrel [Plavix] 75 mg PO DAILY #30 tab 12/24/16 Rx Folic Acid 1 mg PO DAILY #30 tab 12/24/16 Rx Pantoprazole [Protonix EC Tab] 40 mg PO DAILY #30 ect 12/24/16 Rx Allergies/Adverse Reactions: Allergies Allergy/AdvReac Type Severity Reaction Status Date / Time No Known Allergies Allergy Verified 12/22/16 00:51 - Medications Medications: Current Medications Albuterol/Ipratropium (Duoneb 3 Mg/0.5 Mg (3 Ml) Ud) 3 ml INH RQ6 [facility] Last Admin: 12/25/16 08:28 Dose: Not Given Aspirin (Ecotrin) 81 mg PO DAILY [facility] Last Admin: 12/25/16 10:36 Dose: 81 mg Clopidogrel Bisulfate (Plavix) 75 mg PO DAILY [facility] Last Admin: 12/25/16 10:06 Dose: 75 mg Famotidine (Pepcid) 20 mg PO BID [facility] Last Admin: 12/25/16 10:06 Dose: 20 mg Folic Acid (Folic Acid) 1 mg PO DAILY [facility] Last Admin: 12/25/16 10:06 Dose: 1 mg Hydromorphone HCl (Dilaudid) 2 mg IVP Q4H PRN PRN Reason: Pain, moderate (4-7) Last Admin: 12/25/16 10:37 Dose: 2 mg Sodium Chloride (Sodium Chloride 0.9%) 1,000 mls @ 100 mls/hr IV .Q10H [facility] Last Admin: 12/25/16 05:11 Dose: 100 mls/hr Ondansetron HCl (Zofran Inj) 4 mg IVP Q6H PRN PRN Reason: Nausea/Vomiting Last Admin: 12/22/16 16:18 Dose: 4 mg Potassium Chloride (Klor-Con 10) 10 meq PO BRK [facility] Last Admin: 12/25/16 10:06 Dose: 10 meq Senna/Docusate Sodium (Senokot S 50 Mg-8.6 Mg) 1 tab PO BID [facility] Last Admin: 12/25/16 11:52 Dose: 1 tab Physical Exam - Constitutional Appears: No Acute Distress - Head Exam Head Exam: ATRAUMATIC, NORMOCEPHALIC - Eye Exam Eye Exam: Scleral icterus - ENT Exam ENT Exam: Mucous Membranes Moist - Neck Exam Neck exam: Positive for: Normal Inspection - Respiratory Exam Respiratory Exam: Clear to Auscultation Bilateral - Cardiovascular Exam Cardiovascular Exam: REGULAR RHYTHM Results - Vital Signs Recent Vital Signs: Last Vital Signs Temp 99.2 F 12/25/16 07:52 Pulse 96 H 12/25/16 07:52 Resp 20 12/25/16 07:52 BP 103/67 12/25/16 07:52 Pulse Ox 96 12/25/16 07:52 - Labs Result Diagrams: 12/25/16 08:26 12/25/16 08:26 Labs: Laboratory Results - last 24 hr 12/24/16 12/25/16 12/25/16 23:22 08:26 08:26 WBC 17.2 H RBC 2.45 L Hgb 7.0 L Hct 20.1 L MCV 82.0 MCH 28.6 MCHC 34.8 RDW 19.5 H Plt Count 522 H MPV 7.6 Sodium 135 Potassium 3.6 Chloride 99 Carbon Dioxide 29 Anion Gap 11 BUN 3 L Creatinine 0.3 L Est GFR ( Amer) > 60 Est GFR (Non-Af Amer) > 60 Random Glucose 81 Calcium 8.4 L Total Bilirubin 1.7 H AST 67 H D ALT 46 Alkaline Phosphatase 68 Total Creatine Kinase < 20 L CK-MB (Mass) < 0.22 Troponin I, Quant < 0.0120 Total Protein 6.4 Albumin 3.1 L Globulin 3.3 Albumin/Globulin Ratio 1.0 Assessment & Plan (1) Chest pain Status: Acute Comment: chest pain most likely secondary to sickle crisis. Unlikely acute chest syndrome. Continue pain medication. Continue IV fluids and transfuse if necessary. Continue oxygen (2) Sickle-cell crisis Status: Acute
--- NOTE | 2016-12-25 14:42 | CP.PCM.PN ---
Subjective - Date & Time of Evaluation Date of Evaluation: 12/25/16 Time of Evaluation: 08:40 - Subjective Subjective: clinically same Objective - Vital Signs/Intake and Output Vital Signs (last 24 hours): Temp Pulse Resp BP Pulse Ox 99.2 F 94 H 20 103/66 97 12/25/16 12:37 12/25/16 12:37 12/25/16 12:37 12/25/16 12:37 12/25/16 12:37 Intake and Output: 12/25/16 12/25/16 06:59 18:59 Intake Total 2150 Balance 2150 - Medications Medications: Current Medications Albuterol/Ipratropium (Duoneb 3 Mg/0.5 Mg (3 Ml) Ud) 3 ml INH RQ6 [facility] Last Admin: 12/25/16 13:23 Dose: Not Given Aspirin (Ecotrin) 81 mg PO DAILY [facility] Last Admin: 12/25/16 10:36 Dose: 81 mg Clopidogrel Bisulfate (Plavix) 75 mg PO DAILY [facility] Last Admin: 12/25/16 10:06 Dose: 75 mg Famotidine (Pepcid) 20 mg PO BID [facility] Last Admin: 12/25/16 10:06 Dose: 20 mg Folic Acid (Folic Acid) 1 mg PO DAILY [facility] Last Admin: 12/25/16 10:06 Dose: 1 mg Hydromorphone HCl (Dilaudid) 2 mg IVP Q4H PRN PRN Reason: Pain, moderate (4-7) Last Admin: 12/25/16 10:37 Dose: 2 mg Sodium Chloride (Sodium Chloride 0.9%) 1,000 mls @ 100 mls/hr IV .Q10H [facility] Last Admin: 12/25/16 05:11 Dose: 100 mls/hr Ondansetron HCl (Zofran Inj) 4 mg IVP Q6H PRN PRN Reason: Nausea/Vomiting Last Admin: 12/22/16 16:18 Dose: 4 mg Potassium Chloride (Klor-Con 10) 10 meq PO BRK [facility] Last Admin: 12/25/16 10:06 Dose: 10 meq Senna/Docusate Sodium (Senokot S 50 Mg-8.6 Mg) 1 tab PO BID [facility] Last Admin: 12/25/16 11:52 Dose: 1 tab - Labs Labs: 12/25/16 08:26 12/25/16 08:26 PT 12.4 SECONDS (9.7-12.2) H 12/22/16 01:22 INR 1.1 12/22/16 01:22 APTT 30 SECONDS (21-34) 12/22/16 01:22 - Constitutional Appears: Well - Head Exam Head Exam: ATRAUMATIC, NORMAL INSPECTION, NORMOCEPHALIC - Eye Exam Eye Exam: EOMI, Normal appearance, PERRL Pupil Exam: NORMAL ACCOMODATION, PERRL - ENT Exam ENT Exam: Mucous Membranes Moist, Normal Exam - Neck Exam Neck Exam: Full ROM, Normal Inspection. absent: Lymphadenopathy - Respiratory Exam Respiratory Exam: Decreased Breath Sounds - Cardiovascular Exam Cardiovascular Exam: REGULAR RHYTHM, +S1, +S2 - GI/Abdominal Exam GI & Abdominal Exam: Soft, Diminished Bowel Sounds - Rectal Exam Rectal Exam: Deferred
[2016-12-26] MEDS: Albuterol-Ipratrop 3 mg / 0.5 (3 ml) UD INH SCH ×4 (01:33→19:42)
[2016-12-26] MEDS: Sodium Chloride 0.9% 1,000 ML IV SCH ×2 (02:30→12:29)
[2016-12-26 09:04] LABS: HEMOGLOBIN 6.9 g/dL (11.0-16.0); MEAN CELL VOLUME 80.1 fL (81.0-99.0); MEAN CORPUSCULAR HEMOGLOBIN 28.5 pg (27.0-31.0); MEAN CORPUSCULAR HGB CONC 35.5 g/dL (33.0-37.0); MEAN PLATELET VOLUME 7.6 fL (7.2-11.7); PLATELET COUNT 591 K/uL (130-400); RBC 2.44 Mil/uL (3.80-5.20); RED CELL DISTRIBUTION WIDTH 20.4 % (11.5-14.5); WHITE BLOOD COUNT 18.4 K/uL (4.8-10.8)
[2016-12-26] MEDS: Potassium Chloride 10 mEq ER Tab PO SCH (09:30)
[2016-12-26] MEDS: Docusate-Senna 50 mg-8.6 mg Tab PO SCH ×2 (09:31→17:41)
[2016-12-26 10:31] LABS: ANISOCYTOSIS MODERATE; BANDS 1 % (0-2); EOSINOPHIL 1 % (0-4); HYPOCHROMIC SLIGHT; LARGE PLATELETS PRESENT; LYMPHOCYTE 28 % (20-40); MICROCYTOSIS SLIGHT; MONOCYTE 8 % (0-10); NEUTROPHIL 62 % (50-75); NUCLEATED RED BLOOD CELL 2 % (0-0); PLATELET ESTIMATE INCREASED (NORMAL); POIKILOCYTOSIS SLIGHT; POLYCHROMIC SLIGHT; TARGET CELLS SLIGHT; TOTAL CELLS COUNTED 100
[2016-12-26 10:32] LABS: OVALOCYTES SLIGHT; SCHISTOCYTES SLIGHT; SICKLE CELLS MODERATE; SPHEROCYTES SLIGHT; TEARDROP CELLS SLIGHT
--- NOTE | 2016-12-26 13:10 | CP.PCM.PN ---
Subjective - Date & Time of Evaluation Date of Evaluation: 12/26/16 Time of Evaluation: 08:40 - Subjective Subjective: clinically same Objective - Vital Signs/Intake and Output Vital Signs (last 24 hours): Temp Pulse Resp BP Pulse Ox 98.8 F 95 H 20 104/57 L 96 12/26/16 08:15 12/26/16 08:15 12/26/16 08:15 12/26/16 08:15 12/26/16 08:15 Intake and Output: 12/26/16 12/26/16 06:59 18:59 Intake Total 2190 Balance 2190 - Medications Medications: Current Medications Albuterol/Ipratropium (Duoneb 3 Mg/0.5 Mg (3 Ml) Ud) 3 ml INH RQ6 [facility] Last Admin: 12/26/16 08:19 Dose: Not Given Famotidine (Pepcid) 20 mg PO BID [facility] Last Admin: 12/26/16 09:30 Dose: 20 mg Folic Acid (Folic Acid) 1 mg PO DAILY [facility] Last Admin: 12/26/16 09:30 Dose: 1 mg Hydromorphone HCl (Dilaudid) 2 mg IVP Q4H PRN PRN Reason: Pain, moderate (4-7) Last Admin: 12/26/16 12:29 Dose: 2 mg Sodium Chloride (Sodium Chloride 0.9%) 1,000 mls @ 100 mls/hr IV .Q10H [facility] Last Admin: 12/26/16 12:29 Dose: 100 mls/hr Ondansetron HCl (Zofran Inj) 4 mg IVP Q6H PRN PRN Reason: Nausea/Vomiting Last Admin: 12/22/16 16:18 Dose: 4 mg Potassium Chloride (Klor-Con 10) 10 meq PO BRK [facility] Last Admin: 12/26/16 09:30 Dose: 10 meq Senna/Docusate Sodium (Senokot S 50 Mg-8.6 Mg) 1 tab PO BID [facility] Last Admin: 12/26/16 09:31 Dose: 1 tab - Labs Labs: 12/26/16 08:50 12/25/16 08:26 PT 12.4 SECONDS (9.7-12.2) H 12/22/16 01:22 INR 1.1 12/22/16 01:22 APTT 30 SECONDS (21-34) 12/22/16 01:22 - Constitutional Appears: Well - Head Exam Head Exam: ATRAUMATIC, NORMAL INSPECTION, NORMOCEPHALIC - Eye Exam Eye Exam: EOMI, Normal appearance, PERRL Pupil Exam: NORMAL ACCOMODATION, PERRL - ENT Exam ENT Exam: Mucous Membranes Moist, Normal Exam - Neck Exam Neck Exam: Full ROM, Normal Inspection. absent: Lymphadenopathy - Respiratory Exam Respiratory Exam: Decreased Breath Sounds - Cardiovascular Exam Cardiovascular Exam: REGULAR RHYTHM, +S1, +S2 - GI/Abdominal Exam GI & Abdominal Exam: Soft, Diminished Bowel Sounds - Rectal Exam Rectal Exam: Deferred
[2016-12-27] MEDS: Sodium Chloride 0.9% 1,000 ML IV SCH ×4 (01:20→22:23)
[2016-12-27] MEDS: Albuterol-Ipratrop 3 mg / 0.5 (3 ml) UD INH SCH ×4 (02:14→19:26)
[2016-12-27] MEDS: Potassium Chloride 10 mEq ER Tab PO SCH (08:43)
[2016-12-27] MEDS: Docusate-Senna 50 mg-8.6 mg Tab PO SCH ×2 (09:43→17:31)
--- NOTE | 2016-12-27 12:33 | CP.PCM.PN ---
Subjective - Date & Time of Evaluation Date of Evaluation: 12/27/16 Time of Evaluation: 09:40 - Subjective Subjective: clinically same Objective - Vital Signs/Intake and Output Vital Signs (last 24 hours): Temp Pulse Resp BP Pulse Ox 98.3 F 90 20 105/65 97 12/27/16 08:17 12/27/16 08:17 12/27/16 08:17 12/27/16 08:17 12/27/16 08:17 Intake and Output: 12/27/16 12/27/16 06:59 18:59 Intake Total 1840 Balance 1840 - Medications Medications: Current Medications Albuterol/Ipratropium (Duoneb 3 Mg/0.5 Mg (3 Ml) Ud) 3 ml INH RQ6 [facility] Last Admin: 12/27/16 09:00 Dose: Not Given Famotidine (Pepcid) 20 mg PO BID [facility] Last Admin: 12/27/16 09:43 Dose: 20 mg Folic Acid (Folic Acid) 1 mg PO DAILY [facility] Last Admin: 12/27/16 09:43 Dose: 1 mg Hydromorphone HCl (Dilaudid) 2 mg IVP Q4H PRN PRN Reason: Pain, moderate (4-7) Last Admin: 12/27/16 09:43 Dose: 2 mg Sodium Chloride (Sodium Chloride 0.9%) 1,000 mls @ 100 mls/hr IV .Q10H [facility] Last Admin: 12/27/16 07:35 Dose: Not Given Ondansetron HCl (Zofran Inj) 4 mg IVP Q6H PRN PRN Reason: Nausea/Vomiting Last Admin: 12/27/16 09:43 Dose: 4 mg Potassium Chloride (Klor-Con 10) 10 meq PO BRK [facility] Last Admin: 12/27/16 08:43 Dose: 10 meq Senna/Docusate Sodium (Senokot S 50 Mg-8.6 Mg) 1 tab PO BID [facility] Last Admin: 12/27/16 09:43 Dose: 1 tab - Labs Labs: 12/26/16 08:50 12/25/16 08:26 PT 12.4 SECONDS (9.7-12.2) H 12/22/16 01:22 INR 1.1 12/22/16 01:22 APTT 30 SECONDS (21-34) 12/22/16 01:22 - Constitutional Appears: Well - Head Exam Head Exam: ATRAUMATIC, NORMAL INSPECTION, NORMOCEPHALIC - Eye Exam Eye Exam: EOMI, Normal appearance, PERRL - ENT Exam ENT Exam: Mucous Membranes Moist, Normal Exam - Neck Exam Neck Exam: Full ROM, Normal Inspection. absent: Lymphadenopathy - Respiratory Exam Respiratory Exam: Decreased Breath Sounds - Cardiovascular Exam Cardiovascular Exam: REGULAR RHYTHM, +S1, +S2. absent: Murmur - GI/Abdominal Exam GI & Abdominal Exam: Soft, Diminished Bowel Sounds - Rectal Exam Rectal Exam: Deferred
--- NOTE | 2016-12-27 12:59 | CP.PCM.PN ---
Subjective - Date & Time of Evaluation Date of Evaluation: 12/25/16 Time of Evaluation: 10:00 - Subjective Subjective: Has bone and chest pain. Objective - Vital Signs/Intake and Output Vital Signs (last 24 hours): Temp Pulse Resp BP Pulse Ox 98.3 F 90 20 105/65 97 12/27/16 08:17 12/27/16 08:17 12/27/16 08:17 12/27/16 08:17 12/27/16 08:17 Intake and Output: 12/27/16 12/27/16 06:59 18:59 Intake Total 1840 Balance 1840 - Medications Medications: Current Medications Albuterol/Ipratropium (Duoneb 3 Mg/0.5 Mg (3 Ml) Ud) 3 ml INH RQ6 [facility] Last Admin: 12/27/16 09:00 Dose: Not Given Famotidine (Pepcid) 20 mg PO BID [facility] Last Admin: 12/27/16 09:43 Dose: 20 mg Folic Acid (Folic Acid) 1 mg PO DAILY [facility] Last Admin: 12/27/16 09:43 Dose: 1 mg Hydromorphone HCl (Dilaudid) 2 mg IVP Q4H PRN PRN Reason: Pain, moderate (4-7) Last Admin: 12/27/16 09:43 Dose: 2 mg Sodium Chloride (Sodium Chloride 0.9%) 1,000 mls @ 100 mls/hr IV .Q10H [facility] Last Admin: 12/27/16 07:35 Dose: Not Given Ondansetron HCl (Zofran Inj) 4 mg IVP Q6H PRN PRN Reason: Nausea/Vomiting Last Admin: 12/27/16 09:43 Dose: 4 mg Potassium Chloride (Klor-Con 10) 10 meq PO BRK [facility] Last Admin: 12/27/16 08:43 Dose: 10 meq Senna/Docusate Sodium (Senokot S 50 Mg-8.6 Mg) 1 tab PO BID [facility] Last Admin: 12/27/16 09:43 Dose: 1 tab - Labs Labs: 12/26/16 08:50 12/25/16 08:26 PT 12.4 SECONDS (9.7-12.2) H 12/22/16 01:22 INR 1.1 12/22/16 01:22 APTT 30 SECONDS (21-34) 12/22/16 01:22 - Head Exam Head Exam: ATRAUMATIC - Eye Exam Eye Exam: Normal appearance - ENT Exam ENT Exam: Mucous Membranes Dry - Respiratory Exam Respiratory Exam: NORMAL BREATHING PATTERN - Cardiovascular Exam Cardiovascular Exam: +S1, +S2 - GI/Abdominal Exam GI & Abdominal Exam: Normal Bowel Sounds - Extremities Exam Extremities Exam: Normal Inspection Assessment and Plan (1) Sickle-cell crisis Assessment & Plan: IV fluids, 02 via NC, folic acid, pain meds s/p PRBC transfusion rule out acute chest syndrome Status: Acute (2) Leukocytosis Assessment & Plan: likely reactive Status: Acute (3) Sickle cell anemia Assessment & Plan: outpatient folic acid and hydrea Status: Acute
--- NOTE | 2016-12-27 13:03 | CP.PCM.PN ---
Subjective - Date & Time of Evaluation Date of Evaluation: 12/26/16 Time of Evaluation: 17:00 - Subjective Subjective: Has bone pain. Objective - Vital Signs/Intake and Output Vital Signs (last 24 hours): Temp Pulse Resp BP Pulse Ox 98.3 F 90 20 105/65 97 12/27/16 08:17 12/27/16 08:17 12/27/16 08:17 12/27/16 08:17 12/27/16 08:17 Intake and Output: 12/27/16 12/27/16 06:59 18:59 Intake Total 1840 Balance 1840 - Medications Medications: Current Medications Albuterol/Ipratropium (Duoneb 3 Mg/0.5 Mg (3 Ml) Ud) 3 ml INH RQ6 [facility] Last Admin: 12/27/16 09:00 Dose: Not Given Famotidine (Pepcid) 20 mg PO BID [facility] Last Admin: 12/27/16 09:43 Dose: 20 mg Folic Acid (Folic Acid) 1 mg PO DAILY [facility] Last Admin: 12/27/16 09:43 Dose: 1 mg Hydromorphone HCl (Dilaudid) 2 mg IVP Q4H PRN PRN Reason: Pain, moderate (4-7) Last Admin: 12/27/16 09:43 Dose: 2 mg Sodium Chloride (Sodium Chloride 0.9%) 1,000 mls @ 125 mls/hr IV .Q8H [facility] Ondansetron HCl (Zofran Inj) 4 mg IVP Q6H PRN PRN Reason: Nausea/Vomiting Last Admin: 12/27/16 09:43 Dose: 4 mg Potassium Chloride (Klor-Con 10) 10 meq PO BRK [facility] Last Admin: 12/27/16 08:43 Dose: 10 meq Senna/Docusate Sodium (Senokot S 50 Mg-8.6 Mg) 1 tab PO BID [facility] Last Admin: 12/27/16 09:43 Dose: 1 tab - Labs Labs: 12/26/16 08:50 12/25/16 08:26 PT 12.4 SECONDS (9.7-12.2) H 12/22/16 01:22 INR 1.1 12/22/16 01:22 APTT 30 SECONDS (21-34) 12/22/16 01:22 - Head Exam Head Exam: ATRAUMATIC - Eye Exam Eye Exam: Normal appearance - ENT Exam ENT Exam: Mucous Membranes Dry - Respiratory Exam Respiratory Exam: NORMAL BREATHING PATTERN - Cardiovascular Exam Cardiovascular Exam: +S1, +S2 - GI/Abdominal Exam GI & Abdominal Exam: Normal Bowel Sounds - Extremities Exam Extremities Exam: Normal Inspection Assessment and Plan (1) Sickle-cell crisis Assessment & Plan: CT chest negative for infiltrates; no current acute chest syndrome IV fluids, pain meds, folic acid, 02 via NC PRBC transfusion today Status: Acute (2) Leukocytosis Assessment & Plan: reactive Status: Acute (3) Sickle cell anemia Assessment & Plan: outpatient folic acid and hydrea Status: Acute
[2016-12-27 18:02] LABS: HEMOGLOBIN 7.5 g/dL (11.0-16.0); MEAN CORPUSCULAR HGB CONC 35.8 g/dL (33.0-37.0); MEAN PLATELET VOLUME 7.3 fL (7.2-11.7); PLATELET COUNT 628 K/uL (130-400); RBC 2.58 Mil/uL (3.80-5.20); WHITE BLOOD COUNT 16.3 K/uL (4.8-10.8)
[2016-12-27 19:19] LABS: ANISOCYTOSIS MODERATE; EOSINOPHIL 7 % (0-4); HYPOCHROMIC SLIGHT; LYMPHOCYTE 31 % (20-40); MICROCYTOSIS SLIGHT; MONOCYTE 10 % (0-10); NEUTROPHIL 52 % (50-75); NUCLEATED RED BLOOD CELL 3 % (0-0); PLATELET ESTIMATE INCREASED (NORMAL); POIKILOCYTOSIS SLIGHT; TOTAL CELLS COUNTED 100
[2016-12-27 19:20] LABS: LARGE PLATELETS PRESENT; OVALOCYTES SLIGHT; POLYCHROMIC SLIGHT; SICKLE CELLS MODERATE; TARGET CELLS SLIGHT; TEARDROP CELLS SLIGHT
[2016-12-27 19:21] LABS: HOWELL JOLLY BODIES SLIGHT
[2016-12-28] MEDS: Albuterol-Ipratrop 3 mg / 0.5 (3 ml) UD INH SCH ×2 (01:35→07:30)
[2016-12-28] MEDS: Sodium Chloride 0.9% 1,000 ML IV SCH (04:00)
[2016-12-28] MEDS: Potassium Chloride 10 mEq ER Tab PO SCH (08:41)
[2016-12-28] MEDS: Docusate-Senna 50 mg-8.6 mg Tab PO SCH (09:54)
[2016-12-28 16:27] VITALS: BP 113/74; PULSE 91; TEMP 98.8; O2SAT 99
--- NOTE | 2016-12-28 16:33 | CP.PCM.PN ---
Subjective - Date & Time of Evaluation Date of Evaluation: 12/28/16 Time of Evaluation: 16:32 - Subjective Subjective: 26 Y/O FEMALE SEEN AND EXAMINED Objective - Vital Signs/Intake and Output Vital Signs (last 24 hours): Temp Pulse Resp BP Pulse Ox 98.8 F 91 H 20 113/74 99 12/28/16 16:00 12/28/16 16:00 12/28/16 16:00 12/28/16 16:00 12/28/16 16:00 Intake and Output: 12/28/16 12/28/16 06:59 18:59 Intake Total 2570 1350 Balance 2570 1350 - Medications Medications: Current Medications Albuterol/Ipratropium (Duoneb 3 Mg/0.5 Mg (3 Ml) Ud) 3 ml INH RQ6 [facility] Last Admin: 12/28/16 07:30 Dose: Not Given Famotidine (Pepcid) 20 mg PO BID [facility] Last Admin: 12/28/16 09:54 Dose: 20 mg Folic Acid (Folic Acid) 1 mg PO DAILY [facility] Last Admin: 12/28/16 09:53 Dose: 1 mg Hydromorphone HCl (Dilaudid) 2 mg IVP Q4H PRN PRN Reason: Pain, moderate (4-7) Last Admin: 12/28/16 12:24 Dose: 2 mg Sodium Chloride (Sodium Chloride 0.9%) 1,000 mls @ 125 mls/hr IV .Q8H [facility] Last Admin: 12/28/16 04:00 Dose: 125 mls/hr Ondansetron HCl (Zofran Inj) 4 mg IVP Q6H PRN PRN Reason: Nausea/Vomiting Last Admin: 12/27/16 09:43 Dose: 4 mg Potassium Chloride (Klor-Con 10) 10 meq PO BRK [facility] Last Admin: 12/28/16 08:41 Dose: 10 meq Senna/Docusate Sodium (Senokot S 50 Mg-8.6 Mg) 1 tab PO BID [facility] Last Admin: 12/28/16 09:54 Dose: 1 tab - Labs Labs: 12/27/16 17:30 12/25/16 08:26 PT 12.4 SECONDS (9.7-12.2) H 12/22/16 01:22 INR 1.1 12/22/16 01:22 APTT 30 SECONDS (21-34) 12/22/16 01:22
== END 2016-12-28 19:00 | disposition home or self-care (01) | DRG 395 ==
LOC: C.ER 00:41 → C.3T 03:01
PROVIDERS: ADMIT Internal Medicine Nephrology; ATTEND Internal Medicine Nephrology
PROC: 30233N1 Transfusion of Nonautologous Red Blood Cells into Peripheral Vein, Percutaneous Approach (ICD-10-PCS; principal; 2016-12-25)
DX: D57.00 Hb-SS disease with crisis, unspecified (principal); R07.89 Other chest pain; D72.829 Elevated white blood cell count, unspecified; Z79.02 Long term (current) use of antithrombotics/antiplatelets; Z79.82 Long term (current) use of aspirin

== ENCOUNTER 2017-10-28 20:42 | Inpatient (IN) | payer MEDICAID ==
[2017-10-28 20:43] VITALS: BMI 24.5
[2017-10-28] MEDS ORDERED: Sodium Chloride 0.9% 1,000 ML IV ONE (21:56)
--- NOTE | 2017-10-28 22:01 | C.PDOC ---
History Of Present Illness 27 year old female with PMHx of sickle cell disease presents to the ED c/o leg pain worse on the right that started last night. Patient reports her pain feels similar to previous episodes. Patient denies injury, fall, trauma, weakness, numbness. Time Seen by Provider: 10/28/17 21:51 Chief Complaint (Nursing): Pain, Chronic History Per: Patient History/Exam Limitations: no limitations Onset/Duration Of Symptoms: Days Current Symptoms Are (Timing): Still Present Recent travel outside of the [place]: No Additional History Per: Patient Past Medical History Reviewed: Historical Data, Nursing Documentation, Vital Signs Vital Signs: Last Vital Signs Temp 98.9 F 10/29/17 08:43 Pulse 81 10/29/17 08:43 Resp 20 10/29/17 08:43 BP 105/71 10/29/17 08:43 Pulse Ox 100 10/29/17 08:43 - Medical History PMH: Anemia, Sickle Cell Disease Denies: Chronic Kidney Disease Surgical History: No Surg Hx - [facility] Procedures FLUOROSCOPY OF SUPERIOR VENA CAVA, GUIDANCE (11/02/16) INSERTION OF INFUSION DEV INTO SUP VENA CAVA, PERC APPROACH (11/02/16) TRANSFUSE NONAUT RED BLOOD CELLS IN PERIPH VEIN, PERC (12/22/16) Family History: States: Unknown Family Hx - Social History Hx Alcohol Use: Yes Hx Substance Use: No - Immunization History Hx Tetanus Toxoid Vaccination: No Hx Influenza Vaccination: No Hx Pneumococcal Vaccination: No Review Of Systems Except As Marked, All Systems Reviewed And Found Negative. Musculoskeletal: Positive for: Leg Pain Skin: Negative for: Rash Neurological: Negative for: Weakness, Numbness Physical Exam - Physical Exam Appears: Non-toxic, No Acute Distress Skin: Normal Color, Warm, Dry Head: Atraumatic, Normacephalic Eye(s): bilateral: Normal Inspection Oral Mucosa: Moist Neck: Normal ROM, Supple Chest: Symmetrical Cardiovascular: Rhythm Regular Respiratory: Normal Breath Sounds, No Rales, No Rhonchi, No Wheezing Gastrointestinal/Abdominal: Soft, No Tenderness, No Guarding, No Rebound Extremity: Normal ROM, No Tenderness, No Swelling Neurological/Psych: Oriented x3, Normal Speech, Normal Motor, Normal Sensation Gait: Steady ED Course And Treatment - Laboratory Results Result Diagrams: 10/28/17 22:35 10/28/17 22:35 O2 Sat by Pulse Oximetry: 97 (ON RA) Pulse Ox Interpretation: Normal Medical Decision Making Medical Decision Making: Plan: * Labs * IV fluids * POC bedside us no e/o of dvt. reuqest dr carrasco to obtain complete study in am. accepte.d by dr carrasco Disposition - Disposition Disposition: HOSPITALIZED Disposition Time: 09:00 Condition: STABLE - Clinical Impression Clinical Impression: Sickle cell pain crisis - Scribe Statement The provider has reviewed the documentation as recorded by the Scribe Rancho Gimenez All medical record entries made by the Scribe were at my direction and personally dictated by me. I have reviewed the chart and agree that the record accurately reflects my personal performance of the history, physical exam, medical decision making, and the department course for this patient. I have also personally directed, reviewed, and agree with the discharge instructions and disposition. Decision To Admit - Pt Status Changed To: Hospital Disposition Of: Inpatient - Admit Certification Admit to Inpatient:: After my assessment, the patient will require hospitalization for at least two midnights. This is because of the severity of symptoms shown, intensity of services needed, and/or the medical risk in this patient being treated as an outpatient. - InPatient: Physician Admission Certification: I certify that this patient requires 2 or more midnights of care for the following reason:: needs iv analgesia - . Bed Request Type: Regular Admitting Physician: Leighton Carrasco Patient Diagnosis: Sickle cell pain crisis
[2017-10-28] MEDS ORDERED: Sodium Chloride 0.9% 1,000 ML ONE (22:38)
[2017-10-28 22:41] LABS: BASO # 0.1 K/uL (0.0-0.2); BASO % 0.5 % (0.0-2.0); EOS # 0.4 K/uL (0.0-0.7); EOS % 2.6 % (0.0-4.0); HEMOGLOBIN 7.4 g/dL (11.0-16.0); LYMPH # 4.7 K/uL (1.0-4.3); LYMPH % 33.1 % (20.0-40.0); MEAN CELL VOLUME 89.3 fL (81.0-99.0); MEAN CORPUSCULAR HEMOGLOBIN 32.6 pg (27.0-31.0); MEAN CORPUSCULAR HGB CONC 36.5 g/dL (33.0-37.0); MEAN PLATELET VOLUME 7.6 fL (7.2-11.7); MONO # 0.8 K/uL (0.0-0.8); MONO % 5.8 % (0.0-10.0); NEUT # 8.3 K/uL (1.8-7.0); NRBC % 0.3 % (0.0-2.0); RBC 2.26 Mil/uL (3.80-5.20); RED CELL DISTRIBUTION WIDTH 20.1 % (11.5-14.5); WHITE BLOOD COUNT 14.2 K/uL (4.8-10.8)
[2017-10-28 22:49] LABS: INR 1.2; PROTHROMBIN TIME 12.6 SECONDS (9.7-12.2)
[2017-10-28 22:53] LABS: ALB/GLOB RATIO 1.1 (1.0-2.1); ALBUMIN 4.3 g/dL (3.5-5.0); ALT/SGPT 39 U/L (9-52); AST/SGOT 59 U/L (14-36); BLOOD UREA NITROGEN 7 mg/dL (7-17); CALCIUM 9.2 mg/dl (8.6-10.4); GFR AFRICAN-AMERICAN > 60; GFR NON-AFRICAN AMERICAN > 60
[2017-10-28] MEDS ORDERED: Morphine 4 MG/ML VIAL ONE (23:12)
--- NOTE | 2017-10-28 23:46 | CP.PCM.HP ---
Past Patient History - Infectious Disease Hx of Infectious Diseases: None - Past Medical History & Family History Past Medical History?: Yes - Past Social History Smoking Status: Unknown If Ever Smoked - CARDIAC Hx Cardiac Disorders: No - PULMONARY Hx Respiratory Disorders: No - NEUROLOGICAL Hx Neurological Disorder: No - HEENT Hx HEENT Problems: No - RENAL Hx Chronic Kidney Disease: No - ENDOCRINE/METABOLIC Hx Endocrine Disorders: No - HEMATOLOGICAL/ONCOLOGICAL Hx Anemia: Yes Hx Sickle Cell Disease: Yes - INTEGUMENTARY Hx Dermatological Problems: No - MUSCULOSKELETAL/RHEUMATOLOGICAL Hx Musculoskeletal Disorders: No Hx Falls: No - GASTROINTESTINAL Hx Gastrointestinal Disorders: No - GENITOURINARY/GYNECOLOGICAL Hx Genitourinary Disorders: No - PSYCHIATRIC Hx Substance Use: No - SURGICAL HISTORY Hx Surgeries: No - ANESTHESIA Hx Anesthesia: No Hx Anesthesia Reactions: No Hx Malignant Hyperthermia: No Meds Allergies/Adverse Reactions: Allergies Allergy/AdvReac Type Severity Reaction Status Date / Time No Known Allergies Allergy Verified 10/28/17 20:48 Results - Vital Signs Recent Vital Signs: Last Vital Signs Temp 98.3 F 10/28/17 20:45 Pulse 79 10/28/17 20:45 Resp 16 10/28/17 20:45 BP 116/75 10/28/17 20:45 Pulse Ox 97 10/28/17 22:02 - Labs Result Diagrams: 10/28/17 22:35 10/28/17 22:35 Labs: Laboratory Results - last 24 hr 10/28/17 10/28/17 10/28/17 22:35 22:35 22:35 WBC 14.2 H RBC 2.26 L Hgb 7.4 L Hct 20.2 L MCV 89.3 D MCH 32.6 H MCHC 36.5 RDW 20.1 H Plt Count 788 H D MPV 7.6 Neut % (Auto) 58.0 Lymph % (Auto) 33.1 Jackson % (Auto) 5.8 Eos % (Auto) 2.6 Baso % (Auto) 0.5 Neut # (Auto) 8.3 H Lymph # (Auto) 4.7 H Jackson # (Auto) 0.8 Eos # (Auto) 0.4 Baso # (Auto) 0.1 Differential Comment Retic Count 6.6 H D PT 12.6 H INR 1.2 APTT 32 Sodium 141 Potassium 4.4 Chloride 102 Carbon Dioxide 27 Anion Gap 17 BUN 7 Creatinine 0.4 L Est GFR ( Amer) > 60 Est GFR (Non-Af Amer) > 60 Random Glucose 91 Calcium 9.2 Total Bilirubin 1.6 H AST 59 H ALT 39 Alkaline Phosphatase 51 Total Protein 8.2 Albumin 4.3 Globulin 4.0 H Albumin/Globulin Ratio 1.1 Urine HCG, Qual 10/28/17 22:57 WBC RBC Hgb Hct MCV MCH MCHC RDW Plt Count MPV Neut % (Auto) Lymph % (Auto) Jackson % (Auto) Eos % (Auto) Baso % (Auto) Neut # (Auto) Lymph # (Auto) Jackson # (Auto) Eos # (Auto) Baso # (Auto) Differential Comment Retic Count PT INR APTT Sodium Potassium Chloride Carbon Dioxide Anion Gap BUN Creatinine Est GFR ( Amer) Est GFR (Non-Af Amer) Random Glucose Calcium Total Bilirubin AST ALT Alkaline Phosphatase Total Protein Albumin Globulin Albumin/Globulin Ratio Urine HCG, Qual Negative
[2017-10-29] MEDS ORDERED: DiphenhydrAMINE 50 mg/ml Inj IVP PRN ×2 (01:36→17:06)
[2017-10-29] MEDS ORDERED: Sodium Chloride 0.9% 1,000 ML IV ONE (01:36)
[2017-10-29] MEDS ORDERED: Enoxaparin 40 mg Syringe ONE (01:52)
[2017-10-29] MEDS ORDERED: Sodium Chloride 0.9% 1,000 ML ONE (01:53)
[2017-10-29] MEDS ORDERED: Morphine 4 MG/ML VIAL ONE (01:53)
[2017-10-29] MEDS: Morphine 4 MG/ML VIAL IVP PRN ×4 (01:57→19:56)
[2017-10-29] MEDS: Enoxaparin 150 mg Syringe SC SCH ×2 (01:57→09:23)
[2017-10-29] MEDS ORDERED: Morphine 4 MG/ML VIAL IVP STA (08:23)
[2017-10-29] MEDS ORDERED: Morphine 4 MG/ML VIAL IVP PRN (08:24)
[2017-10-29] MEDS: Pantoprazole 40 mg EC Tab PO SCH (09:25)
--- NOTE | 2017-10-29 09:28 | CP.PCM.PN ---
Subjective - Date & Time of Evaluation Date of Evaluation: 10/29/17 Time of Evaluation: 09:27 - Subjective Subjective: PGY2 Progress note for Dr. Phipps's service: Pt seen and examined at bedside. Nursing reports no acute events overnight. Patient reporting pain in her right leg this AM, rating 8/10. Patient reports pain regimen is not completely controlling her pain. Admits one episode of vomiting this AM - emesis non-bloody. Denies chest pain, SOB, or palpitations. Patient is a 27 year old female, with PMHx of sickle cell anemia, admitted for sickle cell pain crisis on 10/28/17. Patient reports seeing Dr. Moss as an outpatient. Admits home regimen of hydroxyurea 1000mg and folic acid 1mg PO Daily. Reports pain began in her right leg on the evening of 10/27/17. She reports multiple previous sickle cell crises with this presentation. She denies chest pain and shortness of breath. Objective - Vital Signs/Intake and Output Vital Signs (last 24 hours): Temp Pulse Resp BP Pulse Ox 98.9 F 81 20 105/71 100 10/29/17 08:43 10/29/17 08:43 10/29/17 08:43 10/29/17 08:43 10/29/17 08:43 Intake and Output: 10/29/17 10/29/17 06:59 18:59 Intake Total 420 Balance 420 - Medications Medications: Current Medications Diphenhydramine HCl (Benadryl) 25 mg IVP PRN PRN PRN Reason: Itching / Pruritus Enoxaparin Sodium (Lovenox) 40 mg SC DAILY [facility] Folic Acid (Folic Acid) 1 mg PO DAILY [facility] Last Admin: 10/29/17 09:25 Dose: 1 mg Ceftriaxone Sodium 1 gm/ (Sodium Chloride) 100 mls @ 100 mls/hr IVPB DAILY [facility] PRN Reason: Protocol Sodium Chloride (Sodium Chloride 0.9%) 1,000 mls @ 70 mls/hr IV .[id number] ONE Stop: 10/29/17 15:53 Last Admin: 10/29/17 01:57 Dose: 70 mls/hr Morphine Sulfate (Morphine) 2 mg IVP Q3 PRN PRN Reason: Pain, moderate (4-7) Pantoprazole Sodium (Protonix Ec Tab) 40 mg PO DAILY [facility] Last Admin: 10/29/17 09:25 Dose: 40 mg Pneumococcal Polyvalent Vaccine (Pneumovax 23 Vaccine) 0.5 ml IM .ONCE ONE Stop: 10/31/17 10:01 - Labs Labs: 10/28/17 22:35 10/28/17 22:35 PT 12.6 SECONDS (9.7-12.2) H 10/28/17 22:35 INR 1.2 10/28/17 22:35 APTT 32 SECONDS (21-34) 10/28/17 22:35 - Additional Findings Additional findings: - Constitutional Appears: Non-toxic, No Acute Distress - Head Exam Head Exam: ATRAUMATIC, NORMAL INSPECTION, NORMOCEPHALIC - Eye Exam Eye Exam: EOMI, Normal appearance, PERRL Pupil Exam: NORMAL ACCOMODATION - ENT Exam ENT Exam: Mucous Membranes Moist - Neck Exam Neck Exam: Full ROM - Respiratory Exam Respiratory Exam: NORMAL BREATHING PATTERN. absent: Wheezes - Cardiovascular Exam Cardiovascular Exam: +S1, +S2 - GI/Abdominal Exam GI & Abdominal Exam: Soft, Normal Bowel Sounds - Extremities Exam Extremities Exam: Full ROM, Normal Inspection - Back Exam Back Exam: Full ROM - Neurological Exam Neurological Exam: Alert, Awake, Oriented x3 - Psychiatric Exam Psychiatric exam: Normal Affect, Normal Mood - Skin Skin Exam: Dry, Intact, Normal Color, Warm Assessment and Plan - Assessment and Plan (Free Text) Plan: Sickle cell anemia with crisis Admit to med/surg Hgb 7.4, Retic count 6.6 on admission f/u repeat retic ct Hematology consult - Dr. Moss - help appreciated - f/u reccs Reglan 10mg IV q6h PRN for nausea Morphine 4mg Q3H prn pain Folic Acid 1mg PO Daily Hydroxyurea 500mg PO BID Elevated SGOT (AST) Mild; AST 59 on admission Monitor Hyperbilirubinemia Tbili 1.6 today Monitor Thrombocytopenia Platelet 788 Monitor Prophylactic measure Lovenox 40mg SC daily Protonix 40mg PO daily Ancelmo Domingo PGY2 Medical management per Dr. Phipps
--- NOTE | 2017-10-29 16:42 | CP.PCM.PN ---
Subjective - Date & Time of Evaluation Date of Evaluation: 10/29/17 Time of Evaluation: 10:00 - Subjective Subjective: clinically same Objective - Vital Signs/Intake and Output Vital Signs (last 24 hours): Temp Pulse Resp BP Pulse Ox 98.9 F 81 20 105/71 100 10/29/17 08:43 10/29/17 08:43 10/29/17 08:43 10/29/17 08:43 10/29/17 08:43 Intake and Output: 10/29/17 10/29/17 06:59 18:59 Intake Total 520 Balance 520 - Medications Medications: Current Medications Diphenhydramine HCl (Benadryl) 25 mg IVP PRN PRN PRN Reason: Itching / Pruritus Enoxaparin Sodium (Lovenox) 40 mg SC DAILY [facility] Folic Acid (Folic Acid) 1 mg PO DAILY [facility] Last Admin: 10/29/17 09:25 Dose: 1 mg Hydroxyurea (Hydrea) 500 mg PO BID [facility] Ceftriaxone Sodium 1 gm/ (Sodium Chloride) 100 mls @ 100 mls/hr IVPB DAILY [facility] PRN Reason: Protocol Last Admin: 10/29/17 10:41 Dose: 100 mls/hr Metoclopramide HCl (Reglan) 10 mg IVP Q6H PRN PRN Reason: Nausea/Vomiting Last Admin: 10/29/17 14:08 Dose: 10 mg Morphine Sulfate (Morphine) 4 mg IVP Q3 PRN PRN Reason: Pain, moderate (4-7) Last Admin: 10/29/17 14:51 Dose: 4 mg Pantoprazole Sodium (Protonix Ec Tab) 40 mg PO DAILY [facility] Last Admin: 10/29/17 09:25 Dose: 40 mg Pneumococcal Polyvalent Vaccine (Pneumovax 23 Vaccine) 0.5 ml IM .ONCE ONE Stop: 10/31/17 10:01 - Labs Labs: 10/28/17 22:35 10/28/17 22:35 PT 12.6 SECONDS (9.7-12.2) H 10/28/17 22:35 INR 1.2 10/28/17 22:35 APTT 32 SECONDS (21-34) 10/28/17 22:35 - Constitutional Appears: Well - Head Exam Head Exam: ATRAUMATIC, NORMAL INSPECTION, NORMOCEPHALIC - Eye Exam Eye Exam: EOMI, Normal appearance, PERRL Pupil Exam: NORMAL ACCOMODATION, PERRL - ENT Exam ENT Exam: Mucous Membranes Moist, Normal Exam - Neck Exam Neck Exam: Full ROM, Normal Inspection. absent: Lymphadenopathy - Respiratory Exam Respiratory Exam: Decreased Breath Sounds - Cardiovascular Exam Cardiovascular Exam: REGULAR RHYTHM, +S1, +S2 - GI/Abdominal Exam GI & Abdominal Exam: Soft, Diminished Bowel Sounds - Rectal Exam Rectal Exam: Deferred
--- NOTE | 2017-10-29 20:49 | CP.PCM.CON ---
History of Present Illness - History of Present Illness History of Present Illness: 27 year old female with a history of sickle cell anemia, admitted with sickle cell pain crisis. The patient reports to worsening joint pain. She reports her pain began to involve her knees and elbows and progressed to her lower back. She feels the pain is consistent with her sickle cell pain and decided to come to the hospital. She denies chest pain and shortness of breath. Past medical history: Sickle cell anemia Past surgical history: None Family history: Parents have sickle trait. Social history: Denies tobacco, alcohol, and illicit drug use. Allergies: NKA Review of systems: All remaining review of systems including HEENT, cardiovascular, respiratory, gastrointestinal, genitourinary, musculoskeletal, dermatologic, neurologic, and psychiatric are negative unless mentioned in the HPI. Past Patient History - Infectious Disease Hx of Infectious Diseases: None - Past Medical History & Family History Past Medical History?: Yes - Past Social History Smoking Status: Never Smoked - CARDIAC Hx Cardiac Disorders: No - PULMONARY Hx Respiratory Disorders: No - NEUROLOGICAL Hx Neurological Disorder: No - HEENT Hx HEENT Problems: No - RENAL Hx Chronic Kidney Disease: No - ENDOCRINE/METABOLIC Hx Endocrine Disorders: No - HEMATOLOGICAL/ONCOLOGICAL Hx Anemia: Yes Hx Sickle Cell Disease: Yes - INTEGUMENTARY Hx Dermatological Problems: No - MUSCULOSKELETAL/RHEUMATOLOGICAL Hx Musculoskeletal Disorders: No Hx Falls: No - GASTROINTESTINAL Hx Gastrointestinal Disorders: No - GENITOURINARY/GYNECOLOGICAL Hx Genitourinary Disorders: No - PSYCHIATRIC Hx Substance Use: No - SURGICAL HISTORY Hx Surgeries: No - ANESTHESIA Hx Anesthesia: No Hx Anesthesia Reactions: No Hx Malignant Hyperthermia: No Meds Allergies/Adverse Reactions: Allergies Allergy/AdvReac Type Severity Reaction Status Date / Time No Known Allergies Allergy Verified 10/28/17 20:48 - Medications Medications: Current Medications Diphenhydramine HCl (Benadryl) 25 mg IVP Q4H PRN PRN Reason: Itching / Pruritus Enoxaparin Sodium (Lovenox) 40 mg SC DAILY [facility] Folic Acid (Folic Acid) 1 mg PO DAILY [facility] Last Admin: 10/29/17 09:25 Dose: 1 mg Hydroxyurea (Hydrea) 500 mg PO BID [facility] Last Admin: 10/29/17 17:46 Dose: 500 mg Ceftriaxone Sodium 1 gm/ (Sodium Chloride) 100 mls @ 100 mls/hr IVPB DAILY [facility] PRN Reason: Protocol Last Admin: 10/29/17 10:41 Dose: 100 mls/hr Metoclopramide HCl (Reglan) 10 mg IVP Q6H PRN PRN Reason: Nausea/Vomiting Last Admin: 10/29/17 14:08 Dose: 10 mg Morphine Sulfate (Morphine) 4 mg IVP Q3 PRN PRN Reason: Pain, moderate (4-7) Last Admin: 10/29/17 19:56 Dose: 4 mg Pantoprazole Sodium (Protonix Ec Tab) 40 mg PO DAILY [facility] Last Admin: 10/29/17 09:25 Dose: 40 mg Pneumococcal Polyvalent Vaccine (Pneumovax 23 Vaccine) 0.5 ml IM .ONCE ONE Stop: 10/31/17 10:01 Physical Exam - Head Exam Head Exam: ATRAUMATIC - Eye Exam Eye Exam: Normal appearance - ENT Exam ENT Exam: Mucous Membranes Dry - Respiratory Exam Respiratory Exam: NORMAL BREATHING PATTERN - Cardiovascular Exam Cardiovascular Exam: +S1, +S2 - GI/Abdominal Exam GI & Abdominal Exam: Normal Bowel Sounds - Extremities Exam Extremities exam: Positive for: normal inspection - Neurological Exam Neurological exam: Oriented x3 - Psychiatric Exam Psychiatric exam: Normal Affect, Normal Mood - Skin Skin Exam: Warm Results - Vital Signs Recent Vital Signs: Last Vital Signs Temp 98.9 F 10/29/17 15:00 Pulse 77 10/29/17 15:00 Resp 20 10/29/17 15:00 BP 114/68 10/29/17 15:00 Pulse Ox 97 10/29/17 17:10 - Labs Result Diagrams: 10/28/17 22:35 10/28/17 22:35 Labs: Laboratory Results - last 24 hr 10/28/17 10/28/17 10/28/17 22:35 22:35 22:35 WBC 14.2 H RBC 2.26 L Hgb 7.4 L Hct 20.2 L MCV 89.3 D MCH 32.6 H MCHC 36.5 RDW 20.1 H Plt Count 788 H D MPV 7.6 Neut % (Auto) 58.0 Lymph % (Auto) 33.1 Tripp % (Auto) 5.8 Eos % (Auto) 2.6 Baso % (Auto) 0.5 Neut # (Auto) 8.3 H Lymph # (Auto) 4.7 H Tripp # (Auto) 0.8 Eos # (Auto) 0.4 Baso # (Auto) 0.1 Differential Comment Retic Count 6.6 H D PT 12.6 H INR 1.2 APTT 32 Sodium 141 Potassium 4.4 Chloride 102 Carbon Dioxide 27 Anion Gap 17 BUN 7 Creatinine 0.4 L Est GFR ( Amer) > 60 Est GFR (Non-Af Amer) > 60 Random Glucose 91 Calcium 9.2 Total Bilirubin 1.6 H AST 59 H ALT 39 Alkaline Phosphatase 51 Total Protein 8.2 Albumin 4.3 Globulin 4.0 H Albumin/Globulin Ratio 1.1 Urine HCG, Qual 10/28/17 22:57 WBC RBC Hgb Hct MCV MCH MCHC RDW Plt Count MPV Neut % (Auto) Lymph % (Auto) Tripp % (Auto) Eos % (Auto) Baso % (Auto) Neut # (Auto) Lymph # (Auto) Tripp # (Auto) Eos # (Auto) Baso # (Auto) Differential Comment Retic Count PT INR APTT Sodium Potassium Chloride Carbon Dioxide Anion Gap BUN Creatinine Est GFR ( Amer) Est GFR (Non-Af Amer) Random Glucose Calcium Total Bilirubin AST ALT Alkaline Phosphatase Total Protein Albumin Globulin Albumin/Globulin Ratio Urine HCG, Qual Negative Assessment & Plan (1) Sickle cell pain crisis Assessment and Plan: IV fluids, pain meds, folic acid, 02 via NC no current transfusion indication Status: Acute (2) Leukocytosis Assessment and Plan: on antibiotics Status: Acute (3) Thrombocytosis Assessment and Plan: reactive to sickle cell will check iron stores Status: Acute (4) Sickle cell anemia Assessment and Plan: outpatient hydroxyurea and folic acid Thank you for this interesting consult. Status: Acute
[2017-10-29] MEDS: Sodium Chloride 0.9% 1,000 ML IV SCH (20:58)
[2017-10-30] MEDS: Morphine 4 MG/ML VIAL IVP PRN ×7 (00:08→21:46)
[2017-10-30 07:45] LABS: BASO % 0.4 % (0.0-2.0); EOS # 0.2 K/uL (0.0-0.7); EOS % 1.4 % (0.0-4.0); HEMOGLOBIN 6.6 g/dL (11.0-16.0); LYMPH # 2.9 K/uL (1.0-4.3); LYMPH % 23.1 % (20.0-40.0); MEAN CELL VOLUME 90.9 fL (81.0-99.0); MEAN CORPUSCULAR HEMOGLOBIN 32.4 pg (27.0-31.0); MEAN CORPUSCULAR HGB CONC 35.6 g/dL (33.0-37.0); MEAN PLATELET VOLUME 7.8 fL (7.2-11.7); MONO # 0.9 K/uL (0.0-0.8); MONO % 6.9 % (0.0-10.0); NEUT # 8.6 K/uL (1.8-7.0); NEUT % 68.2 % (50.0-75.0); NRBC % 0.3 % (0.0-2.0); RBC 2.03 Mil/uL (3.80-5.20); RED CELL DISTRIBUTION WIDTH 18.9 % (11.5-14.5); WHITE BLOOD COUNT 12.7 K/uL (4.8-10.8)
[2017-10-30 07:53] LABS: ALB/GLOB RATIO 1.2 (1.0-2.1); ALBUMIN 4.4 g/dL (3.5-5.0); ALT/SGPT 18 U/L (9-52); AST/SGOT 60 U/L (14-36); BLOOD UREA NITROGEN 3 mg/dL (7-17); GFR AFRICAN-AMERICAN > 60; GFR NON-AFRICAN AMERICAN > 60
[2017-10-30] MEDS: Pantoprazole 40 mg EC Tab PO SCH (10:16)
[2017-10-30] MEDS: Enoxaparin 40 mg Syringe SC SCH (10:16)
[2017-10-30] MEDS: Sodium Chloride 0.9% 1,000 ML IV SCH (10:22)
--- NOTE | 2017-10-30 13:55 | CP.PCM.PN ---
Subjective - Date & Time of Evaluation Date of Evaluation: 10/30/17 Time of Evaluation: 08:40 - Subjective Subjective: clinically same Objective - Vital Signs/Intake and Output Vital Signs (last 24 hours): Temp Pulse Resp BP Pulse Ox 98.8 F 87 20 106/67 95 10/30/17 08:00 10/30/17 08:00 10/30/17 08:00 10/30/17 08:00 10/30/17 08:00 Intake and Output: 10/30/17 10/30/17 06:59 18:59 Intake Total 1660 Balance 1660 - Medications Medications: Current Medications Diphenhydramine HCl (Benadryl) 25 mg IVP Q4H PRN PRN Reason: Itching / Pruritus Enoxaparin Sodium (Lovenox) 40 mg SC DAILY [facility] Last Admin: 10/30/17 10:16 Dose: 40 mg Folic Acid (Folic Acid) 1 mg PO DAILY [facility] Last Admin: 10/30/17 10:16 Dose: 1 mg Hydroxyurea (Hydrea) 500 mg PO BID [facility] Last Admin: 10/30/17 10:16 Dose: 500 mg Ceftriaxone Sodium 1 gm/ (Sodium Chloride) 100 mls @ 100 mls/hr IVPB DAILY [facility] PRN Reason: Protocol Last Admin: 10/30/17 10:16 Dose: 100 mls/hr Sodium Chloride (Sodium Chloride 0.9%) 1,000 mls @ 70 mls/hr IV .[id number] [facility] Last Admin: 10/30/17 10:22 Dose: 70 mls/hr Metoclopramide HCl (Reglan) 10 mg IVP Q6H PRN PRN Reason: Nausea/Vomiting Last Admin: 10/29/17 14:08 Dose: 10 mg Morphine Sulfate (Morphine) 4 mg IVP Q3 PRN PRN Reason: Pain, moderate (4-7) Last Admin: 10/30/17 12:03 Dose: 4 mg Pantoprazole Sodium (Protonix Ec Tab) 40 mg PO DAILY [facility] Last Admin: 10/30/17 10:16 Dose: 40 mg Pneumococcal Polyvalent Vaccine (Pneumovax 23 Vaccine) 0.5 ml IM .ONCE ONE Stop: 10/31/17 10:01 - Labs Labs: 10/30/17 07:12 10/30/17 07:12 PT 12.6 SECONDS (9.7-12.2) H 10/28/17 22:35 INR 1.2 10/28/17 22:35 APTT 32 SECONDS (21-34) 10/28/17 22:35 - Constitutional Appears: Well - Head Exam Head Exam: ATRAUMATIC, NORMAL INSPECTION, NORMOCEPHALIC - Eye Exam Eye Exam: EOMI, Normal appearance, PERRL Pupil Exam: NORMAL ACCOMODATION, PERRL - ENT Exam ENT Exam: Mucous Membranes Moist, Normal Exam - Neck Exam Neck Exam: Full ROM, Normal Inspection. absent: Lymphadenopathy - Respiratory Exam Respiratory Exam: Decreased Breath Sounds - Cardiovascular Exam Cardiovascular Exam: REGULAR RHYTHM, +S1, +S2 - GI/Abdominal Exam GI & Abdominal Exam: Soft, Diminished Bowel Sounds - Rectal Exam Rectal Exam: Deferred
[2017-10-31] MEDS: Morphine 4 MG/ML VIAL IVP PRN ×3 (02:08→22:07)
[2017-10-31] MEDS: Sodium Chloride 0.9% 1,000 ML IV SCH ×3 (02:10→20:39)
[2017-10-31] MEDS ORDERED: Pneumococcal 23-Valent Vaccine IM ONE (10:00)
[2017-10-31] MEDS: Pantoprazole 40 mg EC Tab PO SCH (11:00)
[2017-10-31] MEDS: Enoxaparin 40 mg Syringe SC SCH (11:00)
[2017-10-31 14:14] LABS: MEAN CORPUSCULAR HEMOGLOBIN 32.5 pg (27.0-31.0); MEAN CORPUSCULAR HGB CONC 36.1 g/dL (33.0-37.0); MEAN PLATELET VOLUME 7.7 fL (7.2-11.7); RBC 2.17 Mil/uL (3.80-5.20); WHITE BLOOD COUNT 10.5 K/uL (4.8-10.8)
--- NOTE | 2017-10-31 18:05 | CP.PCM.PN ---
Subjective - Date & Time of Evaluation Date of Evaluation: 10/31/17 Time of Evaluation: 07:40 - Subjective Subjective: clinically same Objective - Vital Signs/Intake and Output Vital Signs (last 24 hours): Temp Pulse Resp BP Pulse Ox 98.2 F 75 20 104/62 99 10/31/17 16:00 10/31/17 16:00 10/31/17 16:00 10/31/17 16:00 10/31/17 16:00 Intake and Output: 10/31/17 10/31/17 06:59 18:59 Intake Total 1200 Balance 1200 - Medications Medications: Current Medications Diphenhydramine HCl (Benadryl) 25 mg IVP Q4H PRN PRN Reason: Itching / Pruritus Enoxaparin Sodium (Lovenox) 40 mg SC DAILY [facility] Last Admin: 10/31/17 11:00 Dose: 40 mg Folic Acid (Folic Acid) 1 mg PO DAILY [facility] Last Admin: 10/31/17 11:00 Dose: 1 mg Hydroxyurea (Hydrea) 500 mg PO BID [facility] Last Admin: 10/31/17 17:56 Dose: 500 mg Ceftriaxone Sodium 1 gm/ (Sodium Chloride) 100 mls @ 100 mls/hr IVPB DAILY [facility] PRN Reason: Protocol Last Admin: 10/31/17 11:00 Dose: 100 mls/hr Sodium Chloride (Sodium Chloride 0.9%) 1,000 mls @ 70 mls/hr IV .[id number] [facility] Last Admin: 10/31/17 16:09 Dose: Not Given Metoclopramide HCl (Reglan) 10 mg IVP Q6H PRN PRN Reason: Nausea/Vomiting Last Admin: 10/29/17 14:08 Dose: 10 mg Morphine Sulfate (Morphine) 4 mg IVP Q3 PRN PRN Reason: Pain, moderate (4-7) Last Admin: 10/31/17 12:54 Dose: 4 mg Pantoprazole Sodium (Protonix Ec Tab) 40 mg PO DAILY [facility] Last Admin: 10/31/17 11:00 Dose: 40 mg - Labs Labs: 10/31/17 14:01 10/30/17 07:12 PT 12.6 SECONDS (9.7-12.2) H 10/28/17 22:35 INR 1.2 10/28/17 22:35 APTT 32 SECONDS (21-34) 10/28/17 22:35 - Constitutional Appears: Well - Eye Exam Eye Exam: EOMI, Normal appearance, PERRL Pupil Exam: NORMAL ACCOMODATION, PERRL - ENT Exam ENT Exam: Mucous Membranes Moist, Normal Exam - Neck Exam Neck Exam: Full ROM, Normal Inspection. absent: Lymphadenopathy - Respiratory Exam Respiratory Exam: Decreased Breath Sounds - Cardiovascular Exam Cardiovascular Exam: REGULAR RHYTHM, +S1, +S2 - GI/Abdominal Exam GI & Abdominal Exam: Soft, Diminished Bowel Sounds - Rectal Exam Rectal Exam: Deferred Assessment and Plan (1) Sickle cell pain crisis Status: Acute (2) Thrombocytosis Status: Acute (3) Abdominal pain Status: Acute (4) Acute chest pain Status: Acute (5) Chest pain Status: Acute (6) Elevated LFTs Status: Acute (7) Hematuria Status: Acute (8) Hyperbilirubinemia Status: Acute (9) Iron deficiency anemia Status: Acute (10) Leukocytosis Status: Acute (11) Low back pain Status: Acute (12) Low back strain Status: Acute (13) Ovarian cyst Status: Acute (14) Pneumonia Status: Acute (15) Prophylactic measure Status: Acute (16) Sickle cell anemia Status: Acute (17) Sickle cell anemia with crisis Status: Acute (18) Sickle-cell crisis Status: Acute (19) Systolic murmur Status: Acute - Assessment and Plan (Free Text) Plan: Hydroxyurea Rocephin Reglan Morphine Monitor hemoglobin meds reviewed. labs reviewed. rock meds and management as ordered. follow up with natural remedy consultant recommendations. monitor labs. diet as tolerated per orders.
--- NOTE | 2017-10-31 23:23 | CP.PCM.PN ---
Subjective - Date & Time of Evaluation Date of Evaluation: 10/30/17 Time of Evaluation: 17:00 - Subjective Subjective: Has left leg pain. Objective - Vital Signs/Intake and Output Vital Signs (last 24 hours): Temp Pulse Resp BP Pulse Ox 98.2 F 75 20 104/62 99 10/31/17 16:00 10/31/17 16:00 10/31/17 16:00 10/31/17 16:00 10/31/17 16:00 Intake and Output: 10/31/17 11/01/17 18:59 06:59 Intake Total 860 Balance 860 - Medications Medications: Current Medications Diphenhydramine HCl (Benadryl) 25 mg IVP Q4H PRN PRN Reason: Itching / Pruritus Enoxaparin Sodium (Lovenox) 40 mg SC DAILY [facility] Last Admin: 10/31/17 11:00 Dose: 40 mg Folic Acid (Folic Acid) 1 mg PO DAILY [facility] Last Admin: 10/31/17 11:00 Dose: 1 mg Hydroxyurea (Hydrea) 500 mg PO BID [facility] Last Admin: 10/31/17 17:56 Dose: 500 mg Ceftriaxone Sodium 1 gm/ (Sodium Chloride) 100 mls @ 100 mls/hr IVPB DAILY [facility] PRN Reason: Protocol Last Admin: 10/31/17 11:00 Dose: 100 mls/hr Sodium Chloride (Sodium Chloride 0.9%) 1,000 mls @ 70 mls/hr IV .[id number] [facility] Last Admin: 10/31/17 20:39 Dose: 70 mls/hr Metoclopramide HCl (Reglan) 10 mg IVP Q6H PRN PRN Reason: Nausea/Vomiting Last Admin: 10/29/17 14:08 Dose: 10 mg Morphine Sulfate (Morphine) 4 mg IVP Q3 PRN PRN Reason: Pain, moderate (4-7) Last Admin: 10/31/17 22:07 Dose: 4 mg Pantoprazole Sodium (Protonix Ec Tab) 40 mg PO DAILY [facility] Last Admin: 10/31/17 11:00 Dose: 40 mg - Labs Labs: 10/31/17 14:01 10/30/17 07:12 PT 12.6 SECONDS (9.7-12.2) H 10/28/17 22:35 INR 1.2 10/28/17 22:35 APTT 32 SECONDS (21-34) 10/28/17 22:35 - Head Exam Head Exam: ATRAUMATIC - Eye Exam Eye Exam: Normal appearance - ENT Exam ENT Exam: Mucous Membranes Dry - Respiratory Exam Respiratory Exam: NORMAL BREATHING PATTERN - Cardiovascular Exam Cardiovascular Exam: +S1, +S2 - GI/Abdominal Exam GI & Abdominal Exam: Normal Bowel Sounds Assessment and Plan (1) Sickle cell pain crisis Assessment & Plan: Iv fluids, pain meds, folic acid, 02 via NC no current transfusion indication Status: Acute (2) Leukocytosis Assessment & Plan: on antibiotics Status: Acute (3) Thrombocytosis Assessment & Plan: reactive to sickle cell Status: Acute (4) Sickle cell anemia Assessment & Plan: hydrea and folic acid Status: Acute
--- NOTE | 2017-10-31 23:25 | CP.PCM.PN ---
Subjective - Date & Time of Evaluation Date of Evaluation: 10/31/17 Time of Evaluation: 14:00 - Subjective Subjective: Has pain. Objective - Vital Signs/Intake and Output Vital Signs (last 24 hours): Temp Pulse Resp BP Pulse Ox 98.2 F 75 20 104/62 99 10/31/17 16:00 10/31/17 16:00 10/31/17 16:00 10/31/17 16:00 10/31/17 16:00 Intake and Output: 10/31/17 11/01/17 18:59 06:59 Intake Total 860 Balance 860 - Medications Medications: Current Medications Diphenhydramine HCl (Benadryl) 25 mg IVP Q4H PRN PRN Reason: Itching / Pruritus Enoxaparin Sodium (Lovenox) 40 mg SC DAILY [facility] Last Admin: 10/31/17 11:00 Dose: 40 mg Folic Acid (Folic Acid) 1 mg PO DAILY [facility] Last Admin: 10/31/17 11:00 Dose: 1 mg Hydroxyurea (Hydrea) 500 mg PO BID [facility] Last Admin: 10/31/17 17:56 Dose: 500 mg Ceftriaxone Sodium 1 gm/ (Sodium Chloride) 100 mls @ 100 mls/hr IVPB DAILY [facility] PRN Reason: Protocol Last Admin: 10/31/17 11:00 Dose: 100 mls/hr Sodium Chloride (Sodium Chloride 0.9%) 1,000 mls @ 70 mls/hr IV .[id number] [facility] Last Admin: 10/31/17 20:39 Dose: 70 mls/hr Metoclopramide HCl (Reglan) 10 mg IVP Q6H PRN PRN Reason: Nausea/Vomiting Last Admin: 10/29/17 14:08 Dose: 10 mg Morphine Sulfate (Morphine) 4 mg IVP Q3 PRN PRN Reason: Pain, moderate (4-7) Last Admin: 10/31/17 22:07 Dose: 4 mg Pantoprazole Sodium (Protonix Ec Tab) 40 mg PO DAILY [facility] Last Admin: 10/31/17 11:00 Dose: 40 mg - Labs Labs: 10/31/17 14:01 10/30/17 07:12 PT 12.6 SECONDS (9.7-12.2) H 10/28/17 22:35 INR 1.2 10/28/17 22:35 APTT 32 SECONDS (21-34) 10/28/17 22:35 - Head Exam Head Exam: ATRAUMATIC - Eye Exam Eye Exam: Normal appearance - ENT Exam ENT Exam: Mucous Membranes Dry - Respiratory Exam Respiratory Exam: NORMAL BREATHING PATTERN - Cardiovascular Exam Cardiovascular Exam: +S1, +S2 - GI/Abdominal Exam GI & Abdominal Exam: Normal Bowel Sounds Assessment and Plan (1) Sickle cell pain crisis Assessment & Plan: IV fluids, pain meds, folic acid, 02 via NC no current transfusion indication Status: Acute (2) Thrombocytosis Assessment & Plan: reactive to sickle cell Status: Acute (3) Sickle cell anemia Assessment & Plan: folic acid and hydrea Status: Acute
[2017-11-01] MEDS: Sodium Chloride 0.9% 1,000 ML IV SCH ×2 (05:39→21:05)
[2017-11-01] MEDS: Pantoprazole 40 mg EC Tab PO SCH (09:41)
[2017-11-01] MEDS: Enoxaparin 40 mg Syringe SC SCH (09:41)
[2017-11-01] MEDS: Morphine 4 MG/ML VIAL IVP PRN ×2 (09:52→20:31)
--- NOTE | 2017-11-01 13:32 | CP.PCM.PN ---
Subjective - Date & Time of Evaluation Date of Evaluation: 11/01/17 Time of Evaluation: 07:40 - Subjective Subjective: clinically same Objective - Vital Signs/Intake and Output Vital Signs (last 24 hours): Temp Pulse Resp BP Pulse Ox 99.0 F 90 20 101/58 L 94 L 11/01/17 07:24 11/01/17 07:24 11/01/17 07:24 11/01/17 07:24 11/01/17 07:24 Intake and Output: 11/01/17 11/01/17 06:59 18:59 Intake Total 1660 Balance 1660 - Medications Medications: Current Medications Diphenhydramine HCl (Benadryl) 25 mg IVP Q4H PRN PRN Reason: Itching / Pruritus Enoxaparin Sodium (Lovenox) 40 mg SC DAILY [facility] Last Admin: 11/01/17 09:41 Dose: 40 mg Folic Acid (Folic Acid) 1 mg PO DAILY [facility] Last Admin: 11/01/17 09:41 Dose: 1 mg Hydroxyurea (Hydrea) 500 mg PO BID [facility] Last Admin: 11/01/17 09:41 Dose: 500 mg Ceftriaxone Sodium 1 gm/ (Sodium Chloride) 100 mls @ 100 mls/hr IVPB DAILY [facility] PRN Reason: Protocol Last Admin: 11/01/17 09:42 Dose: 100 mls/hr Sodium Chloride (Sodium Chloride 0.9%) 1,000 mls @ 70 mls/hr IV .[id number] [facility] Last Admin: 11/01/17 05:39 Dose: 70 mls/hr Metoclopramide HCl (Reglan) 10 mg IVP Q6H PRN PRN Reason: Nausea/Vomiting Last Admin: 10/29/17 14:08 Dose: 10 mg Morphine Sulfate (Morphine) 4 mg IVP Q3 PRN PRN Reason: Pain, moderate (4-7) Last Admin: 11/01/17 09:52 Dose: 4 mg Pantoprazole Sodium (Protonix Ec Tab) 40 mg PO DAILY [facility] Last Admin: 11/01/17 09:41 Dose: 40 mg - Labs Labs: 10/31/17 14:01 10/30/17 07:12 PT 12.6 SECONDS (9.7-12.2) H 10/28/17 22:35 INR 1.2 05/24/18 22:35 APTT 32 SECONDS (21-34) 10/28/17 22:35 - Constitutional Appears: Well - Head Exam Head Exam: ATRAUMATIC, NORMAL INSPECTION, NORMOCEPHALIC - Eye Exam Eye Exam: EOMI, Normal appearance, PERRL Pupil Exam: NORMAL ACCOMODATION, PERRL - ENT Exam ENT Exam: Mucous Membranes Moist, Normal Exam - Neck Exam Neck Exam: Full ROM, Normal Inspection. absent: Lymphadenopathy - Respiratory Exam Respiratory Exam: Decreased Breath Sounds - Cardiovascular Exam Cardiovascular Exam: REGULAR RHYTHM, +S1, +S2 - GI/Abdominal Exam GI & Abdominal Exam: Soft, Diminished Bowel Sounds - Rectal Exam Rectal Exam: Deferred Assessment and Plan (1) Sickle cell pain crisis Status: Acute (2) Thrombocytosis Status: Acute (3) Abdominal pain Status: Acute (4) Acute chest pain Status: Acute (5) Chest pain Status: Acute (6) Elevated LFTs Status: Acute (7) Hematuria Status: Acute (8) Hyperbilirubinemia Status: Acute (9) Iron deficiency anemia Status: Acute (10) Leukocytosis Status: Acute (11) Low back pain Status: Acute (12) Low back strain Status: Acute (13) Ovarian cyst Status: Acute (14) Pneumonia Status: Acute (15) Prophylactic measure Status: Acute (16) Sickle cell anemia Status: Acute (17) Sickle cell anemia with crisis Status: Acute (18) Sickle-cell crisis Status: Acute (19) Systolic murmur Status: Acute - Assessment and Plan (Free Text) Plan: Continue pain medicine Continue IV fluid Continue monitoring the labs Continue follow-up with the Humalog CBC CMP As ordered IV antibiotic
--- NOTE | 2017-11-02 05:58 | CP.PCM.PN ---
Subjective - Date & Time of Evaluation Date of Evaluation: 11/02/17 Time of Evaluation: 05:54 - Subjective Subjective: PGY2 Progress note for Dr. Phipps's service: Pt seen and examined at bedside. Nursing reports no acute events overnight. Patient reports improved pain in her lower leg/back since admission. She denies chest pain, SOB, palpitations, abd pain, N/V. Objective - Vital Signs/Intake and Output Vital Signs (last 24 hours): Temp Pulse Resp BP Pulse Ox 98.5 F 101 H 18 103/60 98 11/01/17 23:40 11/01/17 23:40 11/01/17 23:40 11/01/17 23:40 11/01/17 23:40 Intake and Output: 11/01/17 11/02/17 18:59 06:59 Intake Total 1070 1010 Balance 1070 1010 - Medications Medications: Current Medications Diphenhydramine HCl (Benadryl) 25 mg IVP Q4H PRN PRN Reason: Itching / Pruritus Enoxaparin Sodium (Lovenox) 40 mg SC DAILY [facility] Last Admin: 11/01/17 09:41 Dose: 40 mg Folic Acid (Folic Acid) 1 mg PO DAILY [facility] Last Admin: 11/01/17 09:41 Dose: 1 mg Hydroxyurea (Hydrea) 500 mg PO BID [facility] Last Admin: 11/01/17 18:39 Dose: 500 mg Ceftriaxone Sodium 1 gm/ (Sodium Chloride) 100 mls @ 100 mls/hr IVPB DAILY [facility] PRN Reason: Protocol Last Admin: 11/01/17 09:42 Dose: 100 mls/hr Metoclopramide HCl (Reglan) 10 mg IVP Q6H PRN PRN Reason: Nausea/Vomiting Last Admin: 10/29/17 14:08 Dose: 10 mg Morphine Sulfate (Morphine) 4 mg IVP Q3 PRN PRN Reason: Pain, moderate (4-7) Last Admin: 11/01/17 20:31 Dose: 4 mg Pantoprazole Sodium (Protonix Ec Tab) 40 mg PO DAILY [facility] Last Admin: 11/01/17 09:41 Dose: 40 mg - Labs Labs: 10/31/17 14:01 10/30/17 07:12 PT 12.6 SECONDS (9.7-12.2) H 05/24/18 22:35 INR 1.2 10/28/17 22:35 APTT 32 SECONDS (21-34) 10/28/17 22:35 - Additional Findings Additional findings: - Constitutional Appears: Non-toxic, No Acute Distress - Head Exam Head Exam: ATRAUMATIC, NORMAL INSPECTION, NORMOCEPHALIC - Eye Exam Eye Exam: EOMI, Normal appearance, PERRL Pupil Exam: NORMAL ACCOMODATION - ENT Exam ENT Exam: Mucous Membranes Moist - no scleral icterus - Neck Exam Neck Exam: Full ROM - Respiratory Exam Respiratory Exam: NORMAL BREATHING PATTERN. absent: Wheezes - Cardiovascular Exam Cardiovascular Exam: +S1, +S2 - GI/Abdominal Exam GI & Abdominal Exam: Soft, Normal Bowel Sounds - Extremities Exam Extremities Exam: Full ROM, Normal Inspection - Back Exam Back Exam: Full ROM - Neurological Exam Neurological Exam: Alert, Awake, Oriented x3 - Psychiatric Exam Psychiatric exam: Normal Affect, Normal Mood - Skin Skin Exam: Dry, Intact, Normal Color, Warm Assessment and Plan - Assessment and Plan (Free Text) Plan: Sickle cell anemia with crisis Admit to med/surg Hgb 7.4, Retic count 6.6 on admission repeat retic ct (11/02/17): 4.7 f/u 11/[address] Hematology consult - Dr. Moss - help appreciated - IVF, pain control, folic acid, O2 via NC - no current transfusion indication Reglan 10mg IV q6h PRN for nausea Morphine will decrease 2mg Q3H prn pain Folic Acid 1mg PO Daily Hydroxyurea 500mg PO BID Elevated SGOT (AST) Mild; AST 59 on admission Monitor Hyperbilirubinemia Tbili 1.6 today Monitor Thrombocytosis Platelet 788 Monitor Prophylactic measure Lovenox 40mg SC daily Protonix 40mg PO daily Disposition: Pt for discharge today pending AM labwork. Ancelmo Domingo PGY2 Medical management per Dr. Phipps
[2017-11-02] MEDS: Morphine 4 MG/ML VIAL IVP PRN (06:45)
[2017-11-02 08:38] VITALS: BP 103/59; PULSE 86; RESP 20; TEMP 98.8; O2SAT 95
[2017-11-02] MEDS: Pantoprazole 40 mg EC Tab PO SCH (10:50)
[2017-11-02] MEDS: Enoxaparin 40 mg Syringe SC SCH (10:50)
[2017-11-02 10:57] LABS: HEMOGLOBIN 6.8 g/dL (11.0-16.0); MEAN CELL VOLUME 89.9 fL (81.0-99.0); MEAN CORPUSCULAR HEMOGLOBIN 32.2 pg (27.0-31.0); MEAN CORPUSCULAR HGB CONC 35.8 g/dL (33.0-37.0); RBC 2.1 Mil/uL (3.80-5.20); RED CELL DISTRIBUTION WIDTH 18.7 % (11.5-14.5); WHITE BLOOD COUNT 11.4 K/uL (4.8-10.8)
[2017-11-02 11:18] LABS: ALT/SGPT 54 U/L (9-52); AST/SGOT 75 U/L (14-36); BLOOD UREA NITROGEN 6 mg/dL (7-17); CALCIUM 9.1 mg/dl (8.6-10.4); GFR AFRICAN-AMERICAN > 60; GFR NON-AFRICAN AMERICAN > 60
[2017-11-02 11:50] LABS: EOS # 0.3 K/uL (0.0-0.7); LYMPH # 3.4 K/uL (1.0-4.3); MONO # 0.9 K/uL (0.0-0.8); NEUT # 6.7 K/uL (1.8-7.0)
[2017-11-02] MEDS ORDERED: Morphine 4 MG/ML VIAL IVP PRN (12:00)
--- NOTE | 2017-11-02 15:07 | CP.PCM.PN ---
Subjective - Date & Time of Evaluation Date of Evaluation: 11/02/17 Time of Evaluation: 08:00 - Subjective Subjective: clinically same Objective - Vital Signs/Intake and Output Vital Signs (last 24 hours): Temp Pulse Resp BP Pulse Ox 98.8 F 86 20 103/59 L 95 11/02/17 08:37 11/02/17 08:37 11/02/17 08:37 11/02/17 08:37 11/02/17 08:37 Intake and Output: 11/02/17 11/02/17 06:59 18:59 Intake Total 1010 740 Balance 1010 740 - Medications Medications: Current Medications Diphenhydramine HCl (Benadryl) 25 mg IVP Q4H PRN PRN Reason: Itching / Pruritus Enoxaparin Sodium (Lovenox) 40 mg SC DAILY [facility] Last Admin: 11/02/17 10:50 Dose: 40 mg Folic Acid (Folic Acid) 1 mg PO DAILY [facility] Last Admin: 11/02/17 10:50 Dose: 1 mg Hydroxyurea (Hydrea) 500 mg PO BID [facility] Last Admin: 11/02/17 10:50 Dose: 500 mg Metoclopramide HCl (Reglan) 10 mg IVP Q6H PRN PRN Reason: Nausea/Vomiting Last Admin: 10/29/17 14:08 Dose: 10 mg Morphine Sulfate (Morphine) 2 mg IVP Q3 PRN PRN Reason: Pain, moderate (4-7) Pantoprazole Sodium (Protonix Ec Tab) 40 mg PO DAILY [facility] Last Admin: 11/02/17 10:50 Dose: 40 mg - Labs Labs: 11/02/17 10:51 11/02/17 10:51 PT 12.6 SECONDS (9.7-12.2) H 10/28/17 22:35 INR 1.2 10/28/17 22:35 APTT 32 SECONDS (21-34) 10/28/17 22:35 - Constitutional Appears: Well - Head Exam Head Exam: ATRAUMATIC, NORMAL INSPECTION, NORMOCEPHALIC - Eye Exam Eye Exam: EOMI, Normal appearance, PERRL Pupil Exam: NORMAL ACCOMODATION, PERRL - ENT Exam ENT Exam: Mucous Membranes Moist, Normal Exam - Neck Exam Neck Exam: Full ROM, Normal Inspection. absent: Lymphadenopathy - Respiratory Exam Respiratory Exam: Decreased Breath Sounds - Cardiovascular Exam Cardiovascular Exam: REGULAR RHYTHM, +S1, +S2 - GI/Abdominal Exam GI & Abdominal Exam: Soft, Diminished Bowel Sounds - Rectal Exam Rectal Exam: Deferred Assessment and Plan (1) Sickle cell pain crisis Status: Acute (2) Thrombocytosis Status: Acute (3) Abdominal pain Status: Acute (4) Acute chest pain Status: Acute (5) Chest pain Status: Acute (6) Elevated LFTs Status: Acute (7) Hematuria Status: Acute (8) Hyperbilirubinemia Status: Acute (9) Iron deficiency anemia Status: Acute (10) Leukocytosis Status: Acute (11) Low back pain Status: Acute (12) Low back strain Status: Acute (13) Ovarian cyst Status: Acute (14) Pneumonia Status: Acute (15) Prophylactic measure Status: Acute (16) Sickle cell anemia Status: Acute (17) Sickle cell anemia with crisis Status: Acute (18) Sickle-cell crisis Status: Acute (19) Systolic murmur Status: Acute
--- NOTE | 2017-11-02 19:10 | CP.PCM.PN ---
Subjective - Date & Time of Evaluation Date of Evaluation: 11/02/17 Time of Evaluation: 13:15 - Subjective Subjective: Feeling better Objective - Vital Signs/Intake and Output Vital Signs (last 24 hours): Temp Pulse Resp BP Pulse Ox 98.8 F 86 20 103/59 L 95 11/02/17 08:37 11/02/17 08:37 11/02/17 08:37 11/02/17 08:37 11/02/17 08:37 Intake and Output: 11/02/17 11/03/17 18:59 06:59 Intake Total 1500 Balance 1500 - Labs Labs: 11/02/17 10:51 11/02/17 10:51 PT 12.6 SECONDS (9.7-12.2) H 10/28/17 22:35 INR 1.2 10/28/17 22:35 APTT 32 SECONDS (21-34) 10/28/17 22:35 - Head Exam Head Exam: ATRAUMATIC - Eye Exam Eye Exam: Normal appearance - ENT Exam ENT Exam: Mucous Membranes Dry - Respiratory Exam Respiratory Exam: NORMAL BREATHING PATTERN - Cardiovascular Exam Cardiovascular Exam: +S1, +S2 - GI/Abdominal Exam GI & Abdominal Exam: Normal Bowel Sounds Assessment and Plan (1) Sickle cell pain crisis Assessment & Plan: IV fluids, pain meds, 02 via NC, folic acid no current transfusion indication Status: Acute (2) Thrombocytosis Assessment & Plan: reactive Status: Acute (3) Sickle cell anemia Assessment & Plan: folic acid and hydrea Status: Acute
== END 2017-11-02 15:17 | disposition home or self-care (01) | DRG 395 ==
LOC: C.ER 20:42 → C.9E 23:09 → C.3T 10-29 02:24
PROVIDERS: ADMIT Internal Medicine Nephrology; ATTEND Internal Medicine Nephrology
DX: D57.00 Hb-SS disease with crisis, unspecified (principal); D72.829 Elevated white blood cell count, unspecified; D47.3 Essential (hemorrhagic) thrombocythemia

== ENCOUNTER 2017-11-27 00:17 | Inpatient (IN) | payer MEDICAID ==
[2017-11-27 00:18] VITALS: BMI 24.5
[2017-11-27] MEDS ORDERED: Sodium Chloride 0.9% 1,000 ML IV ONE ×2 (00:38→00:39)
--- NOTE | 2017-11-27 00:44 | C.PDOC ---
History Of Present Illness 27 year old with PMHx of sickle cell disease presents to the ED c/o generalized pain, mostly to both upper extremities. Patient is notably crying due to her pain. Patient denies injury, fall, trauma, CP, SOB, fever, chills, nausea, vomit. Chief Complaint (Nursing): Medical Clearance History Per: Patient History/Exam Limitations: no limitations Onset/Duration Of Symptoms: Days Current Symptoms Are (Timing): Still Present Severity: Moderate Recent travel outside of the [place]: No Additional History Per: Patient Past Medical History Reviewed: Historical Data, Nursing Documentation, Vital Signs Vital Signs: Last Vital Signs Temp 98.9 F 11/27/17 00:27 Pulse 100 H 11/27/17 00:27 Resp 20 11/27/17 00:27 BP 133/82 11/27/17 00:27 Pulse Ox 100 11/27/17 01:53 - Medical History PMH: Anemia, Sickle Cell Disease Denies: Chronic Kidney Disease Surgical History: No Surg Hx - [facility] Procedures FLUOROSCOPY OF SUPERIOR VENA CAVA, GUIDANCE (11/02/16) INSERTION OF INFUSION DEV INTO SUP VENA CAVA, PERC APPROACH (11/02/16) TRANSFUSE NONAUT RED BLOOD CELLS IN PERIPH VEIN, PERC (12/22/16) Family History: States: Unknown Family Hx - Social History Hx Alcohol Use: Yes Hx Substance Use: No - Immunization History Hx Tetanus Toxoid Vaccination: No Hx Influenza Vaccination: No Hx Pneumococcal Vaccination: No Review Of Systems Constitutional: Positive for: Malaise. Negative for: Fever, Chills Cardiovascular: Negative for: Chest Pain, Palpitations Respiratory: Negative for: Cough, Shortness of Breath Gastrointestinal: Negative for: Nausea, Vomiting Musculoskeletal: Positive for: Arm Pain (B/L) Skin: Negative for: Rash Neurological: Negative for: Weakness, Numbness Physical Exam - Physical Exam Appears: Non-toxic, In Acute Distress, Other (crying) Skin: Warm, Dry, Pale Head: Atraumatic, Normacephalic Eye(s): bilateral: Normal Inspection Oral Mucosa: Moist Neck: Normal ROM, Supple Chest: Symmetrical Cardiovascular: Rhythm Regular Respiratory: Normal Breath Sounds, No Rales, No Rhonchi, No Wheezing Gastrointestinal/Abdominal: Soft, No Tenderness, No Guarding, No Rebound Back: Normal Inspection Extremity: Normal ROM, No Tenderness, No Swelling Neurological/Psych: Oriented x3, Normal Speech, Other (no focal deficits) Gait: Steady ED Course And Treatment - Laboratory Results Result Diagrams: 11/27/17 00:59 11/27/17 00:59 O2 Sat by Pulse Oximetry: 100 (ON RA) Pulse Ox Interpretation: Normal Medical Decision Making Medical Decision Making: Impression: generalized pain Plan: * Labs * Morphine 4 mg IVP * Toradol 30 mg IVP * IV fluids * UA * O2 nasal cannula Disposition Discussed With : Leighton Phipps Doctor Will See Patient In The: Hospital Counseled Patient/Family Regarding: Diagnosis - Disposition Disposition: HOSPITALIZED Disposition Time: 01:51 Condition: STABLE Forms: [facility] (Maltese) - POA Present On Arrival: None - Clinical Impression Clinical Impression: Sickle cell anemia with pain, Sickle cell pain crisis - Scribe Statement The provider has reviewed the documentation as recorded by the Scribe Rancho Gimenez All medical record entries made by the Scribe were at my direction and personally dictated by me. I have reviewed the chart and agree that the record accurately reflects my personal performance of the history, physical exam, medical decision making, and the department course for this patient. I have also personally directed, reviewed, and agree with the discharge instructions and disposition.
[2017-11-27] MEDS ORDERED: Morphine 4 MG/ML VIAL ONE (01:01)
[2017-11-27] MEDS ORDERED: Sodium Chloride 0.9% 1,000 ML ONE (01:01)
[2017-11-27 01:22] LABS: ALB/GLOB RATIO 1.2 (1.0-2.1); ALBUMIN 4.8 g/dL (3.5-5.0); ALT/SGPT 32 U/L (9-52); AST/SGOT 54 U/L (14-36); BLOOD UREA NITROGEN 6 mg/dL (7-17); CALCIUM 9.6 mg/dl (8.6-10.4); GFR AFRICAN-AMERICAN > 60; GFR NON-AFRICAN AMERICAN > 60
[2017-11-27 01:23] LABS: HEMOGLOBIN 7.3 g/dL (11.0-16.0); MEAN CELL VOLUME 88.3 fL (81.0-99.0); MEAN CORPUSCULAR HEMOGLOBIN 31.4 pg (27.0-31.0); MEAN CORPUSCULAR HGB CONC 35.5 g/dL (33.0-37.0); MEAN PLATELET VOLUME 7.4 fL (7.2-11.7); PLATELET COUNT 578 K/uL (130-400); RBC 2.31 Mil/uL (3.80-5.20); RED CELL DISTRIBUTION WIDTH 19.3 % (11.5-14.5); WHITE BLOOD COUNT 22.6 K/uL (4.8-10.8)
[2017-11-27 01:36] LABS: INR 1.2
[2017-11-27] MEDS ORDERED: Sodium Chloride 0.9% 1,000 ML IV SCH (02:00)
[2017-11-27 02:26] LABS: LYMPHOCYTE 11 % (20-40); MONOCYTE 3 % (0-10); NEUTROPHIL 86 % (50-75); PLATELET ESTIMATE INCREASED (NORMAL); TOTAL CELLS COUNTED 100
[2017-11-27 02:27] LABS: ANISOCYTOSIS MARKED; HYPOCHROMIC MODERATE; MICROCYTOSIS MODERATE; POIKILOCYTOSIS MARKED
[2017-11-27 02:28] LABS: OVALOCYTES MODERATE; TARGET CELLS MODERATE
[2017-11-27 02:29] LABS: SCHISTOCYTES MARKED; SICKLE CELLS MARKED
[2017-11-27 02:31] LABS: SQUAMOUS EPITHIAL 4 /hpf (0-5); URINE BILIRUBIN NEGATIVE (NEGATIVE); URINE CLARITY Clear (Clear); URINE COLOR Yellow (YELLOW); URINE GLUCOSE (UA) NORMAL (Normal); URINE LEUKOCYTE ESTERASE NEG Leu/uL (Negative); URINE PROTEIN NEGATIVE (NEGATIVE); URINE UROBILINOGEN NORMAL mg/dL (0.2-1.0)
[2017-11-27 02:34] LABS: URINE BLOOD NEGATIVE (NEGATIVE)
[2017-11-27] MEDS: DiphenhydrAMINE 50 mg/ml Inj IVP PRN ×6 (04:10→21:58)
[2017-11-27] MEDS: Pantoprazole 40 mg EC Tab PO SCH (09:44)
[2017-11-27] MEDS: Enoxaparin 40 mg Syringe SC SCH (09:44)
[2017-11-27] MEDS: Morphine 4 MG/ML VIAL IVP PRN ×3 (14:45→21:58)
--- NOTE | 2017-11-27 14:45 | CP.PCM.HP ---
Past Patient History - Infectious Disease Hx of Infectious Diseases: None - Past Medical History & Family History Past Medical History?: Yes - Past Social History Smoking Status: Never Smoked - CARDIAC Hx Cardiac Disorders: No - PULMONARY Hx Respiratory Disorders: No - NEUROLOGICAL Hx Neurological Disorder: No - HEENT Hx HEENT Problems: No - RENAL Hx Chronic Kidney Disease: No - ENDOCRINE/METABOLIC Hx Endocrine Disorders: No - HEMATOLOGICAL/ONCOLOGICAL Hx Blood Disorders: Yes Hx Anemia: Yes Hx Sickle Cell Disease: Yes - INTEGUMENTARY Hx Dermatological Problems: No - MUSCULOSKELETAL/RHEUMATOLOGICAL Hx Musculoskeletal Disorders: No Hx Falls: No - GASTROINTESTINAL Hx Gastrointestinal Disorders: No - GENITOURINARY/GYNECOLOGICAL Hx Genitourinary Disorders: No - PSYCHIATRIC Hx Psychophysiologic Disorder: No Hx Substance Use: No - SURGICAL HISTORY Hx Surgeries: No - ANESTHESIA Hx Anesthesia: No Hx Anesthesia Reactions: No Hx Malignant Hyperthermia: No Has any member of the family had a problem w/ anesthesia?: No Meds Allergies/Adverse Reactions: Allergies Allergy/AdvReac Type Severity Reaction Status Date / Time No Known Allergies Allergy Verified 11/27/17 00:30 Physical Exam - Constitutional Appears: Well - Head Exam Head Exam: ATRAUMATIC, NORMAL INSPECTION, NORMOCEPHALIC - Eye Exam Eye Exam: EOMI, Normal appearance, PERRL Pupil Exam: NORMAL ACCOMODATION, PERRL - ENT Exam ENT Exam: Mucous Membranes Moist, Normal Exam - Neck Exam Neck exam: Positive for: Normal Inspection - Respiratory Exam Respiratory Exam: Decreased Breath Sounds - Cardiovascular Exam Cardiovascular Exam: REGULAR RHYTHM, +S1, +S2 - GI/Abdominal Exam GI & Abdominal Exam: Diminished Bowel Sounds, Soft - Rectal Exam Rectal Exam: Deferred Results - Vital Signs Recent Vital Signs: Last Vital Signs Temp 98.8 F 11/27/17 08:00 Pulse 91 H 11/27/17 08:00 Resp 20 11/27/17 08:00 BP 115/70 11/27/17 08:00 Pulse Ox 95 11/27/17 08:00 - Labs Result Diagrams: 11/27/17 00:59 11/27/17 00:59 Labs: Laboratory Results - last 24 hr 11/27/17 11/27/17 11/27/17 00:59 00:59 00:59 WBC 22.6 H D RBC 2.31 L Hgb 7.3 L Hct 20.4 L MCV 88.3 MCH 31.4 H MCHC 35.5 RDW 19.3 H Plt Count 578 H D MPV 7.4 Neutrophils % (Manual) 86 H Lymphocytes % (Manual) 11 L Monocytes % (Manual) 3 Platelet Estimate Increased H Hypochromasia (manual) Moderate Poikilocytosis (manual Marked Anisocytosis (manual) Marked Microcytosis (manual) Moderate Sickle Cells Marked Target Cells Moderate Ovalocytes Moderate Schistocytes Marked Retic Count Sickle Cell Screen PT 13.0 H INR 1.2 APTT 34 D-Dimer, Quantitative 442 H Sodium 138 Potassium 3.6 Chloride 101 Carbon Dioxide 25 Anion Gap 16 BUN 6 L Creatinine 0.4 L Est GFR ( Amer) > 60 Est GFR (Non-Af Amer) > 60 Random Glucose 110 H Calcium 9.6 Total Bilirubin 1.9 H AST 54 H D ALT 32 Alkaline Phosphatase 62 Total Protein 8.6 H Albumin 4.8 Globulin 3.9 Albumin/Globulin Ratio 1.2 Urine Color Urine Clarity Urine pH Ur Specific [place] Urine Protein Urine Glucose (UA) Urine Ketones Urine Blood Urine Nitrate Urine Bilirubin Urine Urobilinogen Ur Leukocyte Esterase Urine WBC (Auto) Urine RBC (Auto) Ur Squamous Epith Cells Blood Type Antibody Screen Antibody Identification 11/27/17 11/27/17 11/27/17 00:59 00:59 02:20 WBC RBC Hgb Hct MCV MCH MCHC RDW Plt Count MPV Neutrophils % (Manual) Lymphocytes % (Manual) Monocytes % (Manual) Platelet Estimate Hypochromasia (manual) Poikilocytosis (manual Anisocytosis (manual) Microcytosis (manual) Sickle Cells Target Cells Ovalocytes Schistocytes Retic Count 6.1 H D Sickle Cell Screen Positive H PT INR APTT D-Dimer, Quantitative Sodium Potassium Chloride Carbon Dioxide Anion Gap BUN Creatinine Est GFR ( Amer) Est GFR (Non-Af Amer) Random Glucose Calcium Total Bilirubin AST ALT Alkaline Phosphatase Total Protein Albumin Globulin Albumin/Globulin Ratio Urine Color Yellow Urine Clarity Clear Urine pH 6.0 Ur Specific [place] 1.008 Urine Protein Negative Urine Glucose (UA) Normal Urine Ketones Negative Urine Blood Negative Urine Nitrate Negative Urine Bilirubin Negative Urine Urobilinogen Normal Ur Leukocyte Esterase Neg Urine WBC (Auto) 1 Urine RBC (Auto) < 1 Ur Squamous Epith Cells 4 Blood Type Antibody Screen Antibody Identification 11/27/17 02:36 WBC RBC Hgb Hct MCV MCH MCHC RDW Plt Count MPV Neutrophils % (Manual) Lymphocytes % (Manual) Monocytes % (Manual) Platelet Estimate Hypochromasia (manual) Poikilocytosis (manual Anisocytosis (manual) Microcytosis (manual) Sickle Cells Target Cells Ovalocytes Schistocytes Retic Count Sickle Cell Screen PT INR APTT D-Dimer, Quantitative Sodium Potassium Chloride Carbon Dioxide Anion Gap BUN Creatinine Est GFR ( Amer) Est GFR (Non-Af Amer) Random Glucose Calcium Total Bilirubin AST ALT Alkaline Phosphatase Total Protein Albumin Globulin Albumin/Globulin Ratio Urine Color Urine Clarity Urine pH Ur Specific [place] Urine Protein Urine Glucose (UA) Urine Ketones Urine Blood Urine Nitrate Urine Bilirubin Urine Urobilinogen Ur Leukocyte Esterase Urine WBC (Auto) Urine RBC (Auto) Ur Squamous Epith Cells Blood Type O POSITIVE Antibody Screen Positive Antibody Identification Non Specific Antibody
[2017-11-27] MEDS: Sodium Chloride 0.9% 1,000 ML IV SCH ×3 (15:09→23:06)
[2017-11-28] MEDS: Morphine 4 MG/ML VIAL IVP PRN ×4 (00:55→21:58)
[2017-11-28] MEDS: DiphenhydrAMINE 50 mg/ml Inj IVP PRN ×3 (00:55→21:57)
[2017-11-28] MEDS: Sodium Chloride 0.9% 1,000 ML IV SCH ×5 (01:00→22:28)
[2017-11-28 03:07] LABS: MCH 30.7 pg (27.0-33.0); MCV 93.5 fL (80.0-100.0)
[2017-11-28 08:50] LABS: HEMOGLOBIN 6.6 g/dL (11.0-16.0); MEAN CELL VOLUME 89.4 fL (81.0-99.0); MEAN CORPUSCULAR HEMOGLOBIN 32.4 pg (27.0-31.0); MEAN CORPUSCULAR HGB CONC 36.2 g/dL (33.0-37.0); MEAN PLATELET VOLUME 7.2 fL (7.2-11.7); RBC 2.05 Mil/uL (3.80-5.20); RED CELL DISTRIBUTION WIDTH 20.2 % (11.5-14.5); WHITE BLOOD COUNT 13.8 K/uL (4.8-10.8)
[2017-11-28 09:01] LABS: ALB/GLOB RATIO 1.1 (1.0-2.1); ALBUMIN 3.7 g/dL (3.5-5.0); ALT/SGPT 35 U/L (9-52); AST/SGOT 41 U/L (14-36); BLOOD UREA NITROGEN 3 mg/dL (7-17); CALCIUM 8.8 mg/dl (8.6-10.4); GFR AFRICAN-AMERICAN > 60; GFR NON-AFRICAN AMERICAN > 60
[2017-11-28] MEDS: Pantoprazole 40 mg EC Tab PO SCH (10:32)
[2017-11-28] MEDS: Enoxaparin 40 mg Syringe SC SCH (10:32)
[2017-11-28 11:17] LABS: BASO # 0.1 K/uL (0.0-0.2); BASO % 0.9 % (0.0-2.0); EOS # 0.2 K/uL (0.0-0.7); EOS % 1.6 % (0.0-4.0); LYMPH # 5.2 K/uL (1.0-4.3); LYMPH % 38.9 % (20.0-40.0); MONO # 0.7 K/uL (0.0-0.8); MONO % 5.4 % (0.0-10.0); NEUT # 7.1 K/uL (1.8-7.0); NEUT % 53.2 % (50.0-75.0); NRBC % 0.8 % (0.0-2.0)
[2017-11-28] MEDS ORDERED: Potassium Chloride 20 mEq ER Tab PO STA (12:40)
--- NOTE | 2017-11-28 15:48 | CP.PCM.PN ---
Subjective - Date & Time of Evaluation Date of Evaluation: 11/28/17 Time of Evaluation: 08:40 - Subjective Subjective: clinically same Objective - Vital Signs/Intake and Output Vital Signs (last 24 hours): Temp Pulse Resp BP Pulse Ox 98.6 F 83 19 104/73 100 11/28/17 00:32 11/28/17 00:32 11/28/17 00:32 11/28/17 00:32 11/28/17 00:32 Intake and Output: 11/28/17 11/28/17 06:59 18:59 Intake Total 2185 Balance 2185 - Medications Medications: Current Medications Diphenhydramine HCl (Benadryl) 25 mg IVP Q3 PRN PRN Reason: give with morphine Last Admin: 11/28/17 13:45 Dose: 25 mg Enoxaparin Sodium (Lovenox) 40 mg SC DAILY [facility] Last Admin: 11/28/17 10:32 Dose: 40 mg Folic Acid (Folic Acid) 1 mg PO DAILY [facility] Last Admin: 11/28/17 10:32 Dose: 1 mg Sodium Chloride (Sodium Chloride 0.9%) 1,000 mls @ 125 mls/hr IV .Q8H [facility] Last Admin: 11/28/17 07:30 Dose: 125 mls/hr Morphine Sulfate (Morphine) 4 mg IVP Q3 PRN PRN Reason: pain Last Admin: 11/28/17 13:45 Dose: 4 mg Pantoprazole Sodium (Protonix Ec Tab) 40 mg PO DAILY [facility] Last Admin: 11/28/17 10:32 Dose: 40 mg Pneumococcal Polyvalent Vaccine (Pneumovax 23 Vaccine) 0.5 ml IM .ONCE ONE Stop: 11/29/17 10:01 - Labs Labs: 11/28/17 08:40 11/28/17 08:40 PT 13.0 SECONDS (9.7-12.2) H 11/27/17 00:59 INR 1.2 11/27/17 00:59 APTT 34 SECONDS (21-34) 11/27/17 00:59 - Constitutional Appears: Well - Head Exam Head Exam: ATRAUMATIC, NORMAL INSPECTION, NORMOCEPHALIC - Eye Exam Eye Exam: EOMI, Normal appearance, PERRL Pupil Exam: NORMAL ACCOMODATION, PERRL - ENT Exam ENT Exam: Mucous Membranes Moist, Normal Exam - Neck Exam Neck Exam: Full ROM, Normal Inspection. absent: Lymphadenopathy - Respiratory Exam Respiratory Exam: Decreased Breath Sounds - Cardiovascular Exam Cardiovascular Exam: REGULAR RHYTHM, +S1, +S2 - GI/Abdominal Exam GI & Abdominal Exam: Soft, Diminished Bowel Sounds - Rectal Exam Rectal Exam: Deferred
--- NOTE | 2017-11-28 21:39 | CP.PCM.CON ---
History of Present Illness - History of Present Illness History of Present Illness: 27 year old female with a history of sickle cell anemia, admitted with sickle cell pain crisis. The patient reports to worsening joint pain. She reports her pain began to involve her knees and elbows and progressed to her lower back. She feels the pain is consistent with her sickle cell pain and decided to come to the hospital. She denies chest pain and shortness of breath. Past medical history: Sickle cell anemia Past surgical history: None Family history: Parents have sickle trait. Social history: Denies tobacco, alcohol, and illicit drug use. Allergies: NKA Review of systems: All remaining review of systems including HEENT, cardiovascular, respiratory, gastrointestinal, genitourinary, musculoskeletal, dermatologic, neurologic, and psychiatric are negative unless mentioned in the HPI. Past Patient History - Infectious Disease Hx of Infectious Diseases: None - Past Medical History & Family History Past Medical History?: Yes - Past Social History Smoking Status: Never Smoked - CARDIAC Hx Cardiac Disorders: No - PULMONARY Hx Respiratory Disorders: No - NEUROLOGICAL Hx Neurological Disorder: No - HEENT Hx HEENT Problems: No - RENAL Hx Chronic Kidney Disease: No - ENDOCRINE/METABOLIC Hx Endocrine Disorders: No - HEMATOLOGICAL/ONCOLOGICAL Hx Blood Disorders: Yes Hx Anemia: Yes Hx Sickle Cell Disease: Yes - INTEGUMENTARY Hx Dermatological Problems: No - MUSCULOSKELETAL/RHEUMATOLOGICAL Hx Musculoskeletal Disorders: No Hx Falls: No - GASTROINTESTINAL Hx Gastrointestinal Disorders: No - GENITOURINARY/GYNECOLOGICAL Hx Genitourinary Disorders: No - PSYCHIATRIC Hx Psychophysiologic Disorder: No Hx Substance Use: No - SURGICAL HISTORY Hx Surgeries: No - ANESTHESIA Hx Anesthesia: No Hx Anesthesia Reactions: No Hx Malignant Hyperthermia: No Has any member of the family had a problem w/ anesthesia?: No Meds Allergies/Adverse Reactions: Allergies Allergy/AdvReac Type Severity Reaction Status Date / Time No Known Allergies Allergy Verified 11/27/17 00:30 - Medications Medications: Current Medications Diphenhydramine HCl (Benadryl) 25 mg IVP Q3 PRN PRN Reason: give with morphine Last Admin: 11/28/17 13:45 Dose: 25 mg Enoxaparin Sodium (Lovenox) 40 mg SC DAILY [facility] Last Admin: 11/28/17 10:32 Dose: 40 mg Folic Acid (Folic Acid) 1 mg PO DAILY [facility] Last Admin: 11/28/17 10:32 Dose: 1 mg Sodium Chloride (Sodium Chloride 0.9%) 1,000 mls @ 125 mls/hr IV .Q8H [facility] Last Admin: 11/28/17 20:44 Dose: 125 mls/hr Morphine Sulfate (Morphine) 4 mg IVP Q3 PRN PRN Reason: pain Last Admin: 11/28/17 13:45 Dose: 4 mg Ondansetron HCl (Zofran Inj) 4 mg IVP Q8H PRN PRN Reason: Nausea/Vomiting Pantoprazole Sodium (Protonix Ec Tab) 40 mg PO DAILY [facility] Last Admin: 11/28/17 10:32 Dose: 40 mg Pneumococcal Polyvalent Vaccine (Pneumovax 23 Vaccine) 0.5 ml IM .ONCE ONE Stop: 11/29/17 10:01 Physical Exam - Head Exam Head Exam: ATRAUMATIC - Eye Exam Eye Exam: Normal appearance - ENT Exam ENT Exam: Mucous Membranes Dry - Respiratory Exam Respiratory Exam: NORMAL BREATHING PATTERN - Cardiovascular Exam Cardiovascular Exam: +S1, +S2 - GI/Abdominal Exam GI & Abdominal Exam: Normal Bowel Sounds - Extremities Exam Extremities exam: Positive for: normal inspection - Neurological Exam Neurological exam: Oriented x3 - Psychiatric Exam Psychiatric exam: Normal Affect, Normal Mood - Skin Skin Exam: Warm Results - Vital Signs Recent Vital Signs: Last Vital Signs Temp 98.1 F 11/28/17 16:00 Pulse 83 11/28/17 16:00 Resp 20 11/28/17 16:00 BP 113/70 11/28/17 16:00 Pulse Ox 100 11/28/17 16:00 - Labs Result Diagrams: 11/28/17 08:40 11/28/17 08:40 Labs: Laboratory Results - last 24 hr 11/27/17 11/27/17 11/28/17 00:59 02:36 08:40 WBC 13.8 H RBC 2.05 L Hgb 6.6 L Hct 18.3 L MCV 89.4 MCH 32.4 H MCHC 36.2 RDW 20.2 H Plt Count 506 H MPV 7.2 Neut % (Auto) 53.2 Lymph % (Auto) 38.9 Person % (Auto) 5.4 Eos % (Auto) 1.6 Baso % (Auto) 0.9 Neut # (Auto) 7.1 H Lymph # (Auto) 5.2 H Person # (Auto) 0.7 Eos # (Auto) 0.2 Baso # (Auto) 0.1 Hemoglobinopathy Red Blood Count 2.36 L Hemoglobinopathy Hct 22.1 L Hemoglobinopathy Hgb 7.2 L Hemoglobinopathy MCV 93.5 Hemoglobinopathy MCH 30.7 Hemoglobinopathy RDW 20.2 H Sodium Potassium Chloride Carbon Dioxide Anion Gap BUN Creatinine Est GFR ( Amer) Est GFR (Non-Af Amer) Random Glucose Calcium Total Bilirubin AST ALT Alkaline Phosphatase Total Protein Albumin Globulin Albumin/Globulin Ratio Blood Type O POSITIVE Antibody Screen Positive Antibody Identification Anti S 11/28/17 08:40 WBC RBC Hgb Hct MCV MCH MCHC RDW Plt Count MPV Neut % (Auto) Lymph % (Auto) Person % (Auto) Eos % (Auto) Baso % (Auto) Neut # (Auto) Lymph # (Auto) Person # (Auto) Eos # (Auto) Baso # (Auto) Hemoglobinopathy Red Blood Count Hemoglobinopathy Hct Hemoglobinopathy Hgb Hemoglobinopathy MCV Hemoglobinopathy MCH Hemoglobinopathy RDW Sodium 143 Potassium 3.4 L Chloride 106 Carbon Dioxide 27 Anion Gap 13 BUN 3 L Creatinine 0.4 L Est GFR ( Amer) > 60 Est GFR (Non-Af Amer) > 60 Random Glucose 85 Calcium 8.8 Total Bilirubin 1.4 H AST 41 H D ALT 35 Alkaline Phosphatase 51 Total Protein 7.1 Albumin 3.7 Globulin 3.3 Albumin/Globulin Ratio 1.1 Blood Type Antibody Screen Antibody Identification Assessment & Plan (1) Sickle cell pain crisis Assessment and Plan: IV fluids, pain meds, 02 via NC, folic acid no current transfusion indication Status: Acute (2) Leukocytosis Assessment and Plan: likely reactive to sickle cell anemia Status: Acute (3) Sickle cell anemia Assessment and Plan: outpatient folic acid and hydrea Thank you for this interesting consult. Status: Acute
--- NOTE | 2017-11-28 21:40 | CP.PCM.PN ---
Subjective - Date & Time of Evaluation Date of Evaluation: 11/28/17 Time of Evaluation: 17:00 - Subjective Subjective: Has worsening pain. Objective - Vital Signs/Intake and Output Vital Signs (last 24 hours): Temp Pulse Resp BP Pulse Ox 98.1 F 83 20 113/70 100 11/28/17 16:00 11/28/17 16:00 11/28/17 16:00 11/28/17 16:00 11/28/17 16:00 Intake and Output: 11/28/17 11/29/17 18:59 06:59 Intake Total 1300 Balance 1300 - Medications Medications: Current Medications Diphenhydramine HCl (Benadryl) 25 mg IVP Q3 PRN PRN Reason: give with morphine Last Admin: 11/28/17 13:45 Dose: 25 mg Enoxaparin Sodium (Lovenox) 40 mg SC DAILY [facility] Last Admin: 11/28/17 10:32 Dose: 40 mg Folic Acid (Folic Acid) 1 mg PO DAILY [facility] Last Admin: 11/28/17 10:32 Dose: 1 mg Sodium Chloride (Sodium Chloride 0.9%) 1,000 mls @ 125 mls/hr IV .Q8H [facility] Last Admin: 11/28/17 20:44 Dose: 125 mls/hr Morphine Sulfate (Morphine) 4 mg IVP Q3 PRN PRN Reason: pain Last Admin: 11/28/17 13:45 Dose: 4 mg Ondansetron HCl (Zofran Inj) 4 mg IVP Q8H PRN PRN Reason: Nausea/Vomiting Pantoprazole Sodium (Protonix Ec Tab) 40 mg PO DAILY [facility] Last Admin: 11/28/17 10:32 Dose: 40 mg Pneumococcal Polyvalent Vaccine (Pneumovax 23 Vaccine) 0.5 ml IM .ONCE ONE Stop: 11/29/17 10:01 - Labs Labs: 11/28/17 08:40 11/28/17 08:40 PT 13.0 SECONDS (9.7-12.2) H 11/27/17 00:59 INR 1.2 11/27/17 00:59 APTT 34 SECONDS (21-34) 11/27/17 00:59 - Head Exam Head Exam: ATRAUMATIC - Eye Exam Eye Exam: Normal appearance - ENT Exam ENT Exam: Mucous Membranes Dry - Respiratory Exam Respiratory Exam: NORMAL BREATHING PATTERN - Cardiovascular Exam Cardiovascular Exam: +S1, +S2 - GI/Abdominal Exam GI & Abdominal Exam: Normal Bowel Sounds - Extremities Exam Extremities Exam: Normal Inspection - Neurological Exam Neurological Exam: Oriented x3 - Psychiatric Exam Psychiatric exam: Normal Affect, Normal Mood - Skin Skin Exam: Warm Assessment and Plan (1) Sickle cell pain crisis Assessment & Plan: IV fluids, folic acid, pain meds, 02 via NC 1U PRBC today Status: Acute (2) Leukocytosis Assessment & Plan: reactive to sickle cell afebrile Status: Acute (3) Sickle cell anemia Assessment & Plan: folic acid and hydrea Status: Acute
[2017-11-29 00:43] VITALS: RESP 20
[2017-11-29 07:37] LABS: BASO # 0.2 K/uL (0.0-0.2); BASO % 1.1 % (0.0-2.0); EOS # 0.5 K/uL (0.0-0.7); HEMOGLOBIN 7.9 g/dL (11.0-16.0); LYMPH # 5.5 K/uL (1.0-4.3); LYMPH % 36.1 % (20.0-40.0); MEAN CORPUSCULAR HEMOGLOBIN 31.3 pg (27.0-31.0); MEAN CORPUSCULAR HGB CONC 35.2 g/dL (33.0-37.0); MEAN PLATELET VOLUME 7.4 fL (7.2-11.7); MONO % 6.8 % (0.0-10.0); NRBC % 0.6 % (0.0-2.0); RBC 2.52 Mil/uL (3.80-5.20); RED CELL DISTRIBUTION WIDTH 18.8 % (11.5-14.5); WHITE BLOOD COUNT 15.2 K/uL (4.8-10.8)
--- NOTE | 2017-11-29 07:53 | CP.PCM.CON ---
<Shannan Abrams - Last Filed: 11/29/17 10:51> History of Present Illness - History of Present Illness History of Present Illness: GI Fellow PGY4 Consult Note This is a 27yo female with PMHx significant for sickle cell anemia with episode of pain crisis who presented to the ED with joint pain. Pt reports her pain is a little better this morning. Pt was seen by Hematology and pt is on hydrea as an outpt. Pt initially was not transfused blood with Hgb 7.3 but that trended down to 6.6 and she was given 1U PRBCs. This morning her Hgb 7.3. There is no active bleeding reported. GI was consulted for nausea and vomiting. Pt reports she vomited after eating chicken salad for lunch yesterday and it did not sit well with her. However she reports after nausea medicine she was able to eat all her food with no further nausea or vomiting. No hematemesis no GERD. She denies any issues with N/V at home. No prior EGD or colonoscopy. Pt's last BM was a few days ago but at home she has a BM twice a day with no issues of constipation or rectal bleeding. Pt denies any abdominal pain at this time. ROS: A 12pt ROS was negative except as above. PMHx: See HPI PSHx: Denies FHx: Parents - Sickle cell trait SHx: Denies tobacco, EtOH, illicit drug use Endo: No prior endoscopic evaluations Past Patient History - Infectious Disease Hx of Infectious Diseases: None - Past Medical History & Family History Past Medical History?: Yes - Past Social History Smoking Status: Never Smoked - CARDIAC Hx Cardiac Disorders: No - PULMONARY Hx Respiratory Disorders: No - NEUROLOGICAL Hx Neurological Disorder: No - HEENT Hx HEENT Problems: No - RENAL Hx Chronic Kidney Disease: No - ENDOCRINE/METABOLIC Hx Endocrine Disorders: No - HEMATOLOGICAL/ONCOLOGICAL Hx Blood Disorders: Yes Hx Anemia: Yes Hx Sickle Cell Disease: Yes - INTEGUMENTARY Hx Dermatological Problems: No - MUSCULOSKELETAL/RHEUMATOLOGICAL Hx Musculoskeletal Disorders: No Hx Falls: No - GASTROINTESTINAL Hx Gastrointestinal Disorders: No - GENITOURINARY/GYNECOLOGICAL Hx Genitourinary Disorders: No - PSYCHIATRIC Hx Psychophysiologic Disorder: No Hx Substance Use: No - SURGICAL HISTORY Hx Surgeries: No - ANESTHESIA Hx Anesthesia: No Hx Anesthesia Reactions: No Hx Malignant Hyperthermia: No Has any member of the family had a problem w/ anesthesia?: No Meds Allergies/Adverse Reactions: Allergies Allergy/AdvReac Type Severity Reaction Status Date / Time No Known Allergies Allergy Verified 11/27/17 00:30 - Medications Medications: Current Medications Diphenhydramine HCl (Benadryl) 25 mg IVP Q3 PRN PRN Reason: give with morphine Last Admin: 11/28/17 21:57 Dose: 25 mg Enoxaparin Sodium (Lovenox) 40 mg SC DAILY [facility] Last Admin: 11/28/17 10:32 Dose: 40 mg Folic Acid (Folic Acid) 1 mg PO DAILY [facility] Last Admin: 11/28/17 10:32 Dose: 1 mg Sodium Chloride (Sodium Chloride 0.9%) 1,000 mls @ 125 mls/hr IV .Q8H [facility] Last Admin: 11/28/17 22:28 Dose: Not Given Morphine Sulfate (Morphine) 4 mg IVP Q3 PRN PRN Reason: pain Last Admin: 11/28/17 21:58 Dose: 4 mg Ondansetron HCl (Zofran Inj) 4 mg IVP Q8H PRN PRN Reason: Nausea/Vomiting Pantoprazole Sodium (Protonix Ec Tab) 40 mg PO DAILY [facility] Last Admin: 11/28/17 10:32 Dose: 40 mg Pneumococcal Polyvalent Vaccine (Pneumovax 23 Vaccine) 0.5 ml IM .ONCE ONE Stop: 11/29/17 10:01 Physical Exam - Constitutional Appears: Non-toxic, No Acute Distress - Head Exam Head Exam: ATRAUMATIC, NORMAL INSPECTION, NORMOCEPHALIC - Eye Exam Eye Exam: EOMI, Normal appearance, PERRL Pupil Exam: PERRL - ENT Exam ENT Exam: Mucous Membranes Moist, Normal Exam - Neck Exam Neck exam: Positive for: Full Rom, Normal Inspection - Respiratory Exam Respiratory Exam: Clear to Auscultation Bilateral, NORMAL BREATHING PATTERN - Cardiovascular Exam Cardiovascular Exam: RRR, +S1, +S2 - GI/Abdominal Exam GI & Abdominal Exam: Normal Bowel Sounds, Soft. absent: Distended, Firm, Guarding, Organomegaly, Tenderness - Rectal Exam Rectal Exam: Deferred - Extremities Exam Extremities exam: Positive for: full ROM, normal inspection - Back Exam Back exam: NORMAL INSPECTION - Neurological Exam Neurological exam: Alert, Oriented x3 - Psychiatric Exam Psychiatric exam: Normal Affect, Normal Mood - Skin Skin Exam: Dry, Intact, Normal Color, Warm Results - Vital Signs Recent Vital Signs: Last Vital Signs Temp 98.1 F 11/29/17 02:40 Pulse 74 11/29/17 02:40 Resp 20 11/29/17 02:40 BP 116/72 11/29/17 02:40 Pulse Ox 99 11/28/17 23:53 - Labs Result Diagrams: 11/29/17 07:09 11/28/17 08:40 Labs: Laboratory Results - last 24 hr 11/27/17 11/28/17 11/28/17 02:36 08:40 08:40 WBC 13.8 H RBC 2.05 L Hgb 6.6 L Hct 18.3 L MCV 89.4 MCH 32.4 H MCHC 36.2 RDW 20.2 H Plt Count 506 H MPV 7.2 Neut % (Auto) 53.2 Lymph % (Auto) 38.9 [place] % (Auto) 5.4 Eos % (Auto) 1.6 Baso % (Auto) 0.9 Neut # (Auto) 7.1 H Lymph # (Auto) 5.2 H [place] # (Auto) 0.7 Eos # (Auto) 0.2 Baso # (Auto) 0.1 Sodium 143 Potassium 3.4 L Chloride 106 Carbon Dioxide 27 Anion Gap 13 BUN 3 L Creatinine 0.4 L Est GFR ( Amer) > 60 Est GFR (Non-Af Amer) > 60 Random Glucose 85 Calcium 8.8 Total Bilirubin 1.4 H AST 41 H D ALT 35 Alkaline Phosphatase 51 Total Protein 7.1 Albumin 3.7 Globulin 3.3 Albumin/Globulin Ratio 1.1 Blood Type O POSITIVE Antibody Screen Positive Antibody Identification Anti S Antigen Identification S Antigen - NEGATIVE 11/29/17 07:09 WBC 15.2 H RBC 2.52 L Hgb 7.9 L Hct 22.4 L MCV 89.0 MCH 31.3 H MCHC 35.2 RDW 18.8 H Plt Count 481 H MPV 7.4 Neut % (Auto) 53.0 Lymph % (Auto) 36.1 [place] % (Auto) 6.8 Eos % (Auto) 3.0 Baso % (Auto) 1.1 Neut # (Auto) 8.0 H Lymph # (Auto) 5.5 H [place] # (Auto) 1.0 H Eos # (Auto) 0.5 Baso # (Auto) 0.2 Sodium Potassium Chloride Carbon Dioxide Anion Gap BUN Creatinine Est GFR ( Amer) Est GFR (Non-Af Amer) Random Glucose Calcium Total Bilirubin AST ALT Alkaline Phosphatase Total Protein Albumin Globulin Albumin/Globulin Ratio Blood Type Antibody Screen Antibody Identification Antigen Identification Assessment & Plan - Assessment and Plan (Free Text) Assessment: This is a 27yo female with PMHx significant for sickle cell anemia with episode of pain crisis who presented to the ED with joint pain. 1. Sickle Cell Crisis 2. Anemia 3. Constipation 4. Nausea and vomiting-resolved Plan: -Continue supportive care with pain control -No further nausea and vomiting, maybe due to food poising -Continue Anti-emetics prn -Tolerating diet -PPI daily -Bowel regimen with miralax daily while on pain pain medication -No plan for GI intervention at this time -Please call with any questions or concerns <Carrington Stack - Last Filed: 11/29/17 11:57> Meds - Medications Medications: Current Medications Diphenhydramine HCl (Benadryl) 25 mg IVP Q3 PRN PRN Reason: give with morphine Last Admin: 11/28/17 21:57 Dose: 25 mg Enoxaparin Sodium (Lovenox) 40 mg SC DAILY [facility] Last Admin: 11/29/17 10:32 Dose: 40 mg Folic Acid (Folic Acid) 1 mg PO DAILY [facility] Last Admin: 11/29/17 10:32 Dose: 1 mg Sodium Chloride (Sodium Chloride 0.9%) 1,000 mls @ 125 mls/hr IV .Q8H [facility] Last Admin: 11/29/17 10:33 Dose: Not Given Morphine Sulfate (Morphine) 4 mg IVP Q3 PRN PRN Reason: pain Last Admin: 11/28/17 21:58 Dose: 4 mg Ondansetron HCl (Zofran Inj) 4 mg IVP Q8H PRN PRN Reason: Nausea/Vomiting Pantoprazole Sodium (Protonix Ec Tab) 40 mg PO DAILY [facility] Last Admin: 11/29/17 10:32 Dose: 40 mg Polyethylene Glycol (Miralax) 17 gm PO DAILY [facility] Last Admin: 11/29/17 10:48 Dose: 17 gm Results - Vital Signs Recent Vital Signs: Last Vital Signs Temp 98 F 11/29/17 07:46 Pulse 70 11/29/17 07:46 Resp 20 11/29/17 07:46 BP 112/66 11/29/17 07:46 Pulse Ox 100 11/29/17 07:46 - Labs Result Diagrams: 11/29/17 07:09 11/28/17 08:40 Labs: Laboratory Results - last 24 hr 11/27/17 11/29/17 02:36 07:09 WBC 15.2 H RBC 2.52 L Hgb 7.9 L Hct 22.4 L MCV 89.0 MCH 31.3 H MCHC 35.2 RDW 18.8 H Plt Count 481 H MPV 7.4 Neut % (Auto) 53.0 Lymph % (Auto) 36.1 [place] % (Auto) 6.8 Eos % (Auto) 3.0 Baso % (Auto) 1.1 Neut # (Auto) 8.0 H Lymph # (Auto) 5.5 H [place] # (Auto) 1.0 H Eos # (Auto) 0.5 Baso # (Auto) 0.2 Blood Type O POSITIVE Antibody Screen Positive Antibody Identification Anti S Antigen Identification S Antigen - NEGATIVE Attending/Attestation - Attestation I have personally seen and examined this patient.: Yes I have fully participated in the care of the patient.: Yes I have reviewed all pertinent clinical information: Yes Notes (Text): 11/29/17 11:52 I have seen and examined patient with GI fellow. Agree with above documentation with the following additions. In brief, this is a 27 year old female with history of sickle cell disease who presented to hospital with complaint of diffuse whole body joint pain, currently being treated for sickle crisis. GI called for evaluation of nausea and vomiting which began suddenly yesterday after eating chicken salad while in hospital. Following consumption, she developed multiple episodes of nausea and non-bloody emesis. She denies abdominal pain, fever/chills, sick contacts, or recent travel. She was able to tolerate dinner last night and breakfast this morning without any further episodes of vomiting. No prior endoscopic evaluation. Sickle cell disease, crisis Nausea, vomiting - resolved, likely secondary to acute gastroenteritis - Diet as tolerated - Anti-emetic therapy PRN - Continue with IVF hydration therapy, treatment of sickle crisis as per medical team - Suggest use of oral H2 elizabeth therapy PRN - No further planned GI intervention, will sign off case. Please reconsult as necessary, thank you.
--- NOTE | 2017-11-29 08:56 | CP.PCM.PN ---
Subjective - Date & Time of Evaluation Date of Evaluation: 11/29/17 Time of Evaluation: 10:02 - Subjective Subjective: PGY 3 Medicine Note- Dr. Nehemias Phipps's service Patient seen and examined in no apparent acute distress. Patient states that she had an upset stomach yesterday after eating some salad. She states that her vomiting resolved overnight. She admits to some pain that radiates to her back- however she does not feel the need to ask for pain medications. She denies abdominal pain, nausea, vomiting or bowel changes. Objective - Vital Signs/Intake and Output Vital Signs (last 24 hours): Temp Pulse Resp BP Pulse Ox 98 F 70 20 112/66 100 11/29/17 07:46 11/29/17 07:46 11/29/17 07:46 11/29/17 07:46 11/29/17 07:46 Intake and Output: 11/29/17 11/29/17 06:59 18:59 Intake Total 1725 1275 Balance 1725 1275 - Medications Medications: Current Medications Diphenhydramine HCl (Benadryl) 25 mg IVP Q3 PRN PRN Reason: give with morphine Last Admin: 11/28/17 21:57 Dose: 25 mg Enoxaparin Sodium (Lovenox) 40 mg SC DAILY [facility] Last Admin: 11/28/17 10:32 Dose: 40 mg Folic Acid (Folic Acid) 1 mg PO DAILY [facility] Last Admin: 11/28/17 10:32 Dose: 1 mg Sodium Chloride (Sodium Chloride 0.9%) 1,000 mls @ 125 mls/hr IV .Q8H [facility] Last Admin: 11/28/17 22:28 Dose: Not Given Morphine Sulfate (Morphine) 4 mg IVP Q3 PRN PRN Reason: pain Last Admin: 11/28/17 21:58 Dose: 4 mg Ondansetron HCl (Zofran Inj) 4 mg IVP Q8H PRN PRN Reason: Nausea/Vomiting Pantoprazole Sodium (Protonix Ec Tab) 40 mg PO DAILY [facility] Last Admin: 11/28/17 10:32 Dose: 40 mg Pneumococcal Polyvalent Vaccine (Pneumovax 23 Vaccine) 0.5 ml IM .ONCE ONE Stop: 11/29/17 10:01 Polyethylene Glycol (Miralax) 17 gm PO DAILY [facility] - Labs Labs: 11/29/17 07:09 11/28/17 08:40 PT 13.0 SECONDS (9.7-12.2) H 11/27/17 00:59 INR 1.2 11/27/17 00:59 APTT 34 SECONDS (21-34) 11/27/17 00:59 - Constitutional Appears: Non-toxic, No Acute Distress - Head Exam Head Exam: ATRAUMATIC, NORMAL INSPECTION - Eye Exam Eye Exam: EOMI - ENT Exam ENT Exam: Mucous Membranes Moist - Neck Exam Neck Exam: Full ROM - Respiratory Exam Respiratory Exam: NORMAL BREATHING PATTERN - Cardiovascular Exam Cardiovascular Exam: +S1, +S2 - GI/Abdominal Exam GI & Abdominal Exam: Soft - Extremities Exam Extremities Exam: Full ROM - Back Exam Back Exam: Full ROM - Neurological Exam Neurological Exam: Alert, Awake, Oriented x3 - Psychiatric Exam Psychiatric exam: Normal Affect, Normal Mood - Skin Skin Exam: Warm Assessment and Plan (1) Sickle cell anemia Assessment & Plan: Continued IV fluids and pain control Oxygen as needed s/p 1 unit PRBC- Hgb stable Folic acid and Hydroxyurea supplementation Status: Acute (2) Leukocytosis Assessment & Plan: Likely secondarily due to inflammatory presentation as well as possibly bone marrow over-stimulation Status: Acute (3) Gastroenteritis Assessment & Plan: Resolving Fluids, [place] diet or BRAT diet. Avoid exacerbating foods Continue to monitor Status: Acute (4) Prophylactic measure Assessment & Plan: PPI daily Lovenox daily Discharge Instructions Patient is medically stable for discharge home. Patient to follow up with primary medical doctor within one week. Patient to follow up with Dr. Moss's office within two weeks for follow up care. Patient to continue home medications as indicated. If symptoms return, go to the emergency room. Instructions were explained to patient who is aware. Status: Acute
[2017-11-29] MEDS ORDERED: POLYETHYLENE GLYCOL 3350 17 GM/Dose PACKET PO SCH (10:00)
[2017-11-29] MEDS ORDERED: Pneumococcal 23-Valent Vaccine IM ONE (10:00)
[2017-11-29] MEDS: Pantoprazole 40 mg EC Tab PO SCH (10:32)
[2017-11-29] MEDS: Enoxaparin 40 mg Syringe SC SCH (10:32)
[2017-11-29] MEDS: Sodium Chloride 0.9% 1,000 ML IV SCH ×2 (10:33→15:59)
[2017-11-29 16:21] VITALS: BP 131/76; PULSE 76; TEMP 98.4; O2SAT 95
[2017-12-01 20:46] LABS: HEMOGLOBIN A2 5.7 Percent (1.8-3.5); HEMOGLOBIN S 84.2 Percent (0.0-0.0)
== END 2017-11-29 16:56 | disposition home or self-care (01) | DRG 395 ==
LOC: C.ER 00:17 → C.3T 01:55
PROVIDERS: ADMIT Internal Medicine Nephrology; ATTEND Internal Medicine Nephrology
PROC: 30233N1 Transfusion of Nonautologous Red Blood Cells into Peripheral Vein, Percutaneous Approach (ICD-10-PCS; principal; 2017-11-28)
DX: D57.00 Hb-SS disease with crisis, unspecified (principal); K52.9 Noninfective gastroenteritis and colitis, unspecified; D72.829 Elevated white blood cell count, unspecified; K59.00 Constipation, unspecified; Z83.2 Family history of diseases of the blood and blood-forming organs and certain disorders involving the immune mechanism

== ENCOUNTER 2017-11-30 17:33 | Emergency (ER) | payer MEDICAID ==
[2017-11-30 18:12] VITALS: BP 122/78; PULSE 78; RESP 18; TEMP 98.8; O2SAT 99; BMI 16.6
--- NOTE | 2017-11-30 19:25 | C.PDOC ---
History Of Present Illness Pt felt a sensation in her throat that is better now. Time Seen by Provider: 11/30/17 18:26 Chief Complaint (Nursing): ENT Problem History Per: Patient, Family Onset/Duration Of Symptoms: Hrs (Just POSTING SPECIALIST) Current Symptoms Are (Timing): Better Severity: Moderate Past Medical History Reviewed: Historical Data, Nursing Documentation, Vital Signs Vital Signs: Last Vital Signs Temp 98.8 F 11/30/17 18:12 Pulse 78 11/30/17 18:12 Resp 18 11/30/17 18:12 BP 122/78 11/30/17 18:12 Pulse Ox 99 11/30/17 18:12 - Medical History PMH: Anemia, Sickle Cell Disease - [facility] Procedures FLUOROSCOPY OF SUPERIOR VENA CAVA, GUIDANCE (11/02/16) INSERTION OF INFUSION DEV INTO SUP VENA CAVA, PERC APPROACH (11/02/16) TRANSFUSE NONAUT RED BLOOD CELLS IN PERIPH VEIN, PERC (12/22/16) Family History: States: Unknown Family Hx - Social History Hx Tobacco Use: No Hx Alcohol Use: No Hx Substance Use: No - Immunization History Hx Tetanus Toxoid Vaccination: No Hx Influenza Vaccination: No Hx Pneumococcal Vaccination: No Review Of Systems Except As Marked, All Systems Reviewed And Found Negative. Constitutional: Negative for: Fever, Weakness Eyes: Negative for: Vision Change ENT: Positive for: Throat Pain (?) Cardiovascular: Negative for: Chest Pain Respiratory: Negative for: Shortness of Breath Gastrointestinal: Negative for: Vomiting, Abdominal Pain Musculoskeletal: Negative for: Neck Pain Skin: Negative for: Rash Neurological: Negative for: Weakness, Numbness, Change in Speech, Seizures Physical Exam - Physical Exam Appears: Non-toxic, No Acute Distress Skin: Warm, Dry Head: Atraumatic, Normacephalic Eye(s): bilateral: PERRL, EOMI Oral Mucosa: Moist, No Drooling, No Trismus Tongue: Normal Appearing Throat: Normal, No Erythema, No Exudate, No Drooling, No Mass Neck: Normal ROM, Supple Lymphatic: No Adenopathy Cardiovascular: Rhythm Regular Respiratory: Normal Breath Sounds, No Accessory Muscle Use, No Stridor Gastrointestinal/Abdominal: Soft, No Tenderness Extremity: Normal ROM Neurological/Psych: Oriented x3, Normal Speech, Normal Cognition, Normal Cranial Nerves, No Cerebellar Signs, Normal Motor, Normal Sensation Gait: Steady ED Course And Treatment O2 Sat by Pulse Oximetry: 99 Pulse Ox Interpretation: Normal Progress Note: Pt tolerating PO. Pt feels better and wants to go home. Reassessment Condition: Improved Disposition Counseled Patient/Family Regarding: Studies Performed, Diagnosis, Need For Followup - Disposition Referrals: Heike Phipps MD [Medical Doctor] - Disposition: HOME/ ROUTINE Disposition Time: 19:25 Condition: IMPROVED Additional Instructions: Follow up with your doctor. Return to the ER if you develop fever, trouble breathing or swallowing, worsening of symptoms or if you have any other concerns. Forms: [employer] (Togolese), General Discharge Instructions - Clinical Impression Clinical Impression: Throat symptom
== END 2017-11-30 19:34 | disposition home or self-care (01) ==
LOC: C.ER 17:33
DX: R09.89 Other specified symptoms and signs involving the circulatory and respiratory systems (principal)